=== PATIENT | female | born 1990 | race Caucasian/White ===

== ENCOUNTER 2017-12-11 06:14 | Emergency (ER) | payer OTHER, SELFPAY | END 2017-12-11 10:06 | disposition home or self-care (01) | PROVIDERS: Emergency Provider Emergency Medicine; Family Provider Registered Nurse Diabetes Educator; PCP Registered Nurse Diabetes Educator; Visit Provider Emergency Medicine | DX: R10.9 Unspecified abdominal pain (principal); N83.201 Unspecified ovarian cyst, right side | CPT/HCPCS: 74010; 74019; 76856; 76857; 80053; 83690; 84703; 85025; 85610; 85730; 96361; 96374; 96375; 96376; 99058; 99284; J0780; J1200; J1885; J2405 ==

== ENCOUNTER 2018-03-09 02:13 | Emergency (ER) | payer OTHER, SELFPAY ==
[2018-03-09 02:52] VITALS: BP 104/63; PULSE 70; RESP 20; TEMP 36.8; O2SAT 100; BMI 21.9
--- NOTE | 2018-03-09 04:03 | DI.US.S_ITS ---
PROCEDURE: US PELVIC COMPLETE INDICATIONS: Severe pelvic pain TECHNIQUE: Real-time scanning was performed of the pelvic organs, with image documentation. Additional endovaginal scanning was necessary due to incomplete visualization of the adnexal and endometrial structures by transabdominal scanning. COMPARISON: [facility], CT, ABDOMEN/PELVIS WITH CONTRAST, 05/07/2017, 16:52. [facility], US, PELVIC COMPLETE, 12/11/2017, 8:54. FINDINGS: Transabdominal scanning: Limited scanning through the kidneys shows no hydronephrosis. No pathologic free abdominal or pelvic fluid. There is diffuse hepatic fatty infiltration. Endovaginal scanning: Uterus: Uterus is normal in size at 7.6 x 3.5 x 4.7 cm. The endometrium measures 2.7 mm in combined thickness. Ovaries: Ovaries are normal in size and echotexture. Right ovary measures 2.9 x 1.8 x 2.5 cm. Left ovary measures 2.6 x 2.4 x 2.4 cm. Doppler ultrasound demonstrate normal vascularity tube both ovaries. IMPRESSION: 1. Normal uterus and ovaries. No ultrasound findings to explain severe pelvic pain. 2. Hepatic steatosis. No significant discrepancy with the assistant casino shift manager radiology preliminary report. Dictated by: John Carlson M.D. on 03/09/2018 at 9:25 Approved by: John Carlson M.D. on 03/09/2018 at 9:28
--- NOTE | 2018-03-09 04:03 | ED_ITS ---
HPI - General Chief complaint: Urogenital-Female Stated complaint: ABDOMINAL PAIN, VOMITING Time Seen by Provider: 03/09/18 04:02 Source: patient Mode of arrival: ambulatory Limitations: no limitations History of Present Illness HPI Narrative: The patient arrives with lower abdominal pain, and nausea and vomiting. She was well yesterday. She and her had intercourse just the morning. Yesterday about noon she developed lower abdominal cramping. The discomfort has increased with time. She now has severe, clutching lower abdominal pain with associated nausea and vomiting. She has no abnormal bowel movements. She has no fever or chills. She has had no vaginal bleeding. She denies dysuria. Her LMP ended 1 day ago. Related Data Home Medications Medication Instructions Recorded Confirmed trazodone 100 PO HS #1 03/27/17 Previous Rx's Medication Instructions Recorded ondansetron [Zofran ODT] 4 mg SUBLINGUAL Q6HP PRN #10 odt 05/07/17 ondansetron [Zofran ODT] 4 mg SUBLINGUAL Q6HP PRN #20 odt 06/09/17 promethazine [Phenergan] 25 mg R Q6HP PRN #20 06/09/17 ondansetron [Zofran ODT] 4 mg SUBLINGUAL Q6HP PRN #10 odt 07/18/17 ondansetron [Zofran ODT] 4 mg SUBLINGUAL Q4HP PRN #15 odt 12/02/17 prochlorperazine maleate 10 mg PO Q8HP PRN #10 tab 12/11/17 [Compazine] Allergies Allergy/AdvReac Type Severity Reaction Status Date / Time metoclopramide Allergy Mild RASH/HIVES Verified 03/09/18 04:23 [METOCLOPRAMIDE] hydrocodone [HYDROCODONE] AdvReac Unknown VOMITING Verified 03/09/18 04:23 Review of Systems Constitutional Denies chills, Denies fever(s), Denies lethargy and Denies weakness Cardiovascular Denies chest pain, Denies irregular heart rhythm, Denies lightheadedness, Denies palpitations, Denies dyspnea, Denies dyspnea on exertion and Denies orthopnea Respiratory Denies cough, Denies dyspnea, Denies dyspnea on exertion and Denies wheezing Gastrointestinal Gastrointestinal: Reports abdominal pain, Denies melena, Denies bloating and Reports vomiting Genitourinary Denies dysmenorrhea, Denies dysuria, Reports pelvic pain and Denies urinary urgency Musculoskeletal Denies back pain Neurologic Denies weakness Endocrine Denies palpitations Allergic/Immunologic Denies wheezing PMFSH - Past Medical History Medical history: Reports no medical history Surgical history: Reports no surgical history Psychiatric history: Reports no psych history Family history: Reports no significant family history Exam Initial Vital Signs Initial Vital Signs: Vital Signs Temperature 98.3 F 03/09/18 02:52 Pulse Rate 70 03/09/18 02:52 Respiratory Rate 20 03/09/18 02:52 Blood Pressure 104/63 03/09/18 02:52 Pulse Oximetry 100 03/09/18 02:52 Const General: cooperative, healthy appearing and well developed Nutritional Appearance: well nourished Orientation: alert, awake, oriented x3 and not confused Chest Chest: normal inspection of the chest Resp Effort & Inspection: normal respiratory effort, able to speak in complete sentences, no respiratory distress and no use of accessory muscles Auscultation: clear to auscultation bilaterally, no rales, no rhonchi and no wheezes Cardio Rate: regular rate Rhythm: regular rhythm Heart Sounds: no click, no gallops, no murmurs and no rubs Pulses: normal peripheral pulses GI Inspection: normal to inspection, no edema and non-distended Palpation: No hepatomegaly and tender (Tender in the suprapubic region with guarding, no rebound. No right lower quadrant tenderness.) Back/Spine/Pelvis Back: No CVA tenderness Skin General: no rashes or lesions noted Neuro General: alert, oriented x3, gait normal and no focal motor deficits Speech: speech normal Course Orders Ordered: ED Orders 03/09/18 04:03 pelvic complete Stat 03/09/18 04:45 Complete Blood Count AUTO DIFF Stat Comprehensive Metabolic Panel Stat Discontinued Medications Sodium Chloride (Normal Saline 0.9%) 1,000 mls @ 1,000 mls/hr IV BOLUS ONE Stop: 03/09/18 05:02 Last Infusion: 03/09/18 05:46 Dose: 0 mls/hr Admin: 03/09/18 04:39 Dose: 1,000 mls/hr Ketorolac Tromethamine (Toradol) 30 mg IV NOW ONE Stop: 03/09/18 04:04 Last Admin: 03/09/18 04:39 Dose: 30 mg Ondansetron HCl (Zofran) 4 mg IV NOW ONE Stop: 03/09/18 04:04 Last Admin: 03/09/18 04:39 Dose: 4 mg Vital Signs - 8 hr 03/09/18 02:52 03/09/18 04:20 Temperature 98.3 F Pulse Rate 70 81 Respiratory Rate 20 Blood Pressure 104/63 Blood Pressure [Left Arm] 106/50 L Pulse Oximetry 100 100 MDM - OB/Uterine Contractions Lab Data Result diagrams: 03/09/18 04:45 03/09/18 04:45 Lab Results 03/09/18 03/09/18 Range/Units 04:45 04:45 WBC 3.6 L (4.5-11.0) X10^3/uL RBC 4.38 (4.0-5.2) X10^6/uL Hgb 12.0 (12.0-16.0) g/dL Hct 36.0 (36-46) % MCV 82.3 (80-100) fL MCH 27.4 (26-34) PG MCHC 33.3 (30-36) % RDW 16.4 H (11.6-14.8) % Plt Count 216 (150-400) X10^3/uL Neut % (Auto) 68.6 (50-75) % Lymph % (Auto) 18.6 L (25-40) % [place] % (Auto) 10.7 (3-14) % Eos % (Auto) 0.9 L (2-4) % Baso % (Auto) 1.2 (0-2) % Neut # (Auto) 2500 L (2543-5377) /uL Sodium 139 (137-145) mmol/L Potassium 3.8 (3.4-5.1) mmol/L Chloride 98 (98-107) mmol/L Carbon Dioxide 30 (22-32) mmol/L BUN 9 (7-17) mg/dL Creatinine 0.80 (0.52-1.04) mg/dL Estimated GFR > 60.0 (>60) mL/min BUN/Creatinine Ratio 11.3 (6-22) Glucose 92 (70-100) mg/dL Calcium 9.6 (8.4-10.2) mg/dL Total Bilirubin 1.3 (0.2-1.3) mg/dL AST 123 H (14-36) IU/L ALT 52 (9-52) IU/L Alkaline Phosphatase 77 (38-126) U/L Total Protein 7.3 (6.3-8.2) g/dL Albumin 4.4 (3.5-5.0) g/dL Globulin 2.9 (1.7-4.1) g/dL Albumin/Globulin Ratio 1.5 (1.0-2.8) Imaging Data Pelvic US:: Radiologist's impression: Normal pelvic ultrasound. It is noted that the mold maintenance technician economic research assistant removing a unknown tampon from the vagina during the endovaginal exam. MDM Narrative Medical decision making narrative: The patient's discomfort has nearly resolved with the Toradol injection, and the removal of the forgotten tampon. Discharge Plan Departure Patient Disposition: Home, Self-Care Clinical Impression: Pelvic pain Instructions: DI for Pelvic Pain Activity Restrictions/Additional Instructions: Advil 3 tablets every 6 hr as needed for pain. Return here as needed. Prescriptions: No Action trazodone 50 MG tablet 100 PO HS Qty: 1 RF: 0 ondansetron [Zofran ODT] 4 MG tablet,disintegrating 4 mg Sublingual Q6HP PRNQty: 10 RF: 0 promethazine [Phenergan] 25 MG suppository 25 mg R Q6HP PRNQty: 20 RF: 0 ondansetron [Zofran ODT] 4 MG tablet,disintegrating 4 mg Sublingual Q6HP PRNQty: 20 RF: 0 ondansetron [Zofran ODT] 4 MG tablet,disintegrating 4 mg Sublingual Q6HP PRNQty: 10 RF: 0 ondansetron [Zofran ODT] 4 MG tablet,disintegrating 4 mg Sublingual Q4HP PRNQty: 15 RF: 0 prochlorperazine maleate [Compazine] 10 MG tablet 10 mg PO Q8HP PRNQty: 10 RF: 0
[2018-03-09 04:20] VITALS: BP 106/50; PULSE 81; O2SAT 100
[2018-03-09] MEDS: SODIUM CHLORIDE 0.9% 1,000 ML 1000 ML IV (04:39)
[2018-03-09] MEDS: ONDANSETRON 4 MG/2 ML INJ IV (04:39)
[2018-03-09] MEDS: KETOROLAC 60 MG/2 ML VIAL 30 MG IV (04:39)
[2018-03-09 04:53] LABS: Add Manual Diff / Slide Review NO; Basophils Percent Auto 1.2 % (0-2); Eosinophils Percent Auto 0.9 % (2-4); Lymphocytes Percent Auto 18.6 % (25-40); Mean Corpuscular HGB Conc 33.3 % (30-36); Mean Corpuscular Hemoglobin 27.4 PG (26-34); Mean Corpuscular Volume 82.3 fL (80-100); Monocytes Percent Auto 10.7 % (3-14); Neutrophils Absolute Auto 2500 /uL (3000-5900); Neutrophils Percent Auto 68.6 % (50-75); Platelet Count 216 X10^3/uL (150-400); Red Blood Cell Count 4.38 X10^6/uL (4.0-5.2); Red Cell Distribution Width 16.4 % (11.6-14.8); White Blood Cell Count 3.6 X10^3/uL (4.5-11.0)
[2018-03-09 05:02] LABS: Alanine Aminotransferase 52 IU/L (9-52); Albumin 4.4 g/dL (3.5-5.0); Albumin Globulin Ratio 1.5 (1.0-2.8); Alkaline Phosphatase 77 U/L (38-126); Aspartate Aminotransferase 123 IU/L (14-36); BUN Creatinine Ratio 11.3 (6-22); Bilirubin Total 1.3 mg/dL (0.2-1.3); Blood Urea Nitrogen 9 mg/dL (7-17); Calcium 9.6 mg/dL (8.4-10.2); Carbon Dioxide 30 mmol/L (22-32); Chloride 98 mmol/L (98-107); Estimated Glomerular Filt Rate > 60.0 mL/min (>60); Globulin 2.9 g/dL (1.7-4.1); Glucose 92 mg/dL (70-100); HEMOLYSIS 45 (0-50); Potassium 3.8 mmol/L (3.4-5.1); Sodium 139 mmol/L (137-145); Total Protein 7.3 g/dL (6.3-8.2)
[2018-03-09 05:58] VITALS: BP 109/69; PULSE 83; O2SAT 100
== END 2018-03-09 06:17 | disposition home or self-care (01) ==
PROVIDERS: Emergency Provider Emergency Medicine; Family Provider Registered Nurse Diabetes Educator; PCP Registered Nurse Diabetes Educator
DX: R10.2 Pelvic and perineal pain (principal)
CPT/HCPCS: 36591; 76830; 76856; 80053; 81003; 81025; 85025; 96361; 96374; 96375; 99283; 99284; J1885; J2405

== ENCOUNTER 2019-01-04 04:57 | Emergency (ER) | payer OTHER, SELFPAY ==
[2019-01-04 05:06] VITALS: BP 108/62; PULSE 75; RESP 18; TEMP 36.6; O2SAT 100; BMI 23.8
--- NOTE | 2019-01-04 05:32 | ED.ABDPAIN ---
HPI - Abdominal Pain <Robert Andino MD - Last Filed: 01/05/19 05:23> General Chief Complaint: Abdominal Pain Stated Complaint: ABDOMINAL PAIN Time Seen by Provider: 01/04/19 05:31 Source: patient Mode of arrival: ambulatory Limitations: no limitations History of Present Illness HPI narrative: The patient is 2 weeks following an uncomplicated full-term with an uncomplicated vaginal delivery. She developed suprapubic spasms/cramping. She says it feels like labor. With this pain she is having nausea, vomiting, diarrhea or constipation. She has no fever or chills. She denies dysuria. She has no significant lochia or vaginal discharge. The pain does not radiate. She does have increased discomfort when up and moving. She is on no chronic medications, she has no chronic medical problems. Related Data Home Medications Medication Instructions Recorded Confirmed trazodone 100 PO HS #1 03/27/17 Previous Rx's Medication Instructions Recorded ondansetron [Zofran ODT] 4 mg SUBLINGUAL Q6HP PRN #10 odt 05/07/17 ondansetron [Zofran ODT] 4 mg SUBLINGUAL Q6HP PRN #20 odt 06/09/17 promethazine [Phenergan] 25 mg R Q6HP PRN #20 06/09/17 ondansetron [Zofran ODT] 4 mg SUBLINGUAL Q6HP PRN #10 odt 07/18/17 ondansetron [Zofran ODT] 4 mg SUBLINGUAL Q4HP PRN #15 odt 12/02/17 prochlorperazine maleate 10 mg PO Q8HP PRN #10 tab 12/11/17 [Compazine] cephalexin [Keflex] 500 mg PO QID 7 Days #28 cap 01/04/19 ondansetron 4 mg PO TID-QID PRN #10 tab 01/04/19 Allergies Allergy/AdvReac Type Severity Reaction Status Date / Time metoclopramide Allergy Mild RASH/HIVES Verified 03/09/18 04:23 [METOCLOPRAMIDE] hydrocodone [HYDROCODONE] AdvReac Unknown VOMITING Verified 03/09/18 04:23 Review of Systems <Robert Andino MD - Last Filed: 01/05/19 05:23> Review of Systems ROS Unobtainable: All systems reviewed & are unremarkable except as noted in HPI and below Constitutional Denies chills, Denies fever(s), Denies lethargy and Denies weakness Cardiovascular Denies chest pain, Denies irregular heart rhythm, Denies lightheadedness, Denies palpitations, Denies dyspnea, Denies dyspnea on exertion and Denies orthopnea Respiratory Denies cough, Denies dyspnea, Denies dyspnea on exertion and Denies wheezing Gastrointestinal Gastrointestinal: Reports abdominal pain, Denies change in bowel habits, Denies diarrhea, Denies nausea and Denies vomiting Comments: Spasmodic suprapubic site pain as noted in HPI. Genitourinary Denies dysuria, Denies urinary urgency and Denies vaginal discharge Musculoskeletal Denies back pain, Denies muscle weakness, Denies numbness and Denies tingling Integumentary/Breasts Denies rash and Denies wounds Neurologic Denies numbness, Denies tingling and Denies weakness Endocrine Denies palpitations Hematologic/Lymphatic Denies easy bleeding Allergic/Immunologic Denies wheezing PFSH <Robert Andino MD - Last Filed: 01/05/19 05:23> Medical History (Updated 01/04/19 @ 08:09 by Robert Andino MD) No active medical problems (Acute) Surgical History (Updated 01/04/19 @ 07:22 by oRbert Andino MD) No pertinent past surgical history (Acute) Social History Smoking Status: Never smoker Social History Smoking Status: Never smoker Exam <Robert Andino MD - Last Filed: 01/05/19 05:23> Initial Vital Signs Initial Vital Signs: Vital Signs Temperature 97.9 F 01/04/19 05:06 Pulse Rate 75 01/04/19 05:06 Respiratory Rate 18 01/04/19 05:06 Blood Pressure 108/62 01/04/19 05:06 Pulse Oximetry 100 01/04/19 05:06 Const General: cooperative and well developed Nutritional Appearance: well nourished Orientation: alert, awake, oriented x3 and not confused Eyes Conjunctivae: conjunctivae normal Neck Neck: normal visual inspection Chest Chest: normal inspection of the chest Resp Effort & Inspection: normal respiratory effort and able to speak in complete sentences Auscultation: clear to auscultation bilaterally, no rales, no rhonchi and no wheezes Cardio Rate: regular rate Rhythm: regular rhythm Heart Sounds: no click, no gallops, no murmurs and no rubs Pulses: normal peripheral pulses GI Inspection: non-distended Palpation: soft and no hepatosplenomegaly Auscultation: normal bowel sounds Other: Suprapubic tenderness without guarding or rebound. No masses. Back/Spine/Pelvis Back: No CVA tenderness Skin General: no rashes or lesions noted Extrem General: full ROM, no pedal edema and no calf tenderness Psych Appearance: well kempt Mental Status: mental status grossly normal Attitude: cooperative Thought Content: normal and suicidality Judgment: judgment good <Roque García DO - Last Filed: 01/04/19 17:51> Initial Vital Signs Initial Vital Signs: Vital Signs Temperature 97.9 F 01/04/19 05:06 Pulse Rate 75 01/04/19 05:06 Respiratory Rate 18 01/04/19 05:06 Blood Pressure 108/62 01/04/19 05:06 Pulse Oximetry 100 01/04/19 05:06 Course <Robert Andino MD - Last Filed: 01/05/19 05:23> Course Narrative: The patient arrived with onset of suprapubic pain earlier today. She initially declined antiemetics, but developed significant nausea while here. Toradol alleviated her pain. On repeat exam she has continued suprapubic discomfort, without are LQ tenderness. It is also noted she is RUQ tenderness. She has no guarding or rebound. On evaluation she has a normal CBC, transaminases are elevated she has now been treated for UTI with evidence noted on the UA. She is receiving Rocephin. With right upper quadrant tenderness and elevated transaminases abdominal ultrasound has been ordered. The incoming doctor, Dr. García, has been briefed. He will follow up with the patient's clinical course, particularly monitoring the nausea. Abdominal ultrasound is pending. Orders Ordered: Discontinued Medications Ceftriaxone Sodium (Rocephin) 1,000 mg IM NOW ONE Stop: 01/04/19 06:35 Last Admin: 01/04/19 06:50 Dose: Not Given Sodium Chloride (Normal Saline 0.9%) 1,000 mls @ 250 mls/hr IV CONT DAVONTE Last Infusion: 01/04/19 10:24 Dose: 0 mls/hr Admin: 01/04/19 06:06 Dose: 250 mls/hr Ceftriaxone Sodium/Dextrose (Rocephin) 1 gm in 50 mls @ 100 mls/hr IV NOW ONE Stop: 01/04/19 07:18 Last Infusion: 01/04/19 07:33 Dose: 0 mls/hr Admin: 01/04/19 06:52 Dose: 100 mls/hr Ketorolac Tromethamine (Toradol) 30 mg IV NOW ONE Stop: 01/04/19 05:42 Last Admin: 01/04/19 06:04 Dose: 30 mg Lidocaine HCl (Xylocaine 1%) 4.2 ml INJ NOW ONE Stop: 01/04/19 06:35 Last Admin: 01/04/19 06:50 Dose: Not Given Metoclopramide HCl (Reglan) 10 mg IV NOW ONE Stop: 01/04/19 06:35 Last Admin: 01/04/19 07:14 Dose: Not Given Ondansetron HCl (Zofran) 4 mg IV NOW ONE Stop: 01/04/19 06:04 Last Admin: 01/04/19 06:04 Dose: 4 mg Ondansetron HCl (Zofran) 4 mg IV NOW ONE Stop: 01/04/19 07:14 Last Admin: 01/04/19 07:19 Dose: 4 mg Vital Signs - 8 hr 01/04/19 10:24 Pulse Rate 78 Respiratory Rate 16 Blood Pressure [Left Arm] 103/68 Pulse Oximetry 98 <Roque García DO - Last Filed: 01/04/19 17:51> Orders Ordered: Discontinued Medications Ceftriaxone Sodium (Rocephin) 1,000 mg IM NOW ONE Stop: 01/04/19 06:35 Last Admin: 01/04/19 06:50 Dose: Not Given Sodium Chloride (Normal Saline 0.9%) 1,000 mls @ 250 mls/hr IV CONT DAVONTE Last Infusion: 01/04/19 10:24 Dose: 0 mls/hr Admin: 01/04/19 06:06 Dose: 250 mls/hr Ceftriaxone Sodium/Dextrose (Rocephin) 1 gm in 50 mls @ 100 mls/hr IV NOW ONE Stop: 01/04/19 07:18 Last Infusion: 01/04/19 07:33 Dose: 0 mls/hr Admin: 01/04/19 06:52 Dose: 100 mls/hr Ketorolac Tromethamine (Toradol) 30 mg IV NOW ONE Stop: 01/04/19 05:42 Last Admin: 01/04/19 06:04 Dose: 30 mg Lidocaine HCl (Xylocaine 1%) 4.2 ml INJ NOW ONE Stop: 01/04/19 06:35 Last Admin: 01/04/19 06:50 Dose: Not Given Metoclopramide HCl (Reglan) 10 mg IV NOW ONE Stop: 01/04/19 06:35 Last Admin: 01/04/19 07:14 Dose: Not Given Ondansetron HCl (Zofran) 4 mg IV NOW ONE Stop: 01/04/19 06:04 Last Admin: 01/04/19 06:04 Dose: 4 mg Ondansetron HCl (Zofran) 4 mg IV NOW ONE Stop: 01/04/19 07:14 Last Admin: 01/04/19 07:19 Dose: 4 mg Vital Signs - 8 hr 01/04/19 10:24 Pulse Rate 78 Respiratory Rate 16 Blood Pressure [Left Arm] 103/68 Pulse Oximetry 98 MDM - Abdominal Pain <Robert Andino MD - Last Filed: 01/05/19 05:23> Lab Data Result diagrams: 01/04/19 05:58 01/04/19 06:20 Lab Results 01/04/19 01/04/19 01/04/19 Range/Units 05:04 05:58 06:20 WBC 8.4 (4.5-11.0) X10^3/uL RBC 4.22 (4.0-5.2) X10^6/uL Hgb 11.4 L (12.0-16.0) g/dL Hct 35.5 L (36-46) % MCV 84.1 (80-100) fL MCH 27.2 (26-34) PG MCHC 32.3 (30-36) % RDW 14.1 (11.6-14.8) % Plt Count 345 (150-400) X10^3/uL Neut % (Auto) 82.2 H (50-75) % Lymph % (Auto) 12.9 L (25-40) % [place] % (Auto) 4.2 (3-14) % Eos % (Auto) 0.2 L (2-4) % Baso % (Auto) 0.5 (0-2) % Neut # (Auto) 6900 (9087-2327) /uL Lymph # (Auto) 1100 (3656-1390) /uL [place] # (Auto) 400 (0-900) /uL Eos # (Auto) 0 (0-450) /uL Baso # (Auto) 0 (0-100) /uL Sodium 140 (137-145) mmol/L Potassium 3.2 L (3.4-5.1) mmol/L Chloride 104 (98-107) mmol/L Carbon Dioxide 24 (22-32) mmol/L BUN 5 L (7-17) mg/dL Creatinine 0.70 (0.52-1.04) mg/dL Estimated GFR > 60.0 (>60) mL/min BUN/Creatinine Ratio 7.1 (6-22) Glucose 100 (70-100) mg/dL Calcium 9.5 (8.4-10.2) mg/dL Total Bilirubin 0.7 (0.2-1.3) mg/dL AST 269 H (14-36) IU/L ALT 133 H (9-52) IU/L Alkaline Phosphatase 118 (38-126) U/L Total Protein 7.7 (6.3-8.2) g/dL Albumin 4.5 (3.5-5.0) g/dL Globulin 3.2 (1.7-4.1) g/dL Albumin/Globulin Ratio 1.4 (1.0-2.8) Lipase 185 (23-300) U/L Urine RBC 30-100/hpf H (0-5/HPF) Urine WBC 5-10/hpf H (0-5/HPF) Ur Squamous Epith Cells 1-5 /hpf (0-5/HPF) Urine Bacteria Few (2-10) H (None) Urine Mucus 2+ H (Negative) Ur Culture Indicated? Specimen cultured Point of care testing: Point of Care Testing Test Results Negative Urine Dip Bedside Urine Glucose Negative Bedside Urine Bilirubin - Negative Bedside Urine Ketone +/- 5 Urine Specific [place] 1.030 Bedside Urine Occult Blood +++ Bedside Urine pH 5.5 Bedside Urine Protein + 30 Bedside Urine Urobilinogen +/- 1mg Bedside Urine Nitrite - Negative Bedside Urine Leukocytes + 70 Esterase Imaging Data US - abdomen: Radiologist's impression: 5 Diagnostics DATE TYPE STATUS AUTHOR Hx 01/04/19 07:44 Lacie Gibbs 03/09/18 04:03 Gildardo Carlson Stephanie R 28, F0 1990 DEP ER, ED.LOC - Main ED 157.48cm 58.967kg BMI: 23.8kg/m? Abdominal Pain Search Chart RASH/HIVES VOMITING ONSET 01/04/19 10:24 Nighat Stearns R 28 F 1990 [place] [address] Ultrasound Report Signed Patient: Nighta Stearns RMR#: [id number] : 1990Acct:[id number] Age/Sex: 28 / FDate of Service: 01/04/19 Loc: ED Accession Number: [id number] Procedure: US abdomen limited Ordering Provider: Robert Andino MD PROCEDURE: US ABDOMEN LIMITED INDICATIONS: RIGHT UPPER QUADRANT PAIN; ELEVATED LFTS TECHNIQUE: Real-time focused scanning was performed of the abdomen, with image documentation. COMPARISON: None. FINDINGS: Liver is normal in size and echotexture. Gallbladder is sonographically normal. No gallstones. No gallbladder wall thickening. No pericholecystic fluid. No sonographic Gaston sign. Biliary tree is nondilated. Common bile duct measures 3.6 mm. The pancreas is sonographically normal. IMPRESSION: Normal examination without evidence of cholelithiasis, cholecystitis or biliary obstruction. Dictated by: Lacie Gibbs MD, PhD on 01/04/2019 at 8:50 Approved by: Lacie Gibbs MD, PhD on 01/04/2019 at 8:51 <Roque García DO - Last Filed: 01/04/19 17:51> Medical Records Attestation: I reviewed the patient's medical records. Lab Data Lab Results 01/04/19 01/04/19 01/04/19 Range/Units 05:04 05:58 06:20 WBC 8.4 (4.5-11.0) X10^3/uL RBC 4.22 (4.0-5.2) X10^6/uL Hgb 11.4 L (12.0-16.0) g/dL Hct 35.5 L (36-46) % MCV 84.1 (80-100) fL MCH 27.2 (26-34) PG MCHC 32.3 (30-36) % RDW 14.1 (11.6-14.8) % Plt Count 345 (150-400) X10^3/uL Neut % (Auto) 82.2 H (50-75) % Lymph % (Auto) 12.9 L (25-40) % [place] % (Auto) 4.2 (3-14) % Eos % (Auto) 0.2 L (2-4) % Baso % (Auto) 0.5 (0-2) % Neut # (Auto) 6900 (3991-5091) /uL Lymph # (Auto) 1100 (0025-6662) /uL [place] # (Auto) 400 (0-900) /uL Eos # (Auto) 0 (0-450) /uL Baso # (Auto) 0 (0-100) /uL Sodium 140 (137-145) mmol/L Potassium 3.2 L (3.4-5.1) mmol/L Chloride 104 (98-107) mmol/L Carbon Dioxide 24 (22-32) mmol/L BUN 5 L (7-17) mg/dL Creatinine 0.70 (0.52-1.04) mg/dL Estimated GFR > 60.0 (>60) mL/min BUN/Creatinine Ratio 7.1 (6-22) Glucose 100 (70-100) mg/dL Calcium 9.5 (8.4-10.2) mg/dL Total Bilirubin 0.7 (0.2-1.3) mg/dL AST 269 H (14-36) IU/L ALT 133 H (9-52) IU/L Alkaline Phosphatase 118 (38-126) U/L Total Protein 7.7 (6.3-8.2) g/dL Albumin 4.5 (3.5-5.0) g/dL Globulin 3.2 (1.7-4.1) g/dL Albumin/Globulin Ratio 1.4 (1.0-2.8) Lipase 185 (23-300) U/L Urine RBC 30-100/hpf H (0-5/HPF) Urine WBC 5-10/hpf H (0-5/HPF) Ur Squamous Epith Cells 1-5 /hpf (0-5/HPF) Urine Bacteria Few (2-10) H (None) Urine Mucus 2+ H (Negative) Ur Culture Indicated? Specimen cultured Point of care testing: Point of Care Testing Test Results Negative Urine Dip Bedside Urine Glucose Negative Bedside Urine Bilirubin - Negative Bedside Urine Ketone +/- 5 Urine Specific [place] 1.030 Bedside Urine Occult Blood +++ Bedside Urine pH 5.5 Bedside Urine Protein + 30 Bedside Urine Urobilinogen +/- 1mg Bedside Urine Nitrite - Negative Bedside Urine Leukocytes + 70 Esterase Imaging Data US - abdomen: Radiologist's impression: [address] [address] Ultrasound Report Signed Patient: Nighat Stearns RMR#: [id number] : 1990Acct:[id number] Age/Sex: 28 / FDate of Service: 01/04/19 Loc: ED Accession Number: [id number] Procedure: US abdomen limited Ordering Provider: Robert Andino MD PROCEDURE: US ABDOMEN LIMITED INDICATIONS: RIGHT UPPER QUADRANT PAIN; ELEVATED LFTS TECHNIQUE: Real-time focused scanning was performed of the abdomen, with image documentation. COMPARISON: None. FINDINGS: Liver is normal in size and echotexture. Gallbladder is sonographically normal. No gallstones. No gallbladder wall thickening. No pericholecystic fluid. No sonographic Gaston sign. Biliary tree is nondilated. Common bile duct measures 3.6 mm. The pancreas is sonographically normal. IMPRESSION: Normal examination without evidence of cholelithiasis, cholecystitis or biliary obstruction. Dictated by: Lacie Gibbs MD, PhD on 01/04/2019 at 8:50 Discharge Plan Departure Patient Disposition: Home Clinical Impression: Elevated LFTs Urinary tract infection Qualifiers: Urinary tract infection type: acute cystitis Hematuria presence: without hematuria Qualified Code(s): N30.00 - Acute cystitis without hematuria Discharge Date/Time: 01/04/19 10:54 Interventions: ED Discharge Assessment Last Done: 01/04/19 10:51 Instructions: DI for Urinary Tract Infection (UTI) Activity Restrictions/Additional Instructions: *You have been diagnosed with [acute urinary tract infection, elevated liver enzymes] *What to do: *Take medications as directed *Follow up with your primary care provider in 2-3 days, call for an appointment. Let them know you were seen in the Emergency Department and that we ask that you be seen in follow up *Return to ER if you should have any new, worsening or concerning symptoms *Limit alcohol consumption Prescriptions: New cephalexin [Keflex] 500 mg capsule 500 mg PO QID 7 Days Qty: 28 RF: 0 ondansetron 4 mg tablet,disintegrating 4 mg PO TID-QID PRN (Reason: nausea and vomiting) Qty: 10 RF: 0 No Action trazodone 50 MG tablet 100 PO HS Qty: 1 RF: 0 ondansetron [Zofran ODT] 4 MG tablet,disintegrating 4 mg Sublingual Q6HP PRNQty: 10 RF: 0 promethazine [Phenergan] 25 MG suppository 25 mg R Q6HP PRNQty: 20 RF: 0 ondansetron [Zofran ODT] 4 MG tablet,disintegrating 4 mg Sublingual Q6HP PRNQty: 20 RF: 0 ondansetron [Zofran ODT] 4 MG tablet,disintegrating 4 mg Sublingual Q6HP PRNQty: 10 RF: 0 ondansetron [Zofran ODT] 4 MG tablet,disintegrating 4 mg Sublingual Q4HP PRNQty: 15 RF: 0 prochlorperazine maleate [Compazine] 10 MG tablet 10 mg PO Q8HP PRNQty: 10 RF: 0 Referrals: Mumtaz Torres CNP [Primary Care Provider] -
--- NOTE | 2019-01-04 05:44 | ED_ITS ---
HPI - Abdominal Pain <Robert Andino MD - Last Filed: 01/05/19 05:23> General Chief Complaint: Abdominal Pain Stated Complaint: ABDOMINAL PAIN Time Seen by Provider: 01/04/19 05:31 Source: patient Mode of arrival: ambulatory Limitations: no limitations History of Present Illness HPI narrative: The patient is 2 weeks following an uncomplicated full-term with an uncomplicated vaginal delivery. She developed suprapubic spasms/cramping. She says it feels like labor. With this pain she is having nausea, vomiting, diarrhea or constipation. She has no fever or chil ls. She denies dysuria. She has no significant lochia or vaginal discharge. The pain does not radiate. She does have increased discomfort when up and moving. She is on no chronic medications, she has no chronic medical problems. Related Data Home Medications Medication Instructions Recorded Confirmed trazodone 100 PO HS #1 03/27/17 Previous Rx's Medication Instructions Recorded ondansetron [Zofran ODT] 4 mg SUBLINGUAL Q6HP PRN #10 odt 05/07/17 ondansetron [Zofran ODT] 4 mg SUBLINGUAL Q6HP PRN #20 odt 06/09/17 promethazine [Phenergan] 25 mg R Q6HP PRN #20 06/09/17 ondansetron [Zofran ODT] 4 mg SUBLINGUAL Q6HP PRN #10 odt 07/18/17 ondansetron [Zofran ODT] 4 mg SUBLINGUAL Q4HP PRN #15 odt 12/02/17 prochlorperazine maleate 10 mg PO Q8HP PRN #10 tab 12/11/17 [Compazine] cephalexin [Keflex] 500 mg PO QID 7 Days #28 cap 01/04/19 ondansetron 4 mg PO TID-QID PRN #10 tab 01/04/19 Allergies Allergy/AdvReac Type Severity Reaction Status Date / Time metoclopramide Allergy Mild RASH/HIVES Verified 03/09/18 04:23 [METOCLOPRAMIDE] hydrocodone [HYDROCODONE] AdvReac Unknown VOMITING Verified 03/09/18 04:23 Review of Systems <Robert Andino MD - Last Filed: 01/05/19 05:23> Review of Systems ROS Unobtainable: All systems reviewed & are unremarkable except as noted in HPI and below Constitutional Denies chills, Denies fever(s), Denies lethargy and Denies weakness Cardiovascular Denies chest pain, Denies irregular heart rhythm, Denies lightheadedness, Denies palpitations, Denies dyspnea, Denies dyspnea on exertion and Denies orthopnea Respiratory Denies cough, Denies dyspnea, Denies dyspnea on exertion and Denies wheezing Gastrointestinal Gastrointestinal: Reports abdominal pain, Denies change in bowel habits, Denies diarrhea, Denies nausea and Denies vomiting Comments: Spasmodic suprapubic site pain as noted in HPI. Genitourinary Denies dysuria, Denies urinary urgency and Denies vaginal discharge Musculoskeletal Denies back pain, Denies muscle weakness, Denies numbness and Denies tingling Integumentary/Breasts Denies rash and Denies wounds Neurologic Denies numbness, Denies tingling and Denies weakness Endocrine Denies palpitations Hematologic/Lymphatic Denies easy bleeding Allergic/Immunologic Denies wheezing PFSH <Robert Andino MD - Last Filed: 01/05/19 05:23> Medical History (Updated 01/04/19 @ 08:09 by Robert Andino MD) No active medical problems (Acute) Surgical History (Updated 01/04/19 @ 07:22 by Robert Andino MD) No pertinent past surgical history (Acute) Social History Smoking Status: Never smoker Social History Smoking Status: Never smoker Exam <Robert Andino MD - Last Filed: 01/05/19 05:23> Initial Vital Signs Initial Vital Signs: Vital Signs Temperature 97.9 F 01/04/19 05:06 Pulse Rate 75 01/04/19 05:06 Respiratory Rate 18 01/04/19 05:06 Blood Pressure 108/62 01/04/19 05:06 Pulse Oximetry 100 01/04/19 05:06 Const General: cooperative and well developed Nutritional Appearance: well nourished Orientation: alert, awake, oriented x3 and not confused Eyes Conjunctivae: conjunctivae normal Neck Neck: normal visual inspection Chest Chest: normal inspection of the chest Resp Effort & Inspection: normal respiratory effort and able to speak in complete sentences Auscultation: clear to auscultation bilaterally, no rales, no rhonchi and no wheezes Cardio Rate: regular rate Rhythm: regular rhythm Heart Sounds: no click, no gallops, no murmurs and no rubs Pulses: normal peripheral pulses GI Inspection: non-distended Palpation: soft and no hepatosplenomegaly Auscultation: normal bowel sounds Other: Suprapubic tenderness without guarding or rebound. No masses. Back/Spine/Pelvis Back: No CVA tenderness Skin General: no rashes or lesions noted Extrem General: full ROM, no pedal edema and no calf tenderness Psych Appearance: well kempt Mental Status: mental status grossly normal Attitude: cooperative Thought Content: normal and suicidality Judgment: judgment good <Roque García DO - Last Filed: 01/04/19 17:51> Initial Vital Signs Initial Vital Signs: Vital Signs Temperature 97.9 F 01/04/19 05:06 Pulse Rate 75 01/04/19 05:06 Respiratory Rate 18 01/04/19 05:06 Blood Pressure 108/62 01/04/19 05:06 Pulse Oximetry 100 01/04/19 05:06 Course <Robert Andino MD - Last Filed: 01/05/19 05:23> Course Narrative: The patient arrived with onset of suprapubic pain earlier today. She initially declined antiemetics, but developed significant nausea while here. Toradol alleviated her pain. On repeat exam she has continued suprapubic discomfort, without are LQ tenderness. It is also noted she is RUQ tenderness. She has no guarding or rebound. On evaluation she has a normal CBC, transaminases are elevated she has now been treated for UTI with evidence noted on the UA. She is receiving Rocephin. With right upper quadrant tenderness and elevated transaminases abdominal ultrasound has been ordered. The incoming doctor, Dr. García, has been briefed. He will follow up with the patient's clinical course, particularly monitoring the nausea. Abdominal ultrasound is pending. Orders Ordered: Discontinued Medications Ceftriaxone Sodium (Rocephin) 1,000 mg IM NOW ONE Stop: 01/04/19 06:35 Last Admin: 01/04/19 06:50 Dose: Not Given Sodium Chloride (Normal Saline 0.9%) 1,000 mls @ 250 mls/hr IV CONT DAVONTE Last Infusion: 01/04/19 10:24 Dose: 0 mls/hr Admin: 01/04/19 06:06 Dose: 250 mls/hr Ceftriaxone Sodium/Dextrose (Rocephin) 1 gm in 50 mls @ 100 mls/hr IV NOW ONE Stop: 01/04/19 07:18 Last Infusion: 01/04/19 07:33 Dose: 0 mls/hr Admin: 01/04/19 06:52 Dose: 100 mls/hr Ketorolac Tromethamine (Toradol) 30 mg IV NOW ONE Stop: 01/04/19 05:42 Last Admin: 01/04/19 06:04 Dose: 30 mg Lidocaine HCl (Xylocaine 1%) 4.2 ml INJ NOW ONE Stop: 01/04/19 06:35 Last Admin: 01/04/19 06:50 Dose: Not Given Metoclopramide HCl (Reglan) 10 mg IV NOW ONE Stop: 01/04/19 06:35 Last Admin: 01/04/19 07:14 Dose: Not Given Ondansetron HCl (Zofran) 4 mg IV NOW ONE Stop: 01/04/19 06:04 Last Admin: 01/04/19 06:04 Dose: 4 mg Ondansetron HCl (Zofran) 4 mg IV NOW ONE Stop: 01/04/19 07:14 Last Admin: 01/04/19 07:19 Dose: 4 mg Vital Signs - 8 hr 01/04/19 10:24 Pulse Rate 78 Respiratory Rate 16 Blood Pressure [Left Arm] 103/68 Pulse Oximetry 98 <Roque García DO - Last Filed: 01/04/19 17:51> Orders Ordered: Discontinued Medications Ceftriaxone Sodium (Rocephin) 1,000 mg IM NOW ONE Stop: 01/04/19 06:35 Last Admin: 01/04/19 06:50 Dose: Not Given Sodium Chloride (Normal Saline 0.9%) 1,000 mls @ 250 mls/hr IV CONT DAVONTE Last Infusion: 01/04/19 10:24 Dose: 0 mls/hr Admin: 01/04/19 06:06 Dose: 250 mls/hr Ceftriaxone Sodium/Dextrose (Rocephin) 1 gm in 50 mls @ 100 mls/hr IV NOW ONE Stop: 01/04/19 07:18 Last Infusion: 01/04/19 07:33 Dose: 0 mls/hr Admin: 01/04/19 06:52 Dose: 100 mls/hr Ketorolac Tromethamine (Toradol) 30 mg IV NOW ONE Stop: 01/04/19 05:42 Last Admin: 01/04/19 06:04 Dose: 30 mg Lidocaine HCl (Xylocaine 1%) 4.2 ml INJ NOW ONE Stop: 01/04/19 06:35 Last Admin: 01/04/19 06:50 Dose: Not Given Metoclopramide HCl (Reglan) 10 mg IV NOW ONE Stop: 01/04/19 06:35 Last Admin: 01/04/19 07:14 Dose: Not Given Ondansetron HCl (Zofran) 4 mg IV NOW ONE Stop: 01/04/19 06:04 Last Admin: 01/04/19 06:04 Dose: 4 mg Ondansetron HCl (Zofran) 4 mg IV NOW ONE Stop: 01/04/19 07:14 Last Admin: 01/04/19 07:19 Dose: 4 mg Vital Signs - 8 hr 01/04/19 10:24 Pulse Rate 78 Respiratory Rate 16 Blood Pressure [Left Arm] 103/68 Pulse Oximetry 98 MDM - Abdominal Pain <Robert Andino MD - Last Filed: 01/05/19 05:23> Lab Data Result diagrams: 01/04/19 05:58 01/04/19 06:20 Lab Results 01/04/19 01/04/19 01/04/19 Range/Units 05:04 05:58 06:20 WBC 8.4 (4.5-11.0) X10^3/uL RBC 4.22 (4.0-5.2) X10^6/uL Hgb 11.4 L (12.0-16.0) g/dL Hct 35.5 L (36-46) % MCV 84.1 (80-100) fL MCH 27.2 (26-34) PG MCHC 32.3 (30-36) % RDW 14.1 (11.6-14.8) % Plt Count 345 (150-400) X10^3/uL Neut % (Auto) 82.2 H (50-75) % Lymph % (Auto) 12.9 L (25-40) % Wilcox % (Auto) 4.2 (3-14) % Eos % (Auto) 0.2 L (2-4) % Baso % (Auto) 0.5 (0-2) % Neut # (Auto) 6900 (8039-8387) /uL Lymph # (Auto) 1100 (7653-7385) /uL Wilcox # (Auto) 400 (0-900) /uL Eos # (Auto) 0 (0-450) /uL Baso # (Auto) 0 (0-100) /uL Sodium 140 (137-145) mmol/L Potassium 3.2 L (3.4-5.1) mmol/L Chloride 104 (98-107) mmol/L Carbon Dioxide 24 (22-32) mmol/L BUN 5 L (7-17) mg/dL Creatinine 0.70 (0.52-1.04) mg/dL Estimated GFR > 60.0 (>60) mL/min BUN/Creatinine Ratio 7.1 (6-22) Glucose 100 (70-100) mg/dL Calcium 9.5 (8.4-10.2) mg/dL Total Bilirubin 0.7 (0.2-1.3) mg/dL AST 269 H (14-36) IU/L ALT 133 H (9-52) IU/L Alkaline Phosphatase 118 (38-126) U/L Total Protein 7.7 (6.3-8.2) g/dL Albumin 4.5 (3.5-5.0) g/dL Globulin 3.2 (1.7-4.1) g/dL Albumin/Globulin Ratio 1.4 (1.0-2.8) Lipase 185 (23-300) U/L Urine RBC 30-100/hpf H (0-5/HPF) Urine WBC 5-10/hpf H (0-5/HPF) Ur Squamous Epith Cells 1-5 /hpf (0-5/HPF) Urine Bacteria Few (2-10) H (None) Urine Mucus 2+ H (Negative) Ur Culture Indicated? Specimen cultured Point of care testing: Point of Care Testing Test Results Negative Urine Dip Bedside Urine Glucose Negative Bedside Urine Bilirubin - Negative Bedside Urine Ketone +/- 5 Urine Specific Battiest 1.030 Bedside Urine Occult Blood +++ Bedside Urine pH 5.5 Bedside Urine Protein + 30 Bedside Urine Urobilinogen +/- 1mg Bedside Urine Nitrite - Negative Bedside Urine Leukocytes + 70 Esterase Imaging Data US - abdomen: Radiologist's impression: 5 Diagnostics DATE TYPE STATUS AUTHOR Hx 01/04/19 07:44 Lacie Gibbs 03/09/18 04:03 Gildardo Carlson Stephanie R 28, F0 1990 DEP ER, ED.LOC - Main ED 157.48cm 58.967kg BMI: 23.8kg/m? Abdominal Pain Search Chart RASH/HIVES VOMITING ONSET 01/04/19 10:24 Nighat Stearns R 28 F 1990 [place] [address] Ultrasound Report Signed Patient: Nighat Stearns RMR#: [id number] : 1990Acct:[id number] Age/Sex: 28 / FDate of Service: 01/04/19 Loc: ED Accession Number: [id number] Procedure: US abdomen limited Ordering Provider: Robert Andino MD PROCEDURE: US ABDOMEN LIMITED INDICATIONS: RIGHT UPPER QUADRANT PAIN; ELEVATED LFTS TECHNIQUE: Real-time focused scanning was performed of the abdomen, with image documentation. COMPARISON: None. FINDINGS: Liver is normal in size and echotexture. Gallbladder is sonographically normal. No gallstones. No gallbladder wall thickening. No pericholecystic fluid. No sonographic Gaston sign. Biliary tree is nondilated. Common bile duct measures 3.6 mm. The pancreas is sonographically normal. IMPRESSION: Normal examination without evidence of cholelithiasis, cholecystitis or biliary obstruction. Dictated by: Lacie Gibbs MD, PhD on 01/04/2019 at 8:50 Approved by: Lacie Gibbs MD, PhD on 01/04/2019 at 8:51 <Roque García DO - Last Filed: 01/04/19 17:51> Medical Records Attestation: I reviewed the patient's medical records. Lab Data Lab Results 01/04/19 01/04/19 01/04/19 Range/Units 05:04 05:58 06:20 WBC 8.4 (4.5-11.0) X10^3/uL RBC 4.22 (4.0-5.2) X10^6/uL Hgb 11.4 L (12.0-16.0) g/dL Hct 35.5 L (36-46) % MCV 84.1 (80-100) fL MCH 27.2 (26-34) PG MCHC 32.3 (30-36) % RDW 14.1 (11.6-14.8) % Plt Count 345 (150-400) X10^3/uL Neut % (Auto) 82.2 H (50-75) % Lymph % (Auto) 12.9 L (25-40) % Wilcox % (Auto) 4.2 (3-14) % Eos % (Auto) 0.2 L (2-4) % Baso % (Auto) 0.5 (0-2) % Neut # (Auto) 6900 (0619-7430) /uL Lymph # (Auto) 1100 (4890-9953) /uL Wilcox # (Auto) 400 (0-900) /uL Eos # (Auto) 0 (0-450) /uL Baso # (Auto) 0 (0-100) /uL Sodium 140 (137-145) mmol/L Potassium 3.2 L (3.4-5.1) mmol/L Chloride 104 (98-107) mmol/L Carbon Dioxide 24 (22-32) mmol/L BUN 5 L (7-17) mg/dL Creatinine 0.70 (0.52-1.04) mg/dL Estimated GFR > 60.0 (>60) mL/min BUN/Creatinine Ratio 7.1 (6-22) Glucose 100 (70-100) mg/dL Calcium 9.5 (8.4-10.2) mg/dL Total Bilirubin 0.7 (0.2-1.3) mg/dL AST 269 H (14-36) IU/L ALT 133 H (9-52) IU/L Alkaline Phosphatase 118 (38-126) U/L Total Protein 7.7 (6.3-8.2) g/dL Albumin 4.5 (3.5-5.0) g/dL Globulin 3.2 (1.7-4.1) g/dL Albumin/Globulin Ratio 1.4 (1.0-2.8) Lipase 185 (23-300) U/L Urine RBC 30-100/hpf H (0-5/HPF) Urine WBC 5-10/hpf H (0-5/HPF) Ur Squamous Epith Cells 1-5 /hpf (0-5/HPF) Urine Bacteria Few (2-10) H (None) Urine Mucus 2+ H (Negative) Ur Culture Indicated? Specimen cultured Point of care testing: Point of Care Testing Test Results Negative Urine Dip Bedside Urine Glucose Negative Bedside Urine Bilirubin - Negative Bedside Urine Ketone +/- 5 Urine Specific Battiest 1.030 Bedside Urine Occult Blood +++ Bedside Urine pH 5.5 Bedside Urine Protein + 30 Bedside Urine Urobilinogen +/- 1mg Bedside Urine Nitrite - Negative Bedside Urine Leukocytes + 70 Esterase Imaging Data US - abdomen: Radiologist's impression: [address] [address] Ultrasound Report Signed Patient: Nighat Stearns RMR#: [id number] : 1990Acct:[id number] Age/Sex: 28 / FDate of Service: 01/04/19 Loc: ED Accession Number: [id number] Procedure: US abdomen limited Ordering Provider: Robert Andino MD PROCEDURE: US ABDOMEN LIMITED INDICATIONS: RIGHT UPPER QUADRANT PAIN; ELEVATED LFTS TECHNIQUE: Real-time focused scanning was performed of the abdomen, with image documentation. COMPARISON: None. FINDINGS: Liver is normal in size and echotexture. Gallbladder is sonographically normal. No gallstones. No gallbladder wall thickening. No pericholecystic fluid. No sonographic Gaston sign. Biliary tree is nondilated. Common bile duct measures 3.6 mm. The pancreas is sonographically normal. IMPRESSION: Normal examination without evidence of cholelithiasis, cholecystitis or biliary obstruction. Dictated by: Lacie Gibbs MD, PhD on 01/04/2019 at 8:50 Discharge Plan Departure Patient Disposition: Home Clinical Impression: Elevated LFTs Urinary tract infection Qualifiers: Urinary tract infection type: acute cystitis Hematuria presence: without hematuria Qualified Code(s): N30.00 - Acute cystitis without hematuria Discharge Date/Time: 01/04/19 10:54 Interventions: ED Discharge Assessment Last Done: 01/04/19 10:51 Instructions: DI for Urinary Tract Infection (UTI) Activity Restrictions/Additional Instructions: *You have been diagnosed with [acute urinary tract infection, elevated liver enzymes] *What to do: *Take medications as directed *Follow up with your primary care provider in 2-3 days, call for an appointment. Let them know you were seen in the Emergency Department and that we ask that you be seen in follow up *Return to ER if you should have any new, worsening or concerning symptoms *Limit alcohol consumption Prescriptions: New cephalexin [Keflex] 500 mg capsule 500 mg PO QID 7 Days Qty: 28 RF: 0 ondansetron 4 mg tablet,disintegrating 4 mg PO TID-QID PRN (Reason: nausea and vomiting) Qty: 10 RF: 0 No Action trazodone 50 MG tablet 100 PO HS Qty: 1 RF: 0 ondansetron [Zofran ODT] 4 MG tablet,disintegrating 4 mg Sublingual Q6HP PRNQty: 10 RF: 0 promethazine [Phenergan] 25 MG suppository 25 mg R Q6HP PRNQty: 20 RF: 0 ondansetron [Zofran ODT] 4 MG tablet,disintegrating 4 mg Sublingual Q6HP PRNQty: 20 RF: 0 ondansetron [Zofran ODT] 4 MG tablet,disintegrating 4 mg Sublingual Q6HP PRNQty: 10 RF: 0 ondansetron [Zofran ODT] 4 MG tablet,disintegrating 4 mg Sublingual Q4HP PRNQty: 15 RF: 0 prochlorperazine maleate [Compazine] 10 MG tablet 10 mg PO Q8HP PRNQty: 10 RF: 0 Referrals: Mumtaz Torres CNP [Primary Care Provider] -
[2019-01-04 05:56] LABS: Bacteria Urine Few (2-10); Culture Indicated Urine Specimen Cultured; Mucus Urine 2+ (Negative); RBC Urine 30-100/HPF (0-5/HPF); Squamous Epithelial Cell Urine 1-5 /HPF (0-5/HPF); WBC Urine 5-10/HPF (0-5/HPF)
[2019-01-04] MEDS: ONDANSETRON 4 MG/2 ML INJ IV ×2 (06:04→07:19)
[2019-01-04] MEDS: KETOROLAC 60 MG/2 ML VIAL 30 MG IV (06:04)
[2019-01-04] MEDS: SODIUM CHLORIDE 0.9% 1,000 ML 250 ML IV (06:06)
[2019-01-04 06:09] LABS: Add Manual Diff / Slide Review NO; Basophils Absolute Auto 0 /uL (0-100); Basophils Percent Auto 0.5 % (0-2); Eosinophils Absolute Auto 0 /uL (0-450); Eosinophils Percent Auto 0.2 % (2-4); Hematocrit 35.5 % (36-46); Hemoglobin 11.4 g/dL (12.0-16.0); Lymphocytes Absolute Auto 1100 /uL (1100-4500); Lymphocytes Percent Auto 12.9 % (25-40); Mean Corpuscular HGB Conc 32.3 % (30-36); Mean Corpuscular Hemoglobin 27.2 PG (26-34); Mean Corpuscular Volume 84.1 fL (80-100); Monocytes Absolute Auto 400 /uL (0-900); Monocytes Percent Auto 4.2 % (3-14); Neutrophils Absolute Auto 6900 /uL (1500-7000); Neutrophils Percent Auto 82.2 % (50-75); Platelet Count 345 X10^3/uL (150-400); Red Blood Cell Count 4.22 X10^6/uL (4.0-5.2); Red Cell Distribution Width 14.1 % (11.6-14.8); White Blood Cell Count 8.4 X10^3/uL (4.5-11.0)
[2019-01-04 06:37] LABS: Alanine Aminotransferase 133 IU/L (9-52); Albumin 4.5 g/dL (3.5-5.0); Albumin Globulin Ratio 1.4 (1.0-2.8); Alkaline Phosphatase 118 U/L (38-126); Aspartate Aminotransferase 269 IU/L (14-36); BUN Creatinine Ratio 7.1 (6-22); Bilirubin Total 0.7 mg/dL (0.2-1.3); Blood Urea Nitrogen 5 mg/dL (7-17); Calcium 9.5 mg/dL (8.4-10.2); Carbon Dioxide 24 mmol/L (22-32); Chloride 104 mmol/L (98-107); Estimated Glomerular Filt Rate > 60.0 mL/min (>60); Globulin 3.2 g/dL (1.7-4.1); Glucose 100 mg/dL (70-100); HEMOLYSIS < 15 (0-50); Lipase 185 U/L (23-300); Potassium 3.2 mmol/L (3.4-5.1); Sodium 140 mmol/L (137-145); Total Protein 7.7 g/dL (6.3-8.2)
[2019-01-04] MEDS: CEFTRIAXONE 1 GM/50 ML FROZ.PIGGY IV (06:52)
[2019-01-04 07:28] VITALS: BP 98/57; PULSE 82; RESP 16; O2SAT 100
--- NOTE | 2019-01-04 07:44 | DI.US.S_ITS ---
PROCEDURE: US ABDOMEN LIMITED INDICATIONS: RIGHT UPPER QUADRANT PAIN; ELEVATED LFTS TECHNIQUE: Real-time focused scanning was performed of the abdomen, with image documentation. COMPARISON: None. FINDINGS: Liver is normal in size and echotexture. Gallbladder is sonographically normal. No gallstones. No gallbladder wall thickening. No pericholecystic fluid. No sonographic Gaston sign. Biliary tree is nondilated. Common bile duct measures 3.6 mm. The pancreas is sonographically normal. IMPRESSION: Normal examination without evidence of cholelithiasis, cholecystitis or biliary obstruction. Dictated by: Lacie Gibbs MD, PhD on 01/04/2019 at 8:50 Approved by: Lacie Gibbs MD, PhD on 01/04/2019 at 8:51
[2019-01-04 09:01] VITALS: BP 92/40; PULSE 81; RESP 15; O2SAT 100
[2019-01-04 10:24] VITALS: BP 103/68; PULSE 78; RESP 16; O2SAT 98
== END 2019-01-04 10:54 | disposition home or self-care (01) ==
PROVIDERS: Emergency Medicine; Emergency Provider Emergency Medicine; Family Provider Registered Nurse Diabetes Educator; PCP Registered Nurse Diabetes Educator
DX: R94.5 Abnormal results of liver function studies (principal); N39.0 Urinary tract infection, site not specified; R11.0 Nausea
CPT/HCPCS: 36591; 76705; 80053; 81003; 81015; 81025; 83690; 85025; 87086; 96361; 96365; 96375; 96376; 99284; J1885; J2405

== ENCOUNTER 2019-03-04 19:00 | Emergency (ER) | payer OTHER, SELFPAY ==
[2019-03-04 19:04] VITALS: BP 117/70; PULSE 77; RESP 16; TEMP 36.2; O2SAT 100; BMI 23.6
[2019-03-04] MEDS: SODIUM CHLORIDE 0.9% 1,000 ML 1000 ML IV (19:36)
[2019-03-04] MEDS: ONDANSETRON 4 MG/2 ML INJ IV (19:36)
[2019-03-04] MEDS: PANTOPRAZOLE 40 MG VIAL IV (19:36)
[2019-03-04 19:37] LABS: Add Manual Diff / Slide Review NO; Basophils Absolute Auto 100 /uL (0-100); Basophils Percent Auto 1.4 % (0-2); Eosinophils Absolute Auto 100 /uL (0-450); Eosinophils Percent Auto 1.8 % (2-4); Hematocrit 37.9 % (36-46); Hemoglobin 12.5 g/dL (12.0-16.0); Lymphocytes Absolute Auto 1300 /uL (1100-4500); Lymphocytes Percent Auto 18.8 % (25-40); Mean Corpuscular Hemoglobin 27.9 PG (26-34); Mean Corpuscular Volume 84.7 fL (80-100); Monocytes Absolute Auto 500 /uL (0-900); Monocytes Percent Auto 7.4 % (3-14); Neutrophils Absolute Auto 4900 /uL (1500-7000); Neutrophils Percent Auto 70.6 % (50-75); Platelet Count 243 X10^3/uL (150-400); Red Blood Cell Count 4.47 X10^6/uL (4.0-5.2); Red Cell Distribution Width 17.8 % (11.6-14.8)
[2019-03-04 19:42] LABS: RBC Urine None Seen (0-5/HPF)
[2019-03-04 19:43] LABS: Appearance Urine UA CLEAR; Bilirubin Urine UA NEGATIVE (NEGATIVE); Color Urine UA YELLOW; Glucose Urine UA NEGATIVE (Negative); Ketones Urine UA NEGATIVE (NEGATIVE); Leukocyte Esterase Urine UA NEGATIVE (NEGATIVE); Nitrite Urine UA NEGATIVE (Negative); Occult Blood Urine UA NEGATIVE (Negative); Protein Urine UA NEGATIVE (Negative); Specific Gravity Urine UA 1.025 (1.000-1.035); Urobilinogen Urine UA 0.2 E.U./dL (0.2); pH Urine UA 7.5 (4.5-8.0)
[2019-03-04 19:48] LABS: BUN Creatinine Ratio 11.3 (6-22); Blood Urea Nitrogen 9 mg/dL (7-17); Calcium 10.1 mg/dL (8.4-10.2); Carbon Dioxide 22 mmol/L (22-32); Chloride 105 mmol/L (98-107); Estimated Glomerular Filt Rate > 60.0 mL/min (>60); Glucose 106 mg/dL (70-100); HEMOLYSIS < 15 (0-50); Potassium 3.9 mmol/L (3.4-5.1); Sodium 141 mmol/L (137-145)
[2019-03-04 19:50] LABS: Pregnancy Test Urine Negative (Negative)
--- NOTE | 2019-03-04 19:51 | ED.NAVMDI ---
HPI - Nausea/Vomiting/Diarrhea General Chief complaint: Nausea/Vomiting/Diarrhea Stated complaint: Nausea, Dizzy, vomitting Time Seen by Provider: 03/04/19 19:10 Source: patient and family Mode of arrival: ambulatory Limitations: no limitations History of Present Illness HPI Narrative: 29-year-old female nonsmoker with extensive alcohol history and depression presents with her in the chief complaint of dizziness, weakness, nausea and vomiting. She had just been discharged earlier today from [facility] for detox from alcohol. On discharge and soon after arriving home she began feeling anxious, nauseated and had a few episodes of vomiting. She felt quite weak and requested transport to the emergency department. She denies fever or chills. She last took all of her medications earlier this morning MD complaint: nausea, vomiting and diarrhea Onset (ago): hour(s) Description of Vomiting: food contents Description of Diarrhea: watery Associated Abdominal Pain: No Relieving factors: none Exacerbating factors: none Associated symptoms: loss of appetite, malaise, weakness and anxiety Related Data Home Medications Medication Instructions Recorded Confirmed trazodone 100 PO HS #1 03/27/17 Previous Rx's Medication Instructions Recorded ondansetron [Zofran ODT] 4 mg SUBLINGUAL Q6HP PRN #10 odt 05/07/17 ondansetron [Zofran ODT] 4 mg SUBLINGUAL Q6HP PRN #20 odt 06/09/17 promethazine [Phenergan] 25 mg R Q6HP PRN #20 06/09/17 ondansetron [Zofran ODT] 4 mg SUBLINGUAL Q6HP PRN #10 odt 07/18/17 ondansetron [Zofran ODT] 4 mg SUBLINGUAL Q4HP PRN #15 odt 12/02/17 prochlorperazine maleate 10 mg PO Q8HP PRN #10 tab 12/11/17 [Compazine] ondansetron 4 mg PO TID-QID PRN #10 tab 01/04/19 ondansetron 4 mg PO TID-QID PRN #10 tab 03/04/19 Allergies Allergy/AdvReac Type Severity Reaction Status Date / Time metoclopramide Allergy Mild RASH/HIVES Verified 03/09/18 04:23 [METOCLOPRAMIDE] hydrocodone [HYDROCODONE] AdvReac Unknown VOMITING Verified 03/09/18 04:23 Review of Systems Constitutional Denies chills, Reports fatigue, Denies fever(s), Denies lethargy, Reports poor appetite and Reports weakness Eyes Denies change in vision, Denies eye discharge, Denies irritation and Denies loss of vision ENT Ears, Nose, Mouth, and Throat: Denies change in voice, Denies neck pain and Denies sore throat Cardiovascular Denies chest pain, Denies irregular heart rhythm, Denies lightheadedness, Denies palpitations, Denies dyspnea, Denies dyspnea on exertion and Denies orthopnea Respiratory Denies cough, Denies dyspnea, Denies dyspnea on exertion and Denies wheezing Gastrointestinal Gastrointestinal: Denies abdominal pain, Denies change in bowel habits, Reports diarrhea, Reports nausea and Reports vomiting Genitourinary Denies hematuria, Denies flank pain, Denies urinary incontinence and Denies urinary urgency Musculoskeletal Denies neck pain Integumentary/Breasts Denies pruritus, Denies erythema, Denies rash and Denies wounds Neurologic Denies confusion, Denies loss of vision and Reports weakness Psychiatric Reports anxiety, Denies confusion, Reports depression, Denies homicidal ideation and Denies suicidal ideation Endocrine Reports fatigue and Denies palpitations Hematologic/Lymphatic Denies easy bruising Allergic/Immunologic Denies wheezing PFSH Medical History No active medical problems (Acute) Surgical History No pertinent past surgical history (Acute) Social History Smoking Status: Never smoker Social History Smoking Status: Never smoker Exam Narrative Exam Narrative: GENERAL: 29-year-old female, lying on her side tearful, anxious, poor eye contact HEAD: Atraumatic. Normocephalic. No temporal or scalp tenderness. EYES: Pupils equal round and reactive. Extraocular motions intact. No scleral icterus. No injection or drainage. ENT: Nose without bleeding, purulent drainage or septal hematoma. Throat without erythema, tonsillar hypertrophy or exudate. Uvula midline. Airway patent. NECK: Trachea midline. No JVD or lymphadenopathy. Supple, nontender, no meningeal signs. CARDIOVASCULAR: Regular rate and rhythm without murmurs, gallops, or rubs. RESPIRATORY: Clear to auscultation. Breath sounds equal bilaterally. No wheezes, rales, or rhonchi. GASTROINTESTINAL: Abdomen soft, non-tender, nondistended. No hepato-splenomegaly, or palpable masses. No guarding. EXTREMITIES: No clubbing, cyanosis, or edema. No joint tenderness, effusion, or edema noted. BACK: Nontender without deformity or crepitance. No flank tenderness. NEURO: AOx3. SKIN: No rash or erythema. Initial Vital Signs Initial Vital Signs: Vital Signs Temperature 97.1 F L 03/04/19 19:04 Pulse Rate 77 03/04/19 19:04 Respiratory Rate 16 03/04/19 19:04 Blood Pressure 117/70 03/04/19 19:04 Pulse Oximetry 100 03/04/19 19:04 Course Orders Ordered: ED Orders 03/04/19 19:30 Basic Metabolic Panel Stat Complete Blood Count AUTO DIFF Stat Test Urine Stat Urinalysis and Microscopic Stat Discontinued Medications Baclofen (Lioresal) 10 mg PO NOW ONE Stop: 03/04/19 23:57 Last Admin: 03/05/19 00:24 Dose: 10 mg Al Hydrox/Mg Hydrox/Simethicone 20 ml/ Lidocaine HCl 15 ml 0 ml PO NOW ONE Stop: 03/04/19 22:19 Last Admin: 03/04/19 22:47 Dose: 35 ml Sodium Chloride (Normal Saline 0.9%) 1,000 mls @ 1,000 mls/hr IV BOLUS ONE Stop: 03/04/19 20:09 Last Infusion: 03/04/19 20:45 Dose: 0 mls/hr Admin: 03/04/19 19:36 Dose: 1,000 mls/hr Ondansetron HCl (Zofran) 4 mg IV Q4HR PRN PRN Reason: Nausea And Vomiting Last Admin: 03/04/19 19:36 Dose: 4 mg Ondansetron HCl (Zofran Odt Prepack) 1 bottle MISC SEEINSTR ONE Stop: 03/04/19 23:58 Last Admin: 03/05/19 00:24 Dose: 1 bottle Pantoprazole Sodium (Protonix) 40 mg IV NOW ONE Stop: 03/04/19 19:11 Last Admin: 03/04/19 19:36 Dose: 40 mg Vital Signs - 8 hr 03/04/19 21:31 03/04/19 22:15 03/04/19 23:49 Pulse Rate 67 85 Pulse Rate [Orthostatic Lying] 65 Pulse Rate [Orthostatic Sitting] 84 Respiratory Rate 14 24 Blood Pressure [Orthostatic Lying] 131/88 Blood Pressure [Orthostatic Sitting] 109/74 Blood Pressure [Right Arm] 104/72 Pulse Oximetry 100 96 MDM - Nausea/Vomiting/Diarrhea Lab Data Result diagrams: 03/04/19 19:30 03/04/19 19:30 Lab Results 03/04/19 03/04/19 03/04/19 Range/Units 19:30 19:30 19:30 WBC 7.0 (4.5-11.0) X10^3/uL RBC 4.47 (4.0-5.2) X10^6/uL Hgb 12.5 (12.0-16.0) g/dL Hct 37.9 (36-46) % MCV 84.7 (80-100) fL MCH 27.9 (26-34) PG MCHC 33.0 (30-36) % RDW 17.8 H (11.6-14.8) % Plt Count 243 (150-400) X10^3/uL Neut % (Auto) 70.6 (50-75) % Lymph % (Auto) 18.8 L (25-40) % [place] % (Auto) 7.4 (3-14) % Eos % (Auto) 1.8 L (2-4) % Baso % (Auto) 1.4 (0-2) % Neut # (Auto) 4900 (6779-7110) /uL Lymph # (Auto) 1300 (3278-4151) /uL [place] # (Auto) 500 (0-900) /uL Eos # (Auto) 100 (0-450) /uL Baso # (Auto) 100 (0-100) /uL Sodium 141 (137-145) mmol/L Potassium 3.9 (3.4-5.1) mmol/L Chloride 105 (98-107) mmol/L Carbon Dioxide 22 (22-32) mmol/L BUN 9 (7-17) mg/dL Creatinine 0.80 (0.52-1.04) mg/dL Estimated GFR > 60.0 (>60) mL/min BUN/Creatinine Ratio 11.3 (6-22) Glucose 106 H (70-100) mg/dL Calcium 10.1 (8.4-10.2) mg/dL Urine Color Yellow Urine Appearance Clear Urine pH 7.5 (4.5-8.0) Ur Specific [place] 1.025 (1.000-1.035) Urine Protein Negative (Negative) Urine Glucose (UA) Negative (Negative) g/dL Urine Ketones Negative (NEGATIVE) Urine Occult Blood Negative (Negative) Urine Nitrate Negative (Negative) Urine Bilirubin Negative (NEGATIVE) Urine Urobilinogen 0.2 (0.2) E.U./dL Ur Leukocyte Esterase Negative (NEGATIVE) Urine RBC None seen (0-5/HPF) Urine WBC 0-1/hpf (0-5/HPF) Ur Squamous Epith Cells 0-1 /hpf (0-5/HPF) Urine Bacteria Occasional (0-1) (None) Urine Mucus 1+ H (Negative) Ur Culture Indicated? Cult not indicated Urine Test (Negative) 03/04/19 Range/Units 19:30 WBC (4.5-11.0) X10^3/uL RBC (4.0-5.2) X10^6/uL Hgb (12.0-16.0) g/dL Hct (36-46) % MCV (80-100) fL MCH (26-34) PG MCHC (30-36) % RDW (11.6-14.8) % Plt Count (150-400) X10^3/uL Neut % (Auto) (50-75) % Lymph % (Auto) (25-40) % [place] % (Auto) (3-14) % Eos % (Auto) (2-4) % Baso % (Auto) (0-2) % Neut # (Auto) (3113-5591) /uL Lymph # (Auto) (3361-2668) /uL [place] # (Auto) (0-900) /uL Eos # (Auto) (0-450) /uL Baso # (Auto) (0-100) /uL Sodium (137-145) mmol/L Potassium (3.4-5.1) mmol/L Chloride (98-107) mmol/L Carbon Dioxide (22-32) mmol/L BUN (7-17) mg/dL Creatinine (0.52-1.04) mg/dL Estimated GFR (>60) mL/min BUN/Creatinine Ratio (6-22) Glucose (70-100) mg/dL Calcium (8.4-10.2) mg/dL Urine Color Urine Appearance Urine pH (4.5-8.0) Ur Specific [place] (1.000-1.035) Urine Protein (Negative) Urine Glucose (UA) (Negative) g/dL Urine Ketones (NEGATIVE) Urine Occult Blood (Negative) Urine Nitrate (Negative) Urine Bilirubin (NEGATIVE) Urine Urobilinogen (0.2) E.U./dL Ur Leukocyte Esterase (NEGATIVE) Urine RBC (0-5/HPF) Urine WBC (0-5/HPF) Ur Squamous Epith Cells (0-5/HPF) Urine Bacteria (None) Urine Mucus (Negative) Ur Culture Indicated? Urine Test Negative (Negative) MDM Narrative Medical decision making narrative: Patient with multiple complaints as extensive lab evaluation without significant abnormalities. Vital signs remained stable for duration of visit and in fact improve with IV fluids. She has no difficulty with ambulation or orthostatics. She is tearful and not significantly motivated to go home. We had extensive discussion with the patient and her regarding the multifactorial considerations regarding nausea and the difference between nausea and vomiting. She did not vomit once during her visit but continued to complain of ongoing nausea. We had a lengthy discussion about implementing clear liquids to improve her nutrition status and hydration status as well as being sure to focus on being active. She was given extensive return precautions and had her questions answered to her apparent satisfaction. Discharge Plan Departure Patient Disposition: Home Clinical Impression: Nausea, Anxiety Depression Qualifiers: Depression Type: unspecified Qualified Code(s): F32.9 - Major depressive disorder, single episode, unspecified Discharge Date/Time: 03/05/19 00:29 Interventions: ED Discharge Assessment Last Done: 03/05/19 00:28 Instructions: DI for Anxiety -- Adult Activity Restrictions/Additional Instructions: 1. Drink plenty of fluids with frequent small sips. 2. For the next 24 hours a clear liquid diet is advised. After that please employ a brat diet which would include bananas, rice, apples, toast. 3. Please take medications as directed. 4. Please follow-up with your doctor in the next 1-2 days. Call the office for an appointment. 5. Please return to the emergency Department for any worsening or persistent symptoms, such as increasing pain or fever. Prescriptions: New ondansetron 4 mg tablet,disintegrating 4 mg PO TID-QID PRN (Reason: nausea and vomiting) Qty: 10 RF: 0 No Action trazodone 50 MG tablet 100 PO HS Qty: 1 RF: 0 ondansetron [Zofran ODT] 4 MG tablet,disintegrating 4 mg Sublingual Q6HP PRNQty: 10 RF: 0 promethazine [Phenergan] 25 MG suppository 25 mg R Q6HP PRNQty: 20 RF: 0 ondansetron [Zofran ODT] 4 MG tablet,disintegrating 4 mg Sublingual Q6HP PRNQty: 20 RF: 0 ondansetron [Zofran ODT] 4 MG tablet,disintegrating 4 mg Sublingual Q6HP PRNQty: 10 RF: 0 ondansetron [Zofran ODT] 4 MG tablet,disintegrating 4 mg Sublingual Q4HP PRNQty: 15 RF: 0 prochlorperazine maleate [Compazine] 10 MG tablet 10 mg PO Q8HP PRNQty: 10 RF: 0 ondansetron 4 mg tablet,disintegrating 4 mg PO TID-QID PRN (Reason: nausea and vomiting) Qty: 10 RF: 0 Referrals: Mumtaz Torres CNP [Primary Care Provider] -
[2019-03-04 19:55] LABS: Bacteria Urine Occasional (0-1); Culture Indicated Urine Cult Not Indicated; Mucus Urine 1+ (Negative); Squamous Epithelial Cell Urine 0-1 /HPF (0-5/HPF); WBC Urine 0-1/HPF (0-5/HPF)
--- NOTE | 2019-03-04 20:46 | PC.NURSE ---
PT reports zofran had improved nausea initially but reports nausea has come back
[2019-03-04 21:31] VITALS: BP 104/72; PULSE 67; RESP 14; O2SAT 100
[2019-03-04 22:15] VITALS: PULSE 85; RESP 24; O2SAT 96
[2019-03-04] MEDS: MAG HYDROX/ALUMINUM/SIMETH SUS 20 ML, LIDOCAINE VISCOUS 2% 15 ML PO (22:47)
[2019-03-04 23:49] VITALS: BP 109/74; BP 131/88; PULSE 65; PULSE 84
[2019-03-05] MEDS: ONDANSETRON 4 MG ODT PREPACK 1 BOTTLE MISC (00:24)
[2019-03-05] MEDS: BACLOFEN 10 MG TABLET PO (00:24)
== END 2019-03-05 00:29 | disposition home or self-care (01) ==
PROVIDERS: Emergency Provider Emergency Medicine; PCP Registered Nurse Diabetes Educator
DX: R11.0 Nausea (principal); F41.9 Anxiety disorder, unspecified; F32.9 Major depressive disorder, single episode, unspecified
CPT/HCPCS: 36591; 80048; 81001; 81025; 85025; 96361; 96374; 96375; 99283; 99284; C9113; J2405

== ENCOUNTER 2019-05-05 08:38 | Emergency (ER) | payer OTHER, SELFPAY ==
[2019-05-05 08:46] VITALS: BP 104/62; PULSE 85; RESP 18; TEMP 36.7; O2SAT 100; BMI 22.3
[2019-05-05 08:54] LABS: Appearance Urine UA CLOUDY; Bilirubin Urine UA NEGATIVE (NEGATIVE); Color Urine UA RED; Glucose Urine UA NEGATIVE (Negative); Ketones Urine UA TRACE (NEGATIVE); Leukocyte Esterase Urine UA 1+ (NEGATIVE); Nitrite Urine UA NEGATIVE (Negative); Occult Blood Urine UA 3+ (Negative); Protein Urine UA 2+ (Negative); Urobilinogen Urine UA 0.2 E.U./dL (0.2)
[2019-05-05 08:58] LABS: Pregnancy Test Urine Negative (Negative)
[2019-05-05 09:07] LABS: Bacteria Urine None Seen
[2019-05-05 09:10] LABS: Culture Indicated Urine Specimen Cultured; RBC Urine 10-30/HPF (0-5/HPF); WBC Urine 5-10/HPF (0-5/HPF)
--- NOTE | 2019-05-05 09:38 | PC.NURSE ---
called [facility]s for help obtaining iv access after 2 missed attempts.
[2019-05-05] MEDS: ONDANSETRON 4 MG/2 ML INJ IV ×2 (09:39→11:14)
[2019-05-05] MEDS: SODIUM CHLORIDE 0.9% 1,000 ML 1000 ML IV (09:39)
[2019-05-05] MEDS: KETOROLAC 60 MG/2 ML VIAL 30 MG IV (09:40)
--- NOTE | 2019-05-05 09:43 | ED.ABDPAIN ---
HPI - Abdominal Pain General Chief Complaint: Abdominal Pain Stated Complaint: Abdominal Pain, vomiting Time Seen by Provider: 05/05/19 09:02 Source: patient Mode of arrival: ambulatory Limitations: no limitations History of Present Illness HPI narrative: Patient comes emergency department complaining of severe low abdominal cramping after starting her period yesterday. Patient states she has also been nauseated and vomiting. Patient states that this is her 2nd. Since giving vaginally to her baby a couple of months ago. She states that the last time she had her period, she had the same problem with severe cramping. Patient also states that she has lost about 12 lb since giving to her daughter, because she has not been able to eat much. She has been nauseated and vomiting every day. She denies fevers or chills. No dysuria. No unusual vaginal discharge. She states that prior to her period starting the other day, she had been feeling normal other than the nausea. Patient is not known to be again. She states she has a history of ovarian cysts, and this did pose a problem with trying to get in the 1st place. Patient states she is otherwise healthy. She did not have any gestational diabetes, or any other health issues during . No other complaints at this time. Related Data Home Medications Medication Instructions Recorded Confirmed trazodone 100 mg PO BEDTIME #1 03/27/17 05/05/19 escitalopram oxalate 10 mg PO DAILY 05/05/19 05/05/19 naltrexone 50 mg PO DAILY 05/05/19 05/05/19 sertraline 100 mg PO DAILY 05/05/19 05/05/19 Previous Rx's Medication Instructions Recorded hydrocodone-acetaminophen 1 tab PO Q4-6H PRN #14 tab 05/05/19 ondansetron 4 mg PO Q6H PRN #20 tab 05/05/19 Allergies Allergy/AdvReac Type Severity Reaction Status Date / Time metoclopramide Allergy Mild RASH/HIVES Verified 05/05/19 08:46 [METOCLOPRAMIDE] hydrocodone [HYDROCODONE] AdvReac Unknown VOMITING Verified 05/05/19 08:46 Review of Systems Constitutional Constitutional: Denies chills, Denies fatigue, Denies fever(s), Denies frequent falls, Denies lethargy and Denies weakness Eyes Eyes: Denies change in vision, Denies eye discharge, Denies irritation and Denies loss of vision ENT Ears, Nose, Mouth, and Throat: Denies change in voice, Denies dizziness, Denies neck pain, Denies sore throat and Denies throat swelling Cardiovascular Cardiovascular: Denies chest pain, Denies irregular heart rhythm, Denies lightheadedness, Denies palpitations, Denies dyspnea, Denies dyspnea on exertion and Denies orthopnea Respiratory Respiratory: Denies cough, Denies dyspnea, Denies dyspnea on exertion and Denies wheezing Gastrointestinal Gastrointestinal: Reports abdominal pain (Cramping), Denies change in bowel habits, Denies diarrhea, Denies nausea and Denies vomiting Genitourinary Genitourinary: Denies hematuria, Denies flank pain, Denies urinary incontinence and Denies urinary urgency Musculoskeletal Musculoskeletal: Denies back pain, Denies muscle weakness, Denies neck pain, Denies numbness and Denies tingling Integumentary/Breasts Skin/Breast: Denies pruritus, Denies erythema, Denies rash and Denies wounds Neurologic Neurologic: Denies behavioral changes, Denies confusion, Denies dizziness, Denies frequent falls, Denies loss of vision, Denies numbness, Denies tingling and Denies weakness Psychiatric Psychiatric: Denies anxiety, Denies behavioral changes, Denies confusion, Denies depression, Denies homicidal ideation and Denies suicidal ideation Endocrine Endocrine: Denies fatigue, Denies flushing and Denies palpitations Hematologic/Lymphatic Hematologic/Lymphatic: Denies easy bruising Allergic/Immunologic Allergic/Immunologic: Denies urticaria, Denies throat swelling and Denies wheezing [facility] Medical History No active medical problems (Acute) Surgical History No pertinent past surgical history (Acute) Social History Smoking Status: Never smoker Social History Smoking Status: Never smoker Exam Initial Vital Signs Initial Vital Signs: Vital Signs Temperature 98.0 F 05/05/19 08:46 Pulse Rate 85 05/05/19 08:46 Respiratory Rate 18 05/05/19 08:46 Blood Pressure 104/62 05/05/19 08:46 Pulse Oximetry 100 05/05/19 08:46 Const General: cooperative and well developed Nutritional Appearance: well nourished Orientation: alert, awake, oriented x3 and not confused [facility] Head: normocephalic and atraumatic Ears: external ears normal and TM's normal bilaterally Nose: external nose normal and No nasal discharge Face and sinus: sinuses nontender, face symmetric, no sinus tenderness and No dry mucous membranes Mouth: oral mucosae normal and moist mucous membranes Teeth and gingiva: dentition normal Throat: tonsils normal and uvula midline Eyes General: appearance normal, both eyes and all related structures Eyelids: eyelids normal Conjunctivae: conjunctivae normal Sclera: sclerae normal Pupils: PERRL EOM: EOM intact bilaterally Neck Neck: normal visual inspection, trachea midline, No lymphadenopathy, No midline deformity and No JVD Lymphatic: No lymphedema Chest Chest: normal inspection of the chest Resp Effort & Inspection: normal respiratory effort, able to speak in complete sentences, no respiratory distress and no use of accessory muscles Auscultation: clear to auscultation bilaterally, no rales, no rhonchi and no wheezes Cardio Rate: regular rate Rhythm: regular rhythm Heart Sounds: no click, no gallops, no murmurs and no rubs Pulses: normal peripheral pulses GI Inspection: non-distended Palpation: soft, no hepatosplenomegaly, No guarding, No pulsatile mass and tender (Moderate, diffuse, but worse in suprapubic area.) Back/Spine/Pelvis Back: No CVA tenderness Cervical Spine: cervical ROM normal and No pain with cervical ROM Thoracic/Lumbar Spine: thoracic and lumbar spine normal to inspection Skin General: no rashes or lesions noted, No jaundice and No petechiae Neuro General: alert, oriented x3, gait normal and no focal motor deficits Speech: speech normal Extrem General: full ROM, no clubbing, cyanosis or edema, no pedal edema and no calf tenderness Psych Appearance: well kempt Mental Status: mental status grossly normal Attitude: cooperative Thought Content: normal and suicidality Judgment: judgment good Course Course Course Narrative: Patient was treated symptomatically with IV fluid, Toradol, Zofran, and Dilaudid. Her POC urine was negative. She was worked up with laboratory studies. Labs were unremarkable. Ultrasound of the pelvis was also done and this was unremarkable, as well. I have advised the patient that is very important that she follows up with her obstetrics/gynecology nurse to discuss why she is having such painful periods, and also, to discuss why she is vomiting every day since the baby's . Her is currently deployed, and it is possible that the symptoms are related to anxiety and depression. Patient is agreeable to the plan. We have discussed the usual indications for return, as well as home management of symptoms. Orders Ordered: Discontinued Medications Hydromorphone HCl (Dilaudid) 0.5 mg IV NOW ONE Stop: 05/05/19 09:43 Last Admin: 05/05/19 10:05 Dose: 0.5 mg Documented by: JENN Sodium Chloride (Normal Saline 0.9%) 1,000 mls @ 1,000 mls/hr IV BOLUS ONE Stop: 05/05/19 10:36 Last Infusion: 05/05/19 14:41 Dose: 0 mls/hr Documented by: Admin: 05/05/19 09:39 Dose: 1,000 mls/hr Documented by: MAGGIE Ketorolac Tromethamine (Toradol) 30 mg IV NOW ONE Stop: 05/05/19 09:38 Last Admin: 05/05/19 09:40 Dose: 30 mg Documented by: MAGGIE Ondansetron HCl (Zofran) 4 mg IV NOW ONE Stop: 05/05/19 09:04 Last Admin: 05/05/19 09:39 Dose: 4 mg Documented by: MAGGIE Ondansetron HCl (Zofran) 4 mg IV NOW ONE Stop: 05/05/19 11:10 Last Admin: 05/05/19 11:14 Dose: 4 mg Documented by: JENN Vital Signs Vital signs: Vital Signs - 8 hr 05/05/19 08:46 Temperature 98.0 F Pulse Rate 85 Respiratory Rate 18 Blood Pressure 104/62 Pulse Oximetry 100 MDM - Abdominal Pain Medical Records Attestation: I reviewed the patient's medical records. Lab Data Attestation: I reviewed the patient's lab results. Result diagrams: 05/05/19 09:40 05/05/19 09:40 Labs: Lab Results 05/05/19 05/05/19 05/05/19 Range/Units 08:45 08:45 09:40 WBC 4.2 L (4.5-11.0) X10^3/uL RBC 4.37 (4.0-5.2) X10^6/uL Hgb 12.3 (12.0-16.0) g/dL Hct 36.4 (36-46) % MCV 83.3 (80-100) fL MCH 28.3 (26-34) PG MCHC 33.9 (30-36) % RDW 15.8 H (11.6-14.8) % Plt Count 314 (150-400) X10^3/uL Neut % (Auto) 66.2 (50-75) % Lymph % (Auto) 25.4 (25-40) % [place] % (Auto) 5.6 (3-14) % Eos % (Auto) 0.2 L (2-4) % Baso % (Auto) 2.6 H (0-2) % Neut # (Auto) 2800 (4635-1711) /uL Lymph # (Auto) 1100 (5828-2566) /uL [place] # (Auto) 200 (0-900) /uL Eos # (Auto) 0 (0-450) /uL Baso # (Auto) 100 (0-100) /uL Sodium (137-145) mmol/L Potassium (3.4-5.1) mmol/L Chloride (98-107) mmol/L Carbon Dioxide (22-32) mmol/L BUN (7-17) mg/dL Creatinine (0.52-1.04) mg/dL Estimated GFR (>60) mL/min BUN/Creatinine Ratio (6-22) Glucose (70-100) mg/dL Calcium (8.4-10.2) mg/dL Total Bilirubin (0.2-1.3) mg/dL AST (14-36) IU/L ALT (9-52) IU/L Alkaline Phosphatase (38-126) U/L Total Protein (6.3-8.2) g/dL Albumin (3.5-5.0) g/dL Globulin (1.7-4.1) g/dL Albumin/Globulin Ratio (1.0-2.8) Urine Color Red Urine Appearance Cloudy Urine pH 5.0 (4.5-8.0) Ur Specific [place] 1.020 (1.000-1.035) Urine Protein 2+ H (Negative) Urine Glucose (UA) Negative (Negative) g/dL Urine Ketones Trace H (NEGATIVE) Urine Occult Blood 3+ H (Negative) Urine Nitrate Negative (Negative) Urine Bilirubin Negative (NEGATIVE) Urine Urobilinogen 0.2 (0.2) E.U./dL Ur Leukocyte Esterase 1+ H (NEGATIVE) Urine RBC 10-30/hpf H (0-5/HPF) Urine WBC 5-10/hpf H (0-5/HPF) Urine Bacteria None seen (None) Ur Culture Indicated? Specimen cultured Urine Test Negative (Negative) 05/05/19 Range/Units 09:40 WBC (4.5-11.0) X10^3/uL RBC (4.0-5.2) X10^6/uL Hgb (12.0-16.0) g/dL Hct (36-46) % MCV (80-100) fL MCH (26-34) PG MCHC (30-36) % RDW (11.6-14.8) % Plt Count (150-400) X10^3/uL Neut % (Auto) (50-75) % Lymph % (Auto) (25-40) % [place] % (Auto) (3-14) % Eos % (Auto) (2-4) % Baso % (Auto) (0-2) % Neut # (Auto) (6331-4156) /uL Lymph # (Auto) (2420-0111) /uL [place] # (Auto) (0-900) /uL Eos # (Auto) (0-450) /uL Baso # (Auto) (0-100) /uL Sodium 142 (137-145) mmol/L Potassium 3.3 L (3.4-5.1) mmol/L Chloride 104 (98-107) mmol/L Carbon Dioxide 21 L (22-32) mmol/L BUN 4 L (7-17) mg/dL Creatinine 0.70 (0.52-1.04) mg/dL Estimated GFR > 60.0 (>60) mL/min BUN/Creatinine Ratio 5.7 L (6-22) Glucose 92 (70-100) mg/dL Calcium 9.5 (8.4-10.2) mg/dL Total Bilirubin 0.6 (0.2-1.3) mg/dL AST 53 H (14-36) IU/L ALT 20 (9-52) IU/L Alkaline Phosphatase 73 (38-126) U/L Total Protein 7.3 (6.3-8.2) g/dL Albumin 4.5 (3.5-5.0) g/dL Globulin 2.8 (1.7-4.1) g/dL Albumin/Globulin Ratio 1.6 (1.0-2.8) Urine Color Urine Appearance Urine pH (4.5-8.0) Ur Specific [place] (1.000-1.035) Urine Protein (Negative) Urine Glucose (UA) (Negative) g/dL Urine Ketones (NEGATIVE) Urine Occult Blood (Negative) Urine Nitrate (Negative) Urine Bilirubin (NEGATIVE) Urine Urobilinogen (0.2) E.U./dL Ur Leukocyte Esterase (NEGATIVE) Urine RBC (0-5/HPF) Urine WBC (0-5/HPF) Urine Bacteria (None) Ur Culture Indicated? Urine Test (Negative) Imaging Data Ultrasound pelvis: Radiologist's impression: PROCEDURE: US PELVIC COMPLETE INDICATIONS: PAIN TECHNIQUE: Real-time scanning was performed of the pelvic organs, with image documentation. Additional endovaginal scanning was necessary due to incomplete visualization of the adnexal and endometrial structures by transabdominal scanning. COMPARISON: [facility], , US PELVIC COMPLETE, 03/09/2018, 4:50. FINDINGS: Transabdominal scanning: Limited scanning through the kidneys shows no hydronephrosis. No pathologic free abdominal or pelvic fluid. Endovaginal scanning: Uterus: Uterus is normal in size at some point #4.5 x 5.5 cm. The endometrium measures 8.6 mm in combined thickness. Ovaries: Right ovary measures 30 x 21 x 19 mm. There is a complex focus of heteroechogenicity measuring 14 x 12 x 13 mm within the right ovary. Left ovary measures 21 x 22 x 20 mm. IMPRESSION: 1. Heteroechoic focus within the right ovary possibly representing involuting hemorrhagic cyst. If clinical concern and/or pain persists, short interval imaging followup as well as beta-hCG levels are recommended to definitively exclude . Dictated by: Claudia Cordoba M.D. on 05/05/2019 at 12:28 Approved by: Claudia Cordoba M.D. on 05/05/2019 at 12:31 Discharge Plan Departure Patient Disposition: Home Clinical Impression: Dysmenorrhea Discharge Date/Time: 05/05/19 14:41 Instructions: DI for Dysmenorrhea Activity Restrictions/Additional Instructions: Your labs and urinalysis look great. Your ultrasound shows a small left ovarian cyst but is otherwise unremarkable. It is not clear why you having so much pain with your periods. Please take the medications for nausea and pain, as needed. It is very important that you follow up with your ob gyn physician assistant specialist to discuss why you are having so much pain with your periods since giving . Please call today to make an appointment for a soon as possible follow-up. Prescriptions: New ondansetron 4 mg tablet,disintegrating 4 mg PO Q6H PRN (Reason: nausea and vomiting) Qty: 20 RF: 0 hydrocodone-acetaminophen 5-325 mg tablet 1 tab PO Q4-6H PRN (Reason: pain) Qty: 14 RF: 0 No Action trazodone 50 MG tablet 100 mg PO BEDTIME Qty: 1 RF: 0 naltrexone 50 mg tablet 50 mg PO DAILY RF: 0 sertraline 100 mg tablet 100 mg PO DAILY RF: 0 escitalopram oxalate 10 mg tablet 10 mg PO DAILY RF: 0 Referrals: Mumtaz Torres, MARIZOL [Primary Care Provider] -
[2019-05-05 09:55] LABS: Add Manual Diff / Slide Review NO; Basophils Absolute Auto 100 /uL (0-100); Basophils Percent Auto 2.6 % (0-2); Eosinophils Absolute Auto 0 /uL (0-450); Eosinophils Percent Auto 0.2 % (2-4); Hematocrit 36.4 % (36-46); Hemoglobin 12.3 g/dL (12.0-16.0); Lymphocytes Absolute Auto 1100 /uL (1100-4500); Lymphocytes Percent Auto 25.4 % (25-40); Mean Corpuscular HGB Conc 33.9 % (30-36); Mean Corpuscular Hemoglobin 28.3 PG (26-34); Mean Corpuscular Volume 83.3 fL (80-100); Monocytes Absolute Auto 200 /uL (0-900); Monocytes Percent Auto 5.6 % (3-14); Neutrophils Absolute Auto 2800 /uL (1500-7000); Neutrophils Percent Auto 66.2 % (50-75); Platelet Count 314 X10^3/uL (150-400); Red Blood Cell Count 4.37 X10^6/uL (4.0-5.2); Red Cell Distribution Width 15.8 % (11.6-14.8); White Blood Cell Count 4.2 X10^3/uL (4.5-11.0)
[2019-05-05 10:00] VITALS: BP 90/51; PULSE 60; RESP 15; O2SAT 98
[2019-05-05] MEDS: HYDROMORPHONE 0.5 MG INJ IV (10:05)
[2019-05-05 10:06] LABS: Alanine Aminotransferase 20 IU/L (9-52); Albumin 4.5 g/dL (3.5-5.0); Albumin Globulin Ratio 1.6 (1.0-2.8); Alkaline Phosphatase 73 U/L (38-126); Aspartate Aminotransferase 53 IU/L (14-36); BUN Creatinine Ratio 5.7 (6-22); Bilirubin Total 0.6 mg/dL (0.2-1.3); Blood Urea Nitrogen 4 mg/dL (7-17); Calcium 9.5 mg/dL (8.4-10.2); Carbon Dioxide 21 mmol/L (22-32); Chloride 104 mmol/L (98-107); Estimated Glomerular Filt Rate > 60.0 mL/min (>60); Globulin 2.8 g/dL (1.7-4.1); Glucose 92 mg/dL (70-100); HEMOLYSIS < 15 (0-50); Potassium 3.3 mmol/L (3.4-5.1); Sodium 142 mmol/L (137-145); Total Protein 7.3 g/dL (6.3-8.2)
--- NOTE | 2019-05-05 10:46 | DI.US.S_ITS ---
PROCEDURE: US PELVIC COMPLETE INDICATIONS: PAIN TECHNIQUE: Real-time scanning was performed of the pelvic organs, with image documentation. Additional endovaginal scanning was necessary due to incomplete visualization of the adnexal and endometrial structures by transabdominal scanning. COMPARISON: [facility], US, US PELVIC COMPLETE, 03/09/2018, 4:50. FINDINGS: Transabdominal scanning: Limited scanning through the kidneys shows no hydronephrosis. No pathologic free abdominal or pelvic fluid. Endovaginal scanning: Uterus: Uterus is normal in size at some point #4.5 x 5.5 cm. The endometrium measures 8.6 mm in combined thickness. Ovaries: Right ovary measures 30 x 21 x 19 mm. There is a complex focus of heteroechogenicity measuring 14 x 12 x 13 mm within the right ovary. Left ovary measures 21 x 22 x 20 mm. IMPRESSION: 1. Heteroechoic focus within the right ovary possibly representing involuting hemorrhagic cyst. If clinical concern and/or pain persists, short interval imaging followup as well as beta-hCG levels are recommended to definitively exclude . Dictated by: Claudia Cordoba M.D. on 05/05/2019 at 12:28 Approved by: Claudia Cordoba M.D. on 05/05/2019 at 12:31
[2019-05-05 11:39] VITALS: BP 106/57; PULSE 74; RESP 16; O2SAT 98
[2019-05-05 12:00] VITALS: BP 103/62; PULSE 62; RESP 16; O2SAT 98
== END 2019-05-05 14:41 | disposition home or self-care (01) ==
PROVIDERS: Emergency Provider Emergency Medicine; PCP Registered Nurse Diabetes Educator
DX: N94.6 Dysmenorrhea, unspecified (principal)
CPT/HCPCS: 36591; 76830; 76856; 80053; 81003; 81015; 81025; 85025; 87086; 96361; 96374; 96375; 96376; 99283; 99284; J1170; J1885; J2405

== ENCOUNTER 2019-05-12 12:51 | Emergency (ER) | payer OTHER, SELFPAY ==
[2019-05-12 12:56] VITALS: BP 120/87; PULSE 74; RESP 14; TEMP 37.2; O2SAT 100; BMI 22.3
[2019-05-12] MEDS: ONDANSETRON 4 MG ODT SL (13:01)
[2019-05-12 13:20] LABS: Amorphous Sediment Urine 1+; Bacteria Urine Few (2-10); Culture Indicated Urine Specimen Cultured; Mucus Urine 2+ (Negative); RBC Urine 1-5/HPF (0-5/HPF); Squamous Epithelial Cell Urine 1-5 /HPF (0-5/HPF); WBC Urine 1-5/HPF (0-5/HPF)
[2019-05-12] MEDS: ONDANSETRON 4 MG/2 ML INJ IV (14:24)
[2019-05-12] MEDS: SODIUM CHLORIDE 0.9% 1,000 ML 1000 ML IV ×2 (14:25→15:46)
[2019-05-12 14:28] LABS: Add Manual Diff / Slide Review NO; Basophils Absolute Auto 0 /uL (0-100); Basophils Percent Auto 0.5 % (0-2); Eosinophils Absolute Auto 0 /uL (0-450); Hematocrit 36.2 % (36-46); Hemoglobin 12.3 g/dL (12.0-16.0); Lymphocytes Absolute Auto 600 /uL (1100-4500); Lymphocytes Percent Auto 13.7 % (25-40); Mean Corpuscular Hemoglobin 28.3 PG (26-34); Mean Corpuscular Volume 83.3 fL (80-100); Monocytes Absolute Auto 400 /uL (0-900); Monocytes Percent Auto 9.2 % (3-14); Neutrophils Absolute Auto 3500 /uL (1500-7000); Neutrophils Percent Auto 76.6 % (50-75); Platelet Count 160 X10^3/uL (150-400); Red Blood Cell Count 4.34 X10^6/uL (4.0-5.2); Red Cell Distribution Width 15.5 % (11.6-14.8); White Blood Cell Count 4.5 X10^3/uL (4.5-11.0)
[2019-05-12 14:40] LABS: Alanine Aminotransferase 36 IU/L (9-52); Albumin 4.3 g/dL (3.5-5.0); Albumin Globulin Ratio 1.5 (1.0-2.8); Alkaline Phosphatase 69 U/L (38-126); Amylase 138 U/L (30-110); Aspartate Aminotransferase 112 IU/L (14-36); BUN Creatinine Ratio 11.3 (6-22); Blood Urea Nitrogen 9 mg/dL (7-17); Calcium 9.6 mg/dL (8.4-10.2); Carbon Dioxide 31 mmol/L (22-32); Chloride 98 mmol/L (98-107); Estimated Glomerular Filt Rate > 60.0 mL/min (>60); Globulin 2.8 g/dL (1.7-4.1); Glucose 105 mg/dL (70-100); HEMOLYSIS < 15 (0-50); Lipase 305 U/L (23-300); Potassium 3.6 mmol/L (3.4-5.1); Sodium 138 mmol/L (137-145); Total Protein 7.1 g/dL (6.3-8.2)
--- NOTE | 2019-05-12 15:23 | DI.CT.S_ITS ---
PROCEDURE: CT ABDOMEN PELVIS W CON INDICATIONS: n/v elevated lipse, amylase. TECHNIQUE: After the administration of intravenous contrast, 5 mm thick sections acquired from the diaphragm to the symphysis. 5 mm coronal and sagittal reformats were acquired. For radiation dose reduction, the following was used: automated exposure control, adjustment of mA and/or kV according to patient size. COMPARISON: [facility], CT, ABDOMEN/PELVIS WITH CONTRAST, 05/07/2017, 16:52. FINDINGS: Image quality: Excellent. ABDOMEN: Lung bases: Lung bases are clear. Heart size is normal. Solid organs: Liver is normal in size and enhancement, but the liver is prominently fatty infiltrated diffusely. Gallbladder appears free of calculus, and demonstrates mucosal enhancement. Acute cholecystitis is not found.. Biliary system is non dilated. Pancreas enhances normally. Spleen is normal in size and enhancement. No adrenal nodules. Kidneys demonstrate normal size and enhancement, without hydronephrosis. Peritoneum and bowel: Bowel loops demonstrate normal wall thickness and caliber. No free fluid or air. Nodes and vessels: No retroperitoneal or mesenteric adenopathy by size criteria. Aorta and inferior vena cava are normal in size. Miscellaneous: No ventral hernias. PELVIS: Genitourinary: Bladder wall thickness is normal. The uterus is anteverted and deviated mildly to the right of midline in the lower pelvis. Miscellaneous: No inguinal hernias or adenopathy. Bones: No suspicious bony lesions. No vertebral body compression fractures. IMPRESSION: There is prominent fatty infiltration throughout the liver, consistent with moderately severe to severe hepatic steatosis. Please correlate clinically for etiology of this abnormality. No biliary distention is seen. No gallstones are found. Currently the pancreas appears free of pancreatic necrosis in the presumed setting of acute pancreatitis from the clinical history above. Dictated by: Cristian Limon M.D. on 05/12/2019 at 15:46 Approved by: Cristian Limon M.D. on 05/12/2019 at 15:48
[2019-05-12 15:46] VITALS: PULSE 64
[2019-05-12] MEDS: PROCHLORPERAZINE 10 MG/2 ML VIAL IV (15:46)
--- NOTE | 2019-05-12 15:51 | PC.NURSE ---
Pt arrived AAOx3 ambulatory c/o NVD and dysuria. urine obtained and sent. IV placed and meds given per EMR. CT C/A/P obtained. tolerated well. pt reports nausea despite zofran x 2. 2nd L NS infusing and compazine given. pt given kailyn tonia. tolerating well. NAD at this time.
[2019-05-12 16:49] VITALS: BP 138/96; PULSE 68; RESP 16; O2SAT 100
--- NOTE | 2019-05-12 17:00 | ED_ITS ---
HPI - Nausea/Vomiting/Diarrhea <KIANA Zazueta - Last Filed: 05/12/19 17:05> General Chief complaint: Nausea/Vomiting/Diarrhea Stated complaint: nausea,vomiting Time Seen by Provider: 05/12/19 13:49 Source: patient Mode of arrival: Ambulatory Limitations: no limitations History of Present Illness HPI Narrative: The patient is a 29-year-old female nonsmoker with history of depression and alcohol use who presents with a chief complaint of nausea vomiting and diarrhea for 3 days. She denies any chest pain, shortness of breath, fever but complains of shaking aches and chills. She complains of muscle aches. She denies any dysuria urgency or frequency. She denies any possibility of . She states that she has not taken anything for the nausea. Related Data Home Medications Medication Instructions Recorded Confirmed trazodone 100 mg PO BEDTIME #1 03/27/17 05/12/19 escitalopram oxalate 10 mg PO DAILY 05/05/19 05/05/19 naltrexone 50 mg PO DAILY 05/05/19 05/05/19 sertraline 100 mg PO DAILY 05/05/19 05/05/19 Previous Rx's Medication Instructions Recorded hydrocodone-acetaminophen 1 tab PO Q4-6H PRN #14 tab 05/05/19 ondansetron 4 mg PO Q6H PRN #20 tab 05/05/19 ondansetron 4 mg PO Q8H PRN #20 tab 05/12/19 sulfamethoxazole-trimethoprim 1 tab PO BID 5 Days #10 tab 05/12/19 [Bactrim DS] Allergies Allergy/AdvReac Type Severity Reaction Status Date / Time metoclopramide Allergy Mild RASH/HIVES Verified 05/12/19 12:56 [METOCLOPRAMIDE] hydrocodone [HYDROCODONE] AdvReac Unknown VOMITING Verified 05/12/19 12:56 Review of Systems <KIANA Zazueta - Last Filed: 05/12/19 17:05> Review of Systems Narrative: GENERAL: Denies chills, fatigue, malaise, fever, sweats. HEENT: Denies sinus pain, ear pain, sore throat, difficulty swallowing, dizziness. RESPIRATORY: Denies dyspnea, cough, wheezing, hemoptysis, sputum. CARDIOVASCULAR: Denies chest pain, palpitations, orthopnea, edema, GASTROINTESTINAL: See HPI : Denies dysuria, frequency, incontinence, hematuria, urinary retention. MUSCULOSKELETAL: denies weakness, joint pain, or bony pain SKIN: Denies rash, skin lesions, or other NEUROLOGIC: Denies weakness, headache, numbness, change in speech, confusion, seizures, incoordination. PSYCHIATRIC: No concerning psychosocial issues. 12 point review of systems is negative except for those stated above PFSH <KIANA Zazueta - Last Filed: 05/12/19 17:05> Medical History No active medical problems (Acute) Surgical History No pertinent past surgical history (Acute) Social History Smoking Status: Never smoker Social History Smoking Status: Never smoker Exam <KIANA Zazueta - Last Filed: 05/12/19 17:05> Narrative Exam Narrative: GENERAL: This is a well-nourished, well-developed patient, lying on stretcher HEAD: Atraumatic. Normocephalic. No temporal or scalp tenderness. EYES: Pupils equal round and reactive. Extraocular motions intact. No scleral icterus. No injection or drainage. ENT: Nose without bleeding, purulent drainage or septal hematoma. Throat without erythema, tonsillar hypertrophy or exudate. Uvula midline. Airway patent. NECK: Trachea midline. No JVD or lymphadenopathy. Supple, nontender, no meningeal signs. CARDIOVASCULAR: Regular rate and rhythm without murmurs, gallops, or rubs. RESPIRATORY: Clear to auscultation. Breath sounds equal bilaterally. No wheezes, rales, or rhonchi. No cough. No increased respiratory effort. No accessory muscle use. GASTROINTESTINAL: Abdomen soft, diffusely tender, nondistended. No hepato- splenomegaly, or palpable masses. No guarding. Active bowel sounds all 4 quadrants EXTREMITIES: No clubbing, cyanosis, or edema. No joint tenderness, effusion, or edema noted. BACK: Nontender without deformity or crepitance. No flank tenderness. NEURO: AOx3. SKIN: No rash or erythema. Initial Vital Signs Initial Vital Signs: Vital Signs Temperature 98.9 F 05/12/19 12:56 Pulse Rate 74 05/12/19 12:56 Respiratory Rate 14 05/12/19 12:56 Blood Pressure 120/87 05/12/19 12:56 Pulse Oximetry 100 05/12/19 12:56 <Patsy Cabrales MD - Last Filed: 05/12/19 19:44> Initial Vital Signs Initial Vital Signs: Vital Signs Temperature 98.9 F 05/12/19 12:56 Pulse Rate 74 05/12/19 12:56 Respiratory Rate 14 05/12/19 12:56 Blood Pressure 120/87 05/12/19 12:56 Pulse Oximetry 100 05/12/19 12:56 Course <ANIL Zazueta-LUIS - Last Filed: 05/12/19 17:05> Orders Ordered: ED Orders 05/12/19 13:00 Urine Culture Stat Urine Microscopic Stat 05/12/19 14:18 Amylase Stat Complete Blood Count AUTO DIFF Stat Comprehensive Metabolic Panel Stat Lipase Stat 05/12/19 15:23 CT abdomen pelvis w con Stat Discontinued Medications Sodium Chloride (Normal Saline 0.9%) 1,000 mls @ 1,000 mls/hr IV BOLUS ONE Stop: 05/12/19 15:09 Last Infusion: 05/12/19 15:10 Dose: 0 mls/hr Documented by: Admin: 05/12/19 14:25 Dose: 1,000 mls/hr Documented by: BREE Sodium Chloride (Normal Saline 0.9%) 1,000 mls @ 1,000 mls/hr IV BOLUS ONE Stop: 05/12/19 16:22 Last Infusion: 05/12/19 16:38 Dose: 0 mls/hr Documented by: Admin: 05/12/19 15:46 Dose: 1,000 mls/hr Documented by: FILIPPO Ondansetron HCl (Zofran Odt) 4 mg SL NOW ONE Stop: 05/12/19 13:00 Last Admin: 05/12/19 13:01 Dose: 4 mg Documented by: PATRICIA Ondansetron HCl (Zofran) 4 mg IV NOW ONE Stop: 05/12/19 14:11 Last Admin: 05/12/19 14:24 Dose: 4 mg Documented by: BREE Prochlorperazine (Compazine) 10 mg IV NOW ONE Stop: 05/12/19 15:24 Last Admin: 05/12/19 15:46 Dose: 10 mg Documented by: FILIPPO Vital Signs Vital signs: Vital Signs - 8 hr 05/12/19 12:56 05/12/19 15:46 05/12/19 16:49 Temperature 98.9 F Pulse Rate 74 64 68 Respiratory Rate 14 16 Blood Pressure 120/87 138/96 H Pulse Oximetry 100 100 <Patsy Cabrales MD - Last Filed: 05/12/19 19:44> Orders Ordered: ED Orders 05/12/19 13:00 Urine Culture Stat Urine Microscopic Stat 05/12/19 14:18 Amylase Stat Complete Blood Count AUTO DIFF Stat Comprehensive Metabolic Panel Stat Lipase Stat 05/12/19 15:23 CT abdomen pelvis w con Stat Discontinued Medications Sodium Chloride (Normal Saline 0.9%) 1,000 mls @ 1,000 mls/hr IV BOLUS ONE Stop: 05/12/19 15:09 Last Infusion: 05/12/19 15:10 Dose: 0 mls/hr Documented by: Admin: 05/12/19 14:25 Dose: 1,000 mls/hr Documented by: BREE Sodium Chloride (Normal Saline 0.9%) 1,000 mls @ 1,000 mls/hr IV BOLUS ONE Stop: 05/12/19 16:22 Last Infusion: 05/12/19 16:38 Dose: 0 mls/hr Documented by: Admin: 05/12/19 15:46 Dose: 1,000 mls/hr Documented by: FILIPPO Ondansetron HCl (Zofran Odt) 4 mg SL NOW ONE Stop: 05/12/19 13:00 Last Admin: 05/12/19 13:01 Dose: 4 mg Documented by: PATRICIA Ondansetron HCl (Zofran) 4 mg IV NOW ONE Stop: 05/12/19 14:11 Last Admin: 05/12/19 14:24 Dose: 4 mg Documented by: BREE Prochlorperazine (Compazine) 10 mg IV NOW ONE Stop: 05/12/19 15:24 Last Admin: 05/12/19 15:46 Dose: 10 mg Documented by: FILIPPO Vital Signs Vital signs: Vital Signs - 8 hr 05/12/19 12:56 05/12/19 15:46 05/12/19 16:49 Temperature 98.9 F Pulse Rate 74 64 68 Respiratory Rate 14 16 Blood Pressure 120/87 138/96 H Pulse Oximetry 100 100 MDM - Nausea/Vomiting/Diarrhea <ANIL Zazueta- - Last Filed: 05/12/19 17:05> Lab Data Result diagrams: 05/12/19 14:18 05/12/19 14:18 Labs: Lab Results 05/12/19 05/12/19 05/12/19 Range/Units 13:00 14:18 14:18 WBC 4.5 (4.5-11.0) X10^3/uL RBC 4.34 (4.0-5.2) X10^6/uL Hgb 12.3 (12.0-16.0) g/dL Hct 36.2 (36-46) % MCV 83.3 (80-100) fL MCH 28.3 (26-34) PG MCHC 34.0 (30-36) % RDW 15.5 H (11.6-14.8) % Plt Count 160 (150-400) X10^3/uL Neut % (Auto) 76.6 H (50-75) % Lymph % (Auto) 13.7 L (25-40) % Day % (Auto) 9.2 (3-14) % Eos % (Auto) 0.0 L (2-4) % Baso % (Auto) 0.5 (0-2) % Neut # (Auto) 3500 (8004-2375) /uL Lymph # (Auto) 600 L (9572-5064) /uL Day # (Auto) 400 (0-900) /uL Eos # (Auto) 0 (0-450) /uL Baso # (Auto) 0 (0-100) /uL Sodium 138 (137-145) mmol/L Potassium 3.6 (3.4-5.1) mmol/L Chloride 98 (98-107) mmol/L Carbon Dioxide 31 (22-32) mmol/L BUN 9 (7-17) mg/dL Creatinine 0.80 (0.52-1.04) mg/dL Estimated GFR > 60.0 (>60) mL/min BUN/Creatinine Ratio 11.3 (6-22) Glucose 105 H (70-100) mg/dL Calcium 9.6 (8.4-10.2) mg/dL Total Bilirubin 1.0 (0.2-1.3) mg/dL AST 112 H (14-36) IU/L ALT 36 (9-52) IU/L Alkaline Phosphatase 69 (38-126) U/L Total Protein 7.1 (6.3-8.2) g/dL Albumin 4.3 (3.5-5.0) g/dL Globulin 2.8 (1.7-4.1) g/dL Albumin/Globulin Ratio 1.5 (1.0-2.8) Amylase 138 H (30-110) U/L Lipase 305 H (23-300) U/L Urine RBC 1-5/hpf D (0-5/HPF) Urine WBC 1-5/hpf (0-5/HPF) Ur Squamous Epith Cells 1-5 /hpf (0-5/HPF) Amorphous Sediment 1+ Urine Bacteria Few (2-10) H (None) Urine Mucus 2+ H (Negative) Ur Culture Indicated? Specimen cultured Point of Care Testing Test Results Negative Urine Dip Bedside Urine Glucose Negative Bedside Urine Bilirubin ++ 2 Bedside Urine Ketone + 15 Urine Specific [place] 1.010 Bedside Urine Occult Blood +++ Bedside Urine pH 8.0 Bedside Urine Protein ++ 100 Bedside Urine Urobilinogen 1+ 2mg Bedside Urine Nitrite - Negative Bedside Urine Leukocytes + 70 Esterase MDM Narrative Medical decision making narrative: The patient is a 29-year-old female who presents with a chief complaint of nausea vomiting. She does have an elevated lipase and amylase and generalized abdominal tenderness to exam, so I obtained a CT of her abdomen. This illustrates fatty liver, which I discussed with her, but no other acute etiology. The patient has no leukocytosis. She was given 2 L of IV fluid as well as Zofran and Compazine. She was able to pass a p.o. trial and keep down kailyn tonia. The patient has blood bacteria and leukocyte esterase in her urine, so I will initiate treatment for a urinary tract infection with Bactrim. Of note the patient did not vomit throughout her stay in the emergency department. The patient states she feels much improved and requests to go home. I discussed at length the importance of following up with her PCP. Urine cultures pending at this time. Discussed coming back to the ER for any acute concerns such as inability keep down fluids, abdominal pain with fever etc. <Patsy Cabrales MD - Last Filed: 05/12/19 19:44> Lab Data Labs: Lab Results 05/12/19 05/12/19 05/12/19 Range/Units 13:00 14:18 14:18 WBC 4.5 (4.5-11.0) X10^3/uL RBC 4.34 (4.0-5.2) X10^6/uL Hgb 12.3 (12.0-16.0) g/dL Hct 36.2 (36-46) % MCV 83.3 (80-100) fL MCH 28.3 (26-34) PG MCHC 34.0 (30-36) % RDW 15.5 H (11.6-14.8) % Plt Count 160 (150-400) X10^3/uL Neut % (Auto) 76.6 H (50-75) % Lymph % (Auto) 13.7 L (25-40) % Day % (Auto) 9.2 (3-14) % Eos % (Auto) 0.0 L (2-4) % Baso % (Auto) 0.5 (0-2) % Neut # (Auto) 3500 (3150-6961) /uL Lymph # (Auto) 600 L (3614-4054) /uL Day # (Auto) 400 (0-900) /uL Eos # (Auto) 0 (0-450) /uL Baso # (Auto) 0 (0-100) /uL Sodium 138 (137-145) mmol/L Potassium 3.6 (3.4-5.1) mmol/L Chloride 98 (98-107) mmol/L Carbon Dioxide 31 (22-32) mmol/L BUN 9 (7-17) mg/dL Creatinine 0.80 (0.52-1.04) mg/dL Estimated GFR > 60.0 (>60) mL/min BUN/Creatinine Ratio 11.3 (6-22) Glucose 105 H (70-100) mg/dL Calcium 9.6 (8.4-10.2) mg/dL Total Bilirubin 1.0 (0.2-1.3) mg/dL AST 112 H (14-36) IU/L ALT 36 (9-52) IU/L Alkaline Phosphatase 69 (38-126) U/L Total Protein 7.1 (6.3-8.2) g/dL Albumin 4.3 (3.5-5.0) g/dL Globulin 2.8 (1.7-4.1) g/dL Albumin/Globulin Ratio 1.5 (1.0-2.8) Amylase 138 H (30-110) U/L Lipase 305 H (23-300) U/L Urine RBC 1-5/hpf D (0-5/HPF) Urine WBC 1-5/hpf (0-5/HPF) Ur Squamous Epith Cells 1-5 /hpf (0-5/HPF) Amorphous Sediment 1+ Urine Bacteria Few (2-10) H (None) Urine Mucus 2+ H (Negative) Ur Culture Indicated? Specimen cultured Point of Care Testing Test Results Negative Urine Dip Bedside Urine Glucose Negative Bedside Urine Bilirubin ++ 2 Bedside Urine Ketone + 15 Urine Specific [place] 1.010 Bedside Urine Occult Blood +++ Bedside Urine pH 8.0 Bedside Urine Protein ++ 100 Bedside Urine Urobilinogen 1+ 2mg Bedside Urine Nitrite - Negative Bedside Urine Leukocytes + 70 Esterase Discharge Plan Departure Patient Disposition: Home Clinical Impression: Nausea and vomiting Qualifiers: Vomiting type: unspecified Vomiting Intractability: non-intractable Qualified Code(s): R11.2 - Nausea with vomiting, unspecified UTI (urinary tract infection) Qualifiers: Urinary tract infection type: site unspecified Hematuria presence: with hematuria Qualified Code(s): N39.0 - Urinary tract infection, site not specified Discharge Date/Time: 05/12/19 16:50 Instructions: DI for Urinary Tract Infection (UTI), DI for Nausea -- Adult, DI for Vomiting -- Adult Activity Restrictions/Additional Instructions: Today we found a urinary tract infection. I have placed you on an antibiotic. Please monitor for flank pain, fevers etc as these are indications this infection could be going to your kidney. We have a urine culture pending at this point time, and will contact you if we have to change antibiotics I have also given you a prescription of a nausea medication. Please follow up with primary care provider in the next few days. Please come back to the emergency department for any acute concerns. Prescriptions: New sulfamethoxazole-trimethoprim [Bactrim DS] 800-160 mg tablet 1 tab PO BID 5 Days Qty: 10 RF: 0 ondansetron 4 mg tablet,disintegrating 4 mg PO Q8H PRN (Reason: nausea and vomiting) Qty: 20 RF: 0 No Action trazodone 50 MG tablet 100 mg PO BEDTIME Qty: 1 RF: 0 naltrexone 50 mg tablet 50 mg PO DAILY RF: 0 sertraline 100 mg tablet 100 mg PO DAILY RF: 0 escitalopram oxalate 10 mg tablet 10 mg PO DAILY RF: 0 ondansetron 4 mg tablet,disintegrating 4 mg PO Q6H PRN (Reason: nausea and vomiting) Qty: 20 RF: 0 hydrocodone-acetaminophen 5-325 mg tablet 1 tab PO Q4-6H PRN (Reason: pain) Qty: 14 RF: 0 Referrals: Mumtaz Torres CNP [Primary Care Provider] -
== END 2019-05-12 16:50 | disposition home or self-care (01) ==
PROVIDERS: Emergency Medicine; Emergency Provider Nurse Practitioner Family; PCP Registered Nurse Diabetes Educator
DX: R11.2 Nausea with vomiting, unspecified (principal); N39.0 Urinary tract infection, site not specified
CPT/HCPCS: 36591; 74177; 80053; 81003; 81015; 81025; 82150; 83690; 85025; 87086; 96361; 96374; 96375; 99283; 99285; J0780; J2405; Q9967

== ENCOUNTER 2019-05-13 09:24 | Emergency (ER) | payer OTHER, SELFPAY ==
--- NOTE | 2019-05-13 09:41 | ED_ITS ---
HPI - Nausea/Vomiting/Diarrhea General Chief complaint: Nausea/Vomiting/Diarrhea Stated complaint: Diarrhea and vomiting Time Seen by Provider: 05/13/19 09:33 Source: patient Mode of arrival: Ambulatory Limitations: no limitations History of Present Illness HPI Narrative: 29-year-old female nonsmoker with heavy alcohol history presents for the 2nd day in a row with chief complaint of nausea, vomiting and diarrhea over the past day or so. She was seen and evaluated yesterday and had a very thorough workup including labs, CT scan. She felt much better after some fluids and Zofran, was found have a urinary tract infection and was prescribed an antibiotic, which she has yet to fill. She states she continues to have difficulty keeping anything down and has had multiple episodes of vomiting and diarrhea since last night. She feels fatigued but is not actually dizzy or lightheaded. She denies fever or chills. She denies recent travel, exposure to bad food, use of antibiotics, or exposure to ill persons. She does state that up until about 1 week ago she had been drinking upwards of 1 L of vodka per day and decided to quit on her own, cold turkey. She denies the use of marijuana MD complaint: nausea, vomiting and diarrhea Onset (ago): day(s) Description of Vomiting: watery Description of Diarrhea: watery Associated Abdominal Pain: Yes Location of pain: diffuse Severity: mild Quality: cramping Pain Consistency: intermittent Relieving factors: none Exacerbating factors: none Associated symptoms: myalgias, loss of appetite, malaise and nausea/vomiting Related Data Home Medications Medication Instructions Recorded Confirmed trazodone 100 mg PO BEDTIME #1 03/27/17 05/13/19 Previous Rx's Medication Instructions Recorded ciprofloxacin HCl 500 mg PO BID #14 tab 05/13/19 Allergies Allergy/AdvReac Type Severity Reaction Status Date / Time metoclopramide Allergy Mild RASH/HIVES Verified 05/13/19 09:58 [METOCLOPRAMIDE] hydrocodone [HYDROCODONE] AdvReac Unknown VOMITING Verified 05/13/19 09:58 Review of Systems Constitutional Constitutional: Denies chills, Denies fatigue, Denies fever(s), Denies frequent falls, Denies lethargy and Denies weakness Eyes Eyes: Denies change in vision, Denies eye discharge, Denies irritation and Denies loss of vision ENT Ears, Nose, Mouth, and Throat: Denies change in voice, Denies dizziness, Denies neck pain, Denies sore throat and Denies throat swelling Cardiovascular Cardiovascular: Denies chest pain, Denies irregular heart rhythm, Denies lightheadedness, Denies palpitations, Denies dyspnea, Denies dyspnea on exertion and Denies orthopnea Respiratory Respiratory: Denies cough, Denies dyspnea, Denies dyspnea on exertion and Denies wheezing Gastrointestinal Gastrointestinal: Denies abdominal pain, Denies change in bowel habits, Reports diarrhea, Reports nausea and Reports vomiting Genitourinary Genitourinary: Denies hematuria, Denies flank pain, Denies urinary incontinence and Denies urinary urgency Musculoskeletal Musculoskeletal: Denies back pain, Denies muscle weakness, Denies neck pain, Denies numbness and Denies tingling Integumentary/Breasts Skin/Breast: Denies pruritus, Denies erythema, Denies rash and Denies wounds Neurologic Neurologic: Denies behavioral changes, Denies confusion, Denies dizziness, Denies frequent falls, Denies loss of vision, Denies numbness, Denies tingling and Denies weakness Psychiatric Psychiatric: Denies anxiety, Denies behavioral changes, Denies confusion, Denies depression, Denies homicidal ideation and Denies suicidal ideation Endocrine Endocrine: Denies fatigue, Denies flushing and Denies palpitations Hematologic/Lymphatic Hematologic/Lymphatic: Denies easy bruising Allergic/Immunologic Allergic/Immunologic: Denies urticaria, Denies throat swelling and Denies wheezing [facility] Medical History No active medical problems (Acute) Surgical History No pertinent past surgical history (Acute) Social History Smoking Status: Never smoker Social History Smoking Status: Never smoker Exam Narrative Exam Narrative: GENERAL: [29] year old patient appears stated age. Well- nourished, well-developed patient, in mild distress. HEAD: Atraumatic. Normocephalic. EYES: Pupils equal round and reactive. Extraocular motions intact. No scleral icterus. No injection or drainage. ENT: Nose without bleeding, purulent drainage. Throat without erythema, tonsil lar hypertrophy or exudate. Airway patent. NECK: Trachea midline. Non tender CARDIOVASCULAR: Regular rate and rhythm without murmurs, gallops, or rubs. RESPIRATORY: Clear to auscultation. Breath sounds equal bilaterally. No wheezes, rales, or rhonchi. GASTROINTESTINAL: Abdomen soft, non-tender, nondistended. EXTREMITIES: No edema or joint tenderness. BACK: Nontender without deformity or crepitance. No flank tenderness. NEURO: AOx3. SKIN: No rash or erythema of visible areas Initial Vital Signs Initial Vital Signs: Vital Signs Temperature 97.7 F 05/13/19 09:45 Pulse Rate 50 L 05/13/19 09:45 Respiratory Rate 16 05/13/19 09:45 Blood Pressure 127/85 05/13/19 09:45 Pulse Oximetry 100 05/13/19 09:45 Course Orders Ordered: ED Orders 05/13/19 10:53 Complete Blood Count AUTO DIFF Stat Comprehensive Metabolic Panel Stat Ethanol (ETOH) Stat Ketones (Beta-Hydroxybutyrate) Stat Discontinued Medications Sodium Chloride (Normal Saline 0.9%) 1,000 mls @ 1,000 mls/hr IV BOLUS ONE Stop: 05/13/19 10:47 Last Infusion: 05/13/19 12:35 Dose: 0 mls/hr Documented by: JOSE ANTONIO Admin: 05/13/19 11:11 Dose: 1,000 mls/hr Documented by: JOSE ANTONIO Sodium Chloride (Normal Saline 0.9%) 1,000 mls @ 1,000 mls/hr IV BOLUS ONE Stop: 05/13/19 10:47 Last Infusion: 05/13/19 12:36 Dose: 0 mls/hr Documented by: JOSE ANTONIO Admin: 05/13/19 11:11 Dose: 1,000 mls/hr Documented by: JOSE ANTONIO Ondansetron HCl (Zofran) 4 mg IV NOW ONE Stop: 05/13/19 09:49 Last Admin: 05/13/19 11:10 Dose: 4 mg Documented by: JOSE ANTONIO Potassium Chloride (Potassium Chloride) 40 meq PO NOW ONE Stop: 05/13/19 11:23 Last Admin: 05/13/19 11:37 Dose: 40 meq Documented by: JOSE ANTONIO Prochlorperazine (Compazine) 10 mg IV NOW ONE Stop: 05/13/19 09:49 Last Admin: 05/13/19 11:09 Dose: 10 mg Documented by: JOSE ANTONIO Vital Signs Vital signs: Vital Signs - 8 hr 05/13/19 11:37 05/13/19 12:53 05/13/19 13:22 Pulse Rate 60 53 L 50 L Respiratory Rate 18 15 18 Blood Pressure 142/84 H Blood Pressure [Left Arm] 124/68 133/92 H Pulse Oximetry 99 100 99 MDM - Nausea/Vomiting/Diarrhea Lab Data Result diagrams: 05/13/19 10:53 05/13/19 10:53 Labs: Lab Results 05/13/19 05/13/19 05/13/19 Range/Units 09:49 10:10 10:18 WBC (4.5-11.0) X10^3/uL RBC (4.0-5.2) X10^6/uL Hgb (12.0-16.0) g/dL Hct (36-46) % MCV (80-100) fL MCH (26-34) PG MCHC (30-36) % RDW (11.6-14.8) % Plt Count (150-400) X10^3/uL Neut % (Auto) (50-75) % Lymph % (Auto) (25-40) % Hopkins % (Auto) (3-14) % Eos % (Auto) (2-4) % Baso % (Auto) (0-2) % Neut # (Auto) (5066-4107) /uL Lymph # (Auto) (9268-8162) /uL Hopkins # (Auto) (0-900) /uL Eos # (Auto) (0-450) /uL Baso # (Auto) (0-100) /uL VBG pH 7.39 (7.33-7.43) VBG pCO2 40.9 L (45-50) mmHg VBG pO2 34 L (35-45) mmHg VBG HCO3 25 (23-28) mmol/L VBG Total CO2 26 (24-29) mmol/L VBG O2 Saturation 66 L (70-75) % VBG Base Excess 0.0 (0-4) mmol/L Sodium (137-145) mmol/L Potassium (3.4-5.1) mmol/L Chloride (98-107) mmol/L Carbon Dioxide (22-32) mmol/L BUN (7-17) mg/dL Creatinine (0.52-1.04) mg/dL Estimated GFR (>60) mL/min BUN/Creatinine Ratio (6-22) Glucose (70-100) mg/dL Calcium (8.4-10.2) mg/dL Total Bilirubin (0.2-1.3) mg/dL AST (14-36) IU/L ALT (9-52) IU/L Alkaline Phosphatase (38-126) U/L Total Protein (6.3-8.2) g/dL Albumin (3.5-5.0) g/dL Globulin (1.7-4.1) g/dL Albumin/Globulin Ratio (1.0-2.8) Stl C. cayetanensis PCR Not detected (Not Detect) Stool Rotavirus (PCR) Not detected (Not Detect) Stool Adenovirus (PCR) Not detected (Not Detect) Stool Astrovirus (PCR) Not detected (Not Detect) Stool Cryptosporidium PCR Not detected (Not Detect) Stl E.coli Shiga Tox PCR Not detected (Not Detect) St Sh/Enteroin Ecoli PCR Not detected (Not Detect) Stool E coli O157 PCR Not detected (Not Detect) Stl Enterotoxigenic E PCR Not detected (Not Detect) Stool EPEC (PCR) Detected H (Not Detect) Stl E. histolytica PCR Not detected (Not Detect) Stool Giardia Lamblia PCR Not detected (Not Detect) Stl P. shigelloides PCR Not detected (Not Detect) St Y.enterocolitica PCR Not detected (Not Detect) Stool Vibrio (PCR) Not detected (Not Detect) Stl Vibrio cholerae PCR Not detected (Not Detect) Stl Enteroaggr Ecoli PCR Not detected (Not Detect) Stl Norovirus GI/GII PCR Not detected (Not Detect) Urine Opiates Screen Negative (Negative) Ur Oxycodone Screen Negative (Negative) Urine Methadone Screen Negative (Negative) Ur Barbiturates Screen Negative (Negative) U Tricyclic Antidepress Negative (Negative) Ur Phencyclidine Scrn Negative (Negative) Ur Amphetamines Screen Negative (Negative) U Methamphetamines Scrn Negative (Negative) Ur MDMA Scrn (Ecstasy) Negative (Negative) U Benzodiazepines Scrn Negative (Negative) Urine Cocaine Screen Negative (Negative) U Marijuana (THC) Screen Negative (Negative) Ethyl Alcohol ( - 10) mg/dL Ketones (<0.27) mmol/L Campylobacter (PCR) Not detected (Not Detect) C. difficile Tox (PCR) Not detected (Not Detect) Salmonella (PCR) Not detected (Not Detect) 05/13/19 05/13/19 05/13/19 Range/Units 10:53 10:53 10:53 WBC 3.5 L (4.5-11.0) X10^3/uL RBC 4.11 (4.0-5.2) X10^6/uL Hgb 11.8 L (12.0-16.0) g/dL Hct 34.0 L (36-46) % MCV 82.9 (80-100) fL MCH 28.8 (26-34) PG MCHC 34.7 (30-36) % RDW 15.2 H (11.6-14.8) % Plt Count 134 L (150-400) X10^3/uL Neut % (Auto) 73.3 (50-75) % Lymph % (Auto) 17.8 L (25-40) % Hopkins % (Auto) 7.5 (3-14) % Eos % (Auto) 0.5 L (2-4) % Baso % (Auto) 0.9 (0-2) % Neut # (Auto) 2500 (6942-3514) /uL Lymph # (Auto) 600 L (8652-7833) /uL Hopkins # (Auto) 300 (0-900) /uL Eos # (Auto) 0 (0-450) /uL Baso # (Auto) 0 (0-100) /uL VBG pH (7.33-7.43) VBG pCO2 (45-50) mmHg VBG pO2 (35-45) mmHg VBG HCO3 (23-28) mmol/L VBG Total CO2 (24-29) mmol/L VBG O2 Saturation (70-75) % VBG Base Excess (0-4) mmol/L Sodium 138 (137-145) mmol/L Potassium 3.2 L (3.4-5.1) mmol/L Chloride 100 (98-107) mmol/L Carbon Dioxide 29 (22-32) mmol/L BUN 4 L (7-17) mg/dL Creatinine 0.70 (0.52-1.04) mg/dL Estimated GFR > 60.0 (>60) mL/min BUN/Creatinine Ratio 5.7 L (6-22) Glucose 89 (70-100) mg/dL Calcium 8.9 (8.4-10.2) mg/dL Total Bilirubin 0.9 (0.2-1.3) mg/dL AST 139 H (14-36) IU/L ALT 44 (9-52) IU/L Alkaline Phosphatase 58 (38-126) U/L Total Protein 6.4 (6.3-8.2) g/dL Albumin 3.8 (3.5-5.0) g/dL Globulin 2.6 (1.7-4.1) g/dL Albumin/Globulin Ratio 1.5 (1.0-2.8) Stl C. cayetanensis PCR (Not Detect) Stool Rotavirus (PCR) (Not Detect) Stool Adenovirus (PCR) (Not Detect) Stool Astrovirus (PCR) (Not Detect) Stool Cryptosporidium PCR (Not Detect) Stl E.coli Shiga Tox PCR (Not Detect) St Sh/Enteroin Ecoli PCR (Not Detect) Stool E coli O157 PCR (Not Detect) Stl Enterotoxigenic E PCR (Not Detect) Stool EPEC (PCR) (Not Detect) Stl E. histolytica PCR (Not Detect) Stool Giardia Lamblia PCR (Not Detect) Stl P. shigelloides PCR (Not Detect) St Y.enterocolitica PCR (Not Detect) Stool Vibrio (PCR) (Not Detect) Stl Vibrio cholerae PCR (Not Detect) Stl Enteroaggr Ecoli PCR (Not Detect) Stl Norovirus GI/GII PCR (Not Detect) Urine Opiates Screen (Negative) Ur Oxycodone Screen (Negative) Urine Methadone Screen (Negative) Ur Barbiturates Screen (Negative) U Tricyclic Antidepress (Negative) Ur Phencyclidine Scrn (Negative) Ur Amphetamines Screen (Negative) U Methamphetamines Scrn (Negative) Ur MDMA Scrn (Ecstasy) (Negative) U Benzodiazepines Scrn (Negative) Urine Cocaine Screen (Negative) U Marijuana (THC) Screen (Negative) Ethyl Alcohol < 10 ( - 10) mg/dL Ketones 1.23 H (<0.27) mmol/L Campylobacter (PCR) (Not Detect) C. difficile Tox (PCR) (Not Detect) Salmonella (PCR) (Not Detect) Point of Care Testing Glucose POC 104 Urine Dip Bedside Urine Glucose Negative Bedside Urine Bilirubin - Negative Bedside Urine Ketone - Negative Urine Specific [place] 1.010 Bedside Urine Occult Blood +/- Bedside Urine pH 7.5 Bedside Urine Protein - Negative Bedside Urine Urobilinogen - Negative Bedside Urine Nitrite - Negative Bedside Urine Leukocytes - Negative Esterase Discharge Plan Departure Patient Disposition: Home Clinical Impression: Diarrhea Qualifiers: Diarrhea type: infectious Qualified Code(s): A09 - Infectious gastroenteritis and colitis, unspecified Discharge Date/Time: 05/13/19 13:21 Instructions: DI for Dehydration -- Adult Activity Restrictions/Additional Instructions: 1. Drink plenty of fluids with frequent small sips. 2. For the next 24 hours a clear liquid diet is advised. After that please employ a brat diet which would include bananas, rice, apples, toast. 3. Please take medications as directed. 4. Please follow-up with your doctor in the next 1-2 days. Call the office for an appointment. 5. Please return to the emergency Department for any worsening or persistent symptoms, such as increasing pain or fever. Prescriptions: New ciprofloxacin HCl 500 mg tablet 500 mg PO BID Qty: 14 RF: 0 No Action trazodone 50 MG tablet 100 mg PO BEDTIME Qty: 1 RF: 0 Referrals: Mumtaz Torres CNP [Primary Care Provider] -
[2019-05-13 09:45] VITALS: BP 127/85; PULSE 50; RESP 16; TEMP 36.5; O2SAT 100; BMI 22.3
[2019-05-13 10:20] LABS: Urine Amphetamines Negative (Negative); Urine Barbiturates Negative (Negative); Urine Benzodiazepines Negative (Negative); Urine Cocaine Negative (Negative); Urine MDMA Negative (Negative); Urine Methadone Negative (Negative); Urine Methamphetamines Negative (Negative); Urine Morphine/Opi cutoff 2000 Negative (Negative); Urine Oxycodone Negative (Negative); Urine Phencyclidine Negative (Negative); Urine Tetrahydrocannabinol Negative (Negative); Urine Tricyclic Antidepressant Negative (Negative)
[2019-05-13 10:50] VITALS: BP 130/96; PULSE 47; RESP 10; O2SAT 100
[2019-05-13 10:59] LABS: HCO3 VBG 25 mmol/L (23-28); Oxygen Saturation VBG 66 % (70-75); PCO2 VBG 40.9 mmHg (45-50); PO2 VBG 34 mmHg (35-45); Total CO2 VBG 26 mmol/L (24-29); pH VBG 7.39 (7.33-7.43)
[2019-05-13 11:05] LABS: Add Manual Diff / Slide Review NO; Basophils Absolute Auto 0 /uL (0-100); Basophils Percent Auto 0.9 % (0-2); Eosinophils Absolute Auto 0 /uL (0-450); Eosinophils Percent Auto 0.5 % (2-4); Hemoglobin 11.8 g/dL (12.0-16.0); Lymphocytes Absolute Auto 600 /uL (1100-4500); Lymphocytes Percent Auto 17.8 % (25-40); Mean Corpuscular HGB Conc 34.7 % (30-36); Mean Corpuscular Hemoglobin 28.8 PG (26-34); Mean Corpuscular Volume 82.9 fL (80-100); Monocytes Absolute Auto 300 /uL (0-900); Monocytes Percent Auto 7.5 % (3-14); Neutrophils Absolute Auto 2500 /uL (1500-7000); Neutrophils Percent Auto 73.3 % (50-75); Platelet Count 134 X10^3/uL (150-400); Red Blood Cell Count 4.11 X10^6/uL (4.0-5.2); Red Cell Distribution Width 15.2 % (11.6-14.8); White Blood Cell Count 3.5 X10^3/uL (4.5-11.0)
[2019-05-13 11:09] VITALS: BP 124/89; PULSE 63
[2019-05-13] MEDS: PROCHLORPERAZINE 10 MG/2 ML VIAL IV (11:09)
[2019-05-13] MEDS: ONDANSETRON 4 MG/2 ML INJ IV (11:10)
[2019-05-13] MEDS: SODIUM CHLORIDE 0.9% 1,000 ML 1000 ML IV ×2 (11:11)
[2019-05-13 11:12] LABS: Ethanol (ETOH) < 10 mg/dL
[2019-05-13 11:13] LABS: Alanine Aminotransferase 44 IU/L (9-52); Albumin 3.8 g/dL (3.5-5.0); Albumin Globulin Ratio 1.5 (1.0-2.8); Alkaline Phosphatase 58 U/L (38-126); Aspartate Aminotransferase 139 IU/L (14-36); BUN Creatinine Ratio 5.7 (6-22); Bilirubin Total 0.9 mg/dL (0.2-1.3); Blood Urea Nitrogen 4 mg/dL (7-17); Calcium 8.9 mg/dL (8.4-10.2); Carbon Dioxide 29 mmol/L (22-32); Chloride 100 mmol/L (98-107); Estimated Glomerular Filt Rate > 60.0 mL/min (>60); Globulin 2.6 g/dL (1.7-4.1); Glucose 89 mg/dL (70-100); HEMOLYSIS 18 (0-50); Potassium 3.2 mmol/L (3.4-5.1); Sodium 138 mmol/L (137-145); Total Protein 6.4 g/dL (6.3-8.2)
[2019-05-13 11:21] LABS: Ketones (Beta-Hydroxybutyrate) 1.23 mmol/L (<0.27)
[2019-05-13 11:37] VITALS: BP 124/68; PULSE 60; RESP 18; O2SAT 99
[2019-05-13] MEDS: POTASSIUM CHLORIDE 20 MEQ/15 ML UDC 40 MEQ PO (11:37)
[2019-05-13 11:44] LABS: Campylobacter Not Detected (Not Detect); Clostridium difficile toxin AB Not Detected (Not Detect); Enteroaggregative E.coli Not Detected (Not Detect); Enteropathogenic E.coli Detected (Not Detect); Plesiomonsa shigelloides Not Detected (Not Detect); Salmonella Not Detected (Not Detect); Vibrio Not Detected (Not Detect); Vibrio cholerae Not Detected (Not Detect); Yersinia enterocolitica Not Detected (Not Detect)
[2019-05-13 11:45] LABS: Adenovirus F 40/41 Not Detected (Not Detect); Astrovirus Not Detected (Not Detect); Cryptosporidium Not Detected (Not Detect); Cyclospora cayetanensis Not Detected (Not Detect); Entamoeba histolytica Not Detected (Not Detect); Enterotoxigenic E.coli It/st Not Detected (Not Detect); Giardia lamblia Not Detected (Not Detect); Norovirus GI/GII Not Detected (Not Detect); Rotavirus A Not Detected (Not Detect); Shiga-like toxin-prod E.coli Not Detected (Not Detect); Shigella/Enteroinvasive E.coli Not Detected (Not Detect)
[2019-05-13 12:53] VITALS: BP 133/92; PULSE 53; RESP 15; O2SAT 100
[2019-05-13 13:22] VITALS: BP 142/84; PULSE 50; RESP 18; O2SAT 99
--- NOTE | 2019-05-13 13:24 | PC.NURSE ---
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 and help for her alcoholism. pt declined
== END 2019-05-13 13:21 | disposition home or self-care (01) ==
PROVIDERS: Emergency Provider Emergency Medicine; PCP Registered Nurse Diabetes Educator
DX: A09 Infectious gastroenteritis and colitis, unspecified (principal); E86.0 Dehydration
CPT/HCPCS: 36591; 80053; 80305; 80320; 81003; 82009; 82805; 82962; 85025; 87507; 96361; 96374; 96375; 99283; 99284; J0780; J2405

== ENCOUNTER 2019-05-18 16:53 | Emergency (ER) | payer OTHER, SELFPAY ==
[2019-05-18 17:01] VITALS: BP 130/96; PULSE 138; RESP 16; TEMP 36.6; O2SAT 98
[2019-05-18 17:33] LABS: Add Manual Diff / Slide Review NO; Basophils Absolute Auto 100 /uL (0-100); Basophils Percent Auto 1.5 % (0-2); Eosinophils Absolute Auto 0 /uL (0-450); Eosinophils Percent Auto 0.2 % (2-4); Hematocrit 40.2 % (36-46); Hemoglobin 13.6 g/dL (12.0-16.0); Lymphocytes Absolute Auto 1500 /uL (1100-4500); Lymphocytes Percent Auto 36.8 % (25-40); Mean Corpuscular HGB Conc 33.7 % (30-36); Mean Corpuscular Hemoglobin 28.4 PG (26-34); Mean Corpuscular Volume 84.1 fL (80-100); Monocytes Absolute Auto 300 /uL (0-900); Monocytes Percent Auto 6.8 % (3-14); Neutrophils Absolute Auto 2200 /uL (1500-7000); Neutrophils Percent Auto 54.7 % (50-75); Platelet Count 170 X10^3/uL (150-400); Red Blood Cell Count 4.78 X10^6/uL (4.0-5.2); Red Cell Distribution Width 15.7 % (11.6-14.8); White Blood Cell Count 4.1 X10^3/uL (4.5-11.0)
[2019-05-18 17:44] LABS: Alanine Aminotransferase 64 IU/L (9-52); Albumin 4.5 g/dL (3.5-5.0); Albumin Globulin Ratio 1.5 (1.0-2.8); Alkaline Phosphatase 77 U/L (38-126); Aspartate Aminotransferase 173 IU/L (14-36); BUN Creatinine Ratio 7.1 (6-22); Bilirubin Total 0.7 mg/dL (0.2-1.3); Bilirubin Unconjugated 0.5 mg/dL (0.0-1.1); Blood Urea Nitrogen 5 mg/dL (7-17); Calcium 8.6 mg/dL (8.4-10.2); Carbon Dioxide 25 mmol/L (22-32); Chloride 105 mmol/L (98-107); Estimated Glomerular Filt Rate > 60.0 mL/min (>60); Glucose 89 mg/dL (70-100); HEMOLYSIS 26 (0-50); Lipase 419 U/L (23-300); Potassium 3.7 mmol/L (3.4-5.1); Sodium 147 mmol/L (137-145); Total Protein 7.5 g/dL (6.3-8.2)
[2019-05-18 17:56] LABS: Ethanol (ETOH) 470 mg/dL
[2019-05-18] MEDS: ONDANSETRON 4 MG/2 ML INJ IV ×2 (17:56→19:26)
[2019-05-18] MEDS: SODIUM CHLORIDE 0.9% 1,000 ML 1000 ML IV ×2 (17:57→19:27)
[2019-05-18 18:29] LABS: Thyroid Stimulating Hormone 0.28 uIU/mL (0.47-4.68)
--- NOTE | 2019-05-18 18:43 | PC.NURSE ---
[employer]/CHELLE Note: Patient is yelling out for RN. Pt. has been okay for most part. Pt. is laying down
[2019-05-18 19:00] VITALS: BP 127/91; PULSE 97; RESP 16; O2SAT 97
--- NOTE | 2019-05-18 19:07 | ED_ITS ---
HPI - Alcohol <DANIKA Zazueta - Last Filed: 05/18/19 20:48> General Chief Complaint: Toxicology Problem Stated Complaint: INTOXICATION Time Seen by Provider: 05/18/19 16:55 Source: patient Mode of arrival: Wheelchair Limitations: no limitations History of Present Illness HPI narrative: The patient is a 29-year-old female nonsmoker with history of alcoholism pancreatitis who presents for a chief complaint of intoxication. She was brought in by her roommate, who states that she has been on a [place] for the past several days. Roommate states that she has been drinking grape vodka. Patient denies any thoughts of self-harm. She repeats that she has a bad mother as she is drunk. She denies any suicidal ideations. She states she has been drinking quite a bit as she has a bad mother. She perseverates on her child back home in [place]. She states that she has been to rehab 4 times for alcohol. She states that she has no desire to go to rehab at any point today. Her roommate states that she has never seen her this intoxicated. The patient denies any pain on exam. Related Data Home Medications Medication Instructions Recorded Confirmed trazodone 100 mg PO BEDTIME #1 03/27/17 05/18/19 Previous Rx's Medication Instructions Recorded ciprofloxacin HCl 500 mg PO BID #14 tab 05/13/19 Allergies Allergy/AdvReac Type Severity Reaction Status Date / Time metoclopramide Allergy Mild RASH/HIVES Verified 05/18/19 17:01 [METOCLOPRAMIDE] hydrocodone [HYDROCODONE] AdvReac Unknown VOMITING Verified 05/18/19 17:01 Review of Systems <KIANA Zazueta - Last Filed: 05/18/19 20:48> Review of Systems Narrative: GENERAL: Denies chills, fatigue, malaise, fever, sweats. HEENT: Denies sinus pain, ear pain, sore throat, difficulty swallowing, dizziness. RESPIRATORY: Denies dyspnea, cough, wheezing, hemoptysis, sputum. CARDIOVASCULAR: Denies chest pain, palpitations, orthopnea, edema, GASTROINTESTINAL: Denies nausea, vomiting, abdominal pain, diarrhea, constipation, melena. : Denies dysuria, frequency, incontinence, hematuria, urinary retention. MUSCULOSKELETAL: denies weakness, joint pain, or bony pain SKIN: Denies rash, skin lesions, or other NEUROLOGIC: Denies weakness, headache, numbness, change in speech, confusion, seizures, incoordination. PSYCHIATRIC: See HPI 12 point review of systems is negative except for those stated above PFSH <Christa BunchANIL-BC - Last Filed: 05/18/19 20:48> Social History Smoking Status: Never smoker Exam <Christa WhippleANIL martinez- - Last Filed: 05/18/19 20:48> Narrative Exam Narrative: GENERAL: Young female, appears intoxicated. Smells of alcohol. HEAD: Atraumatic. Normocephalic. No temporal or scalp tenderness. EYES: Pupils equal round and reactive. Extraocular motions intact. No scleral icterus. No injection or drainage. ENT: Nose without bleeding, purulent drainage or septal hematoma. Throat without erythema, tonsillar hypertrophy or exudate. Uvula midline. Airway patent. NECK: Trachea midline. No JVD or lymphadenopathy. Supple, nontender, no meningeal signs. CARDIOVASCULAR: Regular rate and rhythm without murmurs, gallops, or rubs. RESPIRATORY: Clear to auscultation. Breath sounds equal bilaterally. No wheezes, rales, or rhonchi. No cough. No increased respiratory effort. No accessory muscle use. GASTROINTESTINAL: Abdomen soft, non-tender, nondistended. No hepato- splenomegaly, or palpable masses. No guarding. Active bowel sounds all 4 quadrants. EXTREMITIES: No clubbing, cyanosis, or edema. No joint tenderness, effusion, or edema noted. BACK: Nontender without deformity or crepitance. No flank tenderness. NEURO: AOx3. Interactive. Slurred speech. SKIN: No rash or erythema. Initial Vital Signs Initial Vital Signs: Vital Signs Temperature 97.9 F 05/18/19 17:01 Pulse Rate 138 H 05/18/19 17:01 Respiratory Rate 16 05/18/19 17:01 Blood Pressure 130/96 H 05/18/19 17:01 Pulse Oximetry 98 05/18/19 17:01 <Robert Andino MD - Last Filed: 05/19/19 02:08> Initial Vital Signs Initial Vital Signs: Vital Signs Temperature 97.9 F 05/18/19 17:01 Pulse Rate 138 H 05/18/19 17:01 Respiratory Rate 16 05/18/19 17:01 Blood Pressure 130/96 H 05/18/19 17:01 Pulse Oximetry 98 05/18/19 17:01 Course <ANIL Zazueta-BC - Last Filed: 05/18/19 20:48> Orders Ordered: ED Orders 05/18/19 17:23 Complete Blood Count AUTO DIFF Stat Comprehensive Metabolic Panel Stat Ethanol (ETOH) Stat Hepatic (Liver) Panel Stat Lipase Stat Magnesium Stat Thyroid Stimulating Hormone Stat Discontinued Medications Sodium Chloride (Normal Saline 0.9%) 1,000 mls @ 1,000 mls/hr IV BOLUS ONE Stop: 05/18/19 18:07 Last Infusion: 05/18/19 18:57 Dose: 0 mls/hr Documented by: Admin: 05/18/19 17:57 Dose: 1,000 mls/hr Documented by: FILIPPO Sodium Chloride (Normal Saline 0.9%) 1,000 mls @ 1,000 mls/hr IV BOLUS ONE Stop: 05/18/19 18:09 Last Infusion: 05/18/19 20:42 Dose: 0 mls/hr Documented by: Admin: 05/18/19 19:27 Dose: 1,000 mls/hr Documented by: TIFFANY Ondansetron HCl (Zofran) 4 mg IV NOW ONE Stop: 05/18/19 17:09 Last Admin: 05/18/19 17:56 Dose: 4 mg Documented by: FILIPPO Ondansetron HCl (Zofran) 4 mg IV NOW ONE Stop: 05/18/19 19:23 Last Admin: 05/18/19 19:26 Dose: 4 mg Documented by: TIFFANY Vital Signs Vital signs: Vital Signs - 8 hr 05/18/19 19:00 Pulse Rate 97 H Respiratory Rate 16 Blood Pressure [Left Arm] 127/91 H Pulse Oximetry 97 <Robert Andino MD - Last Filed: 05/19/19 02:08> Orders Ordered: ED Orders 05/18/19 17:23 Complete Blood Count AUTO DIFF Stat Comprehensive Metabolic Panel Stat Ethanol (ETOH) Stat Hepatic (Liver) Panel Stat Lipase Stat Magnesium Stat Thyroid Stimulating Hormone Stat Discontinued Medications Sodium Chloride (Normal Saline 0.9%) 1,000 mls @ 1,000 mls/hr IV BOLUS ONE Stop: 05/18/19 18:07 Last Infusion: 05/18/19 18:57 Dose: 0 mls/hr Documented by: Admin: 05/18/19 17:57 Dose: 1,000 mls/hr Documented by: FILIPPO Sodium Chloride (Normal Saline 0.9%) 1,000 mls @ 1,000 mls/hr IV BOLUS ONE Stop: 05/18/19 18:09 Last Infusion: 05/18/19 20:42 Dose: 0 mls/hr Documented by: Admin: 05/18/19 19:27 Dose: 1,000 mls/hr Documented by: TIFFANY Ondansetron HCl (Zofran) 4 mg IV NOW ONE Stop: 05/18/19 17:09 Last Admin: 05/18/19 17:56 Dose: 4 mg Documented by: FILIPPO Ondansetron HCl (Zofran) 4 mg IV NOW ONE Stop: 05/18/19 19:23 Last Admin: 05/18/19 19:26 Dose: 4 mg Documented by: TIFFANY Vital Signs Vital signs: Vital Signs - 8 hr 05/18/19 19:00 Pulse Rate 97 H Respiratory Rate 16 Blood Pressure [Left Arm] 127/91 H Pulse Oximetry 97 MDM - Alcohol <KIANA Zazueta - Last Filed: 05/18/19 20:48> Lab Data Result diagrams: 05/18/19 17:23 05/18/19 17:23 Labs: Lab Results 05/18/19 05/18/19 05/18/19 Range/Units 17:23 17:23 17:23 WBC 4.1 L (4.5-11.0) X10^3/uL RBC 4.78 (4.0-5.2) X10^6/uL Hgb 13.6 (12.0-16.0) g/dL Hct 40.2 (36-46) % MCV 84.1 (80-100) fL MCH 28.4 (26-34) PG MCHC 33.7 (30-36) % RDW 15.7 H (11.6-14.8) % Plt Count 170 (150-400) X10^3/uL Neut % (Auto) 54.7 (50-75) % Lymph % (Auto) 36.8 (25-40) % [place] % (Auto) 6.8 (3-14) % Eos % (Auto) 0.2 L (2-4) % Baso % (Auto) 1.5 (0-2) % Neut # (Auto) 2200 (5254-4870) /uL Lymph # (Auto) 1500 (7303-6330) /uL [place] # (Auto) 300 (0-900) /uL Eos # (Auto) 0 (0-450) /uL Baso # (Auto) 100 (0-100) /uL Sodium 147 H (137-145) mmol/L Potassium 3.7 (3.4-5.1) mmol/L Chloride 105 (98-107) mmol/L Carbon Dioxide 25 (22-32) mmol/L BUN 5 L (7-17) mg/dL Creatinine 0.70 (0.52-1.04) mg/dL Estimated GFR > 60.0 (>60) mL/min BUN/Creatinine Ratio 7.1 (6-22) Glucose 89 (70-100) mg/dL Calcium 8.6 (8.4-10.2) mg/dL Magnesium 2.0 (1.6-2.3) mg/dL Total Bilirubin 0.7 (0.2-1.3) mg/dL Conjugated Bilirubin 0.0 (0.0-0.3) md/dL Unconjugated Bilirubin 0.5 (0.0-1.1) mg/dL AST 173 H (14-36) IU/L ALT 64 H (9-52) IU/L Alkaline Phosphatase 77 (38-126) U/L Total Protein 7.5 (6.3-8.2) g/dL Albumin 4.5 (3.5-5.0) g/dL Globulin 3.0 (1.7-4.1) g/dL Albumin/Globulin Ratio 1.5 (1.0-2.8) Lipase 419 H (23-300) U/L TSH (0.47-4.68) uIU/mL Urine Opiates Screen Cancelled POC Urine Buprenorphine Cancelled U Morph 300 ng/mL cutoff Cancelled Ur Oxycodone Screen Cancelled Urine Methadone Screen Cancelled Ur Barbiturates Screen Cancelled U Tricyclic Antidepress Cancelled Ur Phencyclidine Scrn Cancelled Ur Amphetamines Screen Cancelled U Methamphetamines Scrn Cancelled Ur MDMA Scrn (Ecstasy) Cancelled U Benzodiazepines Scrn Cancelled Urine Cocaine Screen Cancelled U Marijuana (THC) Screen Cancelled Ethyl Alcohol 470 H* ( - 10) mg/dL 05/18/19 Range/Units 17:23 WBC (4.5-11.0) X10^3/uL RBC (4.0-5.2) X10^6/uL Hgb (12.0-16.0) g/dL Hct (36-46) % MCV (80-100) fL MCH (26-34) PG MCHC (30-36) % RDW (11.6-14.8) % Plt Count (150-400) X10^3/uL Neut % (Auto) (50-75) % Lymph % (Auto) (25-40) % [place] % (Auto) (3-14) % Eos % (Auto) (2-4) % Baso % (Auto) (0-2) % Neut # (Auto) (4355-4944) /uL Lymph # (Auto) (4372-8160) /uL [place] # (Auto) (0-900) /uL Eos # (Auto) (0-450) /uL Baso # (Auto) (0-100) /uL Sodium (137-145) mmol/L Potassium (3.4-5.1) mmol/L Chloride (98-107) mmol/L Carbon Dioxide (22-32) mmol/L BUN (7-17) mg/dL Creatinine (0.52-1.04) mg/dL Estimated GFR (>60) mL/min BUN/Creatinine Ratio (6-22) Glucose (70-100) mg/dL Calcium (8.4-10.2) mg/dL Magnesium (1.6-2.3) mg/dL Total Bilirubin (0.2-1.3) mg/dL Conjugated Bilirubin (0.0-0.3) md/dL Unconjugated Bilirubin (0.0-1.1) mg/dL AST (14-36) IU/L ALT (9-52) IU/L Alkaline Phosphatase (38-126) U/L Total Protein (6.3-8.2) g/dL Albumin (3.5-5.0) g/dL Globulin (1.7-4.1) g/dL Albumin/Globulin Ratio (1.0-2.8) Lipase (23-300) U/L TSH 0.28 L (0.47-4.68) uIU/mL Urine Opiates Screen POC Urine Buprenorphine U Morph 300 ng/mL cutoff Ur Oxycodone Screen Urine Methadone Screen Ur Barbiturates Screen U Tricyclic Antidepress Ur Phencyclidine Scrn Ur Amphetamines Screen U Methamphetamines Scrn Ur MDMA Scrn (Ecstasy) U Benzodiazepines Scrn Urine Cocaine Screen U Marijuana (THC) Screen Ethyl Alcohol ( - 10) mg/dL MDM Narrative Medical decision making narrative: The patient is a 29-year-old female who was brought in by her roommate for concern of alcohol poisoning. The patient you mentioned of at this time, but stated that she did not want hurt herself or anybody else. Her alcohol is critically high at 0.470. She slept for several hours, received 2 L IV fluid woke up and felt much improved. She was alert and oriented re-evaluation, with a steady gait. She again declines any possibility of hurting herself or anybody else. I discussed at length coming back to the emergency department for any acute concerns. Encouraged patient to not drink as much alcohol. Recommended follow-up with her PCP. The patient again declined any need for rehab or detox. No questions or concerns upon discharge. <Robert Andino MD - Last Filed: 05/19/19 02:08> Lab Data Labs: Lab Results 05/18/19 05/18/19 05/18/19 Range/Units 17:23 17:23 17:23 WBC 4.1 L (4.5-11.0) X10^3/uL RBC 4.78 (4.0-5.2) X10^6/uL Hgb 13.6 (12.0-16.0) g/dL Hct 40.2 (36-46) % MCV 84.1 (80-100) fL MCH 28.4 (26-34) PG MCHC 33.7 (30-36) % RDW 15.7 H (11.6-14.8) % Plt Count 170 (150-400) X10^3/uL Neut % (Auto) 54.7 (50-75) % Lymph % (Auto) 36.8 (25-40) % [place] % (Auto) 6.8 (3-14) % Eos % (Auto) 0.2 L (2-4) % Baso % (Auto) 1.5 (0-2) % Neut # (Auto) 2200 (3712-9588) /uL Lymph # (Auto) 1500 (5607-2802) /uL [place] # (Auto) 300 (0-900) /uL Eos # (Auto) 0 (0-450) /uL Baso # (Auto) 100 (0-100) /uL Sodium 147 H (137-145) mmol/L Potassium 3.7 (3.4-5.1) mmol/L Chloride 105 (98-107) mmol/L Carbon Dioxide 25 (22-32) mmol/L BUN 5 L (7-17) mg/dL Creatinine 0.70 (0.52-1.04) mg/dL Estimated GFR > 60.0 (>60) mL/min BUN/Creatinine Ratio 7.1 (6-22) Glucose 89 (70-100) mg/dL Calcium 8.6 (8.4-10.2) mg/dL Magnesium 2.0 (1.6-2.3) mg/dL Total Bilirubin 0.7 (0.2-1.3) mg/dL Conjugated Bilirubin 0.0 (0.0-0.3) md/dL Unconjugated Bilirubin 0.5 (0.0-1.1) mg/dL AST 173 H (14-36) IU/L ALT 64 H (9-52) IU/L Alkaline Phosphatase 77 (38-126) U/L Total Protein 7.5 (6.3-8.2) g/dL Albumin 4.5 (3.5-5.0) g/dL Globulin 3.0 (1.7-4.1) g/dL Albumin/Globulin Ratio 1.5 (1.0-2.8) Lipase 419 H (23-300) U/L TSH (0.47-4.68) uIU/mL Urine Opiates Screen Cancelled POC Urine Buprenorphine Cancelled U Morph 300 ng/mL cutoff Cancelled Ur Oxycodone Screen Cancelled Urine Methadone Screen Cancelled Ur Barbiturates Screen Cancelled U Tricyclic Antidepress Cancelled Ur Phencyclidine Scrn Cancelled Ur Amphetamines Screen Cancelled U Methamphetamines Scrn Cancelled Ur MDMA Scrn (Ecstasy) Cancelled U Benzodiazepines Scrn Cancelled Urine Cocaine Screen Cancelled U Marijuana (THC) Screen Cancelled Ethyl Alcohol 470 H* ( - 10) mg/dL 05/18/19 Range/Units 17:23 WBC (4.5-11.0) X10^3/uL RBC (4.0-5.2) X10^6/uL Hgb (12.0-16.0) g/dL Hct (36-46) % MCV (80-100) fL MCH (26-34) PG MCHC (30-36) % RDW (11.6-14.8) % Plt Count (150-400) X10^3/uL Neut % (Auto) (50-75) % Lymph % (Auto) (25-40) % [place] % (Auto) (3-14) % Eos % (Auto) (2-4) % Baso % (Auto) (0-2) % Neut # (Auto) (9425-4818) /uL Lymph # (Auto) (0269-1602) /uL [place] # (Auto) (0-900) /uL Eos # (Auto) (0-450) /uL Baso # (Auto) (0-100) /uL Sodium (137-145) mmol/L Potassium (3.4-5.1) mmol/L Chloride (98-107) mmol/L Carbon Dioxide (22-32) mmol/L BUN (7-17) mg/dL Creatinine (0.52-1.04) mg/dL Estimated GFR (>60) mL/min BUN/Creatinine Ratio (6-22) Glucose (70-100) mg/dL Calcium (8.4-10.2) mg/dL Magnesium (1.6-2.3) mg/dL Total Bilirubin (0.2-1.3) mg/dL Conjugated Bilirubin (0.0-0.3) md/dL Unconjugated Bilirubin (0.0-1.1) mg/dL AST (14-36) IU/L ALT (9-52) IU/L Alkaline Phosphatase (38-126) U/L Total Protein (6.3-8.2) g/dL Albumin (3.5-5.0) g/dL Globulin (1.7-4.1) g/dL Albumin/Globulin Ratio (1.0-2.8) Lipase (23-300) U/L TSH 0.28 L (0.47-4.68) uIU/mL Urine Opiates Screen POC Urine Buprenorphine U Morph 300 ng/mL cutoff Ur Oxycodone Screen Urine Methadone Screen Ur Barbiturates Screen U Tricyclic Antidepress Ur Phencyclidine Scrn Ur Amphetamines Screen U Methamphetamines Scrn Ur MDMA Scrn (Ecstasy) U Benzodiazepines Scrn Urine Cocaine Screen U Marijuana (THC) Screen Ethyl Alcohol ( - 10) mg/dL Discharge Plan Departure Patient Disposition: Home Clinical Impression: Alcoholic intoxication Qualifiers: Complication of substance-induced condition: uncomplicated Qualified Code(s): F10.920 - Alcohol use, unspecified with intoxication, uncomplicated Discharge Date/Time: 05/18/19 21:20 Instructions: DI for Alcohol Abuse, DI for Alcohol Poisoning Activity Restrictions/Additional Instructions: Today you drink way too much. I suggest not drinking that much again. Please follow up with primary care provider. Please come back to emergency department for any acute concerns such as chest pain, shortness of breath Prescriptions: No Action trazodone 50 MG tablet 100 mg PO BEDTIME Qty: 1 RF: 0 ciprofloxacin HCl 500 mg tablet 500 mg PO BID Qty: 14 RF: 0 Referrals: Mumtaz Torres CNP [Primary Care Provider] -
--- NOTE | 2019-05-18 19:25 | PC.NURSE ---
1925 Pt requesting nausea medication, provider aware and ordered zofran.
--- NOTE | 2019-05-18 21:00 | PC.NURSE ---
PT alert, awake acting appropriate requesting to go home provider aware.
== END 2019-05-18 21:20 | disposition home or self-care (01) ==
PROVIDERS: Emergency Provider Nurse Practitioner Family; PCP Registered Nurse Diabetes Educator
DX: F10.920 Alcohol use, unspecified with intoxication, uncomplicated (principal)
CPT/HCPCS: 36415; 80053; 80076; 80320; 83690; 83735; 84443; 85025; 96361; 96374; 96376; 99283; 99284; J2405

== ENCOUNTER 2019-07-02 15:41 | Emergency (ER) | payer OTHER, SELFPAY ==
[2019-07-02 15:45] VITALS: BP 128/81; PULSE 150; RESP 24; TEMP 36.5; O2SAT 99
--- NOTE | 2019-07-02 16:04 | ED_ITS ---
HPI - Alcohol <DO Lucy Delgado Last Filed: 07/03/19 07:28> General Chief Complaint: Toxicology Problem Stated Complaint: ETOH, thinks has alcohol poisoning Time Seen by Provider: 07/02/19 15:55 Source: patient and other Mode of arrival: Ambulatory Limitations: other History of Present Illness HPI narrative: Patient is a 29-year-old female with chronic alcohol abuse presenting with alcohol intoxication. She is brought in by her roommate who states that she is too drunk to be at home. She does have an unsteady gait she is awake and alert but is clearly intoxicated. She states that she drink a L of vodka today and she drink a L of vodka yesterday. She was seen evaluated at [facility] on June 29/2019 for abdominal pain. She has had multiple abdominal pain workups including CTs and imaging she was previously told she has ovarian cysts. Today she actually has no complaints. MD complaint: alcohol intoxication Last drink: just prior to this admission Chronic alcohol use: Yes Previous visits for alcohol intoxication: Yes Recent trauma: No Related Data Home Medications Medication Instructions Recorded Confirmed trazodone 100 mg PO BEDTIME #1 03/27/17 07/02/19 Allergies Allergy/AdvReac Type Severity Reaction Status Date / Time metoclopramide Allergy Mild RASH/HIVES Verified 07/02/19 16:01 [METOCLOPRAMIDE] hydrocodone [HYDROCODONE] AdvReac Unknown VOMITING Verified 07/02/19 16:01 Review of Systems <DO Lucy Delgado Last Filed: 07/03/19 07:28> Review of Systems ROS Unobtainable: All systems reviewed & are unremarkable except as noted in HPI and below Constitutional Constitutional: Denies chills, Denies fever(s), Denies lethargy and Denies weakness Cardiovascular Cardiovascular: Denies dyspnea and Denies dyspnea on exertion Respiratory Respiratory: Denies cough, Denies dyspnea, Denies dyspnea on exertion and Denies wheezing Gastrointestinal Gastrointestinal: Denies abdominal pain, Denies change in bowel habits, Denies diarrhea, Denies nausea and Denies vomiting Integumentary/Breasts Skin/Breast: Denies pruritus, Denies erythema, Denies rash and Denies wounds Neurologic Neurologic: Denies weakness Psychiatric Psychiatric: Reports as per HPI Allergic/Immunologic Allergic/Immunologic: Denies wheezing Patient History <DO Lucy Delgado Filed: 07/03/19 07:28> Social History Smoking Status: Never smoker alcohol intake frequency: 3 or more drinks per day Substance Use Type: does not use Exam <Milady Dewitt DO - Last Filed: 07/03/19 07:28> Initial Vital Signs Initial Vital Signs: Vital Signs Temperature 97.7 F 07/02/19 15:45 Pulse Rate 150 H 07/02/19 15:45 Respiratory Rate 24 07/02/19 15:45 Blood Pressure 128/81 07/02/19 15:45 Pulse Oximetry 99 07/02/19 15:45 GENERAL: Well-appearing, well-nourished and in no acute distress. HEENT: Head atraumatic,EOMI, pupils reactive, face symmetric CARDIOVASCULAR: Regular rate and rhythm without murmurs, rubs or gallops. RESPIRATORY: Breath sounds equal bilaterally, no wheezes rales or rhonchi. ABDOMEN: Soft, nontender. Normoactive bowel sounds all 4 quadrants. No guarding or rebound. EXTREMITIES: Normal range of motion, no clubbing or edema. Neurovascularly intact NEUROLOGICAL: Alert and oriented. + slurring of speech, + unsteady gait SKIN: Warm, dry, no laceration, no petechiae, no rashes or lesions. <Roque García DO - Last Filed: 07/03/19 02:34> Initial Vital Signs Initial Vital Signs: Vital Signs Temperature 97.7 F 07/02/19 15:45 Pulse Rate 150 H 07/02/19 15:45 Respiratory Rate 24 07/02/19 15:45 Blood Pressure 128/81 07/02/19 15:45 Pulse Oximetry 99 07/02/19 15:45 Course <Milady Dewitt DO - Last Filed: 07/03/19 07:28> Orders Ordered: Discontinued Medications Magnesium Sulfate 2 gm/ Folic Acid 1 mg/ Thiamine HCl 100 mg / Multivitamins 10 ml/ Sodium Chloride 1,015.2 mls @ 125 mls/hr IV NOW ONE Stop: 07/03/19 00:16 Last Infusion: 07/02/19 20:52 Dose: 125 mls/hr Documented by: Admin: 07/02/19 16:53 Dose: 125 mls/hr Documented by: PERLA Sodium Chloride (Normal Saline 0.9%) 1,000 mls @ 1,000 mls/hr IV BOLUS ONE Stop: 07/02/19 17:08 Last Infusion: 07/02/19 17:06 Dose: 0 mls/hr Documented by: Admin: 07/02/19 16:10 Dose: 1,000 mls/hr Documented by: RAY Famotidine (Pepcid) 20 mg in 50 mls @ 200 mls/hr IV NOW ONE Stop: 07/02/19 21:10 Last Infusion: 07/02/19 21:20 Dose: 0 mls/hr Documented by: Admin: 07/02/19 21:04 Dose: 200 mls/hr Documented by: PERLA Lorazepam (Ativan) 2 mg IV NOW ONE Stop: 07/02/19 17:06 Last Admin: 07/02/19 17:40 Dose: 2 mg Documented by: PERLA Methylprednisolone (Solu-Medrol 125 Mg Vial) 125 mg IV NOW ONE Stop: 07/02/19 20:56 Last Admin: 07/02/19 21:04 Dose: 125 mg Documented by: PERLA Ondansetron HCl (Zofran) 4 mg IV NOW ONE Stop: 07/02/19 18:26 Last Admin: 07/02/19 18:32 Dose: 4 mg Documented by: PERLA Ondansetron HCl (Zofran) 4 mg IV NOW ONE Stop: 07/02/19 20:47 Last Admin: 07/02/19 21:04 Dose: 4 mg Documented by: PERLA Pantoprazole Sodium (Protonix) 40 mg IV NOW ONE Stop: 07/02/19 20:47 Last Admin: 07/02/19 21:50 Dose: Not Given Documented by: PERLA Phenobarbital (Phenobarbital) 130 mg IV NOW ONE Stop: 07/02/19 20:47 Last Admin: 07/02/19 21:04 Dose: 130 mg Documented by: PERLA Vital Signs Vital signs: Vital Signs - 8 hr 07/02/19 20:15 07/02/19 21:15 07/02/19 22:10 Pulse Rate 108 H 102 H 100 H Respiratory Rate 18 16 16 Blood Pressure [Left Arm] 104/72 Pulse Oximetry 98 98 99 <Roque García, DO - Last Filed: 07/03/19 02:34> Course Course Narrative: Patient received in sign-out from Dr. Dewitt. I have performed an independent history and physical exam and patient is starting to become a bit agitated. Repeat C while is 16. Additionally in the past few minutes, without any new medication she starts demonstrating an itchy maculopapular rash on arms and abdomen. It is unclear what the trigger is, she has had no new medications, foods, exposure to pets or other. She is having no trouble breathing or difficulty swallowing. Banana bag stopped, Solu-Medrol and Pepcid ordered. Phenobarb 130 ordered for ongoing withdrawal symptoms 2204 - patient doing quite well. CIWA down to 1. Speaking clearly, walking a straight line. Full capacity. Ride on the way Orders Ordered: Discontinued Medications Magnesium Sulfate 2 gm/ Folic Acid 1 mg/ Thiamine HCl 100 mg / Multivitamins 10 ml/ Sodium Chloride 1,015.2 mls @ 125 mls/hr IV NOW ONE Stop: 07/03/19 00:16 Last Infusion: 07/02/19 20:52 Dose: 125 mls/hr Documented by: Admin: 07/02/19 16:53 Dose: 125 mls/hr Documented by: PERLA Sodium Chloride (Normal Saline 0.9%) 1,000 mls @ 1,000 mls/hr IV BOLUS ONE Stop: 07/02/19 17:08 Last Infusion: 07/02/19 17:06 Dose: 0 mls/hr Documented by: Admin: 07/02/19 16:10 Dose: 1,000 mls/hr Documented by: RAY Famotidine (Pepcid) 20 mg in 50 mls @ 200 mls/hr IV NOW ONE Stop: 07/02/19 21:10 Last Infusion: 07/02/19 21:20 Dose: 0 mls/hr Documented by: Admin: 07/02/19 21:04 Dose: 200 mls/hr Documented by: PERLA Lorazepam (Ativan) 2 mg IV NOW ONE Stop: 07/02/19 17:06 Last Admin: 07/02/19 17:40 Dose: 2 mg Documented by: PERLA Methylprednisolone (Solu-Medrol 125 Mg Vial) 125 mg IV NOW ONE Stop: 07/02/19 20:56 Last Admin: 07/02/19 21:04 Dose: 125 mg Documented by: PERLA Ondansetron HCl (Zofran) 4 mg IV NOW ONE Stop: 07/02/19 18:26 Last Admin: 07/02/19 18:32 Dose: 4 mg Documented by: PERLA Ondansetron HCl (Zofran) 4 mg IV NOW ONE Stop: 07/02/19 20:47 Last Admin: 07/02/19 21:04 Dose: 4 mg Documented by: PERLA Pantoprazole Sodium (Protonix) 40 mg IV NOW ONE Stop: 07/02/19 20:47 Last Admin: 07/02/19 21:50 Dose: Not Given Documented by: PERLA Phenobarbital (Phenobarbital) 130 mg IV NOW ONE Stop: 07/02/19 20:47 Last Admin: 07/02/19 21:04 Dose: 130 mg Documented by: PERLA Vital Signs Vital signs: Vital Signs - 8 hr 07/02/19 20:15 07/02/19 21:15 07/02/19 22:10 Pulse Rate 108 H 102 H 100 H Respiratory Rate 18 16 16 Blood Pressure [Left Arm] 104/72 Pulse Oximetry 98 98 99 MDM - Alcohol <Milady Dewitt DO - Last Filed: 07/03/19 07:28> Lab Data Attestation: I reviewed the patient's lab results. Result diagrams: 07/02/19 15:55 07/02/19 15:55 Labs: Lab Results 07/02/19 07/02/19 07/02/19 Range/Units 15:55 15:55 15:55 WBC 6.6 (4.5-11.0) X10^3/uL RBC 4.15 (4.0-5.2) X10^6/uL Hgb 11.8 L (12.0-16.0) g/dL Hct 35.0 L (36-46) % MCV 84.1 (80-100) fL MCH 28.5 (26-34) PG MCHC 33.9 (30-36) % RDW 15.7 H (11.6-14.8) % Plt Count 152 (150-400) X10^3/uL Neut % (Auto) 78.6 H (50-75) % Lymph % (Auto) 17.2 L (25-40) % [place] % (Auto) 3.3 (3-14) % Eos % (Auto) 0.3 L (2-4) % Baso % (Auto) 0.6 (0-2) % Neut # (Auto) 5200 (3803-4775) /uL Lymph # (Auto) 1100 (3848-0328) /uL [place] # (Auto) 200 (0-900) /uL Eos # (Auto) 0 (0-450) /uL Baso # (Auto) 0 (0-100) /uL Sodium 143 (137-145) mmol/L Potassium 3.8 (3.4-5.1) mmol/L Chloride 100 (98-107) mmol/L Carbon Dioxide 26 (22-32) mmol/L BUN 7 (7-17) mg/dL Creatinine 0.70 (0.52-1.04) mg/dL Estimated GFR > 60.0 (>60) mL/min BUN/Creatinine Ratio 10.0 (6-22) Glucose 117 H (70-100) mg/dL Calcium 8.6 (8.4-10.2) mg/dL Magnesium 1.8 (1.6-2.3) mg/dL Total Bilirubin 0.8 (0.2-1.3) mg/dL AST 83 H (14-36) IU/L ALT 23 (<35) IU/L Alkaline Phosphatase 96 (38-126) U/L Total Protein 7.6 (6.3-8.2) g/dL Albumin 4.8 (3.5-5.0) g/dL Globulin 2.8 (1.7-4.1) g/dL Albumin/Globulin Ratio 1.7 (1.0-2.8) Lipase 374 H (23-300) U/L Urine RBC (0-5/HPF) Urine WBC (0-5/HPF) Urine Bacteria (None) Ur Culture Indicated? U Morph 300 ng/mL cutoff Negative (Negative) Ur Oxycodone Screen Negative (Negative) Urine Methadone Screen Negative (Negative) Ur Barbiturates Screen Negative (Negative) U Tricyclic Antidepress Negative (Negative) Ur Phencyclidine Scrn Negative (Negative) Ur Amphetamines Screen Negative (Negative) U Methamphetamines Scrn Negative (Negative) Ur MDMA Scrn (Ecstasy) Negative (Negative) U Benzodiazepines Scrn Negative (Negative) Urine Cocaine Screen Negative (Negative) U Marijuana (THC) Screen Negative (Negative) Ethyl Alcohol 455 H* ( - 10) mg/dL 07/02/19 Range/Units 15:55 WBC (4.5-11.0) X10^3/uL RBC (4.0-5.2) X10^6/uL Hgb (12.0-16.0) g/dL Hct (36-46) % MCV (80-100) fL MCH (26-34) PG MCHC (30-36) % RDW (11.6-14.8) % Plt Count (150-400) X10^3/uL Neut % (Auto) (50-75) % Lymph % (Auto) (25-40) % [place] % (Auto) (3-14) % Eos % (Auto) (2-4) % Baso % (Auto) (0-2) % Neut # (Auto) (8207-1956) /uL Lymph # (Auto) (7183-8583) /uL [place] # (Auto) (0-900) /uL Eos # (Auto) (0-450) /uL Baso # (Auto) (0-100) /uL Sodium (137-145) mmol/L Potassium (3.4-5.1) mmol/L Chloride (98-107) mmol/L Carbon Dioxide (22-32) mmol/L BUN (7-17) mg/dL Creatinine (0.52-1.04) mg/dL Estimated GFR (>60) mL/min BUN/Creatinine Ratio (6-22) Glucose (70-100) mg/dL Calcium (8.4-10.2) mg/dL Magnesium (1.6-2.3) mg/dL Total Bilirubin (0.2-1.3) mg/dL AST (14-36) IU/L ALT (<35) IU/L Alkaline Phosphatase (38-126) U/L Total Protein (6.3-8.2) g/dL Albumin (3.5-5.0) g/dL Globulin (1.7-4.1) g/dL Albumin/Globulin Ratio (1.0-2.8) Lipase (23-300) U/L Urine RBC 1-5/hpf (0-5/HPF) Urine WBC None seen (0-5/HPF) Urine Bacteria None seen (None) Ur Culture Indicated? Cult not indicated U Morph 300 ng/mL cutoff (Negative) Ur Oxycodone Screen (Negative) Urine Methadone Screen (Negative) Ur Barbiturates Screen (Negative) U Tricyclic Antidepress (Negative) Ur Phencyclidine Scrn (Negative) Ur Amphetamines Screen (Negative) U Methamphetamines Scrn (Negative) Ur MDMA Scrn (Ecstasy) (Negative) U Benzodiazepines Scrn (Negative) Urine Cocaine Screen (Negative) U Marijuana (THC) Screen (Negative) Ethyl Alcohol ( - 10) mg/dL Point of Care Testing Test Results Negative Urine Dip Bedside Urine Glucose Negative Bedside Urine Bilirubin - Negative Bedside Urine Ketone - Negative Urine Specific [place] 1.005 Bedside Urine Occult Blood + Bedside Urine pH 6.0 Bedside Urine Protein +/- 15 Bedside Urine Urobilinogen - Negative Bedside Urine Nitrite - Negative Bedside Urine Leukocytes - Negative Esterase MDM Narrative Medical decision making narrative: Patient is clearly intoxicated with alcohol but is speaking ambulatory ER. She is given 1 dose of Ativan as she seems slightly elevated now complaining of nausea he was given a dose of Zofran. Patient signed out to Dr. García. Anticipate discharge home when clinically sober and able. <Roque García, - Last Filed: 07/03/19 02:34> Lab Data Labs: Lab Results 07/02/19 07/02/19 07/02/19 Range/Units 15:55 15:55 15:55 WBC 6.6 (4.5-11.0) X10^3/uL RBC 4.15 (4.0-5.2) X10^6/uL Hgb 11.8 L (12.0-16.0) g/dL Hct 35.0 L (36-46) % MCV 84.1 (80-100) fL MCH 28.5 (26-34) PG MCHC 33.9 (30-36) % RDW 15.7 H (11.6-14.8) % Plt Count 152 (150-400) X10^3/uL Neut % (Auto) 78.6 H (50-75) % Lymph % (Auto) 17.2 L (25-40) % [place] % (Auto) 3.3 (3-14) % Eos % (Auto) 0.3 L (2-4) % Baso % (Auto) 0.6 (0-2) % Neut # (Auto) 5200 (9591-5747) /uL Lymph # (Auto) 1100 (4476-9278) /uL [place] # (Auto) 200 (0-900) /uL Eos # (Auto) 0 (0-450) /uL Baso # (Auto) 0 (0-100) /uL Sodium 143 (137-145) mmol/L Potassium 3.8 (3.4-5.1) mmol/L Chloride 100 (98-107) mmol/L Carbon Dioxide 26 (22-32) mmol/L BUN 7 (7-17) mg/dL Creatinine 0.70 (0.52-1.04) mg/dL Estimated GFR > 60.0 (>60) mL/min BUN/Creatinine Ratio 10.0 (6-22) Glucose 117 H (70-100) mg/dL Calcium 8.6 (8.4-10.2) mg/dL Magnesium 1.8 (1.6-2.3) mg/dL Total Bilirubin 0.8 (0.2-1.3) mg/dL AST 83 H (14-36) IU/L ALT 23 (<35) IU/L Alkaline Phosphatase 96 (38-126) U/L Total Protein 7.6 (6.3-8.2) g/dL Albumin 4.8 (3.5-5.0) g/dL Globulin 2.8 (1.7-4.1) g/dL Albumin/Globulin Ratio 1.7 (1.0-2.8) Lipase 374 H (23-300) U/L Urine RBC (0-5/HPF) Urine WBC (0-5/HPF) Urine Bacteria (None) Ur Culture Indicated? U Morph 300 ng/mL cutoff Negative (Negative) Ur Oxycodone Screen Negative (Negative) Urine Methadone Screen Negative (Negative) Ur Barbiturates Screen Negative (Negative) U Tricyclic Antidepress Negative (Negative) Ur Phencyclidine Scrn Negative (Negative) Ur Amphetamines Screen Negative (Negative) U Methamphetamines Scrn Negative (Negative) Ur MDMA Scrn (Ecstasy) Negative (Negative) U Benzodiazepines Scrn Negative (Negative) Urine Cocaine Screen Negative (Negative) U Marijuana (THC) Screen Negative (Negative) Ethyl Alcohol 455 H* ( - 10) mg/dL 07/02/19 Range/Units 15:55 WBC (4.5-11.0) X10^3/uL RBC (4.0-5.2) X10^6/uL Hgb (12.0-16.0) g/dL Hct (36-46) % MCV (80-100) fL MCH (26-34) PG MCHC (30-36) % RDW (11.6-14.8) % Plt Count (150-400) X10^3/uL Neut % (Auto) (50-75) % Lymph % (Auto) (25-40) % [place] % (Auto) (3-14) % Eos % (Auto) (2-4) % Baso % (Auto) (0-2) % Neut # (Auto) (8432-9811) /uL Lymph # (Auto) (4814-7796) /uL [place] # (Auto) (0-900) /uL Eos # (Auto) (0-450) /uL Baso # (Auto) (0-100) /uL Sodium (137-145) mmol/L Potassium (3.4-5.1) mmol/L Chloride (98-107) mmol/L Carbon Dioxide (22-32) mmol/L BUN (7-17) mg/dL Creatinine (0.52-1.04) mg/dL Estimated GFR (>60) mL/min BUN/Creatinine Ratio (6-22) Glucose (70-100) mg/dL Calcium (8.4-10.2) mg/dL Magnesium (1.6-2.3) mg/dL Total Bilirubin (0.2-1.3) mg/dL AST (14-36) IU/L ALT (<35) IU/L Alkaline Phosphatase (38-126) U/L Total Protein (6.3-8.2) g/dL Albumin (3.5-5.0) g/dL Globulin (1.7-4.1) g/dL Albumin/Globulin Ratio (1.0-2.8) Lipase (23-300) U/L Urine RBC 1-5/hpf (0-5/HPF) Urine WBC None seen (0-5/HPF) Urine Bacteria None seen (None) Ur Culture Indicated? Cult not indicated U Morph 300 ng/mL cutoff (Negative) Ur Oxycodone Screen (Negative) Urine Methadone Screen (Negative) Ur Barbiturates Screen (Negative) U Tricyclic Antidepress (Negative) Ur Phencyclidine Scrn (Negative) Ur Amphetamines Screen (Negative) U Methamphetamines Scrn (Negative) Ur MDMA Scrn (Ecstasy) (Negative) U Benzodiazepines Scrn (Negative) Urine Cocaine Screen (Negative) U Marijuana (THC) Screen (Negative) Ethyl Alcohol ( - 10) mg/dL Point of Care Testing Test Results Negative Urine Dip Bedside Urine Glucose Negative Bedside Urine Bilirubin - Negative Bedside Urine Ketone - Negative Urine Specific [place] 1.005 Bedside Urine Occult Blood + Bedside Urine pH 6.0 Bedside Urine Protein +/- 15 Bedside Urine Urobilinogen - Negative Bedside Urine Nitrite - Negative Bedside Urine Leukocytes - Negative Esterase Discharge Plan Departure Patient Disposition: Home Clinical Impression: Alcoholism Alcoholic intoxication Qualifiers: Complication of substance-induced condition: uncomplicated Qualified Code(s): F10.920 - Alcohol use, unspecified with intoxication, uncomplicated Discharge Date/Time: 07/02/19 23:45 Instructions: DI for Alcohol Abuse Activity Restrictions/Additional Instructions: *You have been diagnosed with alcohol abuse *What to do: Strongly recommended that he stop drinking alcohol under direct supervision please do not on your own-this can lead to *Continue to take medications as directed *Follow up with your primary care provider in 2-3 days *Return to ER if you should have any new, worsening or concerning symptoms Prescriptions: No Action trazodone 50 MG tablet 100 mg PO BEDTIME Qty: 1 RF: 0 Referrals: [facility] [Outside] [facility] [Outside] Mumtaz Torres CNP [Primary Care Provider] -
[2019-07-02] MEDS: SODIUM CHLORIDE 0.9% 1,000 ML 1000 ML IV (16:10)
[2019-07-02 16:20] LABS: Add Manual Diff / Slide Review NO; Basophils Absolute Auto 0 /uL (0-100); Basophils Percent Auto 0.6 % (0-2); Eosinophils Absolute Auto 0 /uL (0-450); Eosinophils Percent Auto 0.3 % (2-4); Hemoglobin 11.8 g/dL (12.0-16.0); Lymphocytes Absolute Auto 1100 /uL (1100-4500); Lymphocytes Percent Auto 17.2 % (25-40); Mean Corpuscular HGB Conc 33.9 % (30-36); Mean Corpuscular Hemoglobin 28.5 PG (26-34); Mean Corpuscular Volume 84.1 fL (80-100); Monocytes Absolute Auto 200 /uL (0-900); Monocytes Percent Auto 3.3 % (3-14); Neutrophils Absolute Auto 5200 /uL (1500-7000); Neutrophils Percent Auto 78.6 % (50-75); Platelet Count 152 X10^3/uL (150-400); Red Blood Cell Count 4.15 X10^6/uL (4.0-5.2); Red Cell Distribution Width 15.7 % (11.6-14.8); White Blood Cell Count 6.6 X10^3/uL (4.5-11.0)
[2019-07-02 16:26] LABS: Alanine Aminotransferase 23 IU/L (<35); Albumin 4.8 g/dL (3.5-5.0); Albumin Globulin Ratio 1.7 (1.0-2.8); Alkaline Phosphatase 96 U/L (38-126); Aspartate Aminotransferase 83 IU/L (14-36); Bilirubin Total 0.8 mg/dL (0.2-1.3); Blood Urea Nitrogen 7 mg/dL (7-17); Calcium 8.6 mg/dL (8.4-10.2); Carbon Dioxide 26 mmol/L (22-32); Chloride 100 mmol/L (98-107); Estimated Glomerular Filt Rate > 60.0 mL/min (>60); Globulin 2.8 g/dL (1.7-4.1); Glucose 117 mg/dL (70-100); HEMOLYSIS 19 (0-50); Lipase 374 U/L (23-300); Magnesium 1.8 mg/dL (1.6-2.3); Potassium 3.8 mmol/L (3.4-5.1); Sodium 143 mmol/L (137-145); Total Protein 7.6 g/dL (6.3-8.2)
[2019-07-02 16:29] LABS: UR Morphine/Opiate cutoff 300 Negative (Negative); Ur Creatinine Normal (Normal); Ur Specific Gravity Normal (Normal); Urine Amphetamines Negative (Negative); Urine Barbiturates Negative (Negative); Urine Benzodiazepines Negative (Negative); Urine Cocaine Negative (Negative); Urine MDMA Negative (Negative); Urine Methadone Negative (Negative); Urine Methamphetamines Negative (Negative); Urine Oxycodone Negative (Negative); Urine Phencyclidine Negative (Negative); Urine Tetrahydrocannabinol Negative (Negative); Urine Tricyclic Antidepressant Negative (Negative); Urine pH Normal (Normal)
[2019-07-02 16:30] LABS: Bacteria Urine None Seen; Culture Indicated Urine Cult Not Indicated; RBC Urine 1-5/HPF (0-5/HPF); WBC Urine None Seen (0-5/HPF)
[2019-07-02 16:37] LABS: Ethanol (ETOH) 455 mg/dL
[2019-07-02] MEDS: MAGNESIUM SULFATE 2 GM, FOLIC ACID 1 MG, THIAMINE 100 MG, MULTIVITAMIN 10 ML in SODIUM ... IV (16:53)
[2019-07-02 17:02] VITALS: BP 115/76; PULSE 124; RESP 18; O2SAT 100
[2019-07-02] MEDS: LORazepam 2 MG/ML INJ IV (17:40)
[2019-07-02 18:04] VITALS: BP 119/75; PULSE 115; RESP 20; O2SAT 98
[2019-07-02] MEDS: ONDANSETRON 4 MG/2 ML INJ IV ×2 (18:32→21:04)
[2019-07-02 20:15] VITALS: BP 104/72; PULSE 108; RESP 18; O2SAT 98
[2019-07-02] MEDS: PHENobarbital 65 MG/ML VIAL 130 MG IV (21:04)
[2019-07-02] MEDS: FAMOTIDINE 20 MG/50 ML PIGGYBACK 200 MG IV (21:04)
[2019-07-02] MEDS: methylPREDNISolone 125 MG/2 ML VIAL IV (21:04)
--- NOTE | 2019-07-02 21:10 | PC.NURSE ---
After returning from bathroom, pt turned the call light on to report itchy red rash to arms, legs, and torso. Denies lip/tongue swelling/difficulty breathing. Banana bag stopped. Dr García at bedside, med orders received.
[2019-07-02 21:15] VITALS: PULSE 102; RESP 16; O2SAT 98
[2019-07-02 22:10] VITALS: PULSE 100; RESP 16; O2SAT 99
== END 2019-07-02 23:45 | disposition home or self-care (01) ==
PROVIDERS: Emergency Medicine; Emergency Provider Emergency Medicine; PCP Registered Nurse Diabetes Educator
DX: F10.920 Alcohol use, unspecified with intoxication, uncomplicated (principal)
CPT/HCPCS: 36415; 80053; 80305; 80320; 81003; 81015; 81025; 83690; 83735; 85025; 96361; 96365; 96375; 96376; 99284; 99285; J2060; J2405; J2560; J2930; J3475

== ENCOUNTER 2019-07-03 07:17 | Emergency (ER) | payer OTHER, SELFPAY ==
[2019-07-03 07:33] VITALS: BP 132/69; PULSE 94; RESP 18; TEMP 36.7; O2SAT 100; BMI 22.3
--- NOTE | 2019-07-03 08:02 | ED.ABDPAIN ---
HPI - Abdominal Pain General Chief Complaint: Abdominal Pain Stated Complaint: Nausea/vomiting Time Seen by Provider: 07/03/19 07:50 Source: patient Mode of arrival: Ambulatory Limitations: no limitations History of Present Illness HPI narrative: The patient is a 29-year-old female who has a history of alcoholism she was seen and evaluated here yesterday by myself she received a dose of phenobarbital she was discharged home on returns today with nausea vomiting and shaking. She said that she tried Zofran at home and was unable to keep down. She has been dry heaving. Some mild abdominal discomfort but no localization or anything specific. Onset (ago): hour(s) Location: diffuse Quality: dull Related Data Home Medications Medication Instructions Recorded Confirmed trazodone 100 mg PO BEDTIME #1 03/27/17 07/02/19 Allergies Allergy/AdvReac Type Severity Reaction Status Date / Time metoclopramide Allergy Mild RASH/HIVES Verified 07/03/19 07:33 [METOCLOPRAMIDE] hydrocodone [HYDROCODONE] AdvReac Unknown VOMITING Verified 07/03/19 07:33 Review of Systems Review of Systems Narrative: GENERAL: Denies chills, fatigue, malaise, fever, sweats, travel HEENT: Denies sinus pain, ear pain, sore throat, difficulty swallowing, neck pain RESPIRATORY: Denies dyspnea, cough, wheezing, hemoptysis, sputum. CARDIOVASCULAR: Denies chest pain, palpitations, orthopnea, edema GASTROINTESTINAL: See HPI : Denies dysuria, frequency, incontinence, hematuria, urinary retention, flank pain. MUSCULOSKELETAL: Denies weakness, joint pain, or bony pain SKIN: No rash, no erythema, no pruritus NEUROLOGIC: Denies weakness, dizziness, headache, numbness, change in speech, confusion PSYCHIATRIC: No concerning psychosocial issues. 12 point review of systems is negative except for those stated above and HPI Patient History Medical History No active medical problems (Acute) Surgical History No pertinent past surgical history (Acute) Social History Smoking Status: Never smoker alcohol intake frequency: 3 or more drinks per day Substance Use Type: does not use Exam Initial Vital Signs Initial Vital Signs: Vital Signs Temperature 98.1 F 07/03/19 07:33 Pulse Rate 94 H 07/03/19 07:33 Respiratory Rate 18 07/03/19 07:33 Blood Pressure 132/69 07/03/19 07:33 Pulse Oximetry 100 07/03/19 07:33 GENERAL: Alert young female no active vomiting HEENT: Head atraumatic,EOMI, pupils reactive, face symmetric CARDIOVASCULAR: Regular rate and rhythm without murmurs, rubs or gallops. RESPIRATORY: Breath sounds equal bilaterally, no wheezes rales or rhonchi. ABDOMEN: Soft, minimal tenderness no distention no guarding no rebound no localization EXTREMITIES: Normal range of motion, no clubbing or edema. Neurovascularly intact NEUROLOGICAL: Alert and oriented x4.Normal gait and speech. A mild tremors in hands SKIN: Warm, dry, no laceration, no petechiae, no rashes or lesions. Course Orders Ordered: ED Orders 07/03/19 09:52 Complete Blood Count AUTO DIFF Stat Comprehensive Metabolic Panel Stat Lipase Stat Discontinued Medications Sodium Chloride (Normal Saline 0.9%) 1,000 mls @ 1,000 mls/hr IV CONT DAVONTE Last Infusion: 07/03/19 09:47 Dose: 0 mls/hr Documented by: JOSE ANTONIO Admin: 07/03/19 08:38 Dose: 1,000 mls/hr Documented by: AIDA Ondansetron HCl (Zofran) 4 mg IV NOW ONE Stop: 07/03/19 07:58 Last Admin: 07/03/19 08:38 Dose: 4 mg Documented by: AIDA Ondansetron HCl (Zofran) 4 mg IV NOW ONE Stop: 07/03/19 09:41 Last Admin: 07/03/19 10:23 Dose: 4 mg Documented by: FILIPPO Pantoprazole Sodium (Protonix) 40 mg IV NOW ONE Stop: 07/03/19 07:58 Last Admin: 07/03/19 08:38 Dose: 40 mg Documented by: AIDA Phenobarbital (Phenobarbital) 130 mg IV NOW ONE Stop: 07/03/19 07:58 Last Admin: 07/03/19 08:38 Dose: 65 mg Documented by: AIDA Phenobarbital (Phenobarbital) 65 mg IV NOW ONE Stop: 07/03/19 08:48 Last Admin: 07/03/19 08:49 Dose: 65 mg Documented by: SCANAPO Vital Signs Vital signs: Vital Signs - 8 hr 07/03/19 07:33 07/03/19 09:58 07/03/19 11:08 Temperature 98.1 F Pulse Rate 94 H 73 92 H Respiratory Rate 18 15 16 Blood Pressure 132/69 Blood Pressure [Left Arm] 122/80 120/75 Pulse Oximetry 100 100 100 MDM - Abdominal Pain Lab Data Result diagrams: 07/03/19 09:52 07/03/19 09:52 Labs: Lab Results 07/03/19 07/03/19 Range/Units 09:52 09:52 WBC 3.9 L (4.5-11.0) X10^3/uL RBC 3.53 L (4.0-5.2) X10^6/uL Hgb 10.1 L (12.0-16.0) g/dL Hct 29.8 L (36-46) % MCV 84.5 (80-100) fL MCH 28.7 (26-34) PG MCHC 34.0 (30-36) % RDW 15.1 H (11.6-14.8) % Plt Count 88 L (150-400) X10^3/uL Neut % (Auto) 96.0 H (50-75) % Lymph % (Auto) 2.8 L (25-40) % [place] % (Auto) 1.2 L (3-14) % Eos % (Auto) 0.0 L (2-4) % Baso % (Auto) 0.0 (0-2) % Neut # (Auto) 3700 (6751-6616) /uL Lymph # (Auto) 100 L (0398-2439) /uL [place] # (Auto) 0 (0-900) /uL Eos # (Auto) 0 (0-450) /uL Baso # (Auto) 0 (0-100) /uL Sodium 135 L (137-145) mmol/L Potassium 4.2 (3.4-5.1) mmol/L Chloride 99 (98-107) mmol/L Carbon Dioxide 26 (22-32) mmol/L BUN 8 (7-17) mg/dL Creatinine 0.60 (0.52-1.04) mg/dL Estimated GFR > 60.0 (>60) mL/min BUN/Creatinine Ratio 13.3 (6-22) Glucose 140 H (70-100) mg/dL Calcium 8.9 (8.4-10.2) mg/dL Total Bilirubin 1.5 H (0.2-1.3) mg/dL AST 57 H (14-36) IU/L ALT 20 (<35) IU/L Alkaline Phosphatase 73 (38-126) U/L Total Protein 6.4 (6.3-8.2) g/dL Albumin 4.1 (3.5-5.0) g/dL Globulin 2.3 (1.7-4.1) g/dL Albumin/Globulin Ratio 1.8 (1.0-2.8) Lipase 296 (23-300) U/L MDM Narrative Medical decision making narrative: The patient no longer nauseated or vomiting in the ED. She has multiple doses Zofran phenobarbital for alcohol withdrawal. This does last for 4 days. She overall is feeling much better. She requested detox there was a bed available at [facility] however she does not want to go there. [facility] will have discharge is tomorrow she will try again to get into [facility] tomorrow. She feels comfortable going home now. Steady gait. Discharge Plan Departure Patient Disposition: Home Clinical Impression: Nausea and vomiting Qualifiers: Vomiting type: unspecified Vomiting Intractability: non-intractable Qualified Code(s): R11.2 - Nausea with vomiting, unspecified Alcohol withdrawal Qualifiers: Complication of substance-induced condition: uncomplicated Qualified Code(s): F10.230 - Alcohol dependence with withdrawal, uncomplicated Discharge Date/Time: 07/03/19 11:20 Instructions: DI for Drug or Alcohol Withdrawal Activity Restrictions/Additional Instructions: *You have been diagnosed with nausea vomiting, alcohol withdrawal *What to do: You need to call [facility] tomorrow for detox placement *Continue to take medications as directed *Follow up with your primary care provider in 2-3 days *Return to ER if you should have or any new, worsening or concerning symptoms Prescriptions: No Action trazodone 50 MG tablet 100 mg PO BEDTIME Qty: 1 RF: 0 Referrals: Mumtaz Torres, MARIZOL [Primary Care Provider] -
[2019-07-03] MEDS: SODIUM CHLORIDE 0.9% 1,000 ML 1000 ML IV (08:38)
[2019-07-03] MEDS: PHENobarbital 65 MG/ML VIAL 130 MG IV (08:38)
[2019-07-03] MEDS: ONDANSETRON 4 MG/2 ML INJ IV ×2 (08:38→10:23)
[2019-07-03] MEDS: PANTOPRAZOLE 40 MG VIAL IV (08:38)
[2019-07-03] MEDS: PHENobarbital 65 MG/ML VIAL IV (08:49)
[2019-07-03 09:58] VITALS: BP 122/80; PULSE 73; RESP 15; O2SAT 100
[2019-07-03 10:00] LABS: Add Manual Diff / Slide Review NO; Basophils Absolute Auto 0 /uL (0-100); Eosinophils Absolute Auto 0 /uL (0-450); Hematocrit 29.8 % (36-46); Hemoglobin 10.1 g/dL (12.0-16.0); Lymphocytes Absolute Auto 100 /uL (1100-4500); Lymphocytes Percent Auto 2.8 % (25-40); Mean Corpuscular Hemoglobin 28.7 PG (26-34); Mean Corpuscular Volume 84.5 fL (80-100); Monocytes Absolute Auto 0 /uL (0-900); Monocytes Percent Auto 1.2 % (3-14); Neutrophils Absolute Auto 3700 /uL (1500-7000); Platelet Count 88 X10^3/uL (150-400); Red Blood Cell Count 3.53 X10^6/uL (4.0-5.2); Red Cell Distribution Width 15.1 % (11.6-14.8); White Blood Cell Count 3.9 X10^3/uL (4.5-11.0)
[2019-07-03 10:09] LABS: Alanine Aminotransferase 20 IU/L (<35); Albumin 4.1 g/dL (3.5-5.0); Albumin Globulin Ratio 1.8 (1.0-2.8); Alkaline Phosphatase 73 U/L (38-126); Aspartate Aminotransferase 57 IU/L (14-36); BUN Creatinine Ratio 13.3 (6-22); Bilirubin Total 1.5 mg/dL (0.2-1.3); Blood Urea Nitrogen 8 mg/dL (7-17); Calcium 8.9 mg/dL (8.4-10.2); Carbon Dioxide 26 mmol/L (22-32); Chloride 99 mmol/L (98-107); Estimated Glomerular Filt Rate > 60.0 mL/min (>60); Globulin 2.3 g/dL (1.7-4.1); Glucose 140 mg/dL (70-100); HEMOLYSIS < 15 (0-50); Lipase 296 U/L (23-300); Potassium 4.2 mmol/L (3.4-5.1); Sodium 135 mmol/L (137-145); Total Protein 6.4 g/dL (6.3-8.2)
[2019-07-03 11:08] VITALS: BP 120/75; PULSE 92; RESP 16; O2SAT 100
== END 2019-07-03 11:20 | disposition home or self-care (01) ==
PROVIDERS: Emergency Provider Emergency Medicine; PCP Registered Nurse Diabetes Educator
DX: F10.230 Alcohol dependence with withdrawal, uncomplicated (principal); R11.2 Nausea with vomiting, unspecified
CPT/HCPCS: 36415; 80053; 83690; 85025; 96361; 96374; 96375; 96376; 99283; 99284; C9113; J2405; J2560

== ENCOUNTER 2020-01-06 22:38 | Emergency (ER) | payer OTHER, SELFPAY ==
[2020-01-06 22:45] VITALS: BP 129/60; PULSE 76; RESP 16; TEMP 35.9; O2SAT 100; BMI 21.7
--- NOTE | 2020-01-06 22:55 | ED_ITS ---
HPI - Abdominal Pain General Chief Complaint: Abdominal Pain Stated Complaint: nausea and abdominal pain Time Seen by Provider: 01/06/20 22:55 Source: patient Mode of arrival: Ambulatory History of Present Illness HPI narrative: 29-year-old woman with history of alcohol use disorder who has had no alcohol for the last 3-1/2 months presents with pelvic cramping concurrent with onset of heavy menses today. She is not currently on any control and has not been sexually active so does not concerned about pregnancies. She states in the past she has had heavy bleeding and pain severe enough that it causes her to vomit but that is also been associated with drinking. She has never experienced the level of pain she is currently having that currently is causing her to vomit when she has been sober. She noticed some low back cramping yesterday began heavy bleeding this morning took some Excedrin this morning and found that it was minimally helpful in controlling cramping. Cramps continued over the course of the day along with nausea. She vomited all of her dinner and has continued to have dry heaves. She states she has not discussed menometrorrhagia with her primary care doctor previously. Related Data Home Medications Medication Instructions Recorded Confirmed trazodone 100 mg PO BEDTIME #1 03/27/17 07/02/19 Previous Rx's Medication Instructions Recorded naproxen 500 mg PO BID PRN #60 tab 01/07/20 Allergies Allergy/AdvReac Type Severity Reaction Status Date / Time metoclopramide Allergy Mild RASH/HIVES Verified 07/03/19 07:33 [METOCLOPRAMIDE] hydrocodone [HYDROCODONE] AdvReac Unknown VOMITING Verified 07/03/19 07:33 Review of Systems Review of Systems Narrative: Pertinent positive and negative findings as per HPI Remainder of review of systems is otherwise unremarkable for Constitutional: Fevers, chills, weakness ENT: No sore throat, neck pain, ear pain CV: Chest pain, palpitations, dyspnea on exertion Respiratory: Cough, wheeze, dyspnea : Dysuria, hematuria, flank pain MS: Muscle weakness, numbness, joint swelling or warmth Skin: Rashes, nonhealing lesions Neuro: Syncope, tingling Psych: Depression, anxiety, suicidal ideation Endocrine: Fatigue, heat or cold intolerance, very dry skin Patient History Medical History (Updated 01/07/20 @ 00:39 by Carmela Marrero MD) Menometrorrhagia (Acute) Surgical History No pertinent past surgical history (Acute) Social History Smoking Status: Never smoker Smoking Status: Never smoker alcohol intake frequency: 3 or more drinks per day Substance Use Type: does not use Exam Narrative Exam Narrative: General: Healthy appearing, in no acute distress. Able to give a complete and coherent history. Well-nourished well-developed HEENT: Moist mucous membranes, normal sclera with reactive pupils, Neck: No JVD, supple Respiratory: Lungs are clear to auscultation, no wheezing no rales no rhonchi. Full and symmetrical air movement Cardiac: Regular rate and rhythm no murmurs no bruits Abdomen: Soft tender in lower abdomen pelvis without rebound or guarding. good bowel tones, no flank pain Skin: Warm and dry, no rashes Neurologic: Grossly neurologically intact with no obvious asymmetries or abnormalities Extremities: No trauma, well perfused Psych: Cooperative, appropriate insight and affect Initial Vital Signs Initial Vital Signs: Vital Signs Temperature 96.7 F L 01/06/20 22:45 Pulse Rate 76 01/06/20 22:45 Respiratory Rate 16 01/06/20 22:45 Blood Pressure 129/60 01/06/20 22:45 Pulse Oximetry 100 01/06/20 22:45 Course Orders Ordered: ED Orders 01/06/20 23:21 Complete Blood Count AUTO DIFF Stat Comprehensive Metabolic Panel Stat HCG Quantitative /Beta subunit Stat Discontinued Medications Sodium Chloride (Normal Saline 0.9%) 1,000 mls @ 1,000 mls/hr IV BOLUS ONE Stop: 01/07/20 00:04 Last Infusion: 01/07/20 00:17 Dose: 0 mls/hr Documented by: Admin: 01/06/20 23:23 Dose: 1,000 mls/hr Documented by: HUNTER Ketorolac Tromethamine (Toradol) 15 mg IV NOW ONE Stop: 01/06/20 23:06 Last Admin: 01/06/20 23:23 Dose: 15 mg Documented by: HUNTER Metoclopramide HCl (Reglan) 10 mg IV NOW ONE Stop: 01/07/20 00:06 Last Admin: 01/07/20 00:09 Dose: 10 mg Documented by: PATTIE Ondansetron HCl (Zofran) 4 mg IV NOW ONE Stop: 01/06/20 23:06 Last Admin: 01/06/20 23:23 Dose: 4 mg Documented by: HUNTER Vital Signs Vital signs: Vital Signs - 8 hr 01/06/20 22:45 01/07/20 00:43 Temperature 96.7 F L Pulse Rate 76 83 Respiratory Rate 16 14 Blood Pressure 129/60 122/88 Pulse Oximetry 100 99 MDM - Abdominal Pain Lab Data Attestation: I reviewed the patient's lab results. Lab results narrative: No evidence of Result diagrams: 01/06/20 23:21 01/06/20 23:21 Labs: Lab Results 01/06/20 01/06/20 Range/Units 23:21 23:21 WBC 6.4 (4.5-11.0) X10^3/uL RBC 4.14 (4.0-5.2) X10^6/uL Hgb 10.5 L (12.0-16.0) g/dL Hct 32.1 L (36-46) % MCV 77.6 L (80-100) fL MCH 25.5 L (26-34) PG MCHC 32.8 (30-36) % RDW 18.2 H (11.6-14.8) % Plt Count 261 (150-400) X10^3/uL Neut % (Auto) 65.0 (50-75) % Lymph % (Auto) 24.6 L (25-40) % [place] % (Auto) 7.0 (3-14) % Eos % (Auto) 2.1 (2-4) % Baso % (Auto) 1.3 (0-2) % Neut # (Auto) 4100 (3719-8728) /uL Lymph # (Auto) 1600 (8500-8193) /uL [place] # (Auto) 400 (0-900) /uL Eos # (Auto) 100 (0-450) /uL Baso # (Auto) 100 (0-100) /uL Sodium 137 (137-145) mmol/L Potassium 3.3 L (3.4-5.1) mmol/L Chloride 103 (98-107) mmol/L Carbon Dioxide 25 (22-32) mmol/L BUN 9 (7-17) mg/dL Creatinine 0.80 (0.52-1.04) mg/dL Estimated GFR > 60.0 (>60) mL/min BUN/Creatinine Ratio 11.3 (6-22) Glucose 115 H (70-100) mg/dL Calcium 9.7 (8.4-10.2) mg/dL Total Bilirubin 0.5 (0.2-1.3) mg/dL AST 29 (14-36) IU/L ALT 7 (<35) IU/L Alkaline Phosphatase 52 (38-126) U/L Total Protein 7.7 (6.3-8.2) g/dL Albumin 4.7 (3.5-5.0) g/dL Globulin 3.0 (1.7-4.1) g/dL Albumin/Globulin Ratio 1.6 (1.0-2.8) HCG, Quant < 2.4 mIU/mL MDM Narrative Medical decision making narrative: Patient is feeling significantly better after Toradol Zofran and Reglan along with a L of fluid. Labs reveal mild anemia and mild hypokalemia. Will suggest Naprosyn b.i.d. starting the 1st day of her period or as soon as she begins to have any type of cramping in continuing through her menstrual cycle. Recommended that she follow-up with her primary care physician to talk about options for treating menometrorrhagia particularly in light of the mild anemia she is experiencing. She is safe for home discharge Discharge Plan Departure Patient Disposition: Home Clinical Impression: Menometrorrhagia Discharge Date/Time: 01/07/20 00:46 Instructions: DI for Vaginal Bleeding Activity Restrictions/Additional Instructions: Thank you for coming in today I am sorry to hear having so much pain nausea and discomfort with your menstrual cycle. You received a L of fluids, IV Toradol, IV Zofran and IV Reglan to help with the nausea in the emergency department. Your labs do show that you have mild anemia and your potassium level is slightly low(likely due to the vomiting tonight). The heavy periods that you are having is a likely explanation for the mild anemia. There are lots of options for treating this. I would encourage you to follow-up with your primary care physician. In the meantime, I am going to suggest that you use Naprosyn 500 mg a.m. and p.m. starting the day of your menses and continuing through the entire cycle. If you can tell that your going to start your. Starting even a day prior to your menstrual cycle is even more helpful improve venting such horrible 1st day of your cycle. I hope you feel better Prescriptions: New naproxen 500 mg tablet 500 mg PO BID PRN (Reason: pain) Qty: 60 RF: 0 No Action trazodone 50 MG tablet 100 mg PO BEDTIME Qty: 1 RF: 0 Referrals: Mumtaz Torres ARNP [Primary Care Provider] -
[2020-01-06] MEDS: KETOROLAC 60 MG/2 ML VIAL 15 MG IV (23:23)
[2020-01-06] MEDS: SODIUM CHLORIDE 0.9% 1,000 ML 1000 ML IV (23:23)
[2020-01-06] MEDS: ONDANSETRON 4 MG/2 ML INJ IV (23:23)
[2020-01-06 23:29] LABS: Add Manual Diff / Slide Review NO; Basophils Absolute Auto 100 /uL (0-100); Basophils Percent Auto 1.3 % (0-2); Eosinophils Absolute Auto 100 /uL (0-450); Eosinophils Percent Auto 2.1 % (2-4); Hematocrit 32.1 % (36-46); Hemoglobin 10.5 g/dL (12.0-16.0); Lymphocytes Absolute Auto 1600 /uL (1100-4500); Lymphocytes Percent Auto 24.6 % (25-40); Mean Corpuscular HGB Conc 32.8 % (30-36); Mean Corpuscular Hemoglobin 25.5 PG (26-34); Mean Corpuscular Volume 77.6 fL (80-100); Monocytes Absolute Auto 400 /uL (0-900); Neutrophils Absolute Auto 4100 /uL (1500-7000); Platelet Count 261 X10^3/uL (150-400); Red Blood Cell Count 4.14 X10^6/uL (4.0-5.2); Red Cell Distribution Width 18.2 % (11.6-14.8); White Blood Cell Count 6.4 X10^3/uL (4.5-11.0)
[2020-01-06 23:39] LABS: Alanine Aminotransferase 7 IU/L (<35); Albumin 4.7 g/dL (3.5-5.0); Albumin Globulin Ratio 1.6 (1.0-2.8); Alkaline Phosphatase 52 U/L (38-126); Aspartate Aminotransferase 29 IU/L (14-36); BUN Creatinine Ratio 11.3 (6-22); Bilirubin Total 0.5 mg/dL (0.2-1.3); Blood Urea Nitrogen 9 mg/dL (7-17); Calcium 9.7 mg/dL (8.4-10.2); Carbon Dioxide 25 mmol/L (22-32); Chloride 103 mmol/L (98-107); Estimated Glomerular Filt Rate > 60.0 mL/min (>60); Glucose 115 mg/dL (70-100); HEMOLYSIS < 15 (0-50); Potassium 3.3 mmol/L (3.4-5.1); Sodium 137 mmol/L (137-145); Total Protein 7.7 g/dL (6.3-8.2)
[2020-01-06 23:56] LABS: HCG Quantitative /Beta subunit < 2.4 mIU/mL
[2020-01-07] MEDS: METOCLOPRAMIDE 10 MG/2 ML INJ IV (00:09)
[2020-01-07 00:43] VITALS: BP 122/88; PULSE 83; RESP 14; O2SAT 99
== END 2020-01-07 00:46 | disposition home or self-care (01) ==
PROVIDERS: Emergency Provider Emergency Medicine; PCP Registered Nurse Diabetes Educator
DX: N92.1 Excessive and frequent menstruation with irregular cycle (principal); R10.2 Pelvic and perineal pain; R11.0 Nausea
CPT/HCPCS: 36415; 80053; 84702; 85025; 96361; 96374; 96375; 99284; J1885; J2405; J2765

== ENCOUNTER 2020-02-21 22:06 | Emergency (ER) | payer OTHER, SELFPAY ==
[2020-02-21 22:15] VITALS: BP 120/73; PULSE 89; RESP 16; TEMP 36.9; O2SAT 100; BMI 23.0
--- NOTE | 2020-02-21 23:14 | ED_ITS ---
HPI - Nausea/Vomiting/Diarrhea General Chief complaint: Nausea/Vomiting/Diarrhea Stated complaint: THROWING UP HEADACHE DIARRHEA Time Seen by Provider: 02/21/20 22:36 Source: patient and family Mode of arrival: Ambulatory Limitations: no limitations History of Present Illness HPI Narrative: Patient here with . Patient is . Last period January 05, 2020. Patient is A2, her OBGYN is with the [facility] locally. Patient tried Unisom without relief. Started vomiting yesterday morning. Has been intermittent but cannot tolerate anything by mouth including water, she throws it up. She states that she has been urinating without any changes. History UTI. 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 Otherwise no recent illness fever chills cough cold or congestion. Related Data Home Medications Medication Instructions Recorded Confirmed trazodone 100 mg PO BEDTIME #1 03/27/17 07/02/19 Previous Rx's Medication Instructions Recorded naproxen 500 mg PO BID PRN #60 tab 01/07/20 cephalexin [Keflex] 500 mg PO BID #6 cap 02/22/20 Allergies Allergy/AdvReac Type Severity Reaction Status Date / Time metoclopramide Allergy Mild RASH/HIVES Verified 02/21/20 23:07 [METOCLOPRAMIDE] hydrocodone [HYDROCODONE] AdvReac Unknown VOMITING Verified 02/21/20 23:07 Review of Systems Review of Systems Narrative: GENERAL: Denies chills, fatigue, malaise, fever, sweats. HEENT: Denies sinus pain, ear pain, sore throat, difficulty swallowing, dizzi ness. RESPIRATORY: Denies dyspnea, cough, wheezing, hemoptysis, sputum. CARDIOVASCULAR: Denies chest pain, palpitations, orthopnea, edema, GASTROINTESTINAL: Denies any abdominal pain pelvic pain diarrhea. Complains of nausea and vomiting : Denies dysuria, frequency, incontinence, hematuria, urinary retention. Denies any vaginal bleeding or pelvic pain or vaginal discharge MUSCULOSKELETAL: denies weakness, joint pain, or bony pain SKIN: Denies rash, skin lesions, or other NEUROLOGIC: Denies weakness, headache, numbness, change in speech, confusion, seizures, incoordination. PSYCHIATRIC: No concerning psychosocial issues. ROS Unobtainable: All systems reviewed & are unremarkable except as noted in HPI and below Patient History Medical History Menometrorrhagia (Acute) Surgical History No pertinent past surgical history (Acute) Social History Smoking Status: Never smoker Smoking Status: Never smoker alcohol intake frequency: 3 or more drinks per day Substance Use Type: does not use Exam Narrative Exam Narrative: GENERAL: patient appears stated age. Well-nourished, well- developed patient, in no distress, not toxic, not dyspnea HEAD: Atraumatic. Normocephalic. EYES: Pupils equal round and reactive. Extraocular motions intact. No scleral icterus. No injection or drainage. ENT: Nose without bleeding, purulent drainage. Throat without erythema, tonsi llar hypertrophy or exudate. Airway patent. CARDIOVASCULAR: Regular rate and rhythm without murmurs, gallops, or rubs. RESPIRATORY: Clear to auscultation. Breath sounds equal bilaterally. No wheezes, rales, or rhonchi. GASTROINTESTINAL: Abdomen soft, non-tender, nondistended. EXTREMITIES: No edema or joint tenderness. BACK: Nontender without deformity or crepitance. No flank tenderness. NEURO: AOx3. SKIN: No rash or erythema of visible areas Initial Vital Signs Initial Vital Signs: Vital Signs Temperature 98.4 F 02/21/20 22:15 Pulse Rate 89 02/21/20 22:15 Respiratory Rate 16 02/21/20 22:15 Blood Pressure 120/73 02/21/20 22:15 Pulse Oximetry 100 02/21/20 22:15 Course Orders Ordered: ED Orders 02/21/20 22:30 Urine Microscopic Stat 02/21/20 22:45 Complete Blood Count AUTO DIFF Stat Comprehensive Metabolic Panel Stat HCG Quantitative /Beta subunit Stat Discontinued Medications Cephalexin HCl (Keflex) 500 mg PO NOW ONE Stop: 02/22/20 01:23 Last Admin: 02/22/20 01:36 Dose: 500 mg Documented by: JAMI Sodium Chloride (Normal Saline 0.9%) 1,000 mls @ 1,000 mls/hr IV BOLUS ONE Stop: 02/22/20 00:07 Last Infusion: 02/22/20 00:21 Dose: 0 mls/hr Documented by: Admin: 02/21/20 23:19 Dose: 1,000 mls/hr Documented by: KRISTINA Sodium Chloride (Normal Saline 0.9%) 1,000 mls @ 1,000 mls/hr IV BOLUS ONE Stop: 02/22/20 00:12 Last Infusion: 02/22/20 01:36 Dose: 0 mls/hr Documented by: Admin: 02/22/20 00:22 Dose: 1,000 mls/hr Documented by: KRISTINA Ondansetron HCl (Zofran) 4 mg IV NOW ONE Stop: 02/21/20 23:13 Last Admin: 02/21/20 23:19 Dose: 4 mg Documented by: KRISTINA Reevaluation(s) Reevaluation #1: Patient resting comfortably. No vomiting. Second Liter of normal saline started Time: 00:38 Reevaluation #2: Patient tolerate Keflex by mouth with drinking water blood pressure 91/60, however given patient's weight in size and also patient has been resting/sleeping, not toxic. No fever. Normal white cell count, not sepsis, not tachycardic has been at bedside. They agree and desire discharge her home Time: 01:44 Consultations Additional Consultation(s): Unable to contact OBGYN on [facility], patient has not had 1st visit yet. Vital Signs Vital signs: Vital Signs - 8 hr 02/22/20 01:47 Pulse Rate 73 Respiratory Rate 16 Blood Pressure 91/60 Pulse Oximetry 99 MDM - Nausea/Vomiting/Diarrhea Differential Diagnosis Differential diagnosis: Likely dehydration and other (Hyperemesis , UTI) Lab Data Result diagrams: 02/21/20 22:45 02/21/20 22:45 Labs: Lab Results 02/21/20 02/21/20 02/21/20 Range/Units 22:30 22:45 22:45 WBC 5.0 (4.5-11.0) X10^3/uL RBC 4.17 (4.0-5.2) X10^6/uL Hgb 11.0 L (12.0-16.0) g/dL Hct 32.3 L (36-46) % MCV 77.5 L (80-100) fL MCH 26.3 (26-34) PG MCHC 33.9 (30-36) % RDW 14.9 H (11.6-14.8) % Plt Count 226 (150-400) X10^3/uL Neut % (Auto) 59.5 (50-75) % Lymph % (Auto) 28.2 (25-40) % [place] % (Auto) 9.3 (3-14) % Eos % (Auto) 2.3 (2-4) % Baso % (Auto) 0.7 (0-2) % Neut # (Auto) 3000 (2559-3313) /uL Lymph # (Auto) 1400 (4179-7936) /uL [place] # (Auto) 500 (0-900) /uL Eos # (Auto) 100 (0-450) /uL Baso # (Auto) 0 (0-100) /uL Sodium 136 L (137-145) mmol/L Potassium 4.7 (3.4-5.1) mmol/L Chloride 105 (98-107) mmol/L Carbon Dioxide 20 L (22-32) mmol/L BUN 8 (7-17) mg/dL Creatinine 0.56 (0.52-1.04) mg/dL Estimated GFR > 60.0 (>60) mL/min BUN/Creatinine Ratio 14.3 (6-22) Glucose 84 (70-100) mg/dL Calcium 9.8 (8.4-10.2) mg/dL Total Bilirubin 0.4 (0.2-1.3) mg/dL AST 34 (14-36) IU/L ALT 8 (<35) IU/L Alkaline Phosphatase 49 (38-126) U/L Total Protein 7.2 (6.3-8.2) g/dL Albumin 4.6 (3.5-5.0) g/dL Globulin 2.6 (1.7-4.1) g/dL Albumin/Globulin Ratio 1.8 (1.0-2.8) HCG, Quant mIU/mL Urine RBC None seen (0-5/HPF) Urine WBC 5-10/hpf H (0-5/HPF) Ur Squamous Epith Cells 10-30 /hpf H D (0-5/HPF) Urine Bacteria Moderate (10-30) H (None) Urine Mucus 1+ H (Negative) Ur Culture Indicated? Cult not indicated 02/21/20 Range/Units 22:45 WBC (4.5-11.0) X10^3/uL RBC (4.0-5.2) X10^6/uL Hgb (12.0-16.0) g/dL Hct (36-46) % MCV (80-100) fL MCH (26-34) PG MCHC (30-36) % RDW (11.6-14.8) % Plt Count (150-400) X10^3/uL Neut % (Auto) (50-75) % Lymph % (Auto) (25-40) % [place] % (Auto) (3-14) % Eos % (Auto) (2-4) % Baso % (Auto) (0-2) % Neut # (Auto) (9219-4840) /uL Lymph # (Auto) (2371-2758) /uL [place] # (Auto) (0-900) /uL Eos # (Auto) (0-450) /uL Baso # (Auto) (0-100) /uL Sodium (137-145) mmol/L Potassium (3.4-5.1) mmol/L Chloride (98-107) mmol/L Carbon Dioxide (22-32) mmol/L BUN (7-17) mg/dL Creatinine (0.52-1.04) mg/dL Estimated GFR (>60) mL/min BUN/Creatinine Ratio (6-22) Glucose (70-100) mg/dL Calcium (8.4-10.2) mg/dL Total Bilirubin (0.2-1.3) mg/dL AST (14-36) IU/L ALT (<35) IU/L Alkaline Phosphatase (38-126) U/L Total Protein (6.3-8.2) g/dL Albumin (3.5-5.0) g/dL Globulin (1.7-4.1) g/dL Albumin/Globulin Ratio (1.0-2.8) HCG, Quant 90517 mIU/mL Urine RBC (0-5/HPF) Urine WBC (0-5/HPF) Ur Squamous Epith Cells (0-5/HPF) Urine Bacteria (None) Urine Mucus (Negative) Ur Culture Indicated? Point of Care Testing Test Results Positive Urine Dip Bedside Urine Glucose Negative Bedside Urine Bilirubin - Negative Bedside Urine Ketone + 15 Urine Specific [place] 1.015 Bedside Urine Occult Blood - Negative Bedside Urine pH 7.5 Bedside Urine Protein +/- 15 Bedside Urine Urobilinogen +/- 1mg Bedside Urine Nitrite - Negative Bedside Urine Leukocytes ++ 125 Esterase MDM Narrative Medical decision making narrative: No pelvic examination at this time. No visual complaints or pelvic pain no ultrasound indicated this time. Patient very early in . Clinically not ectopic. Urinalysis reviewed. Could be early UTI, patient has had UTIs in the past. Patient states her last pregn ellen had nearly ?clock work? nausea and vomiting however this episode/ has had persistent vomiting. This could be due to early UTI, will treat with Keflex patient has been trying vitamin B with Unisom from previous , at this time appropriate for referral back to her OBGYN if to continue the same regimen Discharge Plan Departure Patient Disposition: Home Clinical Impression: Nausea and vomiting during UTI (urinary tract infection) Qualifiers: Urinary tract infection type: site unspecified Hematuria presence: without hematuria Qualified Code(s): N39.0 - Urinary tract infection, site not specified Discharge Date/Time: 02/22/20 01:54 Instructions: Exams, Tests, and Procedures, Screenings, DI for Urinary Tract Infection (UTI), DI for Nausea -- Adult Activity Restrictions/Additional Instructions: Call your OBGYN provider office for office recheck within a week and for any medications for vomiting. Return if worse. Keep well hydrated. Prescriptions: New cephalexin [Keflex] 500 mg capsule 500 mg PO BID Qty: 6 RF: 0 No Action trazodone 50 MG tablet 100 mg PO BEDTIME Qty: 1 RF: 0 naproxen 500 mg tablet 500 mg PO BID PRN (Reason: pain) Qty: 60 RF: 0 Referrals: Mumtaz Torres ARNP [Primary Care Provider] - Stand Alone Forms: Work Release Note
[2020-02-21] MEDS: SODIUM CHLORIDE 0.9% 1,000 ML 1000 ML IV (23:19)
[2020-02-21] MEDS: ONDANSETRON 4 MG/2 ML INJ IV (23:19)
[2020-02-21 23:23] LABS: Add Manual Diff / Slide Review NO; Basophils Absolute Auto 0 /uL (0-100); Basophils Percent Auto 0.7 % (0-2); Eosinophils Absolute Auto 100 /uL (0-450); Eosinophils Percent Auto 2.3 % (2-4); Hematocrit 32.3 % (36-46); Lymphocytes Absolute Auto 1400 /uL (1100-4500); Lymphocytes Percent Auto 28.2 % (25-40); Mean Corpuscular HGB Conc 33.9 % (30-36); Mean Corpuscular Hemoglobin 26.3 PG (26-34); Mean Corpuscular Volume 77.5 fL (80-100); Monocytes Absolute Auto 500 /uL (0-900); Monocytes Percent Auto 9.3 % (3-14); Neutrophils Absolute Auto 3000 /uL (1500-7000); Neutrophils Percent Auto 59.5 % (50-75); Platelet Count 226 X10^3/uL (150-400); Red Blood Cell Count 4.17 X10^6/uL (4.0-5.2); Red Cell Distribution Width 14.9 % (11.6-14.8)
[2020-02-21 23:28] LABS: Alanine Aminotransferase 8 IU/L (<35); Albumin 4.6 g/dL (3.5-5.0); Albumin Globulin Ratio 1.8 (1.0-2.8); Alkaline Phosphatase 49 U/L (38-126); Aspartate Aminotransferase 34 IU/L (14-36); BUN Creatinine Ratio 14.3 (6-22); Bilirubin Total 0.4 mg/dL (0.2-1.3); Blood Urea Nitrogen 8 mg/dL (7-17); Calcium 9.8 mg/dL (8.4-10.2); Carbon Dioxide 20 mmol/L (22-32); Chloride 105 mmol/L (98-107); Estimated Glomerular Filt Rate > 60.0 mL/min (>60); Globulin 2.6 g/dL (1.7-4.1); Glucose 84 mg/dL (70-100); HEMOLYSIS 62 (0-50); Sodium 136 mmol/L (137-145); Total Protein 7.2 g/dL (6.3-8.2)
[2020-02-21 23:29] LABS: Potassium 4.7 mmol/L (3.4-5.1)
[2020-02-21 23:44] LABS: RBC Urine None Seen (0-5/HPF)
[2020-02-21 23:55] LABS: Bacteria Urine Moderate (10-30); Squamous Epithelial Cell Urine 10-30 /HPF (0-5/HPF); WBC Urine 5-10/HPF (0-5/HPF)
[2020-02-21 23:56] LABS: Culture Indicated Urine Cult Not Indicated; Mucus Urine 1+ (Negative)
[2020-02-22 00:10] LABS: HCG Quantitative /Beta subunit 78584 mIU/mL
[2020-02-22] MEDS: SODIUM CHLORIDE 0.9% 1,000 ML 1000 ML IV (00:22)
[2020-02-22] MEDS: cephALEXin 250 MG CAPSULE 500 MG PO (01:36)
[2020-02-22 01:47] VITALS: BP 91/60; PULSE 73; RESP 16; O2SAT 99
== END 2020-02-22 01:54 | disposition home or self-care (01) ==
PROVIDERS: Emergency Provider Emergency Medicine; PCP Registered Nurse Diabetes Educator
DX: O21.9 Vomiting of pregnancy, unspecified (principal); N39.0 Urinary tract infection, site not specified
CPT/HCPCS: 36415; 80053; 81003; 81015; 81025; 84702; 85025; 96361; 96374; 99284; J2405

== ENCOUNTER → 2020-03-20 10:46 | Outpatient (ROUT) | payer SELFPAY ==
[2020-03-20 10:50] LABS: Urine Drug Scr, Empl Non-NIDA See Separate Report
== END ==
PROVIDERS: PCP Registered Nurse Diabetes Educator
DX: Z02.1 Encounter for pre-employment examination (principal)
CPT/HCPCS: 81099

== ENCOUNTER → 2020-04-06 10:09 | Outpatient (CLI) | payer OTHER, SELFPAY | PROVIDERS: PCP Registered Nurse Diabetes Educator; Referring Provider Obstetrics & Gynecology; Visit Provider Obstetrics & Gynecology | DX: Z01.84 Encounter for antibody response examination (principal); Z34.90 Encounter for supervision of normal pregnancy, unspecified, unspecified trimester | CPT/HCPCS: 36415; 80055; 81003; 86787; 86803; 86850; 86900; 86901; 87077; 87086; 87389 ==

== ENCOUNTER → 2020-07-26 12:42 | Outpatient (CLI) | payer OTHER, SELFPAY ==
[2020-07-26 14:14] LABS: Hematocrit 28.9 % (36-46); Hemoglobin 9.8 g/dL (12.0-16.0)
[2020-07-26 14:33] LABS: GTT (PREG) 1 Hour PP 50gm Dose 154 mg/dL (76-139)
== END ==
PROVIDERS: Referring Provider Obstetrics & Gynecology; Visit Provider Obstetrics & Gynecology
DX: Z34.82 Encounter for supervision of other normal pregnancy, second trimester (principal)
CPT/HCPCS: 36415; 82950; 85014; 85018

== ENCOUNTER → 2020-08-02 06:54 | Outpatient (CLI) | payer OTHER, SELFPAY ==
[2020-08-02 08:46] LABS: Glucose Fasting Gestational 120 mg/dL (76-95)
[2020-08-02 08:54] LABS: Glucose 1 Hour Gest 156 mg/dL (76-180)
[2020-08-02 09:00] LABS: HEMOLYSIS < 15 (0-50); Iron 32 ug/dL (37-170)
[2020-08-02 09:11] LABS: Percent Iron Saturation 6 % (15-50); Total Iron Binding Capacity 517 ug/dL (265-497); Transferrin 403 mg/dL (206-381)
[2020-08-02 09:36] LABS: Ferritin 8 ng/mL (6-137)
[2020-08-02 10:06] LABS: Folate > 20.0 ng/mL (2.76-20.0); Vitamin B12 306 pg/mL (239-931)
[2020-08-02 10:23] LABS: Glucose Tol Interp,Gestational INTERPRETATION
[2020-08-02 10:41] LABS: Glucose 2 Hour Gest 126 mg/dL (76-155)
[2020-08-02 11:25] LABS: Glucose 3 Hour Gest 90 mg/dL (76-140)
== END ==
PROVIDERS: Referring Provider Obstetrics & Gynecology; Visit Provider Obstetrics & Gynecology
DX: O99.810 Abnormal glucose complicating pregnancy (principal); O99.019 Anemia complicating pregnancy, unspecified trimester
CPT/HCPCS: 36415; 82607; 82728; 82746; 82951; 82952; 83021; 83540; 83550

== ENCOUNTER → 2020-09-17 16:12 | Outpatient (CLI) | payer OTHER, SELFPAY ==
[2020-09-18 12:38] LABS: Strep Grp B PCR NEG for Grp B Strep
== END ==
PROVIDERS: Visit Provider Obstetrics & Gynecology
DX: Z34.83 Encounter for supervision of other normal pregnancy, third trimester (principal); Z3A.35 35 weeks gestation of pregnancy
CPT/HCPCS: 87653

== ENCOUNTER → 2020-10-01 16:08 | Outpatient (CLI) | payer OTHER, SELFPAY ==
[2020-10-01 21:02] LABS: Ur Creatinine Normal (Normal); Ur Specific Gravity Normal (Normal); Urine pH Normal (Normal)
[2020-10-01 21:03] LABS: UR Morphine/Opiate cutoff 300 Negative (Negative); Urine Amphetamines Negative (Negative); Urine Barbiturates Negative (Negative); Urine Benzodiazepines Negative (Negative); Urine Cocaine Negative (Negative); Urine MDMA Negative (Negative); Urine Methadone Negative (Negative); Urine Methamphetamines Negative (Negative); Urine Oxycodone Negative (Negative); Urine Phencyclidine Negative (Negative); Urine Tetrahydrocannabinol Negative (Negative); Urine Tricyclic Antidepressant Negative (Negative)
== END ==
PROVIDERS: Visit Provider Obstetrics & Gynecology
DX: Z34.83 Encounter for supervision of other normal pregnancy, third trimester (principal)
CPT/HCPCS: 80305

== ENCOUNTER → 2020-10-08 14:41 | Outpatient (CLI) | payer OTHER, SELFPAY | PROVIDERS: Visit Provider Obstetrics & Gynecology | DX: Z34.83 Encounter for supervision of other normal pregnancy, third trimester (principal); Z3A.36 36 weeks gestation of pregnancy ==

== ENCOUNTER 2020-10-08 22:01 | Observation (INO) | payer OTHER, SELFPAY ==
[2020-10-08] MEDS: ONDANSETRON 4 MG ODT SL (23:54)
[2020-10-08] MEDS: MORPHINE 10 MG/ML INJ IM (23:55)
--- NOTE | 2020-10-09 10:05 | PM.OBTRLD ---
Visit Information Visit Information Date of evaluation: 10/08/20 Primary OB Provider: Bethany Gentile Reason for Evaluation: Yes rule out labor Comments/Additional reasons for admission: 30yo P1 @39+0 presents for eval for labor shortly after starting to contract q1-2. No LOF, +FM, no VB, no other complaints. Observed on L&D w/o cervical change, 0.5cm change from office exam earlier that day. Ctx spaced and became irregular, patient offered home +/- morphine for rest vs. continued observation. Vital Signs Vital Signs: Vital signs stable [facility] Medical History Anemia (~2017) Insomnia Menometrorrhagia (spontaneous vaginal delivery) (~12/17/18) Surgical History H/O dilation and curettage (~03/27/17) H/O wisdom tooth extraction (~2013) S/P myringotomy with insertion of tube Family History Mother Diabetes mellitus Overweight Father Alcoholism Grandfather Unknown whether patient has any health problems Grandmother Diabetes mellitus Smoker Family/Other Diabetes mellitus Obesity Family/Other Alcoholism Grandfather Smoker Alcoholism Grandmother Hypoglycemia Social History marital status: number of children: 1 household members: spouse and children education level: college occupational status: employed current occupational exposures/hazards: Yes (obvious risk with Pandemic ) nidhi/roman catholic: Congregational special nidhi needs: No Smoking Status: Never smoker second hand exposure: No (growing up as a child - not currently) alcohol intake: former substance use type: does not use Evaluation Evaluation Baseline heart rate: 125 Variability: Average (6-10) monitor accelerations: Present monitor decelerations: Early Uterine Contraction Intensity: Moderate Category of Tracing: Reactive Status: Category l Cervical dilation (cm): 2 Cervical effacement (%): 80 station: -2 Diagnosis, Plan/Disposition Plan/Disposition Plan: Home with labor precautions. OB Disposition: home
== END 2020-10-09 00:04 | disposition home or self-care (01) ==
PROVIDERS: Admitting Provider Obstetrics & Gynecology; Referring Provider Obstetrics & Gynecology; Visit Provider Obstetrics & Gynecology
DX: O47.1 False labor at or after 37 completed weeks of gestation (principal); Z3A.39 39 weeks gestation of pregnancy
CPT/HCPCS: 59025; 59050; 80320; 96372; G0378; G0379; J2270

== ENCOUNTER 2020-10-11 03:52 | Outpatient (CLI) | payer OTHER, SELFPAY ==
[2020-10-11 04:20] LABS: UR Morphine/Opiate cutoff 300 Positive (Negative); Ur Creatinine 20 (Normal); Ur Specific Gravity 1.025 (Normal); Urine Amphetamines Negative (Negative); Urine Barbiturates Negative (Negative); Urine Benzodiazepines Negative (Negative); Urine Cocaine Negative (Negative); Urine MDMA Negative (Negative); Urine Methadone Negative (Negative); Urine Methamphetamines Negative (Negative); Urine Phencyclidine Negative (Negative); Urine Tetrahydrocannabinol Negative (Negative); Urine pH 5 (Normal)
[2020-10-11 04:21] LABS: Urine Oxycodone Negative (Negative); Urine Tricyclic Antidepressant Positive (Negative)
--- NOTE | 2020-10-11 07:44 | PM.OBTRLD ---
Visit Information Visit Information Date of evaluation: 10/11/20 Primary OB Provider: Bethany Gentile On-call OB Provider: Julita Montiel Reason for Evaluation: Yes rule out labor Vital Signs Vital Signs: BP101/68, P86, T96.8 [facility] Medical History Anemia (~2017) Insomnia Menometrorrhagia (spontaneous vaginal delivery) (~12/17/18) Surgical History H/O dilation and curettage (~03/27/17) H/O wisdom tooth extraction (~2013) S/P myringotomy with insertion of tube Family History Mother Diabetes mellitus Overweight Father Alcoholism Grandfather Unknown whether patient has any health problems Grandmother Diabetes mellitus Smoker Family/Other Diabetes mellitus Obesity Family/Other Alcoholism Grandfather Smoker Alcoholism Grandmother Hypoglycemia Social History marital status: number of children: 1 household members: spouse and children education level: college occupational status: employed current occupational exposures/hazards: Yes (obvious risk with Pandemic ) nidhi/adventist: Adventist special nidhi needs: No Smoking Status: Never smoker second hand exposure: No (growing up as a child - not currently) alcohol intake: former substance use type: does not use Objective Labs Labs: Laboratory Results - last 24 hr 10/11/20 04:00 U Opiates 300ng/mL cut Positive H Ur Oxycodone Screen Negative Urine Methadone Screen Negative Ur Barbiturates Screen Negative U Tricyclic Antidepress Positive H Ur Phencyclidine Scrn Negative Ur Amphetamines Screen Negative U Methamphetamines Scrn Negative Ur MDMA Scrn (Ecstasy) Negative U Benzodiazepines Scrn Negative Urine Cocaine Screen Negative U Marijuana (THC) Screen Negative Evaluation Evaluation Baseline heart rate: 125 Variability: Moderate (11-25) monitor accelerations: Present monitor decelerations: Absent Contraction Frequency (minutes): 4 Uterine Contraction Intensity: Mild Category of Tracing: Reactive Cervical dilation (cm): 1 Cervical effacement (%): 60 station: -3 Laboratory results: Laboratory Tests 10/11/20 04:00 U Opiates 300ng/mL cut Positive H Ur Oxycodone Screen Negative Urine Methadone Screen Negative Ur Barbiturates Screen Negative U Tricyclic Antidepress Positive H Ur Phencyclidine Scrn Negative Ur Amphetamines Screen Negative U Methamphetamines Scrn Negative Ur MDMA Scrn (Ecstasy) Negative U Benzodiazepines Scrn Negative Urine Cocaine Screen Negative U Marijuana (THC) Screen Negative Diagnosis, Plan/Disposition Final Diagnosis (1) False labor: Status: Acute Plan/Disposition Plan: Pt. recieved morphine and zofran.Home to follow up with Dr. Gentile OB Disposition: home
== END 2020-10-11 05:00 | disposition home or self-care (01) ==
LOC: LABOR 04:09 → OB 13:14
PROVIDERS: Referring Provider Specialist; Visit Provider Specialist
DX: O99.013 Anemia complicating pregnancy, third trimester (principal); F10.21 Alcohol dependence, in remission; Z3A.39 39 weeks gestation of pregnancy
CPT/HCPCS: 59025; 80305; G0378; G0379

== ENCOUNTER 2020-10-14 11:15 | Inpatient (IN) | payer OTHER, SELFPAY ==
--- NOTE | 2020-10-14 11:32 | PM.OBHP.1 ---
OB HPI Date/Time Date of admission: 10/14/20 Date Patient Seen: 10/14/20 Time Patient Seen: 11:32 History of Present Condition Chief complaint: CHECKING INPATIENT : 4 Para: 1 Estimated Date of Delivery: 10/16/20 Estimated Gestational Age (weeks): 39 Narrative: Nighat Stearns is a 30 year old female admitted in active labor Indications Other reason(s) for admission: 39 weeks in active labor History of Present care: good care, initiated at week # (9), number of visits (11) and pounds weight gain (25) Dating criteria: based on 1st trimester US only Ultrasounds: normal mid trimester US Obstetrical complications: none Medical complications: other (Admitted for detox for alcohol abuse in mid trimester) Preadmission Labs Blood type: A (-) negative -: Antibody screen: negative, GBS status: negative, HBsAG: negative, HIV: negative and RPR/VDLR: negative -: Chlamydia screen: not detected and Gonorrhea screen: not detected -: Rubella: immune and Varicella: immune HCAB: negative 1 hr GTT: 154 3 hr GTT: 1 hr (156), 2 hr (126) and 3 hr (90) Fasting blood glucose: 120 Prior (ies) History: 12/17/2018 40 week gestation female weighing 6 lb 14 oz Evaluation Evaluation Baseline heart rate: 130 Variability: Average (6-10) monitor accelerations: Present monitor decelerations: Absent Contraction Frequency (minutes): 4 Uterine Contraction Intensity: Strong/Firm Category of Tracing: Reactive Status: Category l Cervical dilation (cm): 4 Cervical effacement (%): 80 station: -1 [facility] Medical History Anemia (~2017) Insomnia Menometrorrhagia (spontaneous vaginal delivery) (~12/17/18) Surgical History H/O dilation and curettage (~03/27/17) H/O wisdom tooth extraction (~2013) S/P myringotomy with insertion of tube Family History Mother Diabetes mellitus Overweight Father Alcoholism Grandfather Unknown whether patient has any health problems Grandmother Diabetes mellitus Smoker Family/Other Diabetes mellitus Obesity Family/Other Alcoholism Grandfather Smoker Alcoholism Grandmother Hypoglycemia Social History marital status: number of children: 1 household members: spouse and children education level: college occupational status: employed current occupational exposures/hazards: Yes (obvious risk with Pandemic ) nidhi/church: Alevism special nidhi needs: No Smoking Status: Never smoker second hand exposure: No (growing up as a child - not currently) alcohol intake: former substance use type: does not use Meds Home Medications and Allergies Home Medications Medication Instructions Recorded Confirmed Type prenat.vits,jason,[id number] 1 tab PO DAILY 04/11/20 10/01/20 History ondansetron 4 mg disintegrating 4 mg PO Q8H PRN #30 tab 04/13/20 10/01/20 Rx tablet acetaminophen 325 mg tablet 325 mg PO Q6H PRN #20 tab 05/18/20 10/01/20 Rx diphenhydramine HCl 25 mg capsule 25 mg PO BEDTIME PRN #20 cap 05/18/20 10/01/20 Rx docusate sodium 100 mg capsule 100 mg PO BID #30 cap 05/18/20 10/01/20 Rx ondansetron 4 mg disintegrating 4 mg PO Q8H PRN #20 tab 05/18/20 10/01/20 Rx tablet Allergies Allergy/AdvReac Type Severity Reaction Status Date / Time metoclopramide Allergy Mild RASH/HIVES Verified 06/21/20 08:13 [METOCLOPRAMIDE] hydrocodone [HYDROCODONE] AdvReac Unknown VOMITING Verified 06/21/20 08:13 Review of Systems Review of Systems Narrative: Patient denies headaches, scotomata, epigastric pain. Patient denies leaking fluid. Good movement. Exam Vital Signs (past 8 hours): Blood pressure 112/70, pulse of 84, temperature 36.5? Narrative Exam Narrative: HEENT exam within normal limits. Lungs are clear to auscultation percussion. Heart is regular rate and rhythm no S3-S4 or murmurs. Abdomen is gravid. Fetus is vertex. Extremities without edema and nontender. Objective Labs Result Diagrams: 10/14/20 11:15 Assessment and Plan Assessment and Plan Assessment and Plan narrative: 30-year-old 4 para 1 at 39 week gestation in active labor. Patient requesting epidural. Anticipate vaginal delivery.
[2020-10-14 11:55] LABS: Add Manual Diff / Slide Review NO; Basophils Absolute Auto 100 /uL (0-100); Basophils Percent Auto 0.7 % (0-2); Eosinophils Absolute Auto 100 /uL (0-450); Eosinophils Percent Auto 1.4 % (2-4); Hematocrit 32.6 % (36-46); Hemoglobin 11.5 g/dL (12.0-16.0); Lymphocytes Absolute Auto 1500 /uL (1100-4500); Lymphocytes Percent Auto 15.9 % (25-40); Mean Corpuscular HGB Conc 35.1 % (30-36); Mean Corpuscular Hemoglobin 32.2 PG (26-34); Mean Corpuscular Volume 91.6 fL (80-100); Monocytes Absolute Auto 500 /uL (0-900); Monocytes Percent Auto 5.3 % (3-14); Neutrophils Absolute Auto 7400 /uL (1500-7000); Neutrophils Percent Auto 76.7 % (50-75); Platelet Count 202 X10^3/uL (150-400); Red Blood Cell Count 3.56 X10^6/uL (4.0-5.2); Red Cell Distribution Width 14.1 % (11.6-14.8); White Blood Cell Count 9.7 X10^3/uL (4.5-11.0)
[2020-10-14 12:07] LABS: COVID19 -Nasal RAPID Negative (Negative)
[2020-10-14] MEDS: ONDANSETRON 4 MG/2 ML INJ IV (12:56)
[2020-10-14] MEDS: LACTATED RINGERS 1,000 ML 100 ML IV ×2 (12:57)
[2020-10-14] MEDS: OXYTOCIN PREMIX 30 UNIT/500 ML PLAST..BAG IV (14:25)
[2020-10-14 15:08] LABS: UR Morphine/Opiate cutoff 300 Negative (Negative); Ur Creatinine Normal (Normal); Ur Specific Gravity Normal (Normal); Urine Amphetamines Negative (Negative); Urine Barbiturates Negative (Negative); Urine Benzodiazepines Negative (Negative); Urine Cocaine Negative (Negative); Urine MDMA Negative (Negative); Urine Methadone Negative (Negative); Urine Methamphetamines Negative (Negative); Urine Oxycodone Negative (Negative); Urine Phencyclidine Negative (Negative); Urine Tetrahydrocannabinol Negative (Negative); Urine Tricyclic Antidepressant Positive (Negative); Urine pH Normal (Normal)
--- NOTE | 2020-10-14 16:02 | P.PCNOB_ITS ---
Events: Labor Augmentation (Pitocin) Labor & Delivery Delivery date: 10/14/20 Induction method: none Delivery augmentation: pitocin Delivery monitor: external FHT and external uterine Route of delivery: L&D Laceration Description: Perineal - 1st Degree Delivery repair: chromic (3 0) Estimated blood loss (mL): 100 Anesthesia Type: Epidural Narrative: Patient arrived on Labor and delivery in active labor. She received an epidural catheter for pain control. Patient's contractions decreased so Pitocin was begun. She was completely dilated. heart tones category care 1 to category 2. She had a spontaneous delivery over an intact perineum after releasing a nuchal cord. The viable male infant was placed on maternal abdomen. The placenta delivered spontaneously, intact, with 3 vessels. There were no cervical, vaginal tears. A first-degree perineal tear was repaired with 3 0 chromic suture in the usual 2 layer fashion. Estimated blood loss 100 cc. Apgars 8 and 9. Both infant mother doing well. Marceline Baby 1: gender: Male Presentation: vertex Position: Right Occiput Anterior Placenta delivery description: Spontaneous Cord Vessel Description: 3 Vessels and Nuchal Cord score (1 min): 8 score (5 min): 9 Plan for aftercare: Routine care
[2020-10-14 18:33] VITALS: BP 115/81
[2020-10-14] MEDS: IBUPROFEN 600 MG TABLET PO (23:36)
[2020-10-14] MEDS: ACETAMINOPHEN 325 MG TABLET 650 MG PO (23:37)
--- NOTE | 2020-10-15 00:36 | PC.NURSE ---
Pt didn't want to take the seroquel the first night with baby.
[2020-10-15] MEDS: IBUPROFEN 600 MG TABLET PO ×2 (05:46→11:22)
[2020-10-15] MEDS: ACETAMINOPHEN 325 MG TABLET 650 MG PO ×2 (05:46→11:22)
[2020-10-15 06:09] LABS: Add Manual Diff / Slide Review NO; Basophils Absolute Auto 100 /uL (0-100); Basophils Percent Auto 0.7 % (0-2); Eosinophils Absolute Auto 200 /uL (0-450); Hematocrit 30.4 % (36-46); Hemoglobin 10.6 g/dL (12.0-16.0); Lymphocytes Absolute Auto 1900 /uL (1100-4500); Lymphocytes Percent Auto 16.4 % (25-40); Mean Corpuscular HGB Conc 34.8 % (30-36); Mean Corpuscular Hemoglobin 31.6 PG (26-34); Mean Corpuscular Volume 90.7 fL (80-100); Monocytes Absolute Auto 700 /uL (0-900); Monocytes Percent Auto 5.8 % (3-14); Neutrophils Absolute Auto 8600 /uL (1500-7000); Neutrophils Percent Auto 75.1 % (50-75); Platelet Count 198 X10^3/uL (150-400); Red Blood Cell Count 3.35 X10^6/uL (4.0-5.2); Red Cell Distribution Width 13.6 % (11.6-14.8); White Blood Cell Count 11.5 X10^3/uL (4.5-11.0)
[2020-10-15] MEDS: PRENATAL VIT,CALC/IRON/FOLIC 1 TABLET 1 TAB PO (09:23)
--- NOTE | 2020-10-15 14:23 | PM.OBDS.1 ---
Discharge Providers Provider Date of admission: 10/14/20 11:15 Discharge Date: 10/15/20 Primary care physician: Julita Montiel MD Consults: 10/14/20 11:53 Consult to Anesthesiology Urgent Comment: Consulting Provider: Anesthesiologist Reason for consultation: Epidural Has provider been notified: Yes 10/15/20 16:00 Consult to Visual Associate Routine Comment: Discharge provider: Julita Montiel MD Summary Hospital Course Date Patient Seen: 10/15/20 Time Patient Seen: 14:24 Diagnoses: Vaginal delivery Hospital Course: Patient arrived on Labor and delivery in active labor. She received an epidural catheter for pain control. Her contractions slowed so she was started on a small amount of Pitocin. She had a spontaneous vaginal delivery with a repair of a first-degree perineal tear. the patient did well. She is urinating and ambulating well. Pain is under control with Motrin and Tylenol. Her bleeding is mild. She is breast-feeding without difficulty. Peripartum Data Delivery Method: Natural Vaginal Laceration Description: Perineal - 1st Degree Procedures: Epidural catheter, spontaneous vaginal delivery, repair of first-degree perineal tear complications: none [place] 1: Gender: Male Disposition of : home Discharge Diagnosis (1) Vaginal delivery: Status: Acute Status at Discharge Cognitive/behavioral status at discharge: oriented Functional status at discharge: independent ambulation Overall status at discharge: patient is progressing back to baseline Time Spent with Patient Time attestation: Total time spent providing and/or coordinating discharge services: Time spent: Less than 30 minutes Objective Labs Result Diagrams: 10/15/20 05:52 Labs: Laboratory Results - last 24 hr 10/14/20 10/15/20 10/15/20 11:50 05:52 05:52 WBC 11.5 H RBC 3.35 L Hgb 10.6 L Hct 30.4 L MCV 90.7 MCH 31.6 MCHC 34.8 RDW 13.6 Plt Count 198 Neut % (Auto) 75.1 H Lymph % (Auto) 16.4 L [place] % (Auto) 5.8 Eos % (Auto) 2.0 Baso % (Auto) 0.7 Neut # (Auto) 8600 H Lymph # (Auto) 1900 [place] # (Auto) 700 Eos # (Auto) 200 Baso # (Auto) 100 U Opiates 300ng/mL cut Negative Ur Oxycodone Screen Negative Urine Methadone Screen Negative Ur Barbiturates Screen Negative U Tricyclic Antidepress Positive H Ur Phencyclidine Scrn Negative Ur Amphetamines Screen Negative U Methamphetamines Scrn Negative Ur MDMA Scrn (Ecstasy) Negative U Benzodiazepines Scrn Negative Urine Cocaine Screen Negative U Marijuana (THC) Screen Negative Maternal Bleed Negative Exam Vital Signs (past 8 hours): Blood pressure 118/63, pulse 69, temperature 98.8? Narrative Exam Narrative: Patient's abdomen is soft, nontender. Uterus is firm, at U, nontender. Repair is intact. Mild lochia. Extremities without edema and nontender. Patient is Rh negative and baby is Rh positive so she will receive RhoGAM prior to discharge, she is rubella immune and received Tdap in the 3rd trimester. Discharge Plan Discharge Plan Patient Disposition: Home Discharge orders & Medications Prescriptions: New ibuprofen 600 mg Tablet 600 mg PO Q6HR PRN (Reason: Pain, Mild (1-3)) Qty: 30 RF: 0 Continued prenat.vits,jason,[id number] Tablet 1 tab PO DAILY RF: 0 ondansetron 4 mg tablet,disintegrating 4 mg PO Q8H PRN (Reason: nausea and vomiting) Qty: 20 RF: 0 acetaminophen [Tylenol] 325 mg tablet 325 mg PO Q6H PRN (Reason: pain) Qty: 20 RF: 0 docusate sodium [Colace] 100 mg capsule 100 mg PO BID Qty: 30 RF: 0 diphenhydramine HCl [Benadryl] 25 mg capsule 25 mg PO BEDTIME PRN (Reason: insomnia) Qty: 20 RF: 0 ondansetron 4 mg tablet,disintegrating 4 mg PO Q8H PRN (Reason: nausea and vomiting) Qty: 30 RF: 0 Follow up/Referrals: Bethany Gentile MD [Physician] - 6 Weeks ([address] Gentile on ThursdayNovember 26 at 1000am. If you have any questions/concerns or need to reschedule please call . ) Julita Montiel MD [Primary Care Provider] - Diet/Activity/Treatments Diet: Regular Activity: Nothing in vagina for 6 weeks Skin/Wound/Dressing Care Report to your healthcare provider any signs of infection, such as:: chills, fever and night sweats Visit Report/Discharge Packet Stand Alone Forms: Discharge: Care Discharge Data Primary Care Provider: Julita Montiel
[2020-10-15 15:19] VITALS: BP 118/63; PULSE 69; RESP 18; TEMP 37.1
[2020-10-15] MEDS: RHO(D) IMMUNE GLOBULIN 1,500 UNIT SYRINGE 1500 UNIT IM (15:48)
== END 2020-10-15 16:00 | disposition home or self-care (01) | DRG 807 ==
PROVIDERS: Admitting Provider Specialist; PCP Specialist; Referring Provider Specialist; Visit Provider Specialist
DX: O70.0 First degree perineal laceration during delivery (principal); Z37.0 Single live birth; Z3A.39 39 weeks gestation of pregnancy; O69.81X0 Labor and delivery complicated by cord around neck, without compression, not applicable or unspecified; Z20.822 Contact with and (suspected) exposure to COVID-19
CPT/HCPCS: 01967; 36415; 59050; 59400; 59409; 80305; 85025; 85461; 86850; 86900; 86901; 87635; C9803; G0379; J2405; J2590; J2790

== ENCOUNTER 2021-10-15 01:14 | Emergency (ER) | payer OTHER, SELFPAY ==
[2021-10-15 01:20] VITALS: BP 98/59; PULSE 108; RESP 22; TEMP 36.6; O2SAT 97; BMI 26.9
--- NOTE | 2021-10-15 01:28 | ED.NAVMDI ---
HPI - Nausea/Vomiting/Diarrhea General Chief complaint: Nausea/Vomiting/Diarrhea Stated complaint: LOWER BACK PAIN, WEAKNESS, VOMITING , NAUSEA Time Seen by Provider: 10/15/21 01:16 Source: patient Mode of arrival: Ambulatory History of Present Illness HPI Narrative: 31-year-old female former smoker and former drinker presents with her 2 small children in the chief complaint of significant nausea and vomiting since late this afternoon. She states she has had multiple episodes and now has generalized abdominal cramping but denies much in the way of significant pain. She denies any ongoing alcohol abuse and has never had any issues with her gallbladder or pancreas. She denies any new medications or change in diet. She is dizzy, weak and lightheaded. She denies any fever or chills. Related Data Home Medications Medication Instructions Recorded Confirmed prenat.vits,jason,[id number] 1 tab PO DAILY 04/11/20 10/14/20 Previous Rx's Medication Instructions Recorded ondansetron 4 mg disintegrating 4 mg PO Q8H PRN #30 tab 04/13/20 tablet acetaminophen 325 mg tablet 325 mg PO Q6H PRN #20 tab 05/18/20 (Tylenol) diphenhydramine HCl 25 mg capsule 25 mg PO BEDTIME PRN #20 cap 05/18/20 (Benadryl) docusate sodium 100 mg capsule 100 mg PO BID #30 cap 05/18/20 (Colace) ondansetron 4 mg disintegrating 4 mg PO Q8H PRN #20 tab 05/18/20 tablet ibuprofen 600 mg tablet 600 mg PO Q6HR PRN #30 tab 10/15/20 Allergies Allergy/AdvReac Type Severity Reaction Status Date / Time metoclopramide Allergy Mild RASH/HIVES Verified 06/21/20 08:13 [METOCLOPRAMIDE] hydrocodone [HYDROCODONE] AdvReac Unknown VOMITING Verified 06/21/20 08:13 Review of Systems Review of Systems Narrative: GENERAL: See HPI HEENT: Denies sinus pain, ear pain, sore throat, difficulty swallowing, dizziness. RESPIRATORY: Denies dyspnea, cough, wheezing, hemoptysis, sputum. CARDIOVASCULAR: Denies chest pain, palpitations, orthopnea, edema, GASTROINTESTINAL: See HPI : Denies dysuria, frequency, incontinence, hematuria, urinary retention. MUSCULOSKELETAL: denies weakness, joint pain, or bony pain SKIN: Denies rash, skin lesions, or other NEUROLOGIC: Denies weakness, headache, numbness, change in speech, confusion, seizures, incoordination. PSYCHIATRIC: No concerning psychosocial issues. 12 point review of systems is negative except for those stated above Patient History Medical History Anemia (~2017) Insomnia Menometrorrhagia (spontaneous vaginal delivery) (~12/17/18) Surgical History H/O dilation and curettage (~03/27/17) H/O wisdom tooth extraction (~2013) S/P myringotomy with insertion of tube Family History Mother Diabetes mellitus Overweight Father Alcoholism Grandfather Unknown whether patient has any health problems Grandmother Diabetes mellitus Smoker Family/Other Diabetes mellitus Obesity Family/Other Alcoholism Grandfather Smoker Alcoholism Grandmother Hypoglycemia Social History marital status: number of children: 1 household members: spouse and children education level: college occupational status: employed current occupational exposures/hazards: Yes (obvious risk with Pandemic ) nidhi/restorationism: Yazdanism special nidhi needs: No Smoking Status: Former smoker second hand exposure: No (growing up as a child - not currently) alcohol intake: former substance use type: does not use Smoking Status: Former smoker alcohol intake frequency: 3 or more drinks per day Substance Use Type: does not use Exam Narrative Exam Narrative: GENERAL: [31] year old patient appears stated age. Well-developed patient, in mild distress. Obviously uncomfortable, holding an emesis bag HEAD: Atraumatic. Normocephalic. EYES: Pupils equal round and reactive. Extraocular motions intact. No scleral icterus. No injection or drainage. ENT: Nose without bleeding, purulent drainage. Throat without erythema, tonsillar hypertrophy or exudate. Airway patent. NECK: Trachea midline. Non tender CARDIOVASCULAR: Regular rate and rhythm without murmurs, gallops, or rubs. RESPIRATORY: Clear to auscultation. Breath sounds equal bilaterally. No wheezes, rales, or rhonchi. GASTROINTESTINAL: Abdomen soft, tender in the epigastrium, nondistended. EXTREMITIES: No edema or joint tenderness. BACK: Nontender without deformity or crepitance. No flank tenderness. NEURO: AOx3. SKIN: No rash or erythema of visible areas Initial Vital Signs Initial Vital Signs: Vital Signs Temperature 97.8 F 10/15/21 01:20 Pulse Rate 108 H 10/15/21 01:20 Respiratory Rate 22 10/15/21 01:20 Blood Pressure 98/59 L 10/15/21 01:20 Pulse Oximetry 97 10/15/21 01:20 Course Orders Ordered: ED Orders 10/15/21 01:27 Complete Blood Count AUTO DIFF Stat Comprehensive Metabolic Panel Stat 10/15/21 03:25 Urinalysis and Microscopic Stat Ondansetron HCl (Ondansetron 4 Mg Odt Prepack) 1 bottle MISC SEEINSTR ONE Stop: 10/15/21 05:06 Discontinued Medications Sodium Chloride (Normal Saline 0.9%) 1,000 mls @ 1,000 mls/hr IV BOLUS ONE Stop: 10/15/21 02:26 Last Infusion: 10/15/21 04:09 Dose: 0 mls/hr Documented by: Admin: 10/15/21 01:49 Dose: 1,000 mls/hr Documented by: SUSAN Sodium Chloride (Normal Saline 0.9%) 1,000 mls @ 1,000 mls/hr IV BOLUS ONE Stop: 10/15/21 04:13 Last Admin: 10/15/21 04:10 Dose: 1,000 mls/hr Documented by: SUSAN Ondansetron HCl (Ondansetron 4 Mg/2 Ml Inj) 4 mg IV NOW ONE Stop: 10/15/21 01:28 Last Admin: 10/15/21 02:09 Dose: 4 mg Documented by: SUSAN Pantoprazole Sodium (Pantoprazole 40 Mg Vial) 40 mg IV NOW ONE Stop: 10/15/21 01:28 Last Admin: 10/15/21 01:49 Dose: 40 mg Documented by: SUSAN Vital Signs Vital signs: Vital Signs - 8 hr 10/15/21 01:20 10/15/21 04:42 Temperature 97.8 F Pulse Rate 108 H 108 H Respiratory Rate 22 14 Blood Pressure 98/59 L 93/53 L Pulse Oximetry 97 99 MDM - Nausea/Vomiting/Diarrhea Lab Data Labs: Lab Results 10/15/21 Range/Units 03:25 Urine Color Dark yellow Urine Appearance Clear Urine pH 5.0 (4.5-8.0) Ur Specific [place] >=1.030 H (1.000-1.035) Urine Protein 1+ H (Negative) Urine Glucose (UA) Negative (Negative) g/dL Urine Ketones 3+ H (NEGATIVE) Urine Occult Blood Negative (Negative) Urine Nitrate Negative (Negative) Urine Bilirubin Negative (NEGATIVE) Urine Urobilinogen 0.2 (0.2) E.U./dL Ur Leukocyte Esterase Negative (NEGATIVE) Urine RBC None seen (0-5/HPF) Urine WBC None seen (0-5/HPF) Ur Squamous Epith Cells 1-5 /hpf D (0-5/HPF) Urine Bacteria Few (2-10) H (None) Ur Culture Indicated? Cult not indicated Point of Care Testing Glucose POC 76 MDM Narrative Medical decision making narrative: Patient with reassuring history and physical exam. She has excellent improvement in symptoms with above-stated therapies and improvement in vital signs. She is tolerating orals, ambulating in the department and requesting discharge. She has been given extensive return precautions and questions answered to her apparent satisfaction Discharge Plan Departure Patient Disposition: Home Clinical Impression: Nausea and vomiting, Acute dehydration Instructions: DI for Dehydration -- Adult, Nausea and Vomiting-Adult Activity Restrictions/Additional Instructions: *You have been diagnosed with [nausea, vomiting and dehydration *What to do: *Please continue to take your regular medications as directed. [ ] New medication prescriptions sent to your pharmacy: [ ] [ ] New medication written as a paper prescription [x ] No new medications given *Please follow up with your primary care provider in 2-3 days, call for an appointment. Let them know you were seen in the Emergency Department and that we ask that you be seen in follow up. We will electronically transmit a record of today's note if your PCP is in our system *If you do not have a primary care provider please contact the [facility] Resource line at [phone]. They will ask some questions about your medical history and help get you set up with a doctor in the community. *Please consider clear liquids for the next 24-48 hours and then slowly advance as tolerated *Return to Emergency Department if you should have any new, worsening or concerning symptoms, such as [fever greater than 101 F, shaking chills, worsening pain, persistent vomiting or other bothersome symptoms] Prescriptions: No Action prenat.vits,jason,[id number] Tablet 1 tab PO DAILY 0RF ondansetron 4 mg tablet,disintegrating 4 mg PO Q8H PRN (Reason: nausea and vomiting) Qty: 20 0RF acetaminophen [Tylenol] 325 mg tablet 325 mg PO Q6H PRN (Reason: pain) Qty: 20 0RF docusate sodium [Colace] 100 mg capsule 100 mg PO BID Qty: 30 0RF diphenhydramine HCl [Benadryl] 25 mg capsule 25 mg PO BEDTIME PRN (Reason: insomnia) Qty: 20 0RF ondansetron 4 mg tablet,disintegrating 4 mg PO Q8H PRN (Reason: nausea and vomiting) Qty: 30 0RF ibuprofen 600 mg Tablet 600 mg PO Q6HR PRN (Reason: Pain, Mild (1-3)) Qty: 30 0RF Referrals: Julita Montiel MD [Primary Care Provider] -
[2021-10-15] MEDS: SODIUM CHLORIDE 0.9% 1,000 ML 1000 ML IV ×2 (01:49→04:10)
[2021-10-15] MEDS: PANTOPRAZOLE 40 MG VIAL IV (01:49)
[2021-10-15] MEDS: ONDANSETRON 4 MG/2 ML INJ IV (02:09)
--- NOTE | 2021-10-15 02:25 | PC.NURSE ---
attempted blood draw x 4, x2 with lab and x2 by RN. unable to obtain blood. aware
[2021-10-15 03:37] LABS: Appearance Urine UA CLEAR; Glucose Urine UA NEGATIVE (Negative); Ketones Urine UA 3+ (NEGATIVE); Leukocyte Esterase Urine UA NEGATIVE (NEGATIVE); Nitrite Urine UA NEGATIVE (Negative); Occult Blood Urine UA NEGATIVE (Negative); Protein Urine UA 1+ (Negative); Specific Gravity Urine UA >=1.030 (1.000-1.035); Urobilinogen Urine UA 0.2 E.U./dL (0.2)
[2021-10-15 03:40] LABS: Bilirubin Urine UA Negative (NEGATIVE); Color Urine UA Dark Yellow; RBC Urine None Seen (0-5/HPF); WBC Urine None Seen (0-5/HPF)
[2021-10-15 03:41] LABS: Squamous Epithelial Cell Urine 1-5 /HPF (0-5/HPF)
[2021-10-15 03:43] LABS: Bacteria Urine Few (2-10); Culture Indicated Urine Cult Not Indicated
[2021-10-15 04:42] VITALS: BP 93/53; PULSE 108; RESP 14; O2SAT 99
[2021-10-15] MEDS: ONDANSETRON 4 MG ODT PREPACK 1 BOTTLE MISC (05:10)
[2021-10-15 05:22] VITALS: BP 96/58; PULSE 105; RESP 16
== END 2021-10-15 05:24 | disposition home or self-care (01) ==
PROVIDERS: Emergency Provider Emergency Medicine; PCP Specialist
DX: R11.2 Nausea with vomiting, unspecified (principal); E86.0 Dehydration; R10.84 Generalized abdominal pain
CPT/HCPCS: 81001; 82962; 96361; 96374; 96375; 99283; 99284; C9113; J2405

== ENCOUNTER 2022-09-23 05:42 | Emergency (ER) | payer OTHER, SELFPAY ==
[2022-09-23] VITALS (10 sets, daily range): BP systolic 88–101; BP diastolic 52–59; PULSE 96–105; RESP 22; TEMP 36.5; O2SAT 99–100; BMI 22.8
--- NOTE | 2022-09-23 05:43 | ED.ABDPAIN ---
HPI - Abdominal Pain <Roque García DO - Last Filed: 09/24/22 01:34> General Chief Complaint: Nausea/Vomiting/Diarrhea Stated Complaint: abd pain, n/v Time Seen by Provider: 09/23/22 05:42 History of Present Illness HPI narrative: 32-year-old female former smoker with history of abdominal pain, nausea and vomiting, ovarian cysts, alcohol abuse presents with 2 days of severe lower abdominal and pelvic pain along with persistent nausea and vomiting. She states that she is had no change in diet or medications and denies exposure to other ill persons. She is currently having her menstrual period. She denies any dysuria, frequency or urgency. She denies any vaginal discharge. She states that she is become dizzy, weak and lightheaded. She states that this is somewhat reminiscent of when she had morning sickness with a . She states her pain is rather persistent and seems to be worse with motion and improves with rest. She denies any radiation of her pain. Related Data Home Medications Medication Instructions Recorded Confirmed prenat.vits,jason,[id number] 1 tab PO DAILY 04/11/20 10/14/20 Previous Rx's Medication Instructions Recorded ondansetron 4 mg disintegrating 4 mg PO Q8H PRN nausea and 04/13/20 tablet vomiting #30 tabs acetaminophen 325 mg tablet 325 mg PO Q6H PRN pain #20 tabs 05/18/20 (Tylenol) diphenhydramine HCl 25 mg capsule 25 mg PO BEDTIME PRN insomnia #20 05/18/20 (Benadryl) caps docusate sodium 100 mg capsule 100 mg PO BID #30 caps 05/18/20 (Colace) ondansetron 4 mg disintegrating 4 mg PO Q8H PRN nausea and 05/18/20 tablet vomiting #20 tabs ibuprofen 600 mg tablet 600 mg PO Q6HR PRN Pain, Mild 10/15/20 (1-3) #30 tabs ondansetron 4 mg disintegrating 4 mg PO Q6H PRN nausea and 09/23/22 tablet vomiting #14 tabs tramadol 50 mg tablet 50 mg PO Q6H PRN pain #10 tabs 09/23/22 Allergies Allergy/AdvReac Type Severity Reaction Status Date / Time metoclopramide Allergy Mild RASH/HIVES Verified 06/21/20 08:13 [METOCLOPRAMIDE] hydrocodone [HYDROCODONE] AdvReac Unknown VOMITING Verified 06/21/20 08:13 Review of Systems <Roque García DO - Last Filed: 09/24/22 01:34> Review of Systems Narrative: GENERAL: See HPI HEENT: Denies sinus pain, ear pain, sore throat, difficulty swallowing, dizziness. RESPIRATORY: Denies dyspnea, cough, wheezing, hemoptysis, sputum. CARDIOVASCULAR: Denies chest pain, palpitations, orthopnea, edema, GASTROINTESTINAL: See HPI : Denies dysuria, frequency, incontinence, hematuria, urinary retention. MUSCULOSKELETAL: denies weakness, joint pain, or bony pain SKIN: Denies rash, skin lesions, or other NEUROLOGIC: Denies weakness, headache, numbness, change in speech, confusion, seizures, incoordination. PSYCHIATRIC: No concerning psychosocial issues. 12 point review of systems is negative except for those stated above Patient History <Roque García DO - Last Filed: 09/24/22 01:34> Medical History Anemia (~2017) Insomnia Menometrorrhagia (spontaneous vaginal delivery) (~12/17/18) Surgical History H/O dilation and curettage (~03/27/17) H/O wisdom tooth extraction (~2013) S/P myringotomy with insertion of tube Family History Mother Diabetes mellitus Overweight Father Alcoholism Grandfather Unknown whether patient has any health problems Grandmother Diabetes mellitus Smoker Family/Other Diabetes mellitus Obesity Family/Other Alcoholism Grandfather Smoker Alcoholism Grandmother Hypoglycemia Social History marital status: number of children: 1 household members: spouse and children education level: college occupational status: employed current occupational exposures/hazards: Yes (obvious risk with Pandemic ) nidhi/jainism: Orthodoxy special nidhi needs: No Smoking Status: Former smoker second hand exposure: No (growing up as a child - not currently) alcohol intake: former substance use type: does not use Smoking Status: Former smoker alcohol intake frequency: 3 or more drinks per day Substance Use Type: does not use Exam <DO Lucy Stevenson Last Filed: 09/24/22 01:34> Narrative Exam Narrative: GENERAL: [32] year old patient appears stated age. Well-developed patient, in obvious distress. HEAD: Atraumatic. Normocephalic. EYES: Pupils equal round and reactive. Extraocular motions intact. No scleral icterus. No injection or drainage. ENT: Nose without bleeding, purulent drainage. Throat without erythema, tonsillar hypertrophy or exudate. Airway patent. NECK: Trachea midline. Non tender CARDIOVASCULAR: Regular rate and rhythm without murmurs, gallops, or rubs. RESPIRATORY: Clear to auscultation. Breath sounds equal bilaterally. No wheezes, rales, or rhonchi. GASTROINTESTINAL: Abdomen soft, tender in lower abdomen present, nondistended. EXTREMITIES: No edema or joint tenderness. BACK: Nontender without deformity or crepitance. No flank tenderness. NEURO: AOx3. SKIN: No rash or erythema of visible areas Initial Vital Signs Initial Vital Signs: Vital Signs Temperature 97.7 F 09/23/22 05:42 Pulse Rate 103 H 09/23/22 05:42 Respiratory Rate 22 09/23/22 05:42 Blood Pressure 101/59 L 09/23/22 05:42 Pulse Oximetry 100 09/23/22 05:42 Oxygen Delivery Method 09/23/22 05:42 <Ruben Cannon DO - Last Filed: 09/23/22 08:53> Initial Vital Signs Initial Vital Signs: Vital Signs Temperature 97.7 F 09/23/22 05:42 Pulse Rate 103 H 09/23/22 05:42 Respiratory Rate 22 09/23/22 05:42 Blood Pressure 101/59 L 09/23/22 05:42 Pulse Oximetry 100 09/23/22 05:42 Oxygen Delivery Method 09/23/22 05:42 Course <DO Lucy Stevenson Last Filed: 09/24/22 01:34> Orders Ordered: Discontinued Medications Hydromorphone HCl (Hydromorphone 0.5 Mg Inj) 0.5 mg IV NOW ONE Stop: 09/23/22 06:06 Last Admin: 09/23/22 09:43 Dose: Not Given Documented By: [facility] Hydromorphone HCl (Hydromorphone 1 Mg Inj) 1 mg IM NOW ONE Stop: 09/23/22 06:48 Last Admin: 09/23/22 06:54 Dose: 1 mg Documented By: LENO Ondansetron HCl (Ondansetron 4 Mg/2 Ml Inj) 4 mg IV NOW PRN PRN Reason: Nausea And Vomiting Ondansetron HCl (Ondansetron 4 Mg Odt) 4 mg SL NOW PRN PRN Reason: Nausea And Vomiting Last Admin: 09/23/22 06:52 Dose: 4 mg Documented By: LENO Ondansetron HCl (Ondansetron 4 Mg/2 Ml Inj) 4 mg IV NOW ONE Stop: 09/23/22 06:06 Last Admin: 09/23/22 08:23 Dose: 4 mg Documented By: HECTOR Pantoprazole Sodium (Pantoprazole 40 Mg Vial) 40 mg IV NOW ONE Stop: 09/23/22 06:06 Last Admin: 09/23/22 08:23 Dose: 40 mg Documented By: HECTOR Vital Signs Vital signs: Vital Signs - 8 hr 09/23/22 05:42 Temperature 97.7 F Pulse Rate 103 H Respiratory Rate 22 Blood Pressure 101/59 L Pulse Oximetry 100 Oxygen Delivery Method Room Air <Ruben Cannon DO - Last Filed: 09/23/22 08:53> Orders Ordered: Discontinued Medications Hydromorphone HCl (Hydromorphone 0.5 Mg Inj) 0.5 mg IV NOW ONE Stop: 09/23/22 06:06 Last Admin: 09/23/22 09:43 Dose: Not Given Documented By: HECTOR Hydromorphone HCl (Hydromorphone 1 Mg Inj) 1 mg IM NOW ONE Stop: 09/23/22 06:48 Last Admin: 09/23/22 06:54 Dose: 1 mg Documented By: LENO Ondansetron HCl (Ondansetron 4 Mg/2 Ml Inj) 4 mg IV NOW PRN PRN Reason: Nausea And Vomiting Ondansetron HCl (Ondansetron 4 Mg Odt) 4 mg SL NOW PRN PRN Reason: Nausea And Vomiting Last Admin: 09/23/22 06:52 Dose: 4 mg Documented By: LENO Ondansetron HCl (Ondansetron 4 Mg/2 Ml Inj) 4 mg IV NOW ONE Stop: 09/23/22 06:06 Last Admin: 09/23/22 08:23 Dose: 4 mg Documented By: HECTOR Pantoprazole Sodium (Pantoprazole 40 Mg Vial) 40 mg IV NOW ONE Stop: 09/23/22 06:06 Last Admin: 09/23/22 08:23 Dose: 40 mg Documented By: HECTOR Vital Signs Vital signs: Vital Signs - 8 hr 09/23/22 05:42 Temperature 97.7 F Pulse Rate 103 H Respiratory Rate 22 Blood Pressure 101/59 L Pulse Oximetry 100 Oxygen Delivery Method Room Air MDM - Abdominal Pain <Roque García DO - Last Filed: 09/24/22 01:34> Lab Data 09/23/22 06:47 09/23/22 06:47 Labs: Lab Results 09/23/22 09/23/22 09/23/22 Range/Units 06:47 06:47 06:47 WBC 4.0 L (4.5-11.0) X10^3/uL RBC 4.11 (4.0-5.2) X10^6/uL Hgb 10.6 L (12.0-16.0) g/dL Hct 32.2 L (36-46) % MCV 78.4 L (80-100) fL MCH 25.9 L (26-34) PG MCHC 33.0 (30-36) % RDW 16.1 H (11.6-14.8) % Plt Count 63 L (150-400) X10^3/uL Neut % (Auto) 68.7 (50-75) % Lymph % (Auto) 25.3 (25-40) % [place] % (Auto) 4.8 (3-14) % Eos % (Auto) 0.2 L (2-4) % Baso % (Auto) 1.0 (0-2) % Neut # (Auto) 2800 (8181-1977) /uL Lymph # (Auto) 1000 L (4073-5110) /uL [place] # (Auto) 200 (0-900) /uL Eos # (Auto) 0 (0-450) /uL Baso # (Auto) 0 (0-100) /uL Sodium 137 (137-145) mmol/L Potassium 3.7 (3.4-5.1) mmol/L Chloride 99 (98-107) mmol/L Carbon Dioxide 23 (22-32) mmol/L BUN 11 (7-17) mg/dL Creatinine 0.62 (0.52-1.04) mg/dL Estimated GFR > 60 (>60) mL/min BUN/Creatinine Ratio 17.7 (6-22) Glucose 122 H (70-100) mg/dL Lactate 2.7 H (0.7-2.1) mmol/L Calcium 8.2 L (8.4-10.2) mg/dL Total Bilirubin 0.6 (0.2-1.3) mg/dL AST 45 H (14-36) IU/L ALT 15 (<35) IU/L Alkaline Phosphatase 74 (38-126) U/L Total Protein 7.0 (6.3-8.2) g/dL Albumin 4.3 (3.5-5.0) g/dL Globulin 2.7 (1.7-4.1) g/dL Albumin/Globulin Ratio 1.6 (1.0-2.8) Lipase 134 (23-300) U/L Serum , Qual (Negative) SARS-CoV-2 (PCR) (Negative) Influenza A (RT-PCR) (NEGATIVE) Influenza B (RT-PCR) (NEGATIVE) RSV (PCR) (Negative) 09/23/22 09/23/22 Range/Units 08:00 08:19 WBC (4.5-11.0) X10^3/uL RBC (4.0-5.2) X10^6/uL Hgb (12.0-16.0) g/dL Hct (36-46) % MCV (80-100) fL MCH (26-34) PG MCHC (30-36) % RDW (11.6-14.8) % Plt Count (150-400) X10^3/uL Neut % (Auto) (50-75) % Lymph % (Auto) (25-40) % [place] % (Auto) (3-14) % Eos % (Auto) (2-4) % Baso % (Auto) (0-2) % Neut # (Auto) (7238-4495) /uL Lymph # (Auto) (4576-8675) /uL [place] # (Auto) (0-900) /uL Eos # (Auto) (0-450) /uL Baso # (Auto) (0-100) /uL Sodium (137-145) mmol/L Potassium (3.4-5.1) mmol/L Chloride (98-107) mmol/L Carbon Dioxide (22-32) mmol/L BUN (7-17) mg/dL Creatinine (0.52-1.04) mg/dL Estimated GFR (>60) mL/min BUN/Creatinine Ratio (6-22) Glucose (70-100) mg/dL Lactate (0.7-2.1) mmol/L Calcium (8.4-10.2) mg/dL Total Bilirubin (0.2-1.3) mg/dL AST (14-36) IU/L ALT (<35) IU/L Alkaline Phosphatase (38-126) U/L Total Protein (6.3-8.2) g/dL Albumin (3.5-5.0) g/dL Globulin (1.7-4.1) g/dL Albumin/Globulin Ratio (1.0-2.8) Lipase (23-300) U/L Serum , Qual Negative (Negative) SARS-CoV-2 (PCR) Negative (Negative) Influenza A (RT-PCR) Flu a negative (NEGATIVE) Influenza B (RT-PCR) Flu b negative (NEGATIVE) RSV (PCR) Negative (Negative) <Ruben Cannon, DO - Last Filed: 09/23/22 08:53> Lab Data Labs: Lab Results 09/23/22 09/23/22 09/23/22 Range/Units 06:47 06:47 06:47 WBC 4.0 L (4.5-11.0) X10^3/uL RBC 4.11 (4.0-5.2) X10^6/uL Hgb 10.6 L (12.0-16.0) g/dL Hct 32.2 L (36-46) % MCV 78.4 L (80-100) fL MCH 25.9 L (26-34) PG MCHC 33.0 (30-36) % RDW 16.1 H (11.6-14.8) % Plt Count 63 L (150-400) X10^3/uL Neut % (Auto) 68.7 (50-75) % Lymph % (Auto) 25.3 (25-40) % [place] % (Auto) 4.8 (3-14) % Eos % (Auto) 0.2 L (2-4) % Baso % (Auto) 1.0 (0-2) % Neut # (Auto) 2800 (7810-4872) /uL Lymph # (Auto) 1000 L (2641-5635) /uL [place] # (Auto) 200 (0-900) /uL Eos # (Auto) 0 (0-450) /uL Baso # (Auto) 0 (0-100) /uL Sodium 137 (137-145) mmol/L Potassium 3.7 (3.4-5.1) mmol/L Chloride 99 (98-107) mmol/L Carbon Dioxide 23 (22-32) mmol/L BUN 11 (7-17) mg/dL Creatinine 0.62 (0.52-1.04) mg/dL Estimated GFR > 60 (>60) mL/min BUN/Creatinine Ratio 17.7 (6-22) Glucose 122 H (70-100) mg/dL Lactate 2.7 H (0.7-2.1) mmol/L Calcium 8.2 L (8.4-10.2) mg/dL Total Bilirubin 0.6 (0.2-1.3) mg/dL AST 45 H (14-36) IU/L ALT 15 (<35) IU/L Alkaline Phosphatase 74 (38-126) U/L Total Protein 7.0 (6.3-8.2) g/dL Albumin 4.3 (3.5-5.0) g/dL Globulin 2.7 (1.7-4.1) g/dL Albumin/Globulin Ratio 1.6 (1.0-2.8) Lipase 134 (23-300) U/L Serum , Qual (Negative) SARS-CoV-2 (PCR) (Negative) Influenza A (RT-PCR) (NEGATIVE) Influenza B (RT-PCR) (NEGATIVE) RSV (PCR) (Negative) 09/23/22 09/23/22 Range/Units 08:00 08:19 WBC (4.5-11.0) X10^3/uL RBC (4.0-5.2) X10^6/uL Hgb (12.0-16.0) g/dL Hct (36-46) % MCV (80-100) fL MCH (26-34) PG MCHC (30-36) % RDW (11.6-14.8) % Plt Count (150-400) X10^3/uL Neut % (Auto) (50-75) % Lymph % (Auto) (25-40) % [place] % (Auto) (3-14) % Eos % (Auto) (2-4) % Baso % (Auto) (0-2) % Neut # (Auto) (1064-2660) /uL Lymph # (Auto) (0321-6978) /uL [place] # (Auto) (0-900) /uL Eos # (Auto) (0-450) /uL Baso # (Auto) (0-100) /uL Sodium (137-145) mmol/L Potassium (3.4-5.1) mmol/L Chloride (98-107) mmol/L Carbon Dioxide (22-32) mmol/L BUN (7-17) mg/dL Creatinine (0.52-1.04) mg/dL Estimated GFR (>60) mL/min BUN/Creatinine Ratio (6-22) Glucose (70-100) mg/dL Lactate (0.7-2.1) mmol/L Calcium (8.4-10.2) mg/dL Total Bilirubin (0.2-1.3) mg/dL AST (14-36) IU/L ALT (<35) IU/L Alkaline Phosphatase (38-126) U/L Total Protein (6.3-8.2) g/dL Albumin (3.5-5.0) g/dL Globulin (1.7-4.1) g/dL Albumin/Globulin Ratio (1.0-2.8) Lipase (23-300) U/L Serum , Qual Negative (Negative) SARS-CoV-2 (PCR) Negative (Negative) Influenza A (RT-PCR) Flu a negative (NEGATIVE) Influenza B (RT-PCR) Flu b negative (NEGATIVE) RSV (PCR) Negative (Negative) MDM Narrative Medical decision making narrative: Dr cannon: Received turned over. Reviewed patient's history and physical exam. Performed my own independent evaluation. Patient states she does feel somewhat better now than what she did when she came in. Her labs are relatively unremarkable. test was negative. I did discuss this with her. She does have a history of endometriosis and also ovarian cysts. We discussed options to include further workup to include CT scan/ultrasound or discharging home with symptom control and returning if her symptoms worsen. We discussed the risks and benefits of this. After this discussion the patient opted to hold on any further workup for now. Medications will be sent to the pharmacy of her choice. She was given strict return precautions. She is no urinary symptoms. No indication for antibiotics. She expressed understanding and agreement. Discharge Plan Departure Patient Disposition: Home Clinical Impression: Abdominal pain, Nausea and vomiting Instructions: DI for Abdominal Pain-Adult Activity Restrictions/Additional Instructions: I recommend that you continue to take all of your medications as directed. Medications to try to help your symptoms today were sent to the pharmacy of your choice. Please take them as directed and as needed. Sure to increase your fluid intake. Contact your primary provider for follow-up. Return to the emergency department for any new or worsening symptoms. Prescriptions: New ondansetron 4 mg tablet,disintegrating 4 mg PO Q6H PRN (Reason: nausea and vomiting) Qty: 14 0RF tramadol 50 mg tablet 50 mg PO Q6H PRN (Reason: pain) Qty: 10 0RF No Action prenat.vits,jason,[id number] Tablet 1 tab PO DAILY ondansetron 4 mg tablet,disintegrating 4 mg PO Q8H PRN (Reason: nausea and vomiting) Qty: 20 0RF acetaminophen [Tylenol] 325 mg tablet 325 mg PO Q6H PRN (Reason: pain) Qty: 20 0RF docusate sodium [Colace] 100 mg capsule 100 mg PO BID Qty: 30 0RF diphenhydramine HCl [Benadryl] 25 mg capsule 25 mg PO BEDTIME PRN (Reason: insomnia) Qty: 20 0RF ondansetron 4 mg tablet,disintegrating 4 mg PO Q8H PRN (Reason: nausea and vomiting) Qty: 30 0RF ibuprofen 600 mg Tablet 600 mg PO Q6HR PRN (Reason: Pain, Mild (1-3)) Qty: 30 0RF Referrals: Julita Montiel MD [Primary Care Provider] - Stand Alone Forms: Patient Portal/API
[2022-09-23] MEDS: ONDANSETRON 4 MG ODT SL (06:52)
[2022-09-23] MEDS: HYDROMORPHONE 1 MG INJ IM (06:54)
[2022-09-23 07:13] LABS: Add Manual Diff / Slide Review NO; Basophils Absolute Auto 0 /uL (0-100); Eosinophils Absolute Auto 0 /uL (0-450); Eosinophils Percent Auto 0.2 % (2-4); Hematocrit 32.2 % (36-46); Hemoglobin 10.6 g/dL (12.0-16.0); Lymphocytes Absolute Auto 1000 /uL (1100-4500); Lymphocytes Percent Auto 25.3 % (25-40); Mean Corpuscular Hemoglobin 25.9 PG (26-34); Mean Corpuscular Volume 78.4 fL (80-100); Monocytes Absolute Auto 200 /uL (0-900); Monocytes Percent Auto 4.8 % (3-14); Neutrophils Absolute Auto 2800 /uL (1500-7000); Neutrophils Percent Auto 68.7 % (50-75); Platelet Count 63 X10^3/uL (150-400); Red Blood Cell Count 4.11 X10^6/uL (4.0-5.2); Red Cell Distribution Width 16.1 % (11.6-14.8)
[2022-09-23 07:14] LABS: Alanine Aminotransferase 15 IU/L (<35); Albumin 4.3 g/dL (3.5-5.0); Albumin Globulin Ratio 1.6 (1.0-2.8); Alkaline Phosphatase 74 U/L (38-126); Aspartate Aminotransferase 45 IU/L (14-36); BUN Creatinine Ratio 17.7 (6-22); Bilirubin Total 0.6 mg/dL (0.2-1.3); Blood Urea Nitrogen 11 mg/dL (7-17); Calcium 8.2 mg/dL (8.4-10.2); Carbon Dioxide 23 mmol/L (22-32); Chloride 99 mmol/L (98-107); Estimated Glomerular Filt Rate > 60 mL/min (>60); Globulin 2.7 g/dL (1.7-4.1); Glucose 122 mg/dL (70-100); HEMOLYSIS 32 (0-50); Lactate (Lactic Acid) 2.7 mmol/L (0.7-2.1); Lipase 134 U/L (23-300); Potassium 3.7 mmol/L (3.4-5.1); Sodium 137 mmol/L (137-145)
[2022-09-23] MEDS: PANTOPRAZOLE 40 MG VIAL IV (08:23)
[2022-09-23] MEDS: ONDANSETRON 4 MG/2 ML INJ IV (08:23)
[2022-09-23 08:38] LABS: Pregnancy Test Serum,Qual Negative (Negative)
[2022-09-23 08:51] LABS: Reflexed Lactate in 2 Hours Y
[2022-09-23 09:09] LABS: COVID-19 CEPHEID 4-PLEX PCR Negative (Negative); Influenza A - CEPHEID Flu A NEGATIVE (NEGATIVE); Influenza B - CEPHEID Flu B NEGATIVE (NEGATIVE); Respiratory Syncytial Virus Negative (Negative)
--- NOTE | 2022-09-29 19:57 | PC.NURSE ---
Faxed to [facility] for continuity of care.
== END 2022-09-23 09:42 | disposition home or self-care (01) ==
PROVIDERS: Emergency Medicine; Emergency Provider Emergency Medicine; PCP Specialist
DX: R10.2 Pelvic and perineal pain (principal); R11.2 Nausea with vomiting, unspecified; Z20.822 Contact with and (suspected) exposure to COVID-19
CPT/HCPCS: 0241U; 36415; 80053; 83605; 83690; 84703; 85025; 96372; 96374; 96375; 99284; C9113; J1170; J2405

== ENCOUNTER 2022-10-23 16:10 | Inpatient (IN) | payer OTHER, SELFPAY ==
[2022-10-23 16:10] VITALS: BP 112/62; PULSE 82; RESP 14; TEMP 36.2; O2SAT 99; BMI 20.1
[2022-10-23 16:53] LABS: UR Morphine/Opiate cutoff 300 Negative (Negative); Ur Creatinine Normal (Normal); Ur Specific Gravity Normal (Normal); Urine Amphetamines Negative (Negative); Urine Barbiturates Negative (Negative); Urine Benzodiazepines Negative (Negative); Urine Cocaine Negative (Negative); Urine MDMA Negative (Negative); Urine Methadone Negative (Negative); Urine Methamphetamines Negative (Negative); Urine Oxycodone Negative (Negative); Urine Phencyclidine Negative (Negative); Urine Tetrahydrocannabinol Negative (Negative); Urine Tricyclic Antidepressant Negative (Negative); Urine pH Normal (Normal)
[2022-10-23 17:01] LABS: COVID19 -Nasal RAPID Negative (Negative)
--- NOTE | 2022-10-23 17:47 | ED_ITS ---
HPI - Alcohol <Julia Longoria [facility] - Last Filed: 10/29/22 18:46> General Chief Complaint: Toxicology Problem Stated Complaint: Stress/Depression Time Seen by Provider: 10/23/22 17:05 Source: patient Mode of arrival: Ambulatory History of Present Illness HPI narrative: This is a 32-year-old female with history of alcohol abuse and appears to have limited history currently due to intoxication. She states that she is recently relapsed due to a divorce with her . She used to be a frequent visitor for alcohol related complaints through 2019, and she presented to the [facility] emergency department on 09/29/2022 and a few days prior to that with a blood alcohol in 300s, she was last here in the emergency department in August of 2022 with similar symptoms. She comes in complaining of needing help, states that she drinks vodka and admits to drinking heavily today, states that she took the bottle upside down and started checking from it. She states that she drank 750 mL of time. She just she has nothing to do but relapsed. This 3 weeks ago and she drinking daily since this happened. She wants rehab. She has been [facility] in the past. She has been sober for a total of 18 m onths. She denies any recent injuries, denies chance of , denies any other ingestions, is pleasant, seeking help with her intoxication and wishes to go to detox. She is currently intoxicated endorses symptoms of alcohol withdrawal. Patient states that she takes Seroquel 300 mg at night as well as Librium but she does not have this medicine with her, she only has the Seroquel. Patient has allergy to Reglan and hydrocodone. She denies urinary frequency, urgency or flank pain, endorses nausea without vomiting. Patient has been to detox 11 times, states that it has taking Antabuse, Librium, Ativan, she denies knowing if she is had phenobarbital in the past. Related Data Home Medications Medication Instructions Recorded Confirmed fluoxetine 10 mg capsule 10 mg PO DAILY 10/24/22 10/24/22 hydroxyzine HCl 50 mg tablet 50 mg PO DAILY 10/24/22 10/24/22 quetiapine 300 mg tablet 300 mg PO DAILY 10/24/22 10/24/22 Previous Rx's Medication Instructions Recorded multivitamin with folic acid 400 1 tab PO DAILY #30 tabs 10/25/22 mcg tablet (Tab-A-Princess) pantoprazole 40 mg tablet,delayed 40 mg PO 0700 #30 tabs 10/25/22 release thiamine mononitrate (vit B1) 100 100 mg PO DAILY #30 tabs 10/25/22 mg tablet Allergies Allergy/AdvReac Type Severity Reaction Status Date / Time metoclopramide Allergy Mild RASH/HIVES Verified 10/23/22 16:18 [METOCLOPRAMIDE] hydrocodone [HYDROCODONE] AdvReac Unknown VOMITING Verified 10/23/22 16:18 Review of Systems <SULY Dailey - Last Filed: 10/29/22 18:46> Review of Systems ROS Unobtainable: All systems reviewed & are unremarkable except as noted in HPI and below Patient History <SULY Dailey - Last Filed: 10/29/22 18:46> Medical History (Updated 10/29/22 @ 18:46 by SULY Dailey) Alcohol withdrawal delirium, acute, hyperactive Anemia (~2017) Insomnia Menometrorrhagia (spontaneous vaginal delivery) (~12/17/18) Surgical History H/O dilation and curettage (~03/27/17) H/O wisdom tooth extraction (~2013) S/P myringotomy with insertion of tube Family History Mother Diabetes mellitus Overweight Father Alcoholism Grandfather Unknown whether patient has any health problems Grandmother Diabetes mellitus Smoker Family/Other Diabetes mellitus Obesity Family/Other Alcoholism Grandfather Smoker Alcoholism Grandmother Hypoglycemia Social History marital status: number of children: 1 household members: children education level: college occupational status: employed current occupational exposures/hazards: Yes (obvious risk with Pandemic ) 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 General: cooperative, comfortable, in no acute distress, well groomed, appears intoxicated, pleasant, interactive and comfortable although active, anxious and fidgeting HEENT: symmetrical facial expressions, dry mucous membranes Cardiovascular: Tachycardic rate and rhythm, no peripheral edema, warm extremities Respiratory: normal effort, able to speak in complete sentences, without wheezing, stridor, or abnormal breath sounds. No retractions or tachypnea. GI: abdomen soft, nontender to palpation, nondistended, without masses, rebound tenderness or exquisite tenderness with exam. MSK: moves all extremities, neurovascularly intact, no weakness, normal tone no significant tremor or tongue fasciculation, she has a mild tremor with her arms at extension and states that she feels symptoms of alcohol withdrawal. Denies nausea vomiting or abdominal pain at this time. Denies any vomiting home or diarrhea or current stool changes. Skin: brisk capillary refill, without pallor or erythema Neuro: normal speech and cognition, A&O x3, ambulatory, clear speech Psych: mental status is intact, patient has a normal affect although she is anxious, intoxicated and now withdrawing. pleasant and cooperative Initial Vital Signs Initial Vital Signs: Vital Signs Temperature 97.2 F L 10/23/22 16:10 Pulse Rate 82 10/23/22 16:10 Respiratory Rate 14 10/23/22 16:10 Blood Pressure 112/62 10/23/22 16:10 Pulse Oximetry 99 10/23/22 16:10 Oxygen Delivery Method Room Air 10/23/22 16:10 <Roque García DO - Last Filed: 10/24/22 06:31> Initial Vital Signs Initial Vital Signs: Vital Signs Temperature 97.2 F L 10/23/22 16:10 Pulse Rate 82 10/23/22 16:10 Respiratory Rate 14 10/23/22 16:10 Blood Pressure 112/62 10/23/22 16:10 Pulse Oximetry 99 10/23/22 16:10 Oxygen Delivery Method Room Air 10/23/22 16:10 Course <SULY Dailey - Last Filed: 10/29/22 18:46> Orders Ordered: Discontinued Medications Cephalexin HCl (Cephalexin 250 Mg Capsule) 500 mg PO Q6H [facility] Last Admin: 10/24/22 02:11 Dose: 500 mg Documented By: Admin: 10/23/22 19:47 Dose: 500 mg Documented By: LIMA Chlordiazepoxide HCl (Chlordiazepoxide 25 Mg Capsule) 50 mg PO Q6H [facility] Last Admin: 10/24/22 20:22 Dose: 50 mg Documented By: Admin: 10/24/22 15:23 Dose: 50 mg Documented By: Admin: 10/24/22 09:45 Dose: 50 mg Documented By: COSMO Chlordiazepoxide HCl (Chlordiazepoxide 25 Mg Capsule) 50 mg PO Q6H [facility] Last Admin: 10/25/22 11:47 Dose: 50 mg Documented By: Admin: 10/25/22 06:04 Dose: 50 mg Documented By: JAMIA Enoxaparin Sodium (Enoxaparin 40 Mg/0.4 Ml Syringe) 40 mg SUBCUT DAILY [facility] Last Admin: 10/25/22 09:04 Dose: 40 mg Documented By: Admin: 10/24/22 09:28 Dose: 40 mg Documented By: COSMO Folic Acid (Folic Acid 1 Mg Tablet) 1 mg PO DAILY [facility] Last Admin: 10/25/22 09:04 Dose: 1 mg Documented By: Admin: 10/24/22 09:27 Dose: 1 mg Documented By: COSMO Sodium Chloride (Normal Saline 0.9%) 1,000 mls @ 1,000 mls/hr IV BOLUS ONE Stop: 10/23/22 18:31 Last Admin: 10/23/22 18:56 Dose: Not Given Documented By: LIMA Thiamine HCl 200 mg/ Sodium (Chloride) 102 mls @ 408 mls/hr IV NOW ONE Stop: 10/23/22 17:45 Last Admin: 10/23/22 18:56 Dose: Not Given Documented By: LIMA Sodium Chloride (Normal Saline 0.9%) 1,000 mls @ 1,000 mls/hr IV BOLUS ONE Stop: 10/24/22 07:17 Last Infusion: 10/24/22 07:08 Dose: 0 mls/hr Documented By: Admin: 10/24/22 06:22 Dose: 1,000 mls/hr Documented By: VIKRAM Sodium Chloride (Normal Saline 0.9%) 1,000 mls @ 100 mls/hr IV CONT [facility] Last Infusion: 10/24/22 10:47 Dose: 0 mls/hr Documented By: Infusion: 10/24/22 10:46 Dose: 100 mls/hr Documented By: Admin: 10/24/22 07:45 Dose: 100 mls/hr Documented By: CTS Ciprofloxacin (Cipro) 400 mg in 200 mls @ 200 mls/hr IV Q12H [facility] Last Admin: 10/24/22 08:22 Dose: Not Given Documented By: CTS Ciprofloxacin (Cipro) 400 mg in 200 mls @ 200 mls/hr IV Q12H [facility] Stop: 10/26/22 20:59 Last Infusion: 10/25/22 10:05 Dose: 0 mls/hr Documented By: Admin: 10/25/22 08:04 Dose: 200 mls/hr Documented By: Infusion: 10/24/22 21:32 Dose: 0 mls/hr Documented By: Admin: 10/24/22 20:21 Dose: 200 mls/hr Documented By: Infusion: 10/24/22 09:21 Dose: 0 mls/hr Documented By: Admin: 10/24/22 08:08 Dose: 200 mls/hr Documented By: CTS dexmedeTOMIDine in 0.9 % NaCL (Precedex) 400 mcg in 100 mls @ 2.495 mls/hr IV TITRATE [facility]; Protocol Last Titration: 10/25/22 11:00 Dose: 0 mcg/kg/hr, 0 mls/hr Documented By: Titration: 10/25/22 10:05 Dose: 0.4 mcg/kg/hr, 4.99 mls/hr Documented By: Admin: 10/25/22 09:10 Dose: 0.6 mcg/kg/hr, 7.484 mls/hr Documented By: Titration: 10/25/22 09:10 Dose: 0.6 mcg/kg/hr, 7.484 mls/hr Documented By: Admin: 10/24/22 23:09 Dose: 0.6 mcg/kg/hr, 7.484 mls/hr Documented By: Titration: 10/24/22 23:09 Dose: 0.6 mcg/kg/hr, 7.484 mls/hr Documented By: Titration: 10/24/22 15:30 Dose: 0.6 mcg/kg/hr, 7.484 mls/hr Documented By: Titration: 10/24/22 13:36 Dose: 1 mcg/kg/hr, 12.474 mls/hr Documented By: Titration: 10/24/22 12:58 Dose: 0 mcg/kg/hr, 0 mls/hr Documented By: Titration: 10/24/22 11:50 Dose: 1 mcg/kg/hr, 12.474 mls/hr Documented By: Admin: 10/24/22 11:13 Dose: 0.2 mcg/kg/hr, 2.495 mls/hr Documented By: MS Magnesium Sulfate (Magnesium Sulfate) 2 gm in 50 mls @ 25 mls/hr IV NOW ONE Stop: 10/24/22 13:29 Last Admin: 10/24/22 12:24 Dose: Not Given Documented By: Magnesium Sulfate (Magnesium Sulfate) 2 gm in 50 mls @ 25 mls/hr IV NOW ONE Stop: 10/24/22 15:59 Last Admin: 10/24/22 13:43 Dose: 25 mls/hr Documented By: Co-signed By: CALEB Lorazepam (Lorazepam 2 Mg/Ml Inj) 2 mg IV NOW ONE Stop: 10/23/22 17:33 Last Admin: 10/23/22 18:56 Dose: Not Given Documented By: LIMA Lorazepam (Lorazepam 0.5 Mg Tablet) 1 mg PO NOW ONE Stop: 10/23/22 18:28 Last Admin: 10/23/22 18:40 Dose: 1 mg Documented By: C[place] Lorazepam (Lorazepam 0.5 Mg Tablet) 2 mg PO NOW ONE Stop: 10/23/22 19:25 Last Admin: 10/23/22 19:48 Dose: 2 mg Documented By: LIMA Lorazepam (Lorazepam 0.5 Mg Tablet) 2 mg PO NOW ONE Stop: 10/23/22 20:17 Last Admin: 10/24/22 03:36 Dose: 2 mg Documented By: VIKRAM Lorazepam (Lorazepam 2 Mg/Ml Inj) 2 mg IV NOW ONE Stop: 10/24/22 06:03 Last Admin: 10/24/22 06:11 Dose: 2 mg Documented By: THAD Lorazepam (Lorazepam 2 Mg/Ml Inj) 0 mg IV CIWAPRN PRN; Protocol PRN Reason: Alcohol Withdrawal Last Admin: 10/24/22 10:15 Dose: 2 mg Documented By: Admin: 10/24/22 08:54 Dose: 2 mg Documented By: Admin: 10/24/22 07:45 Dose: 2 mg Documented By: CTS Multivitamins (Multivitamin 1 Tablet) 1 tab PO DAILY [facility] Last Admin: 10/25/22 09:04 Dose: 1 tab Documented By: Admin: 10/24/22 09:27 Dose: 1 tab Documented By: CTS Naloxone HCl (Naloxone 0.4 Mg/Ml Vial) 0.2 mg IV Q2MIN PRN PRN Reason: Opiate Reversal Nicotine (Nicotine 14 Patch) 14 mg TOP DAILY [facility] Last Admin: 10/25/22 09:05 Dose: 14 mg Documented By: Admin: 10/24/22 09:28 Dose: 14 mg Documented By: COSMO Home Medication (Storage) 0 each PO PRN PRN PRN Reason: HOME MEDICATION STORAGE Ondansetron HCl (Ondansetron 4 Mg/2 Ml Inj) 4 mg IV Q6HR PRN PRN Reason: Nausea And Vomiting Ondansetron HCl (Ondansetron 4 Mg Odt) 4 mg SL NOW ONE Stop: 10/23/22 18:28 Last Admin: 10/23/22 18:39 Dose: 4 mg Documented By: C[place] Ondansetron HCl (Ondansetron 4 Mg Odt) 4 mg SL NOW ONE Stop: 10/23/22 20:03 Last Admin: 10/24/22 06:01 Dose: Not Given Documented By: AP Ondansetron HCl (Ondansetron 4 Mg/2 Ml Inj) 4 mg IV Q6HR PRN PRN Reason: Nausea And Vomiting Pantoprazole Sodium (Pantoprazole 40 Mg Vial) 40 mg IV DAILY [facility] Last Admin: 10/25/22 09:05 Dose: 40 mg Documented By: Admin: 10/24/22 09:27 Dose: 40 mg Documented By: COSMO Pantoprazole Sodium (Pantoprazole Dr 40 Mg Tablet) 40 mg PO 0700 [facility] Phenobarbital (Phenobarbital 65 Mg/Ml Vial) 130 mg IV NOW ONE Stop: 10/24/22 07:05 Last Admin: 10/24/22 07:45 Dose: 130 mg Documented By: COSMO Thiamine HCl (Thiamine 100 Mg Tablet) 100 mg PO NOW ONE Stop: 10/23/22 18:28 Last Admin: 10/23/22 19:49 Dose: 100 mg Documented By: LIMA Thiamine HCl (Thiamine 100 Mg Tablet) 100 mg PO DAILY [facility] Stop: 10/27/22 09:01 Last Admin: 10/25/22 09:04 Dose: 100 mg Documented By: Admin: 10/24/22 09:27 Dose: 100 mg Documented By: COSMO Vital Signs Vital signs: Vital Signs - 8 hr 10/23/22 23:30 10/24/22 01:28 10/24/22 01:50 Pulse Rate 94 H 92 H 88 Respiratory Rate 16 18 Blood Pressure 99/58 L Blood Pressure [Left Arm] 95/53 L Pulse Oximetry 98 97 96 Oxygen Delivery Method Room Air Room Air 10/24/22 02:00 10/24/22 02:14 10/24/22 02:14 Pulse Rate 97 H 87 Respiratory Rate Blood Pressure 102/59 L Blood Pressure [Left Arm] Pulse Oximetry 97 100 Oxygen Delivery Method 10/24/22 02:30 10/24/22 03:00 10/24/22 03:30 Pulse Rate 90 99 H 109 H Respiratory Rate Blood Pressure Blood Pressure [Left Arm] Pulse Oximetry 99 97 97 Oxygen Delivery Method 10/24/22 04:00 10/24/22 04:30 10/24/22 05:00 Pulse Rate 98 H 101 H 109 H Respiratory Rate Blood Pressure Blood Pressure [Left Arm] Pulse Oximetry 97 98 98 Oxygen Delivery Method 10/24/22 05:30 10/24/22 05:54 10/24/22 05:54 Pulse Rate 120 H 122 H Respiratory Rate Blood Pressure 99/52 L Blood Pressure [Left Arm] Pulse Oximetry 98 98 Oxygen Delivery Method 10/24/22 06:00 10/24/22 06:00 Pulse Rate 119 H Respiratory Rate Blood Pressure 93/54 L Blood Pressure [Left Arm] Pulse Oximetry 97 Oxygen Delivery Method <Roque García DO - Last Filed: 10/24/22 06:31> Orders Ordered: Discontinued Medications Cephalexin HCl (Cephalexin 250 Mg Capsule) 500 mg PO Q6H [facility] Last Admin: 10/24/22 02:11 Dose: 500 mg Documented By: Admin: 10/23/22 19:47 Dose: 500 mg Documented By: LIMA Chlordiazepoxide HCl (Chlordiazepoxide 25 Mg Capsule) 50 mg PO Q6H [facility] Last Admin: 10/24/22 20:22 Dose: 50 mg Documented By: Admin: 10/24/22 15:23 Dose: 50 mg Documented By: Admin: 10/24/22 09:45 Dose: 50 mg Documented By: COSMO Chlordiazepoxide HCl (Chlordiazepoxide 25 Mg Capsule) 50 mg PO Q6H [facility] Last Admin: 10/25/22 11:47 Dose: 50 mg Documented By: Admin: 10/25/22 06:04 Dose: 50 mg Documented By: JAMIA Enoxaparin Sodium (Enoxaparin 40 Mg/0.4 Ml Syringe) 40 mg SUBCUT DAILY [facility] Last Admin: 10/25/22 09:04 Dose: 40 mg Documented By: Admin: 10/24/22 09:28 Dose: 40 mg Documented By: COSMO Folic Acid (Folic Acid 1 Mg Tablet) 1 mg PO DAILY [facility] Last Admin: 10/25/22 09:04 Dose: 1 mg Documented By: Admin: 10/24/22 09:27 Dose: 1 mg Documented By: COSMO Sodium Chloride (Normal Saline 0.9%) 1,000 mls @ 1,000 mls/hr IV BOLUS ONE Stop: 10/23/22 18:31 Last Admin: 10/23/22 18:56 Dose: Not Given Documented By: LIMA Thiamine HCl 200 mg/ Sodium (Chloride) 102 mls @ 408 mls/hr IV NOW ONE Stop: 10/23/22 17:45 Last Admin: 10/23/22 18:56 Dose: Not Given Documented By: LIMA Sodium Chloride (Normal Saline 0.9%) 1,000 mls @ 1,000 mls/hr IV BOLUS ONE Stop: 10/24/22 07:17 Last Infusion: 10/24/22 07:08 Dose: 0 mls/hr Documented By: Admin: 10/24/22 06:22 Dose: 1,000 mls/hr Documented By: VIKRAM Sodium Chloride (Normal Saline 0.9%) 1,000 mls @ 100 mls/hr IV CONT [facility] Last Infusion: 10/24/22 10:47 Dose: 0 mls/hr Documented By: Infusion: 10/24/22 10:46 Dose: 100 mls/hr Documented By: Admin: 10/24/22 07:45 Dose: 100 mls/hr Documented By: CTS Ciprofloxacin (Cipro) 400 mg in 200 mls @ 200 mls/hr IV Q12H [facility] Last Admin: 10/24/22 08:22 Dose: Not Given Documented By: CTS Ciprofloxacin (Cipro) 400 mg in 200 mls @ 200 mls/hr IV Q12H [facility] Stop: 10/26/22 20:59 Last Infusion: 10/25/22 10:05 Dose: 0 mls/hr Documented By: Admin: 10/25/22 08:04 Dose: 200 mls/hr Documented By: Infusion: 10/24/22 21:32 Dose: 0 mls/hr Documented By: Admin: 10/24/22 20:21 Dose: 200 mls/hr Documented By: Infusion: 10/24/22 09:21 Dose: 0 mls/hr Documented By: Admin: 10/24/22 08:08 Dose: 200 mls/hr Documented By: CTS dexmedeTOMIDine in 0.9 % NaCL (Precedex) 400 mcg in 100 mls @ 2.495 mls/hr IV TITRATE [facility]ON[facility]; Protocol Last Titration: 10/25/22 11:00 Dose: 0 mcg/kg/hr, 0 mls/hr Documented By: Titration: 10/25/22 10:05 Dose: 0.4 mcg/kg/hr, 4.99 mls/hr Documented By: Admin: 10/25/22 09:10 Dose: 0.6 mcg/kg/hr, 7.484 mls/hr Documented By: Titration: 10/25/22 09:10 Dose: 0.6 mcg/kg/hr, 7.484 mls/hr Documented By: Admin: 10/24/22 23:09 Dose: 0.6 mcg/kg/hr, 7.484 mls/hr Documented By: Titration: 10/24/22 23:09 Dose: 0.6 mcg/kg/hr, 7.484 mls/hr Documented By: Titration: 10/24/22 15:30 Dose: 0.6 mcg/kg/hr, 7.484 mls/hr Documented By: Titration: 10/24/22 13:36 Dose: 1 mcg/kg/hr, 12.474 mls/hr Documented By: Titration: 10/24/22 12:58 Dose: 0 mcg/kg/hr, 0 mls/hr Documented By: Titration: 10/24/22 11:50 Dose: 1 mcg/kg/hr, 12.474 mls/hr Documented By: Admin: 10/24/22 11:13 Dose: 0.2 mcg/kg/hr, 2.495 mls/hr Documented By: Magnesium Sulfate (Magnesium Sulfate) 2 gm in 50 mls @ 25 mls/hr IV NOW ONE Stop: 10/24/22 13:29 Last Admin: 10/24/22 12:24 Dose: Not Given Documented By: Magnesium Sulfate (Magnesium Sulfate) 2 gm in 50 mls @ 25 mls/hr IV NOW ONE Stop: 10/24/22 15:59 Last Admin: 10/24/22 13:43 Dose: 25 mls/hr Documented By: Co-signed By: CALEB Lorazepam (Lorazepam 2 Mg/Ml Inj) 2 mg IV NOW ONE Stop: 10/23/22 17:33 Last Admin: 10/23/22 18:56 Dose: Not Given Documented By: LIMA Lorazepam (Lorazepam 0.5 Mg Tablet) 1 mg PO NOW ONE Stop: 10/23/22 18:28 Last Admin: 10/23/22 18:40 Dose: 1 mg Documented By: C[place] Lorazepam (Lorazepam 0.5 Mg Tablet) 2 mg PO NOW ONE Stop: 10/23/22 19:25 Last Admin: 10/23/22 19:48 Dose: 2 mg Documented By: LIMA Lorazepam (Lorazepam 0.5 Mg Tablet) 2 mg PO NOW ONE Stop: 10/23/22 20:17 Last Admin: 10/24/22 03:36 Dose: 2 mg Documented By: VIKRAM Lorazepam (Lorazepam 2 Mg/Ml Inj) 2 mg IV NOW ONE Stop: 10/24/22 06:03 Last Admin: 10/24/22 06:11 Dose: 2 mg Documented By: THAD Lorazepam (Lorazepam 2 Mg/Ml Inj) 0 mg IV CIWAPRN PRN; Protocol PRN Reason: Alcohol Withdrawal Last Admin: 10/24/22 10:15 Dose: 2 mg Documented By: Admin: 10/24/22 08:54 Dose: 2 mg Documented By: Admin: 10/24/22 07:45 Dose: 2 mg Documented By: COSMO Multivitamins (Multivitamin 1 Tablet) 1 tab PO DAILY [facility] Last Admin: 10/25/22 09:04 Dose: 1 tab Documented By: Admin: 10/24/22 09:27 Dose: 1 tab Documented By: CTS Naloxone HCl (Naloxone 0.4 Mg/Ml Vial) 0.2 mg IV Q2MIN PRN PRN Reason: Opiate Reversal Nicotine (Nicotine 14 Patch) 14 mg TOP DAILY [facility] Last Admin: 10/25/22 09:05 Dose: 14 mg Documented By: Admin: 10/24/22 09:28 Dose: 14 mg Documented By: COSMO Home Medication (Storage) 0 each PO PRN PRN PRN Reason: HOME MEDICATION STORAGE Ondansetron HCl (Ondansetron 4 Mg/2 Ml Inj) 4 mg IV Q6HR PRN PRN Reason: Nausea And Vomiting Ondansetron HCl (Ondansetron 4 Mg Odt) 4 mg SL NOW ONE Stop: 10/23/22 18:28 Last Admin: 10/23/22 18:39 Dose: 4 mg Documented By: [place] Ondansetron HCl (Ondansetron 4 Mg Odt) 4 mg SL NOW ONE Stop: 10/23/22 20:03 Last Admin: 10/24/22 06:01 Dose: Not Given Documented By: AP Ondansetron HCl (Ondansetron 4 Mg/2 Ml Inj) 4 mg IV Q6HR PRN PRN Reason: Nausea And Vomiting Pantoprazole Sodium (Pantoprazole 40 Mg Vial) 40 mg IV DAILY [facility] Last Admin: 10/25/22 09:05 Dose: 40 mg Documented By: Admin: 10/24/22 09:27 Dose: 40 mg Documented By: COSMO Pantoprazole Sodium (Pantoprazole Dr 40 Mg Tablet) 40 mg PO 0700 [facility] Phenobarbital (Phenobarbital 65 Mg/Ml Vial) 130 mg IV NOW ONE Stop: 10/24/22 07:05 Last Admin: 10/24/22 07:45 Dose: 130 mg Documented By: COSMO Thiamine HCl (Thiamine 100 Mg Tablet) 100 mg PO NOW ONE Stop: 10/23/22 18:28 Last Admin: 10/23/22 19:49 Dose: 100 mg Documented By: LIMA Thiamine HCl (Thiamine 100 Mg Tablet) 100 mg PO DAILY [facility] Stop: 10/27/22 09:01 Last Admin: 10/25/22 09:04 Dose: 100 mg Documented By: Admin: 10/24/22 09:27 Dose: 100 mg Documented By: CTS Vital Signs Vital signs: Vital Signs - 8 hr 10/23/22 23:30 10/24/22 01:28 10/24/22 01:50 Pulse Rate 94 H 92 H 88 Respiratory Rate 16 18 Blood Pressure 99/58 L Blood Pressure [Left Arm] 95/53 L Pulse Oximetry 98 97 96 Oxygen Delivery Method Room Air Room Air 10/24/22 02:00 10/24/22 02:14 10/24/22 02:14 Pulse Rate 97 H 87 Respiratory Rate Blood Pressure 102/59 L Blood Pressure [Left Arm] Pulse Oximetry 97 100 Oxygen Delivery Method 10/24/22 02:30 10/24/22 03:00 10/24/22 03:30 Pulse Rate 90 99 H 109 H Respiratory Rate Blood Pressure Blood Pressure [Left Arm] Pulse Oximetry 99 97 97 Oxygen Delivery Method 10/24/22 04:00 10/24/22 04:30 10/24/22 05:00 Pulse Rate 98 H 101 H 109 H Respiratory Rate Blood Pressure Blood Pressure [Left Arm] Pulse Oximetry 97 98 98 Oxygen Delivery Method 10/24/22 05:30 10/24/22 05:54 10/24/22 05:54 Pulse Rate 120 H 122 H Respiratory Rate Blood Pressure 99/52 L Blood Pressure [Left Arm] Pulse Oximetry 98 98 Oxygen Delivery Method 10/24/22 06:00 10/24/22 06:00 Pulse Rate 119 H Respiratory Rate Blood Pressure 93/54 L Blood Pressure [Left Arm] Pulse Oximetry 97 Oxygen Delivery Method MDM - Alcohol <SULY Dailey - Last Filed: 10/29/22 18:46> Lab Data 10/25/22 08:20 10/25/22 08:20 Labs: Lab Results 10/23/22 10/23/22 10/23/22 Range/Units 16:32 16:32 16:32 WBC (4.5-11.0) X10^3/uL RBC (4.0-5.2) X10^6/uL Hgb (12.0-16.0) g/dL Hct (36-46) % MCV (80-100) fL MCH (26-34) PG MCHC (30-36) % RDW (11.6-14.8) % Plt Count (150-400) X10^3/uL Neut % (Auto) (50-75) % Lymph % (Auto) (25-40) % [place] % (Auto) (3-14) % Eos % (Auto) (2-4) % Baso % (Auto) (0-2) % Neut # (Auto) (9609-9559) /uL Lymph # (Auto) (9155-5229) /uL [place] # (Auto) (0-900) /uL Eos # (Auto) (0-450) /uL Baso # (Auto) (0-100) /uL Sodium (137-145) mmol/L Potassium (3.4-5.1) mmol/L Chloride (98-107) mmol/L Carbon Dioxide (22-32) mmol/L BUN (7-17) mg/dL Creatinine (0.52-1.04) mg/dL Estimated GFR (>60) mL/min BUN/Creatinine Ratio (6-22) Glucose (70-100) mg/dL Calcium (8.4-10.2) mg/dL Total Bilirubin (0.2-1.3) mg/dL AST (14-36) IU/L ALT (<35) IU/L Alkaline Phosphatase (38-126) U/L Total Protein (6.3-8.2) g/dL Albumin (3.5-5.0) g/dL Globulin (1.7-4.1) g/dL Albumin/Globulin Ratio (1.0-2.8) TSH (0.47-4.68) uIU/mL Free T4 (0.78-2.19) ng/dL Urine RBC 1-5/hpf (0-5/HPF) Urine WBC 1-5/hpf (0-5/HPF) Ur Squamous Epith Cells 1-5 /hpf (0-5/HPF) Urine Bacteria Many (>30) H (None) Ur Culture Indicated? Specimen cultured Salicylates (<20) mg/dL U Opiates 300ng/mL cut Negative (Negative) Ur Oxycodone Screen Negative (Negative) Urine Methadone Screen Negative (Negative) Acetaminophen (10-30) ug/mL Ur Barbiturates Screen Negative (Negative) U Tricyclic Antidepress Negative (Negative) Ur Phencyclidine Scrn Negative (Negative) Ur Amphetamines Screen Negative (Negative) U Methamphetamines Scrn Negative (Negative) Ur MDMA Scrn (Ecstasy) Negative (Negative) U Benzodiazepines Scrn Negative (Negative) Urine Cocaine Screen Negative (Negative) U Marijuana (THC) Screen Negative (Negative) Ethyl Alcohol ( - 10) mg/dL SARS-CoV-2 (PCR) Negative (Negative) 10/23/22 10/23/22 10/23/22 Range/Units 19:15 19:15 19:15 WBC 3.3 L (4.5-11.0) X10^3/uL RBC 4.44 (4.0-5.2) X10^6/uL Hgb 11.5 L (12.0-16.0) g/dL Hct 35.3 L (36-46) % MCV 79.5 L (80-100) fL MCH 26.0 (26-34) PG MCHC 32.7 (30-36) % RDW 17.3 H (11.6-14.8) % Plt Count 226 (150-400) X10^3/uL Neut % (Auto) 45.5 L (50-75) % Lymph % (Auto) 50.6 H (25-40) % [place] % (Auto) 2.7 L (3-14) % Eos % (Auto) 0.3 L (2-4) % Baso % (Auto) 0.9 (0-2) % Neut # (Auto) 1500 (5759-9487) /uL Lymph # (Auto) 1700 (0288-0650) /uL [place] # (Auto) 100 (0-900) /uL Eos # (Auto) 0 (0-450) /uL Baso # (Auto) 0 (0-100) /uL Sodium 140 (137-145) mmol/L Potassium 3.9 (3.4-5.1) mmol/L Chloride 104 (98-107) mmol/L Carbon Dioxide 23 (22-32) mmol/L BUN 9 (7-17) mg/dL Creatinine 0.82 (0.52-1.04) mg/dL Estimated GFR > 60 (>60) mL/min BUN/Creatinine Ratio 11.0 (6-22) Glucose 111 H (70-100) mg/dL Calcium 8.0 L (8.4-10.2) mg/dL Total Bilirubin 0.4 (0.2-1.3) mg/dL AST 67 H (14-36) IU/L ALT 21 (<35) IU/L Alkaline Phosphatase 98 (38-126) U/L Total Protein 7.3 (6.3-8.2) g/dL Albumin 4.3 (3.5-5.0) g/dL Globulin 3.0 (1.7-4.1) g/dL Albumin/Globulin Ratio 1.4 (1.0-2.8) TSH 1.24 (0.47-4.68) uIU/mL Free T4 0.93 (0.78-2.19) ng/dL Urine RBC (0-5/HPF) Urine WBC (0-5/HPF) Ur Squamous Epith Cells (0-5/HPF) Urine Bacteria (None) Ur Culture Indicated? Salicylates < 1.0 (<20) mg/dL U Opiates 300ng/mL cut (Negative) Ur Oxycodone Screen (Negative) Urine Methadone Screen (Negative) Acetaminophen < 10 (10-30) ug/mL Ur Barbiturates Screen (Negative) U Tricyclic Antidepress (Negative) Ur Phencyclidine Scrn (Negative) Ur Amphetamines Screen (Negative) U Methamphetamines Scrn (Negative) Ur MDMA Scrn (Ecstasy) (Negative) U Benzodiazepines Scrn (Negative) Urine Cocaine Screen (Negative) U Marijuana (THC) Screen (Negative) Ethyl Alcohol 338 H ( - 10) mg/dL SARS-CoV-2 (PCR) (Negative) Point of Care Testing Test Results Negative Urine Dip Bedside Urine Glucose Negative Bedside Urine Bilirubin - Negative Bedside Urine Ketone - Negative Urine Specific [place] 1.015 Bedside Urine Occult Blood - Negative Bedside Urine pH 6.0 Bedside Urine Protein - Negative Bedside Urine Urobilinogen - Negative Bedside Urine Nitrite + Positive Bedside Urine Leukocytes - Negative Esterase ECG Data Interpretation: EKG independently reviewed by myself at 1830 reveals normal sinus rhythm at 72 bpm with rightward axis and normal intervals. No STEMI, ST segment changes, arrhythmia, or acute ischemic changes. MDM Narrative Medical decision making narrative: Chief Complaint: Alcohol intoxication, seeking detox Independent historian: Patient Differential diagnoses include but are not limited to: Alcohol withdrawal, substance abuse, alcohol intoxication, psychosis, mood disorder, depression I have independently reviewed the patient's vital signs and nursing notes as well as prior records if available. Pertinent lab findings reviewed: CBC is pertinent for mild leukopenia of 3.3, mild anemia but improved from her prior with H&H of 11.5 and 35.3, no evidence of bleeding anywhere, CMP Urine microscopy with many bacteria, pending for culture, will treat for acute cystitis Clinical decision rules or scores evaluated: CIWA of 9 at 1753 [facility] for Alcohol Withdrawal from [facility] on 10/23/2022 RESULT SUMMARY: 9 points Patients with scores >= may require medication for withdrawal. INPUTS: Nausea/vomiting ?> 0 = No nausea and no vomiting Tremor ?> 1 = Not visible, but can be felt fingertip to fingertip Paroxysmal sweats ?> 0 = No sweat visible Anxiety ?> 2 = (More severe symptoms) Agitation ?> 2 = (More severe symptoms) Tactile disturbances ?> 1 = Very mild itching, pin and needles, burning, or numbness Auditory disturbances ?> 1 = Very mild harshness or ability to frighten Visual disturbances ?> 1 = Very mild sensitivity Headache/fullness in head ?> 1 = Very mild Orientation/clouding of sensorium ?> 0 = Oriented, can do serial additions Course of care: Patient is a difficult IV stick, ordered IV with lab work, fluid, EtOH, and CIWA, ordered 2 mg of IV lorazepam for patient's symptoms, social work and orders are pending 1835 patient still does not have an IV, has not received any IV fluid her CIWA is now worse and she has tremors, anxiety is worsening and agitation, ordered p.o. Ativan for her symptoms and ask our into call lab to come up and draw her labs She was given a couple water, a diet order was ordered however they may not deliver since it is after 17:00 and the diet order was ordered at 17:30. Joceline from social work is aware and pending her lab work to arrange for inpatient detox as well. 1899 still no IV, patient is p.o. challenging, she received her p.o. lorazepam, her urine microscopy came back positive for many bacteria, will treat for acute cystitis, she is p.o. tolerant, still pending lab work 1929, patient now feels depressed, she is lying in bed, feeling bad, has tremors, no tachycardia, her CIWA is currently 10, ordered another p.o. dose of lorazepam at 2 mg for this. 1999 patient is feeling better now, her lab work is starting to return and ETOH is 338, COVID PCR was negative, drug screen is negative for all tested agents, thyroid studies are still pending. No significant findings to her CMP. No electrolyte abnormalities. 2002 patient requests to take her home dosing of Seroquel 300 mg, this is acceptable. She is nauseated, without vomiting, received Zofran previously and is allergic to Reglan, will dose with another 5 mg of Zofran, no QT prolongation on her EKG, patient is alert and oriented x3, complaining of feeling poorly and being depressed at this time, CIWA is an 8. Patient's CIWA at 2019 is 12, I ordered for her 2 more mg of lorazepam p.o., patient's is at the bedside offering support, she raises nausea, another 4 Zofran was ordered. So has not been given, patient is signed out to Dr. García, I gave her grilled cheese, soup, some juice and encouraged her to stay hydrated. Social considerations that may affect disposition: none Questions are addressed and there is agreement with the plan and for follow-up. MIPS: This encounter doesn't have any diagnosis' associated with MIPS criteria. <Roque García, - Last Filed: 10/24/22 06:31> Lab Data Labs: Lab Results 10/23/22 10/23/22 10/23/22 Range/Units 16:32 16:32 16:32 WBC (4.5-11.0) X10^3/uL RBC (4.0-5.2) X10^6/uL Hgb (12.0-16.0) g/dL Hct (36-46) % MCV (80-100) fL MCH (26-34) PG MCHC (30-36) % RDW (11.6-14.8) % Plt Count (150-400) X10^3/uL Neut % (Auto) (50-75) % Lymph % (Auto) (25-40) % [place] % (Auto) (3-14) % Eos % (Auto) (2-4) % Baso % (Auto) (0-2) % Neut # (Auto) (3103-1496) /uL Lymph # (Auto) (8098-5846) /uL [place] # (Auto) (0-900) /uL Eos # (Auto) (0-450) /uL Baso # (Auto) (0-100) /uL Sodium (137-145) mmol/L Potassium (3.4-5.1) mmol/L Chloride (98-107) mmol/L Carbon Dioxide (22-32) mmol/L BUN (7-17) mg/dL Creatinine (0.52-1.04) mg/dL Estimated GFR (>60) mL/min BUN/Creatinine Ratio (6-22) Glucose (70-100) mg/dL Calcium (8.4-10.2) mg/dL Total Bilirubin (0.2-1.3) mg/dL AST (14-36) IU/L ALT (<35) IU/L Alkaline Phosphatase (38-126) U/L Total Protein (6.3-8.2) g/dL Albumin (3.5-5.0) g/dL Globulin (1.7-4.1) g/dL Albumin/Globulin Ratio (1.0-2.8) TSH (0.47-4.68) uIU/mL Free T4 (0.78-2.19) ng/dL Urine RBC 1-5/hpf (0-5/HPF) Urine WBC 1-5/hpf (0-5/HPF) Ur Squamous Epith Cells 1-5 /hpf (0-5/HPF) Urine Bacteria Many (>30) H (None) Ur Culture Indicated? Specimen cultured Salicylates (<20) mg/dL U Opiates 300ng/mL cut Negative (Negative) Ur Oxycodone Screen Negative (Negative) Urine Methadone Screen Negative (Negative) Acetaminophen (10-30) ug/mL Ur Barbiturates Screen Negative (Negative) U Tricyclic Antidepress Negative (Negative) Ur Phencyclidine Scrn Negative (Negative) Ur Amphetamines Screen Negative (Negative) U Methamphetamines Scrn Negative (Negative) Ur MDMA Scrn (Ecstasy) Negative (Negative) U Benzodiazepines Scrn Negative (Negative) Urine Cocaine Screen Negative (Negative) U Marijuana (THC) Screen Negative (Negative) Ethyl Alcohol ( - 10) mg/dL SARS-CoV-2 (PCR) Negative (Negative) 10/23/22 10/23/22 10/23/22 Range/Units 19:15 19:15 19:15 WBC 3.3 L (4.5-11.0) X10^3/uL RBC 4.44 (4.0-5.2) X10^6/uL Hgb 11.5 L (12.0-16.0) g/dL Hct 35.3 L (36-46) % MCV 79.5 L (80-100) fL MCH 26.0 (26-34) PG MCHC 32.7 (30-36) % RDW 17.3 H (11.6-14.8) % Plt Count 226 (150-400) X10^3/uL Neut % (Auto) 45.5 L (50-75) % Lymph % (Auto) 50.6 H (25-40) % [place] % (Auto) 2.7 L (3-14) % Eos % (Auto) 0.3 L (2-4) % Baso % (Auto) 0.9 (0-2) % Neut # (Auto) 1500 (8555-8463) /uL Lymph # (Auto) 1700 (2849-6518) /uL [place] # (Auto) 100 (0-900) /uL Eos # (Auto) 0 (0-450) /uL Baso # (Auto) 0 (0-100) /uL Sodium 140 (137-145) mmol/L Potassium 3.9 (3.4-5.1) mmol/L Chloride 104 (98-107) mmol/L Carbon Dioxide 23 (22-32) mmol/L BUN 9 (7-17) mg/dL Creatinine 0.82 (0.52-1.04) mg/dL Estimated GFR > 60 (>60) mL/min BUN/Creatinine Ratio 11.0 (6-22) Glucose 111 H (70-100) mg/dL Calcium 8.0 L (8.4-10.2) mg/dL Total Bilirubin 0.4 (0.2-1.3) mg/dL AST 67 H (14-36) IU/L ALT 21 (<35) IU/L Alkaline Phosphatase 98 (38-126) U/L Total Protein 7.3 (6.3-8.2) g/dL Albumin 4.3 (3.5-5.0) g/dL Globulin 3.0 (1.7-4.1) g/dL Albumin/Globulin Ratio 1.4 (1.0-2.8) TSH 1.24 (0.47-4.68) uIU/mL Free T4 0.93 (0.78-2.19) ng/dL Urine RBC (0-5/HPF) Urine WBC (0-5/HPF) Ur Squamous Epith Cells (0-5/HPF) Urine Bacteria (None) Ur Culture Indicated? Salicylates < 1.0 (<20) mg/dL U Opiates 300ng/mL cut (Negative) Ur Oxycodone Screen (Negative) Urine Methadone Screen (Negative) Acetaminophen < 10 (10-30) ug/mL Ur Barbiturates Screen (Negative) U Tricyclic Antidepress (Negative) Ur Phencyclidine Scrn (Negative) Ur Amphetamines Screen (Negative) U Methamphetamines Scrn (Negative) Ur MDMA Scrn (Ecstasy) (Negative) U Benzodiazepines Scrn (Negative) Urine Cocaine Screen (Negative) U Marijuana (THC) Screen (Negative) Ethyl Alcohol 338 H ( - 10) mg/dL SARS-CoV-2 (PCR) (Negative) Point of Care Testing Test Results Negative Urine Dip Bedside Urine Glucose Negative Bedside Urine Bilirubin - Negative Bedside Urine Ketone - Negative Urine Specific [place] 1.015 Bedside Urine Occult Blood - Negative Bedside Urine pH 6.0 Bedside Urine Protein - Negative Bedside Urine Urobilinogen - Negative Bedside Urine Nitrite + Positive Bedside Urine Leukocytes - Negative Esterase MDM Narrative Medical decision making narrative: Chief Complaint: Alcohol intoxication, seeking detox Independent historian: Patient Differential diagnoses include but are not limited to: Alcohol withdrawal, substance abuse, alcohol intoxication, psychosis, mood disorder, depression I have independently reviewed the patient's vital signs and nursing notes as well as prior records if available. Pertinent lab findings reviewed: CBC is pertinent for mild leukopenia of 3.3, mild anemia but improved from her prior with H&H of 11.5 and 35.3, no evidence of bleeding anywhere, CMP Urine microscopy with many bacteria, pending for culture, will treat for acute cystitis Clinical decision rules or scores evaluated: CIWA of 9 at 1753 [facility] for Alcohol Withdrawal from [facility] on 10/23/2022 RESULT SUMMARY: 9 points Patients with scores >= may require medication for withdrawal. INPUTS: Nausea/vomiting ?> 0 = No nausea and no vomiting Tremor ?> 1 = Not visible, but can be felt fingertip to fingertip Paroxysmal sweats ?> 0 = No sweat visible Anxiety ?> 2 = (More severe symptoms) Agitation ?> 2 = (More severe symptoms) Tactile disturbances ?> 1 = Very mild itching, pin and needles, burning, or numbness Auditory disturbances ?> 1 = Very mild harshness or ability to frighten Visual disturbances ?> 1 = Very mild sensitivity Headache/fullness in head ?> 1 = Very mild Orientation/clouding of sensorium ?> 0 = Oriented, can do serial additions Course of care: Patient is a difficult IV stick, ordered IV with lab work, fluid, EtOH, and CIWA, ordered 2 mg of IV lorazepam for patient's symptoms, social work and orders are pending 1835 patient still does not have an IV, has not received any IV fluid her CIWA is now worse and she has tremors, anxiety is worsening and agitation, ordered p.o. Ativan for her symptoms and ask our into call lab to come up and draw her labs She was given a couple water, a diet order was ordered however they may not deliver since it is after 17:00 and the diet order was ordered at 17:30. Joceline from social work is aware and pending her lab work to arrange for inpatient detox as well. 1899 still no IV, patient is p.o. challenging, she received her p.o. lorazepam, her urine microscopy came back positive for many bacteria, will treat for acute cystitis, she is p.o. tolerant, still pending lab work 1929, patient now feels depressed, she is lying in bed, feeling bad, has tremors, no tachycardia, her CIWA is currently 10, ordered another p.o. dose of lorazepam at 2 mg for this. 1999 patient is feeling better now, her lab work is starting to return and ETOH is 338, COVID PCR was negative, drug screen is negative for all tested agents, thyroid studies are still pending. No significant findings to her CMP. No electrolyte abnormalities. 2002 patient requests to take her home dosing of Seroquel 300 mg, this is acceptable. She is nauseated, without vomiting, received Zofran previously and is allergic to Reglan, will dose with another 5 mg of Zofran, no QT prolongation on her EKG, patient is alert and oriented x3, complaining of feeling poorly and being depressed at this time, CIWA is an 8. Patient's CIWA at 2019 is 12, I ordered for her 2 more mg of lorazepam p.o., patient's is at the bedside offering support, she raises nausea, another 4 Zofran was ordered. So has not been given, patient is signed out to Dr. García, I gave her grilled cheese, soup, some juice and encouraged her to stay hydrated. Social considerations that may affect disposition: none Questions are addressed and there is agreement with the plan and for follow-up. MIPS: This encounter doesn't have any diagnosis' associated with MIPS criteria. [1900] (Ricky) Patient received in sign out SENIOR QA AUTOMATION ENGINEER Crew. I have reviewed the clinical course and performed an independent history and physical exam. Patient resting comfortably, currently pursuing placement at [facility] called back and states that patient must have free CIWA scores of 10 or less by 4 hours a piece and must also have blood alcohol level below 0.08 to be considered for placement there. Over the course of the night we have called various other facilities and they are currently no available beds. Patient resting comfortably 0530 -patient beginning to feel a bit agitated and restless, she is tachycardic. 0545 -IV placed, IV Ativan ordered. Patient with increasing signs of alcohol withdrawal and a newly calculated CIWA approaching 20. Patient is no longer an appropriate candidate for outpatient treatment and will require hospitalization for aggressive treatment stabilization of her potentially life-threatening condition Discharge Plan Departure Patient Disposition: Admitted As Inpatient Clinical Impression: Alcohol withdrawal, Acute cystitis Admit Date/Time: 10/24/22 06:12 Admit Provider: Leigha Melvin
[2022-10-23] MEDS: ONDANSETRON 4 MG ODT SL (18:39)
[2022-10-23] MEDS: LORazepam 0.5 MG TABLET 1 MG PO (18:40)
[2022-10-23 18:49] LABS: Bacteria Urine Many (>30); RBC Urine 1-5/HPF (0-5/HPF); Squamous Epithelial Cell Urine 1-5 /HPF (0-5/HPF); WBC Urine 1-5/HPF (0-5/HPF)
[2022-10-23 18:50] LABS: Culture Indicated Urine Specimen Cultured
[2022-10-23 18:53] VITALS: BP 100/59; PULSE 86; RESP 22; O2SAT 99
--- NOTE | 2022-10-23 18:55 | PC.NURSE ---
1814: Lab called to obtain labs. They have been notified that the staff counselor has been unsuccessful.
[2022-10-23 19:22] LABS: Add Manual Diff / Slide Review NO; Basophils Absolute Auto 0 /uL (0-100); Basophils Percent Auto 0.9 % (0-2); Eosinophils Absolute Auto 0 /uL (0-450); Eosinophils Percent Auto 0.3 % (2-4); Hematocrit 35.3 % (36-46); Hemoglobin 11.5 g/dL (12.0-16.0); Lymphocytes Absolute Auto 1700 /uL (1100-4500); Lymphocytes Percent Auto 50.6 % (25-40); Mean Corpuscular HGB Conc 32.7 % (30-36); Mean Corpuscular Volume 79.5 fL (80-100); Monocytes Absolute Auto 100 /uL (0-900); Monocytes Percent Auto 2.7 % (3-14); Neutrophils Absolute Auto 1500 /uL (1500-7000); Neutrophils Percent Auto 45.5 % (50-75); Platelet Count 226 X10^3/uL (150-400); Red Blood Cell Count 4.44 X10^6/uL (4.0-5.2); Red Cell Distribution Width 17.3 % (11.6-14.8); White Blood Cell Count 3.3 X10^3/uL (4.5-11.0)
--- NOTE | 2022-10-23 19:22 | CM.SWNOTE ---
SENIOR DATA MINING ANALYST Assessment SENIOR DATA MINING ANALYST - Remote Sensing Program Manager Assessment SENIOR DATA MINING ANALYST/Remote Sensing Program Manager Assessment Time Spent with Patient Start date 10/23/22 Visit Start Time 18:45 End date 10/23/22 Visit End Time 19:00 Total time Care Management spent on 15 minutes patient visit-in minutes Substance Abuse Screening Include Onset, Duration, Intensity Presenting Problem Patient presents to ED via EMS due to concern for ETOH use & withdrawals. Patient is seeking detox and inpatient rehab. Patient endorses at 8 am this morning she drank 750 ml of vodka all at once. Precipitating Event(s) Patient endorses she just ended a 10 year marriage, sold her house and her kids are in [place]. Patient endorses she relapsed 3 weeks ago and has been drinking daily. Patient Strengths Patient is seeking help, wants to get sober and is seeking detox and rehab. Current Behavioral Health Provider(s) No current providers Include Facility, Provider, Ph. # Family Hx of Behavioral Abuse None reported Rehab Facilities? ((Date(s), Location(s) Patient endorses hx of rehab/ ) detox 11 times at [facility] and [facility] in [place] in 2017. Most recently patient was at [facility] 3 weeks ago. History of Withdrawal? Seizures? Tremors in arms, anxiety. patient denies seizures Longest Period of Sobriety 18 months - over 3 weeks ago Psychosocial information & Support Patient is 32 y/o female who Systems has been residing in [place] with spouse but patient recently sold house and is in the middle of divorce with spouse. Patient denies current supports. School/Work Patient works in at [employer]. Legal Concerns Legal Matters - Outstanding Issues None reported Mental Status Orientation (Person/Place/Time) A/Ox4 Stated Mood I want to clear my head and get back to reality Affect (Congruent with Mood?) euthymic, full range, congruent with mood Thought Content - Specify/Describe None reported Obsessions, Delusions, Hallucinations Thought Processes (Rmlaghk-Jphwovad-Lzqs coherent Bgvcmfek-Cazidqut-Skoulldhba- Bikvgoogpfslfd-Gmfxutu-Qmgvvbbccrsc- Thought Blocking) Speech (Cvzdqh-Gedu-Flklxay-Rapid-Soft- normal/rapid Loud-Pressured) Motor (Ilskeg-Fvsfgckmy-Aodl-Other) normal/fairly excessive with tremors Insight (Oscl-Zbnz-Vxmb/Limited) fair Judgement (Wgit-Mmqy-Gqhu/Limited) fair Impulse Control (Adequate-Impaired) adequate Memory (Dubiqpdbd-Pqkxzo-Sojwbq, intact, not formally assessed Impaired-Intact) Concentration (Intact-Impaired) intact Attention (Intact-Impaired) intact Behavior (Appropriate-Inappropriate) appropriate Additional Comment Patient presents as calm, communicative and cooperative. Risk Assessment Suicidal Ideation (Plan) No Homicidal Ideation (Plan) No Comment Patient endorses hx of SI but denies current SI. Intervention Intervention SENIOR DATA MINING ANALYST enters room to meet with patient. Patient endorses her daily vodka use in the juancarlos 3 weeks. Patient endorses she has been drinking 750ml of vodka a day , patient endorses her last drink was at 0800am this morning. Patient endorses she is seeking detox and rehab and is worried that her insurance does not cover rehab after detox. Patient endorses her desire to get sober and seek treatment. It is the opinion of this SENIOR DATA MINING ANALYST that patient is appropriate for and will benefit from voluntary detox and ANÍBAL rehab upon medical clearance for medication management and crisis stabilization. Plan RA Plan SENIOR DATA MINING ANALYST to seek detox bed for patient upon medical clearance . Joceline Blas, SUPERVISOR SAMPLE
[2022-10-23 19:42] LABS: Acetaminophen < 10 ug/mL (10-30); Alanine Aminotransferase 21 IU/L (<35); Albumin 4.3 g/dL (3.5-5.0); Albumin Globulin Ratio 1.4 (1.0-2.8); Alkaline Phosphatase 98 U/L (38-126); Aspartate Aminotransferase 67 IU/L (14-36); Bilirubin Total 0.4 mg/dL (0.2-1.3); Blood Urea Nitrogen 9 mg/dL (7-17); Carbon Dioxide 23 mmol/L (22-32); Chloride 104 mmol/L (98-107); Estimated Glomerular Filt Rate > 60 mL/min (>60); Glucose 111 mg/dL (70-100); HEMOLYSIS < 15 (0-50); Potassium 3.9 mmol/L (3.4-5.1); Salicylate < 1.0 mg/dL (<20); Sodium 140 mmol/L (137-145); Total Protein 7.3 g/dL (6.3-8.2)
[2022-10-23] MEDS: cephALEXin 250 MG CAPSULE 500 MG PO (19:47)
[2022-10-23 19:48] LABS: Ethanol (ETOH) 338 mg/dL
[2022-10-23] MEDS: LORazepam 0.5 MG TABLET 2 MG PO (19:48)
[2022-10-23] MEDS: THIAMINE 100 MG TABLET PO (19:49)
--- NOTE | 2022-10-23 19:57 | CM.SWNOTE ---
METAL MOLD DRESSER Note METAL MOLD DRESSER calls [facility] intake, it is reported that they have detox beds, METAL MOLD DRESSER faxes clinicals upon medical clearance. Plan: ED team to f/u with [facility] and continue to seek detox bed for patient. Joceline Blas, ELECTION CLERK
[2022-10-23 20:02] LABS: Free T4, Direct Thyroxine 0.93 ng/dL (0.78-2.19)
--- NOTE | 2022-10-23 20:12 | PC.NURSE ---
Provider is aware and permits pt to take 300mg PO Seroquel from her own home medication supply.
[2022-10-23 20:17] LABS: Thyroid Stimulating Hormone 1.24 uIU/mL (0.47-4.68)
[2022-10-23 21:00] VITALS: BP 98/56; PULSE 96; RESP 20; O2SAT 99
--- NOTE | 2022-10-23 23:23 | PC.NURSE ---
Addendum entered by Kriss Bunch CNA 10/24/22 02:38: BETTING CLERKS update: Spoke to [facility] about possible placement. They currently have no beds, but have a discharge sometime today, we don't know when and and then somebody could go AMA, but as of right now no beds. And that we could call back in the morning. Addendum entered by Kriss Bunch CNA 10/24/22 01:42: BETTING CLERKS update: Attempting to find patient a place to detox at. Called the [facility] number, spoke to Nicholas, who gave me another number to call for what we need. The line rang and rang, and then hung up. Began making other calls. Used the phone list at the [facility] station. [facility] line: spoke to someone, they sent me to the emergency room who says they don't do inpatient detox and usually send to [facility]. [facility]: left a message. [facility]: Call in am (0800). First come first serve basis. [facility]: call in AM. They have 6 admissions, for four beds, but often times patients don't come, so call in AM. Called [facility] and [facility] for possible placement and the numbers were having issues (they weren't working). Let the RN and doc know where I was in my progress. Original Note: BETTING CLERKS note: Spoke to Chavez at [facility]. Won't take patient unless their blood alcohol level level is below the legal limit. Began making phone calls to other facilities. Spoke to Callie at [facility]. Gave me the perimeters for their admissions, that they have plenty of beds. One thing Callie said is the patient can't have a history of seizures, and to ask patient specifically about that. Spoke to patient, has a history of seizures when detoxing. Called Callie, she suggested [facility]. Spoke to someone (she didn't give her name) at [facility]. She told me that patient needs to do a phone screening, fax over imaging- lab work- doc note. She was going to check the bed availability. Faxed over requested paperwork, will wait for phone call regarding bed availability.
[2022-10-23 23:30] VITALS: BP 95/53; PULSE 94; RESP 16; O2SAT 98
[2022-10-24] VITALS (46 sets, daily range): BP systolic 93–167; BP diastolic 52–82; PULSE 62–125; RESP 18–22; TEMP 37.1; O2SAT 94–100; BMI 21.9
[2022-10-24] MEDS: cephALEXin 250 MG CAPSULE 500 MG PO (02:11)
--- NOTE | 2022-10-24 02:22 | PC.NURSE ---
She was given juice and a sandwich which she asked for and ate.
[2022-10-24] MEDS: LORazepam 0.5 MG TABLET 2 MG PO (03:36)
--- NOTE | 2022-10-24 03:39 | PC.NURSE ---
She stated when she drinks she gets sob.appears restless.marvin offerd and accepted.
[2022-10-24] MEDS: LORazepam 2 MG/ML INJ IV ×4 (06:11→10:15)
[2022-10-24] MEDS: SODIUM CHLORIDE 0.9% 1,000 ML 1000 ML IV (06:22)
--- NOTE | 2022-10-24 06:26 | PC.NURSE ---
at 0530 she became restless with increased heart rate,DR García in.iv access obtained and meds given.
--- NOTE | 2022-10-24 06:48 | P.HP_ITS ---
History of Present Illness History of Present Illness Date Patient Seen: 10/24/22 Time Patient Seen: 06:48 Chief complaint: Acute alcohol withdrawal Narrative: Patient is heavily sedated, falling asleep during my visit and unable to provide a history, except for I went on a boss for 12 days. Per the ED notes, Nighat is a 32-year-old female with history of alcohol abuse and appears to have limited history currently due to intoxication.? She states that she is recently relapsed due to a divorce with her .? She used to be a frequent visitor for alcohol related complaints through 2019, and she presented to the [facility] emergency department on 09/29/2022 and a few days prior to that with a blood alcohol in 300s, she was last here in the emergency department in August of 2022 with similar symptoms.? She comes in complaining of needing help, states that she drinks vodka and admits to drinking heavily today, states that she took the bottle upside down and started chucking from it.? She states that she drank 750 mL of time.? She just she has nothing to do but relapsed.? This 3 weeks ago and she drinking daily since this happened.? She wants rehab.? She has been [facility] and [facility] in the past.? She has been sober for a total of 18 months. She remained in the ED awaiting a bed and was receiving oral Ativan, but developed increasing agitation and now DTs. Her CIWA score went from 12 to over 20 and she was deemed to medically unstable for transfer to rehab, ED is requesting an ICU bed currently. She was also found to have a urinary tract infection and had been given one dose of oral cephalexin for this. She is afebrile, blood pressure 93/54 heart rate 119 respiratory rate 18 oxygen saturation of 97% on room air she weighs 49.8 kg with a BMI of 20.1. WBC is 3.3 hemoglobin and hematocrit are 11.5 and 35.3 respectively glucose is 111 calcium 8.0 AST 67 urinalysis indicated many bacteria alcohol level was 338 and COVID-19 PCR done on October 23 was negative. Patient History Medical History Anemia (~2017) Insomnia Menometrorrhagia (spontaneous vaginal delivery) (~12/17/18) Surgical History H/O dilation and curettage (~03/27/17) H/O wisdom tooth extraction (~2013) S/P myringotomy with insertion of tube Family & Social History Family History Mother Diabetes mellitus Overweight Father Alcoholism Grandfather Unknown whether patient has any health problems Grandmother Diabetes mellitus Smoker Family/Other Diabetes mellitus Obesity Family/Other Alcoholism Grandfather Smoker Alcoholism Grandmother Hypoglycemia Social History: household members spouse,children Safety & Behavioral: Feels Safe in Current Yes Environment Been Physically Hurt or No Threatened By a Person Suicidal Ideation Description None Tobacco & Substance use: Tobacco type cigarettes Smoking Status Former smoker alcohol intake former alcohol intake frequency 3 or more drinks per day Substance Use Type does not use Meds Home Medications and Allergies Home Medications Medication Instructions Recorded Confirmed Type prenat.vits,jason,niv-hzpp-bctpt 1 tab PO DAILY 04/11/20 10/14/20 History ondansetron 4 mg disintegrating 4 mg PO Q8H PRN nausea and 04/13/20 10/14/20 Rx tablet vomiting #30 tabs acetaminophen 325 mg tablet 325 mg PO Q6H PRN pain #20 tabs 05/18/20 10/14/20 Rx (Tylenol) diphenhydramine HCl 25 mg capsule 25 mg PO BEDTIME PRN insomnia #20 05/18/20 10/14/20 Rx (Benadryl) caps docusate sodium 100 mg capsule 100 mg PO BID #30 caps 05/18/20 10/14/20 Rx (Colace) ondansetron 4 mg disintegrating 4 mg PO Q8H PRN nausea and 05/18/20 10/14/20 Rx tablet vomiting #20 tabs ibuprofen 600 mg tablet 600 mg PO Q6HR PRN Pain, Mild 10/15/20 Rx (1-3) #30 tabs ondansetron 4 mg disintegrating 4 mg PO Q6H PRN nausea and 09/23/22 Rx tablet vomiting #14 tabs tramadol 50 mg tablet 50 mg PO Q6H PRN pain #10 tabs 09/23/22 Rx Allergies Allergy/AdvReac Type Severity Reaction Status Date / Time metoclopramide Allergy Mild RASH/HIVES Verified 10/23/22 16:18 [METOCLOPRAMIDE] hydrocodone [HYDROCODONE] AdvReac Unknown VOMITING Verified 10/23/22 16:18 Review of Systems Review of Systems ROS: Yes unobtainable due to mental status Exam Vital Signs (past 8 hours): - 10/23/22 23:30 10/24/22 01:28 10/24/22 01:50 Pulse Rate 94 H 92 H 88 Respiratory Rate 16 18 Blood Pressure 99/58 L Blood Pressure [Left Arm] 95/53 L Pulse Oximetry 98 97 96 Oxygen Delivery Method Room Air Room Air 10/24/22 02:00 10/24/22 02:14 10/24/22 02:14 Pulse Rate 97 H 87 Respiratory Rate Blood Pressure 102/59 L Blood Pressure [Left Arm] Pulse Oximetry 97 100 Oxygen Delivery Method 10/24/22 02:30 10/24/22 03:00 10/24/22 03:30 Pulse Rate 90 99 H 109 H Respiratory Rate Blood Pressure Blood Pressure [Left Arm] Pulse Oximetry 99 97 97 Oxygen Delivery Method 10/24/22 04:00 10/24/22 04:30 10/24/22 05:00 Pulse Rate 98 H 101 H 109 H Respiratory Rate Blood Pressure Blood Pressure [Left Arm] Pulse Oximetry 97 98 98 Oxygen Delivery Method 10/24/22 05:30 10/24/22 05:54 10/24/22 05:54 Pulse Rate 120 H 122 H Respiratory Rate Blood Pressure 99/52 L Blood Pressure [Left Arm] Pulse Oximetry 98 98 Oxygen Delivery Method 10/24/22 06:00 10/24/22 06:00 Pulse Rate 119 H Respiratory Rate Blood Pressure 93/54 L Blood Pressure [Left Arm] Pulse Oximetry 97 Oxygen Delivery Method Oxygen Delivery Method Room Air Narrative Exam Narrative: Gen: Alert, oriented, well-developed 32 y.o. female, NAD HEENT: normocephalic, atraumatic, conjunctiva clear, pinpoint pupils, sclera non-icteric, oral mucosa pink and moist Neck: supple, full ROM, no JVD, trachea is midline Resp: Lungs CTA, non-labored breathing CV: tachycardic, no murmur or rubs Abd: soft, non-tender, normoactive BTs Skin: no lesions or rashes, dry and intact Neuro: very lethargic and unable to hold a meaningful conversation, speech is slurred Extremities: moves all 4 extremities, is ambulatory, negative Isaias?s sign Psyche: appears to be hallucinating Objective Labs 10/23/22 19:15 10/23/22 19:15 Labs: Laboratory Results - last 24 hr 10/23/22 10/23/22 10/23/22 16:32 16:32 16:32 WBC RBC Hgb Hct MCV MCH MCHC RDW Plt Count Neut % (Auto) Lymph % (Auto) [place] % (Auto) Eos % (Auto) Baso % (Auto) Neut # (Auto) Lymph # (Auto) [place] # (Auto) Eos # (Auto) Baso # (Auto) Sodium Potassium Chloride Carbon Dioxide BUN Creatinine Estimated GFR BUN/Creatinine Ratio Glucose Calcium Total Bilirubin AST ALT Alkaline Phosphatase Total Protein Albumin Globulin Albumin/Globulin Ratio TSH Free T4 Urine RBC 1-5/hpf Urine WBC 1-5/hpf Ur Squamous Epith Cells 1-5 /hpf Urine Bacteria Many (>30) H Ur Culture Indicated? Specimen cultured Salicylates U Opiates 300ng/mL cut Negative Ur Oxycodone Screen Negative Urine Methadone Screen Negative Acetaminophen Ur Barbiturates Screen Negative U Tricyclic Antidepress Negative Ur Phencyclidine Scrn Negative Ur Amphetamines Screen Negative U Methamphetamines Scrn Negative Ur MDMA Scrn (Ecstasy) Negative U Benzodiazepines Scrn Negative Urine Cocaine Screen Negative U Marijuana (THC) Screen Negative Ethyl Alcohol SARS-CoV-2 (PCR) Negative 10/23/22 10/23/22 10/23/22 19:15 19:15 19:15 WBC 3.3 L RBC 4.44 Hgb 11.5 L Hct 35.3 L MCV 79.5 L MCH 26.0 MCHC 32.7 RDW 17.3 H Plt Count 226 Neut % (Auto) 45.5 L Lymph % (Auto) 50.6 H [place] % (Auto) 2.7 L Eos % (Auto) 0.3 L Baso % (Auto) 0.9 Neut # (Auto) 1500 Lymph # (Auto) 1700 [place] # (Auto) 100 Eos # (Auto) 0 Baso # (Auto) 0 Sodium 140 Potassium 3.9 Chloride 104 Carbon Dioxide 23 BUN 9 Creatinine 0.82 Estimated GFR > 60 BUN/Creatinine Ratio 11.0 Glucose 111 H Calcium 8.0 L Total Bilirubin 0.4 AST 67 H ALT 21 Alkaline Phosphatase 98 Total Protein 7.3 Albumin 4.3 Globulin 3.0 Albumin/Globulin Ratio 1.4 TSH 1.24 Free T4 0.93 Urine RBC Urine WBC Ur Squamous Epith Cells Urine Bacteria Ur Culture Indicated? Salicylates < 1.0 U Opiates 300ng/mL cut Ur Oxycodone Screen Urine Methadone Screen Acetaminophen < 10 Ur Barbiturates Screen U Tricyclic Antidepress Ur Phencyclidine Scrn Ur Amphetamines Screen U Methamphetamines Scrn Ur MDMA Scrn (Ecstasy) U Benzodiazepines Scrn Urine Cocaine Screen U Marijuana (THC) Screen Ethyl Alcohol 338 H SARS-CoV-2 (PCR) Assessment & Plan Assessment & Plan narrative: Nighat Stearns is admitted to the inpatient ICU for further management of alcohol withdrawal. Acute alcohol intoxication and withdrawal, present on admission - She received multiple doses of oral ativan, IV was placed in the ED. - She is ordered for a one time dose of IV phenobarbitol 130 mg X 1 - She will be ordered for a librium tapor - CIWA protocol and seizure precautions - She has a prescribed bottle of seroquel, which ED stated she was encouraged to take, unknown if she took. Dose is 300 mg to be taken at bedtime. UTI, acute but asymptomatic - She was administered a 1 time dose of cephalexin po in the ED - She will be started on IV ceftriaxone 1 gram daily Other independent historians: none Discussion of results, plan of care with independent HCP/other: ED provider Reviewed outside records: prior ED records VTE Prophylaxis: Wells risk score X Enoxaparin 40 mg subQ once daily Bilateral SCDs Patient is admitted to the inpatient ICU service due to the severity of disease, risks of further disease progression and this stay is expected to exceed 2 midnights. FEN: IV fluids: NS at 100 ml/hour, diet: general, labs: CBC, C/BMP, liver enzymes, Mag, PT/INR Consultants None Social determinants of health: history of alcohol abuse, has pre-school children at home. Dispo: home vs rehab Code status: patient unable to state, presumed to be full code. [X] I have utilized all available immediate resources to obtain, update, or review of the patient's current medications VTE Deep Vein Thrombosis/Pulmonary Embolism Present on Admission: No MIPS - Admit I confirm the patient?s Advance Care Plan is present, Code status is documented, Surrogate decision maker is in patient?s record: No, patient unable to articulate preference. MIPS - DC The patient has current or prior documentation of left ventricular ejection fraction (LVEF) less than 40%, or moderate or severely depressed left ventricular systolic function.: No COVID-19 COVID-19 status: Negative Result date/Date tested (Pos, Neg/Pending): 10/23/22 Time Spent With Patient Critical Care time: I spent a total of 65 minutes of critical care time on this patient's care today; this time is exclusive of procedural time.
[2022-10-24] MEDS: SODIUM CHLORIDE 0.9% 1,000 ML 100 ML IV (07:45)
[2022-10-24] MEDS: PHENobarbital 65 MG/ML VIAL 130 MG IV (07:45)
[2022-10-24] MEDS: CIPROFLOXACIN 400 MG/200 ML PIGGYBACK 200 MG IV ×2 (08:08→20:21)
--- NOTE | 2022-10-24 08:45 | PC.NURSE ---
CIWA 12-14 within the last hour, Pt climbing out of bed. confused. rambling nontangential speech, appears to be having auditory, visual, and tactile hallucinations. HR 84. refusing to keep cardiac leads, SPO2, and BP cuff in place. Self removed IV x 1. 18 US guided IV placed in LEILA and wrapped with coban which pt removed. Sitter needed for safety however unable to obtain due to staffing.
[2022-10-24 09:04] LABS: Add Manual Diff / Slide Review NO; Basophils Absolute Auto 0 /uL (0-100); Basophils Percent Auto 0.7 % (0-2); Eosinophils Absolute Auto 0 /uL (0-450); Eosinophils Percent Auto 0.3 % (2-4); Hematocrit 26.8 % (36-46); Hemoglobin 9.1 g/dL (12.0-16.0); Lymphocytes Absolute Auto 1200 /uL (1100-4500); Lymphocytes Percent Auto 36.8 % (25-40); Mean Corpuscular Hemoglobin 26.3 PG (26-34); Mean Corpuscular Volume 77.5 fL (80-100); Monocytes Absolute Auto 200 /uL (0-900); Monocytes Percent Auto 6.4 % (3-14); Neutrophils Absolute Auto 1800 /uL (1500-7000); Neutrophils Percent Auto 55.8 % (50-75); Platelet Count 129 X10^3/uL (150-400); Red Blood Cell Count 3.45 X10^6/uL (4.0-5.2); Red Cell Distribution Width 17.3 % (11.6-14.8); White Blood Cell Count 3.3 X10^3/uL (4.5-11.0)
[2022-10-24 09:16] LABS: Alanine Aminotransferase 19 IU/L (<35); Albumin 3.5 g/dL (3.5-5.0); Albumin Globulin Ratio 1.3 (1.0-2.8); Alkaline Phosphatase 75 U/L (38-126); Aspartate Aminotransferase 52 IU/L (14-36); BUN Creatinine Ratio 16.4 (6-22); Bilirubin Total 0.8 mg/dL (0.2-1.3); Blood Urea Nitrogen 11 mg/dL (7-17); Calcium 8.1 mg/dL (8.4-10.2); Carbon Dioxide 28 mmol/L (22-32); Chloride 100 mmol/L (98-107); Estimated Glomerular Filt Rate > 60 mL/min (>60); Globulin 2.7 g/dL (1.7-4.1); Glucose 138 mg/dL (70-100); HEMOLYSIS < 15 (0-50); Magnesium 1.4 mg/dL (1.6-2.3); Potassium 3.7 mmol/L (3.4-5.1); Sodium 135 mmol/L (137-145); Total Protein 6.2 g/dL (6.3-8.2)
[2022-10-24] MEDS: MULTIVITAMIN 1 TABLET 1 TAB PO (09:27)
[2022-10-24] MEDS: FOLIC ACID 1 MG TABLET PO (09:27)
[2022-10-24] MEDS: PANTOPRAZOLE 40 MG VIAL IV (09:27)
[2022-10-24] MEDS: THIAMINE 100 MG TABLET PO (09:27)
[2022-10-24] MEDS: NICOTINE 14 PATCH 14 MG TOP (09:28)
[2022-10-24] MEDS: ENOXAPARIN 40 MG/0.4 ML SYRINGE SUBCUT (09:28)
--- NOTE | 2022-10-24 09:34 | PC.NURSE ---
Pt continues to climb out of bed. Having auditory and visual hallucinations. appears to have some tactile disturbance and is increasingly more agitated despite ativan multiple times per protocol and phenobarbital. Continues to pull at lines and monitoring devices. Attempting to obtain law office receptionist.
[2022-10-24] MEDS: chlordiazePOXIDE 25 MG CAPSULE 50 MG PO ×3 (09:45→20:22)
--- NOTE | 2022-10-24 10:42 | PC.NURSE ---
Passing Rm5 and observed pt OOB across the room urinating in garbage can and attempting to remove IV line. Pt urinated on floor and in her pants. Pants changed to paper scrubs. Pt assisted back to bed. Report given to [facility]. Pt transported upstairs by SEAMUS Marie.
[2022-10-24] MEDS: dexmedeTOMIDine in 0.9 % NaCL 400 MCG/100 ML PLAST..BAG IV (11:13)
--- NOTE | 2022-10-24 11:42 | PM.CN.EICU ---
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 Patient stated that she used to be sober for about 18 months in the past but had relapsed due to a divorce with her . She states that she drinks as much as 750 cc of vodka every day. She has had several visits to ER department in August 2022 for similar symptoms including most recent visit with blood alcohol level in 300s. Today, she was noted to be severely agitated and restless, presented to ER asking for help with rehab but she was deemed to be medically unstable for transfer to rehab. Her CIWA score in the ED was as high as 20. She was also found to have UTI and was given a dose of oral cephalexin. Her initial work-up was notable for blood alcohol level of 338. She is afebrile, blood pressure 93/54, heart rate 119, respiratory rate 18, oxygen saturation of 97% on room air. She weighs 49.8 kg with a BMI of 20.1. WBC is 3.3, hemoglobin and hematocrit are 11.5 and 35.3 respectively, glucose is 111, calcium 8.0, AST 67, urinalysis indicated many bacteria. As per the bedside nurse, patient received phenobarbital 130 mg IV x1, Librium 50 mg p.o. x1, and Ativan 6 mg IV x1 in the ED. She is now admitted to ICU on Precedex drip. [facility] Medical History (Updated 10/24/22 @ 11:47 by Kentrell Edmond MD) Alcohol withdrawal delirium, acute, hyperactive Anemia (~2017) Insomnia Menometrorrhagia (spontaneous vaginal delivery) (~12/17/18) Surgical History H/O dilation and curettage (~03/27/17) H/O wisdom tooth extraction (~2013) S/P myringotomy with insertion of tube Family History Mother Diabetes mellitus Overweight Father Alcoholism Grandfather Unknown whether patient has any health problems Grandmother Diabetes mellitus Smoker Family/Other Diabetes mellitus Obesity Family/Other Alcoholism Grandfather Smoker Alcoholism Grandmother Hypoglycemia Social History marital status: number of children: 1 household members: children education level: college occupational status: employed current occupational exposures/hazards: Yes (obvious risk with Pandemic ) nidhi/pentecostalism: Roman Catholic special nidhi needs: No Smoking Status: Former smoker second hand exposure: No (growing up as a child - not currently) alcohol intake: former substance use type: does not use Current Medications Current Medications Medications: Home Medications prenat.vits,jason,onq-npap-urvnt 1 tab PO DAILY 04/11/20 [History Confirmed 10/14/20] ondansetron 4 mg disintegrating tablet 4 mg PO Q8H PRN nausea and vomiting #30 tabs 04/13/20 [Rx Confirmed 10/14/20] acetaminophen 325 mg tablet (Tylenol) 325 mg PO Q6H PRN pain #20 tabs 05/18/20 [Rx Confirmed 10/14/20] diphenhydramine HCl 25 mg capsule (Benadryl) 25 mg PO BEDTIME PRN insomnia #20 caps 05/18/20 [Rx Confirmed 10/14/20] docusate sodium 100 mg capsule (Colace) 100 mg PO BID #30 caps 05/18/20 [Rx Confirmed 10/14/20] ondansetron 4 mg disintegrating tablet 4 mg PO Q8H PRN nausea and vomiting #20 tabs 05/18/20 [Rx Confirmed 10/14/20] ibuprofen 600 mg tablet 600 mg PO Q6HR PRN Pain, Mild (1-3) #30 tabs 10/15/20 [Rx] ondansetron 4 mg disintegrating tablet 4 mg PO Q6H PRN nausea and vomiting #14 tabs 09/23/22 [Rx] tramadol 50 mg tablet 50 mg PO Q6H PRN pain #10 tabs 09/23/22 [Rx] Visit Medications (administered) Generic Name Dose Route Start Last Admin Trade Name Freq PRN Reason Stop Dose Admin Chlordiazepoxide HCl 50 mg 10/24/22 09:10 10/24/22 09:45 Chlordiazepoxide 25 Mg Capsule PO 50 mg Q6H DAVONTE Administration Enoxaparin Sodium 40 mg 10/24/22 09:00 10/24/22 09:28 Enoxaparin 40 Mg/0.4 Ml Syringe SUBCUT 40 mg DAILY DAVONTE Administration Folic Acid 1 mg 10/24/22 09:00 10/24/22 09:27 Folic Acid 1 Mg Tablet PO 1 mg DAILY DAVONTE Administration Sodium Chloride 1,000 mls @ 100 mls/hr 10/24/22 06:45 10/24/22 10:47 Normal Saline 0.9% IV 0 mls/hr CONT DAVONTE Infusion Ciprofloxacin 400 mg in 200 mls @ 200 mls/hr 10/24/22 08:00 10/24/22 09:21 Cipro IV Infused Q12H DAVONTE Infusion dexmedeTOMIDine in 0.9 % NaCL 400 mcg in 100 mls @ 2.495 mls/hr 10/24/22 11:15 10/24/22 11:13 Precedex IV 0.2 mcg/kg/hr TITRATE DAVONTE 2.495 mls/hr Administration Protocol 0.2 MCG/KG/HR Lorazepam 0 mg 10/24/22 06:40 10/24/22 10:15 Lorazepam 2 Mg/Ml Inj IV 2 mg CIWAPRN PRN Administration Alcohol Withdrawal Protocol Multivitamins 1 tab 10/24/22 09:00 10/24/22 09:27 Multivitamin 1 Tablet PO 1 tab DAILY DAVONTE Administration Nicotine 14 mg 10/24/22 09:00 10/24/22 09:28 Nicotine 14 Patch TOP 14 mg DAILY DAVONTE Administration Pantoprazole Sodium 40 mg 10/24/22 09:00 10/24/22 09:27 Pantoprazole 40 Mg Vial IV 40 mg DAILY DAVONTE Administration Thiamine HCl 100 mg 10/24/22 09:00 10/24/22 09:27 Thiamine 100 Mg Tablet PO 10/27/22 09:01 100 mg DAILY DAVONTE Administration Exam Vital Signs (past 8 hours): - 10/24/22 04:00 10/24/22 04:30 10/24/22 05:00 Pulse Rate 98 H 101 H 109 H Respiratory Rate Blood Pressure Pulse Oximetry 97 98 98 10/24/22 05:30 10/24/22 05:54 10/24/22 05:54 Pulse Rate 120 H 122 H Respiratory Rate Blood Pressure 99/52 L Pulse Oximetry 98 98 10/24/22 06:00 10/24/22 06:00 10/24/22 06:39 Pulse Rate 119 H 111 H Respiratory Rate Blood Pressure 93/54 L Pulse Oximetry 97 99 10/24/22 06:55 10/24/22 06:55 10/24/22 07:04 Pulse Rate 112 H Respiratory Rate Blood Pressure 104/59 L 123/58 L Pulse Oximetry 100 10/24/22 07:04 10/24/22 07:33 10/24/22 07:34 Pulse Rate 122 H 113 H Respiratory Rate 22 Blood Pressure 111/59 L Pulse Oximetry 97 100 10/24/22 07:34 10/24/22 08:00 10/24/22 08:33 Pulse Rate 112 H 125 H 75 Respiratory Rate Blood Pressure Pulse Oximetry 100 100 100 10/24/22 09:00 10/24/22 09:47 10/24/22 09:46 Pulse Rate 77 98 H Respiratory Rate 20 Blood Pressure 116/75 116/65 Pulse Oximetry 100 98 10/24/22 09:46 Pulse Rate 97 H Respiratory Rate Blood Pressure Pulse Oximetry 99 Oxygen Delivery Method Room Air Const Other: Awake, oriented x 3, severely confused, intermittently agitated/restless but following commands Chest Other: Not using accessory muscle use Cardio Other: In Sinus Tachycardia Neuro Other: Moving all 4 extremities spontaneously Objective Labs 10/24/22 08:50 10/24/22 08:50 Labs: Laboratory Results - last 24 hr 10/23/22 10/23/22 10/23/22 16:32 16:32 16:32 WBC RBC Hgb Hct MCV MCH MCHC RDW Plt Count Neut % (Auto) Lymph % (Auto) [place] % (Auto) Eos % (Auto) Baso % (Auto) Neut # (Auto) Lymph # (Auto) [place] # (Auto) Eos # (Auto) Baso # (Auto) Sodium Potassium Chloride Carbon Dioxide BUN Creatinine Estimated GFR BUN/Creatinine Ratio Glucose Calcium Magnesium Total Bilirubin AST ALT Alkaline Phosphatase Total Protein Albumin Globulin Albumin/Globulin Ratio TSH Free T4 Urine RBC 1-5/hpf Urine WBC 1-5/hpf Ur Squamous Epith Cells 1-5 /hpf Urine Bacteria Many (>30) H Ur Culture Indicated? Specimen cultured Salicylates U Opiates 300ng/mL cut Negative Ur Oxycodone Screen Negative Urine Methadone Screen Negative Acetaminophen Ur Barbiturates Screen Negative U Tricyclic Antidepress Negative Ur Phencyclidine Scrn Negative Ur Amphetamines Screen Negative U Methamphetamines Scrn Negative Ur MDMA Scrn (Ecstasy) Negative U Benzodiazepines Scrn Negative Urine Cocaine Screen Negative U Marijuana (THC) Screen Negative Ethyl Alcohol SARS-CoV-2 (PCR) Negative 10/23/22 10/23/22 10/23/22 19:15 19:15 19:15 WBC 3.3 L RBC 4.44 Hgb 11.5 L Hct 35.3 L MCV 79.5 L MCH 26.0 MCHC 32.7 RDW 17.3 H Plt Count 226 Neut % (Auto) 45.5 L Lymph % (Auto) 50.6 H [place] % (Auto) 2.7 L Eos % (Auto) 0.3 L Baso % (Auto) 0.9 Neut # (Auto) 1500 Lymph # (Auto) 1700 [place] # (Auto) 100 Eos # (Auto) 0 Baso # (Auto) 0 Sodium 140 Potassium 3.9 Chloride 104 Carbon Dioxide 23 BUN 9 Creatinine 0.82 Estimated GFR > 60 BUN/Creatinine Ratio 11.0 Glucose 111 H Calcium 8.0 L Magnesium Total Bilirubin 0.4 AST 67 H ALT 21 Alkaline Phosphatase 98 Total Protein 7.3 Albumin 4.3 Globulin 3.0 Albumin/Globulin Ratio 1.4 TSH 1.24 Free T4 0.93 Urine RBC Urine WBC Ur Squamous Epith Cells Urine Bacteria Ur Culture Indicated? Salicylates < 1.0 U Opiates 300ng/mL cut Ur Oxycodone Screen Urine Methadone Screen Acetaminophen < 10 Ur Barbiturates Screen U Tricyclic Antidepress Ur Phencyclidine Scrn Ur Amphetamines Screen U Methamphetamines Scrn Ur MDMA Scrn (Ecstasy) U Benzodiazepines Scrn Urine Cocaine Screen U Marijuana (THC) Screen Ethyl Alcohol 338 H SARS-CoV-2 (PCR) 10/24/22 10/24/22 08:50 08:50 WBC 3.3 L RBC 3.45 L Hgb 9.1 L Hct 26.8 L MCV 77.5 L MCH 26.3 MCHC 34.0 RDW 17.3 H Plt Count 129 L Neut % (Auto) 55.8 Lymph % (Auto) 36.8 [place] % (Auto) 6.4 Eos % (Auto) 0.3 L Baso % (Auto) 0.7 Neut # (Auto) 1800 Lymph # (Auto) 1200 [place] # (Auto) 200 Eos # (Auto) 0 Baso # (Auto) 0 Sodium 135 L Potassium 3.7 Chloride 100 Carbon Dioxide 28 BUN 11 Creatinine 0.67 Estimated GFR > 60 BUN/Creatinine Ratio 16.4 Glucose 138 H Calcium 8.1 L Magnesium 1.4 L Total Bilirubin 0.8 AST 52 H ALT 19 Alkaline Phosphatase 75 Total Protein 6.2 L Albumin 3.5 Globulin 2.7 Albumin/Globulin Ratio 1.3 TSH Free T4 Urine RBC Urine WBC Ur Squamous Epith Cells Urine Bacteria Ur Culture Indicated? Salicylates U Opiates 300ng/mL cut Ur Oxycodone Screen Urine Methadone Screen Acetaminophen Ur Barbiturates Screen U Tricyclic Antidepress Ur Phencyclidine Scrn Ur Amphetamines Screen U Methamphetamines Scrn Ur MDMA Scrn (Ecstasy) U Benzodiazepines Scrn Urine Cocaine Screen U Marijuana (THC) Screen Ethyl Alcohol SARS-CoV-2 (PCR) Assessment & Plan Assessment and plan (1) Alcohol withdrawal delirium, acute, hyperactive: Status: Acute Plan: - Received thiamine 100 mg IV, total 6 mg of Ativan IV, Librium 50 mg PO, and phenobarbital 130 mg IV so far with elevated CIWA score still between 12-20 per bedside RN. - Still has room to administer more BZPs and phenobarbital. Order Phenobarbital 60 mg IV BID scheduled. - Start Librium 50 mg PO QID if and when able to tolerate PO meds. - If unable to keep CIWA less than 12, may use phenobarbital 130 mg IV/IM as needed (no more than 4 doses in 24 hours). - She is able to protect his airway, does not need endotracheal intubation at this time and remains hemodynamically stable. - Continue alcohol withdrawal protocol including monitoring by CIWA score. C/w MVI + Folate + Thiamine + pyridoxine. - Continue IV Ativan 4-10 mg every 15 min PRN with goal to keep CIWA <8 per symptom triggered protocol. - Use Precedex gtt only for refractory DTs despite on aggressive treatment with BZPs + phenobarb. Would discourage the use of Precedex solely for the treatment of alcohol withdrawal. - C/w aspiration and seizure precautions, Currently NPO due to severe nausea/vomiting - Consult social work assistant to arrange for appropriate referral for detox program. - Agree with rest of the management per primary team. D/w Primary hospitalist. (2) Alcohol use disorder: Problem details: In remission since September 2019 Status: Acute Plan: - Has relapsed and falied rehab. Consult social work assistant to arrange for appropriate referral for detox program. - Order US of abdomen to evaluate for liver cirrhosis. (3) Acute cystitis: Qualifiers: Hematuria presence: without hematuria Qualified Code(s): N30.00 - Acute cystitis without hematuria Status: Acute Plan: - Continue IV antibiotics x 3 days. Follow up and adjust antibiotics according to urine cultures. # FEN: Regular diet. C/w IVF (D5 1/2 NS@100cc/hr). Aggressively replace Mg, K and Phos. # Glucose: Fairly controlled. BG goal 120-180 # Prophylaxis: Lovenox 40 mg subcu for DVT prophylaxis, Pepcid for stress ulcer prophylaxis # Lines/tubes: PIV # CODE STATUS: Full code # Disposition: Admit to ICU. May downgrade to [facility] telemetry floor if CIWA score remains less than 12 for at least 12 hours. Discussed the plan of care with bedside RN, ICU charge nurse and hospitalist team The patient has high probability of sudden, clinically significant deterioration, which requires urgent interventions. I managed life supporting interventions that required frequent physician assessment. I spent 35 critical care minutes of my full attention on this patient's management and direct patient care. Time I spent with family or surrogate(s) is included if the patient was incapable of providing information or participating in medical decision making. Time devoted to procedures I billed separately and is not included. Time Spent With Patient Critical Care time: I spent a total of [30] minutes of critical care time on this patient's care today; this time is exclusive of procedural time.
--- NOTE | 2022-10-24 12:53 | PC.NURSE ---
Addendum entered by Mahogany Faulkner R.N. 10/24/22 18:12: Pt seraquil sent to pharmacy, DI nurse placed LUIS mid-line Original Note: admit note 1055 Pt arrived via gurney, transferred to bed via slide board, oriented to room and call light system although pt needs frequent reorientation. After admission it was noted that pt LEILA PIV was no longer working, orders received for Midline, waiting for DI nurse to be available, provider notified that there is no IV access at this time. At this time pt is requiring 1:1 care with this nurse sitting at bedside. Bed low and locked, alarm activated for safety, will continue to monitor.
[2022-10-24] MEDS: MAGNESIUM SULFATE 2 GM/50 ML PIGGYBACK IV (13:43)
--- NOTE | 2022-10-24 14:52 | DIET.CONS ---
Addendum entered by Charmaine Villeda 10/24/22 17:33: RD approves internal control manager note below. Original Note: Dietary Consultation Note Admission Date: 10/24/2022 06:12 Assessment: 32 y/o F admitted for management of alcohol withdrawal. RD consulted for ETOH. Pt was asleep when came in for consult. [employer] suggested returning later for assessment. Per notes, pt recently relapsed after 18 months sobriety d/t divorce. Pt reports drinking as much as 750 cc of vodka/day and came into ED with blood alcohol level of 338. Ht: 157.48 cm Wt: 54.5 kg BMI: 21.9 Last BM: () MNA: Jose Score: 21 Diet: 10/23/22 Dinner General (Regular) Diet Diet Modifications: Labs: RBC 3.45 X10^6/uL (4.0-5.2) L 10/24/22 08:50 Hgb 9.1 g/dL (12.0-16.0) L 10/24/22 08:50 Hct 26.8 % (36-46) L 10/24/22 08:50 Creatinine 0.67 mg/dL (0.52-1.04) 10/24/22 08:50 Monitoring/Evaluations: RD will try again this afternoon. Electronically Signed by: Ashley Greene 10/24/22 14:52 Clinical Dietitian Reading Tutor [address] [id number]
--- NOTE | 2022-10-24 16:20 | DIET.CONS ---
Dietary Consultation Note Admission Date: 10/24/2022 06:12 Assessment: 32 y/o F admitted for management of alcohol withdrawal. RD consulted for ETOH. Pt still asleep and unable to meaningfully participate in assessment. RN states she is able to swallow liquids. Safe to send ONS. Per notes, pt recently relapsed after 18 months sobriety d/t divorce. Pt reports drinking as much as 750 cc of vodka/day and came into ED with blood alcohol level of 338. EMR wt hx indicates 20% loss over one year (moderate). 4% loss over one month (not significant). ETOH withdrawal meets criteria for severe PCM. May be at risk for severe PCM. Given her inability to participate in assessment will have to use wt hx to determine level of PCM (moderate). Ht: 157.48 cm Wt: 54.5 kg BMI: 21.9 UBW: 66-68kg (since 2020) Last BM: () MNA: Jose Score: 21 Diet: 10/23/22 Dinner General (Regular) Diet Diet Modifications: Labs: RBC 3.45 X10^6/uL (4.0-5.2) L 10/24/22 08:50 Hgb 9.1 g/dL (12.0-16.0) L 10/24/22 08:50 Hct 26.8 % (36-46) L 10/24/22 08:50 Creatinine 0.67 mg/dL (0.52-1.04) 10/24/22 08:50 Nutrition Diagnosis: Moderate acute protein calorie malnutrition r/t excessive ETOH intake aeb elevated ETOH of 338, 20% weight loss in one year, and ETOH withdrawal. -The patient is at much higher risk for medical and surgical complications because of his malnutrition.? This increases the difficulty and complexity of medical and surgical interventions and increases the chances of poor outcomes such as morbidity and mortality. Interventions: ONS BID to support kcal and protein needs EER: 1400-1600kcals (25-30kcal/kg per BMI) 80-100g PRO (1.5-1.8g/kg per PCM) Monitoring/Evaluations: RD follow-up 3 days. Monitoring PO, ONS tolerance, and will reevaluate severity of PCM status prn. Electronically Signed by: Charmaine Villeda 10/24/22 16:20 Clinical Dietitian [address] [id number]
[2022-10-24 16:57] LABS: MRSA (Nasal) PCR Not Detected (Not Detect)
--- NOTE | 2022-10-24 20:57 | PM.ICURNDS ---
- :: This patient was seen via real time interactive two-way audiovisual telecommunication. Pt ciwa imrpoved on precedex drip. she was awake and conversive, but her RASS did drop to -2 at times. Currently on 0.6mcg/kg/min. On lab review her hgb did drop though I do think this is likely hemodilution after fluid resusctiation. No obvious bleeding diathesis. will f/u repeat cbc. with goal being a hgb > 7.
[2022-10-24] MEDS: dexmedeTOMIDine in 0.9 % NaCL 400 MCG/100 ML PLAST..BAG 7.484 MCG IV (23:09)
[2022-10-25] VITALS (17 sets, daily range): BP systolic 105–114; BP diastolic 63–81; PULSE 61–69; O2SAT 97–98
--- NOTE | 2022-10-25 05:25 | PC.NURSE ---
shift engineer: Patient on dexmedetomidine gtt. Patient's initial CIWA 4. Patient did not require additional PRN medication for withdrawal symptoms.
[2022-10-25] MEDS: chlordiazePOXIDE 25 MG CAPSULE 50 MG PO ×2 (06:04→11:47)
[2022-10-25] MEDS: CIPROFLOXACIN 400 MG/200 ML PIGGYBACK 200 MG IV (08:04)
[2022-10-25 08:38] LABS: Add Manual Diff / Slide Review NO; Basophils Absolute Auto 0 /uL (0-100); Basophils Percent Auto 0.8 % (0-2); Eosinophils Absolute Auto 100 /uL (0-450); Eosinophils Percent Auto 2.4 % (2-4); Hemoglobin 10.2 g/dL (12.0-16.0); Lymphocytes Absolute Auto 1100 /uL (1100-4500); Lymphocytes Percent Auto 30.8 % (25-40); Mean Corpuscular HGB Conc 34.1 % (30-36); Mean Corpuscular Hemoglobin 26.5 PG (26-34); Mean Corpuscular Volume 77.8 fL (80-100); Monocytes Absolute Auto 200 /uL (0-900); Monocytes Percent Auto 5.3 % (3-14); Neutrophils Absolute Auto 2100 /uL (1500-7000); Neutrophils Percent Auto 60.7 % (50-75); Platelet Count 116 X10^3/uL (150-400); Red Blood Cell Count 3.85 X10^6/uL (4.0-5.2); Red Cell Distribution Width 17.5 % (11.6-14.8); White Blood Cell Count 3.5 X10^3/uL (4.5-11.0)
[2022-10-25 08:49] LABS: Alanine Aminotransferase 17 IU/L (<35); Albumin 3.5 g/dL (3.5-5.0); Albumin Globulin Ratio 1.3 (1.0-2.8); Alkaline Phosphatase 68 U/L (38-126); Aspartate Aminotransferase 45 IU/L (14-36); BUN Creatinine Ratio 7.9 (6-22); Bilirubin Total 0.7 mg/dL (0.2-1.3); Blood Urea Nitrogen 5 mg/dL (7-17); Calcium 8.5 mg/dL (8.4-10.2); Carbon Dioxide 27 mmol/L (22-32); Chloride 101 mmol/L (98-107); Estimated Glomerular Filt Rate > 60 mL/min (>60); Globulin 2.7 g/dL (1.7-4.1); Glucose 95 mg/dL (70-100); HEMOLYSIS < 15 (0-50); Magnesium 1.9 mg/dL (1.6-2.3); Potassium 4.2 mmol/L (3.4-5.1); Sodium 132 mmol/L (137-145); Total Protein 6.2 g/dL (6.3-8.2)
[2022-10-25] MEDS: FOLIC ACID 1 MG TABLET PO (09:04)
[2022-10-25] MEDS: THIAMINE 100 MG TABLET PO (09:04)
[2022-10-25] MEDS: MULTIVITAMIN 1 TABLET 1 TAB PO (09:04)
[2022-10-25] MEDS: ENOXAPARIN 40 MG/0.4 ML SYRINGE SUBCUT (09:04)
[2022-10-25] MEDS: PANTOPRAZOLE 40 MG VIAL IV (09:05)
[2022-10-25] MEDS: NICOTINE 14 PATCH 14 MG TOP (09:05)
[2022-10-25] MEDS: dexmedeTOMIDine in 0.9 % NaCL 400 MCG/100 ML PLAST..BAG 7.484 MCG IV (09:10)
--- NOTE | 2022-10-25 09:16 | P.PN_ITS ---
Subjective Subjective Interval history: This is a 32 years old female with history of alcohol use disorder who presented to ED with acute alcohol intoxication with symptoms of alcohol withdrawal.? Patient stated that she used to be sober for about 18 months in the past but had relapsed due to a divorce with her per previous notes.? She states that she drinks as much as 750 cc of vodka every day as documented.? She has had several visits to ER department in August 2022 for similar symptoms including most recent visit with blood alcohol level in 300s.? Yesterday, she was noted to be severely agitated and restless, presented to ER asking for help with rehab but she was deemed to be medically unstable for transfer to rehab.? Her CIWA score in the ED was as high as 20.? She was also found to have UTI and was given a dose of oral cephalexin and now is on cipro IV BID.? Her initial work-up was notable for blood alcohol level of 338. ? She is admitted to ICU on Precedex drip due to need for continued sedation. Arousable but not given any valuable answers. Exam Vital Signs (past 8 hours): - 10/25/22 02:00 10/25/22 02:00 10/25/22 02:08 Pulse Rate 66 67 Blood Pressure 114/78 Pulse Oximetry 97 98 10/25/22 03:00 10/25/22 03:00 10/25/22 04:00 Pulse Rate 68 Blood Pressure 109/74 110/75 Pulse Oximetry 97 10/25/22 04:00 10/25/22 05:00 10/25/22 05:00 Pulse Rate 69 66 Blood Pressure 105/75 Pulse Oximetry 97 98 10/25/22 06:00 10/25/22 06:00 10/25/22 06:28 Pulse Rate 67 62 Blood Pressure 107/75 Pulse Oximetry 98 97 10/25/22 07:01 10/25/22 07:01 10/25/22 07:52 Pulse Rate 63 61 Blood Pressure 113/81 Pulse Oximetry 98 98 10/25/22 08:00 10/25/22 08:00 10/25/22 09:00 Pulse Rate 63 Blood Pressure 110/79 112/63 Pulse Oximetry 97 10/25/22 09:00 10/25/22 09:12 Pulse Rate 62 63 Blood Pressure Pulse Oximetry 98 97 Oxygen Delivery Method Room Air Narrative Exam Narrative: Gen: Arousable, female, NAD HEENT: normocephalic, atraumatic, conjunctiva clear, pinpoint pupils, sclera non-icteric, oral mucosa pink and moist Neck: supple, full ROM, no JVD, trachea is midline Resp: Lungs CTA, non-labored breathing CV: heart sounds normal, no murmur or rubs Abd: soft, non-tender, normoactive BTs Skin: no lesions or rashes, dry and intact Neuro: very lethargic and unable to hold a meaningful conversation, not responding to questions due to falling back to sleep Extremities: moves all 4 extremities Psyche: appears calm, unable to assess fully Objective Labs 10/25/22 08:20 10/25/22 08:20 Labs: Laboratory Results - last 24 hr 10/24/22 10/24/22 10/25/22 08:50 15:28 08:20 WBC 3.5 L RBC 3.85 L Hgb 10.2 L Hct 30.0 L MCV 77.8 L MCH 26.5 MCHC 34.1 RDW 17.5 H Plt Count 116 L Neut % (Auto) 60.7 Lymph % (Auto) 30.8 [place] % (Auto) 5.3 Eos % (Auto) 2.4 Baso % (Auto) 0.8 Neut # (Auto) 2100 Lymph # (Auto) 1100 [place] # (Auto) 200 Eos # (Auto) 100 Baso # (Auto) 0 Sodium 135 L Potassium 3.7 Chloride 100 Carbon Dioxide 28 BUN 11 Creatinine 0.67 Estimated GFR > 60 BUN/Creatinine Ratio 16.4 Glucose 138 H Calcium 8.1 L Magnesium 1.4 L Total Bilirubin 0.8 AST 52 H ALT 19 Alkaline Phosphatase 75 Total Protein 6.2 L Albumin 3.5 Globulin 2.7 Albumin/Globulin Ratio 1.3 Nasal Screen MRSA (PCR) Not detected 10/25/22 08:20 WBC RBC Hgb Hct MCV MCH MCHC RDW Plt Count Neut % (Auto) Lymph % (Auto) [place] % (Auto) Eos % (Auto) Baso % (Auto) Neut # (Auto) Lymph # (Auto) [place] # (Auto) Eos # (Auto) Baso # (Auto) Sodium 132 L Potassium 4.2 Chloride 101 Carbon Dioxide 27 BUN 5 L Creatinine 0.63 Estimated GFR > 60 BUN/Creatinine Ratio 7.9 Glucose 95 Calcium 8.5 Magnesium 1.9 Total Bilirubin 0.7 AST 45 H ALT 17 Alkaline Phosphatase 68 Total Protein 6.2 L Albumin 3.5 Globulin 2.7 Albumin/Globulin Ratio 1.3 Nasal Screen MRSA (PCR) [facility] Medical History (Updated 10/24/22 @ 11:47 by Kentrell Edmond MD) Alcohol withdrawal delirium, acute, hyperactive Anemia (~2017) Insomnia Menometrorrhagia (spontaneous vaginal delivery) (~12/17/18) Surgical History H/O dilation and curettage (~03/27/17) H/O wisdom tooth extraction (~2013) S/P myringotomy with insertion of tube Family History Mother Diabetes mellitus Overweight Father Alcoholism Grandfather Unknown whether patient has any health problems Grandmother Diabetes mellitus Smoker Family/Other Diabetes mellitus Obesity Family/Other Alcoholism Grandfather Smoker Alcoholism Grandmother Hypoglycemia Social History marital status: number of children: 1 household members: children education level: college occupational status: employed current occupational exposures/hazards: Yes (obvious risk with Pandemic ) nidhi/confucianism: [employer] special nidhi needs: No Smoking Status: Former smoker second hand exposure: No (growing up as a child - not currently) alcohol intake: former substance use type: does not use Assessment & Plan Assessment & Plan narrative: Acute alcohol intoxication and withdrawal, present on admission - She received multiple doses of oral ativan, IV was placed in the ED.? - She was ordered for a one time dose of IV phenobarbitol 130 mg X 1 - She is ordered for a librium tapor - CIWA protocol and seizure precautions - She has a prescribed bottle of seroquel, which ED stated she was encouraged to take, unknown if she took. Dose is 300 mg to be taken at bedtime. - currently in ICU on precedex infusion UTI, acute but asymptomatic - She was administered a 1 time dose of cephalexin po in the ED - She is now on Cipro 400 mg IV every 12 hours Follow labs and clinically. VTE Prophylaxis: Wells risk score? X Enoxaparin 40 mg subQ once daily? Bilateral SCDs Dispo: home vs rehab Code status: patient unable to state, presumed to be full code. Code status is documented, Surrogate decision maker is in patient?s record: No, patient unable to articulate preference. Time Spent With Patient Critical Care time: I spent a total of [] minutes of critical care time on this patient's care today; this time is exclusive of procedural time.
--- NOTE | 2022-10-25 09:53 | PM.PN.EICU ---
Subjective Subjective IF CAMERA ACTIVATED, patient seen via real-time interactive audiovisual communication: Camera activated Consent obtained for tele-mail service coordinator care: Yes Patient Location: ICU Provider location (State): [place] Other participants/roles: RN Interval history: Briefly, this is a 32 years old female with history of alcohol use disorder who presented to ED with acute alcohol intoxication with symptoms of alcohol withdrawal.? Patient stated that she used to be sober for about 18 months in the past but had relapsed due to a divorce with her .? She states that she drinks as much as 750 cc of vodka every day.? She has had several visits to ER department in August 2022 for similar symptoms including most recent visit with blood alcohol level in 300s.? Today, she was noted to be severely agitated and restless, presented to ER asking for help with rehab but she was deemed to be medically unstable for transfer to rehab.? Her CIWA score in the ED was as high as 20.? She was also found to have UTI and was given a dose of oral cephalexin.? Her initial work-up was notable for blood alcohol level of 338. She is afebrile, blood pressure 93/54, heart rate 119, respiratory rate 18, oxygen saturation of 97% on room air. She weighs 49.8 kg with a BMI of 20.1.? WBC is 3.3, hemoglobin and hematocrit are 11.5 and 35.3 respectively, glucose is 111, calcium 8.0, AST 67, urinalysis indicated many bacteria.? As per the bedside nurse, patient received phenobarbital 130 mg IV x1, Librium 50 mg p.o. x1, and Ativan 6 mg IV x1 in the ED.? She is now admitted to ICU on Precedex drip. In the past 24 hours, she has been in ICU since requiring Precedex gtt. Currently, on Precedex at 0.6 mg/kg/hr. Per bedside RN, still confused and intermittently agitated, CIWA score <8 most of the time. On Librium 50 mg [id number] but hasn't required Ativan or Phenobarbital overnight. Denies any fever, chills, chest pain, SOB. No other acute issues reported. Current Medications Current Medications Medications: Home Medications fluoxetine 10 mg capsule 10 mg PO DAILY 10/24/22 [History Confirmed 10/24/22] hydroxyzine HCl 50 mg tablet 50 mg PO DAILY 10/24/22 [History Confirmed 10/24/22] quetiapine 300 mg tablet 300 mg PO DAILY 10/24/22 [History Confirmed 10/24/22] Visit Medications (administered) Generic Name Dose Route Start Last Admin Trade Name Joan PRN Reason Stop Dose Admin Chlordiazepoxide HCl 50 mg 10/25/22 06:00 10/25/22 06:04 Chlordiazepoxide 25 Mg Capsule PO 50 mg Q6H DAVONTE Administration Enoxaparin Sodium 40 mg 10/24/22 09:00 10/25/22 09:04 Enoxaparin 40 Mg/0.4 Ml Syringe SUBCUT 40 mg DAILY DAVONTE Administration Folic Acid 1 mg 10/24/22 09:00 10/25/22 09:04 Folic Acid 1 Mg Tablet PO 1 mg DAILY DAVONTE Administration Ciprofloxacin 400 mg in 200 mls @ 200 mls/hr 10/24/22 08:00 10/25/22 08:04 Cipro IV 200 mls/hr Q12H DAVONTE Administration dexmedeTOMIDine in 0.9 % NaCL 400 mcg in 100 mls @ 2.495 mls/hr 10/24/22 11:15 10/25/22 09:10 Precedex IV 0.6 mcg/kg/hr TITRATE DAVONTE 7.484 mls/hr Administration Protocol 0.2 MCG/KG/HR Lorazepam 0 mg 10/24/22 06:40 10/24/22 10:15 Lorazepam 2 Mg/Ml Inj IV 2 mg CIWAPRN PRN Administration Alcohol Withdrawal Protocol Multivitamins 1 tab 10/24/22 09:00 10/25/22 09:04 Multivitamin 1 Tablet PO 1 tab DAILY DAVONTE Administration Nicotine 14 mg 10/24/22 09:00 10/25/22 09:05 Nicotine 14 Patch TOP 14 mg DAILY DAVONTE Administration Pantoprazole Sodium 40 mg 10/24/22 09:00 10/25/22 09:05 Pantoprazole 40 Mg Vial IV 40 mg DAILY DAVONTE Administration Thiamine HCl 100 mg 10/24/22 09:00 10/25/22 09:04 Thiamine 100 Mg Tablet PO 10/27/22 09:01 100 mg DAILY DAVONTE Administration Objective Labs 10/25/22 08:20 10/25/22 08:20 Labs: Laboratory Results - last 24 hr 10/24/22 10/25/22 10/25/22 15:28 08:20 08:20 WBC 3.5 L RBC 3.85 L Hgb 10.2 L Hct 30.0 L MCV 77.8 L MCH 26.5 MCHC 34.1 RDW 17.5 H Plt Count 116 L Neut % (Auto) 60.7 Lymph % (Auto) 30.8 Boyd % (Auto) 5.3 Eos % (Auto) 2.4 Baso % (Auto) 0.8 Neut # (Auto) 2100 Lymph # (Auto) 1100 Boyd # (Auto) 200 Eos # (Auto) 100 Baso # (Auto) 0 Sodium 132 L Potassium 4.2 Chloride 101 Carbon Dioxide 27 BUN 5 L Creatinine 0.63 Estimated GFR > 60 BUN/Creatinine Ratio 7.9 Glucose 95 Calcium 8.5 Magnesium 1.9 Total Bilirubin 0.7 AST 45 H ALT 17 Alkaline Phosphatase 68 Total Protein 6.2 L Albumin 3.5 Globulin 2.7 Albumin/Globulin Ratio 1.3 Nasal Screen MRSA (PCR) Not detected Exam Vital Signs (past 8 hours): - 10/25/22 02:00 10/25/22 02:00 10/25/22 02:08 Pulse Rate 66 67 Blood Pressure 114/78 Pulse Oximetry 97 98 10/25/22 03:00 10/25/22 03:00 10/25/22 04:00 Pulse Rate 68 Blood Pressure 109/74 110/75 Pulse Oximetry 97 10/25/22 04:00 10/25/22 05:00 10/25/22 05:00 Pulse Rate 69 66 Blood Pressure 105/75 Pulse Oximetry 97 98 10/25/22 06:00 10/25/22 06:00 10/25/22 06:28 Pulse Rate 67 62 Blood Pressure 107/75 Pulse Oximetry 98 97 10/25/22 07:01 10/25/22 07:01 10/25/22 07:52 Pulse Rate 63 61 Blood Pressure 113/81 Pulse Oximetry 98 98 10/25/22 08:00 10/25/22 08:00 10/25/22 09:00 Pulse Rate 63 Blood Pressure 110/79 112/63 Pulse Oximetry 97 10/25/22 09:00 10/25/22 09:12 Pulse Rate 62 63 Blood Pressure Pulse Oximetry 98 97 Oxygen Delivery Method Room Air Const Other: Awake, oriented x 3, severely confused, intermittently agitated/restless but following commands Chest Other: Not using accessory muscle use Cardio Other: In Sinus Tachycardia Neuro Other: Moving all 4 extremities spontaneously Quality TeleICU VTE Deep Vein Thrombosis/Pulmonary Embolism Present on Admission: Yes Stress Ulcer Stress ulcer prophylaxis: yes Assessment & Plan Assessment and plan (1) Alcohol withdrawal delirium, acute, hyperactive: Status: Acute Plan: - Received thiamine 100 mg IV, total 6 mg of Ativan IV, Librium 50 mg PO, and phenobarbital 130 mg IV so far with elevated CIWA score still between 12-20 per bedside RN. - Still has room to administer more BZPs and phenobarbital. Order Phenobarbital 60 mg IV BID scheduled. - Continue Librium 50 mg PO QID if able to tolerate PO meds. - If unable to keep CIWA less than 12, may use phenobarbital 130 mg IV/IM as needed (no more than 4 doses in 24 hours). - She is able to protect his airway, does not need endotracheal intubation at this time and remains hemodynamically stable. - Continue alcohol withdrawal protocol including monitoring by CIWA score. C/w MVI + Folate + Thiamine + pyridoxine. - Continue IV Ativan 4-10 mg every 15 min PRN with goal to keep CIWA <8 per symptom triggered protocol. - Use Precedex gtt only for refractory DTs despite on aggressive treatment with BZPs + phenobarb. Would discourage the use of Precedex solely for the treatment of alcohol withdrawal. - C/w aspiration and seizure precautions, Currently NPO due to severe nausea/vomiting - Consult social media marketing specialist to arrange for appropriate referral for detox program. - Agree with rest of the management per primary team. D/w Primary hospitalist. (2) Alcohol use disorder: Problem details: In remission since September 2019 Status: Acute Plan: - Has relapsed and falied rehab. Consult social media marketing specialist to arrange for appropriate referral for detox program. - Order US of abdomen to evaluate for liver cirrhosis. (3) Acute cystitis: Qualifiers: Hematuria presence: without hematuria Qualified Code(s): N30.00 - Acute cystitis without hematuria Status: Acute Plan: - Continue IV antibiotics x 3 days. Follow up and adjust antibiotics according to urine cultures. # FEN: Regular diet. C/w IVF (D5 1/2 NS@100cc/hr). Aggressively replace Mg, K and Phos. # Glucose: Fairly controlled. BG goal 120-180 # Prophylaxis: Lovenox 40 mg subcu for DVT prophylaxis, Pepcid for stress ulcer prophylaxis # Lines/tubes: PIV # CODE STATUS: Full code # Disposition: Admit to ICU. May downgrade to [facility] telemetry floor if CIWA score remains less than 12 for at least 12 hours. Discussed the plan of care with bedside RN, ICU charge nurse and hospitalist team The patient has high probability of sudden, clinically significant deterioration, which requires urgent interventions. I managed life supporting interventions that required frequent physician assessment. I spent 35 critical care minutes of my full attention on this patient's management and direct patient care. Time I spent with family or surrogate(s) is included if the patient was incapable of providing information or participating in medical decision making. Time devoted to procedures I billed separately and is not included. Time Spent With Patient Critical Care time: I spent a total of [30] minutes of critical care time on this patient's care today; this time is exclusive of procedural time.
--- NOTE | 2022-10-25 11:31 | CM.DANOTE ---
Discharge Planning/Care Management CM Discharge Assessment Start: 10/25/22 11:29 Freq: Status: Active Protocol: Document 10/25/22 11:29 SJ (Rec: 10/25/22 11:31 SJ [id number]) Discharge Planning Assessment Assigned Chief Reservoir Engineering Amanda Fish RN/DCP Advance Directives? No History Provided By Patient Prior Living Arrangements House Comment Boyfriend Type of transporation used prior to Drives own vehicle admit Independent with ADL's Yes Is patient alert and oriented? Yes Caregiver for Another No Barriers to Discharge No Discharge Plan Home Referrals Initiated None needed Additional Comment Patient has self referred to [facility], intensive outpatient recovery program online and has had two sessions already this week and she will continue. It is 3 x a week for several hours through [facility]. Review Status In Process Next Review Type Continued Stay Review HEALTH CARE MARKETING SPECIALIST - Scrummaster Assessment Start: 10/23/22 16:31 Freq: Status: Discharge Protocol: Document 10/23/22 19:01 LN (Rec: 10/23/22 19:22 LN [id number]) HEALTH CARE MARKETING SPECIALIST/Scrummaster Assessment Start date 10/23/22 Visit Start Time 18:45 End date 10/23/22 Visit End Time 19:00 Total time Care Management spent on 15 minutes patient visit-in minutes Presenting Problem Patient presents to ED via EMS due to concern for ETOH use & withdrawals. Patient is seeking detox and inpatient rehab. Patient endorses at 8 am this morning she drank 750 ml of vodka all at once. Precipitating Event(s) Patient endorses she just ended a 10 year marriage, sold her house and her kids are in [place]. Patient endorses she relapsed 3 weeks ago and has been drinking daily. Patient Strengths Patient is seeking help, wants to get sober and is seeking detox and rehab. Current Behavioral Health Provider(s) No current providers Include Facility, Provider, Ph. # Family Hx of Behavioral Abuse None reported Rehab Facilities? ((Date(s), Location(s) Patient endorses hx of rehab/ ) detox 11 times at [facility] in [place] in 2017. Most recently patient was at [facility] 3 weeks ago. History of Withdrawal? Seizures? Tremors in arms, anxiety. patient denies seizures Longest Period of Sobriety 18 months - over 3 weeks ago Psychosocial information & Support Patient is 32 y/o female who Systems has been residing in [place] with spouse but patient recently sold house and is in the middle of divorce with spouse. Patient denies current supports. School/Work Patient works in [employer] at [employer]. Legal Matters - Outstanding Issues None reported Orientation (Person/Place/Time) A/Ox4 Stated Mood I want to clear my head and get back to reality Affect (Congruent with Mood?) euthymic, full range, congruent with mood Thought Content - Specify/Describe None reported Obsessions, Delusions, Hallucinations Thought Processes (Ocyroaz-Nseghyaj-Nvkh coherent Wqfgvbqa-Zgrfmzch-Lsswyipanc- Gybzkncffscfdp-Wtylekt-Btdyyxfsvphi- Thought Blocking) Speech (Vuyiev-Ogyj-Kzzbcgr-Rapid-Soft- normal/rapid Loud-Pressured) Motor (Inbofo-Rfyqzumff-Auut-Other) normal/fairly excessive with tremors Insight (Qxuo-Isuu-Ieja/Limited) fair Judgement (Iejc-Mbws-Advw/Limited) fair Impulse Control (Adequate-Impaired) adequate Memory (Vwfmqcxse-Mqraxy-Culpbg, intact, not formally assessed Impaired-Intact) Concentration (Intact-Impaired) intact Attention (Intact-Impaired) intact Behavior (Appropriate-Inappropriate) appropriate Additional Comment Patient presents as calm, communicative and cooperative. Suicidal Ideation (Plan) No Homicidal Ideation (Plan) No Comment Patient endorses hx of SI but denies current SI. Intervention HEALTH CARE MARKETING SPECIALIST enters room to meet with patient. Patient endorses her daily vodka use in the juancarlos 3 weeks. Patient endorses she has been drinking 750ml of vodka a day , patient endorses her last drink was at 0800am this morning. Patient endorses she is seeking detox and rehab and is worried that her insurance does not cover rehab after detox. Patient endorses her desire to get sober and seek treatment. It is the opinion of this HEALTH CARE MARKETING SPECIALIST that patient is appropriate for and will benefit from voluntary detox and ANÍBAL rehab upon medical clearance for medication management and crisis stabilization. RA Plan HEALTH CARE MARKETING SPECIALIST to seek detox bed for patient upon medical clearance .
--- NOTE | 2022-10-25 11:32 | CM.DANOTE ---
Initial Discharge Assessment Note: Case reviewed, met with patient. Introduced self and role. Payer: [employer] and self pay PCP: Julita Montiel 32 year old admitted with etoh withdrawal symptoms. She has been consuming large amounts of alcohol lately. See Joceline KEATING notes. She has been on and off sober and has been in numerous rehab programs. She wants sobriety and signed up for online intensive outpt therapy through [facility], she has had 2 sessions already. She is normally independent and lives alone in [place], recently . Per previous notes her children are in [place]. She currently resides with her boyfriend who is in the room today. 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 Plan: Patient to return home under care of boyfriend who will provide transportation when medically stable. JOSEY Discharge Planning/Care Management CM Discharge Assessment Start: 10/25/22 11:29 Freq: Status: Active Protocol: Document 10/25/22 11:29 SJ (Rec: 10/25/22 11:31 [id number]) Discharge Planning Assessment Assigned Transmissions Systems Operator Amanda Fish RN/DCP Advance Directives? No History Provided By Patient Prior Living Arrangements House Comment Boyfriend Type of transporation used prior to Drives own vehicle admit Independent with ADL's Yes Is patient alert and oriented? Yes Caregiver for Another No Barriers to Discharge No Discharge Plan Home Referrals Initiated None needed Additional Comment Patient has self referred to [facility], intensive outpatient recovery program online and has had two sessions already this week and she will continue. It is 3 x a week for several hours through [facility]. Review Status In Process Next Review Type Continued Stay Review HEEL COVERER - Locksmith Assessment Start: 10/23/22 16:31 Freq: Status: Discharge Protocol: Document 10/23/22 19:01 LN (Rec: 10/23/22 19:22 LN [id number]) HEEL COVERER/Locksmith Assessment Start date 10/23/22 Visit Start Time 18:45 End date 10/23/22 Visit End Time 19:00 Total time Care Management spent on 15 minutes patient visit-in minutes Presenting Problem Patient presents to ED via EMS due to concern for ETOH use & withdrawals. Patient is seeking detox and inpatient rehab. Patient endorses at 8 am this morning she drank 750 ml of vodka all at once. Precipitating Event(s) Patient endorses she just ended a 10 year marriage, sold her house and her kids are in [place]. Patient endorses she relapsed 3 weeks ago and has been drinking daily. Patient Strengths Patient is seeking help, wants to get sober and is seeking detox and rehab. Current Behavioral Health Provider(s) No current providers Include Facility, Provider, Ph. # Family Hx of Behavioral Abuse None reported Rehab Facilities? ((Date(s), Location(s) Patient endorses hx of rehab/ ) detox 11 times at [facility] in [place] in 2017. Most recently patient was at [facility] 3 weeks ago. History of Withdrawal? Seizures? Tremors in arms, anxiety. patient denies seizures Longest Period of Sobriety 18 months - over 3 weeks ago Psychosocial information & Support Patient is 32 y/o female who Systems has been residing in [place] with spouse but patient recently sold house and is in the middle of divorce with spouse. Patient denies current supports. School/Work Patient works in [employer] at [employer]. Legal Matters - Outstanding Issues None reported Orientation (Person/Place/Time) A/Ox4 Stated Mood I want to clear my head and get back to reality Affect (Congruent with Mood?) euthymic, full range, congruent with mood Thought Content - Specify/Describe None reported Obsessions, Delusions, Hallucinations Thought Processes (Nxwhcbv-Cjkwbtvv-Jhzj coherent Hilhmziz-Cazkuvwl-Agmahuxpxy- Fagrkgglfsfeqc-Ccwdbgr-Pusctwoylduw- Thought Blocking) Speech (Wuvpcr-Bflk-Pxwhtal-Rapid-Soft- normal/rapid Loud-Pressured) Motor (Jjncla-Zyhmkffte-Bidt-Other) normal/fairly excessive with tremors Insight (Tmeo-Rjzc-Dqjm/Limited) fair Judgement (Ajko-Qkde-Lvbm/Limited) fair Impulse Control (Adequate-Impaired) adequate Memory (Bjgkucoad-Dvujtf-Xwltds, intact, not formally assessed Impaired-Intact) Concentration (Intact-Impaired) intact Attention (Intact-Impaired) intact Behavior (Appropriate-Inappropriate) appropriate Additional Comment Patient presents as calm, communicative and cooperative. Suicidal Ideation (Plan) No Homicidal Ideation (Plan) No Comment Patient endorses hx of SI but denies current SI. Intervention HEEL COVERER enters room to meet with patient. Patient endorses her daily vodka use in the juancarlos 3 weeks. Patient endorses she has been drinking 750ml of vodka a day , patient endorses her last drink was at 0800am this morning. Patient endorses she is seeking detox and rehab and is worried that her insurance does not cover rehab after detox. Patient endorses her desire to get sober and seek treatment. It is the opinion of this HEEL COVERER that patient is appropriate for and will benefit from voluntary detox and ANÍBAL rehab upon medical clearance for medication management and crisis stabilization. RA Plan HEEL COVERER to seek detox bed for patient upon medical clearance .
--- NOTE | 2022-10-25 16:47 | P.DS_ITS ---
History of Present Illness History of Present Illness Date Patient Seen: 10/25/22 Chief complaint: Acute alcohol withdrawal Narrative: This patient was treated off?precedex infusion, she felt well and alert and eager to go home. You confirm that she is connected the with a alcohol depend ence support group. She will continue to avail herself of this following discharge. Discharge Providers Provider Date of admission: 10/24/22 06:12 Discharge Date: 10/25/22 Primary care physician: Julita Montiel MD Consults: 10/23/22 16:28 Consult to [facility] - [employer] Science Research Technician Stat Comment: 10/24/22 06:41 Consult to Dietitian, Adult Routine Comment: Reason For Exam: EHOH Consult to Tele-molding press operator Routine Comment: Consulting Provider: Joe Tele-intensivists Reason for consultation: Computer Operations Manager services Has provider been notified: Yes 10/24/22 11:35 Consult to [employer] Research Technician Routine Comment: Discharge provider: Beth Fay MD Summary Hospital Course Discharge Diagnosis: Acute alcohol intoxication and withdrawal UTI, acute but asymptomatic Anemia (~2017) Insomnia Menometrorrhagia (spontaneous vaginal delivery) (~12/17/18) H/O dilation and curettage (~03/27/17) H/O wisdom tooth extraction (~2013) S/P myringotomy with insertion of tube Hospital Course: Patient provided a history for I went on a boss for 12 days. Per the ED notes, Nighat is a 32-year-old female with history of alcohol abuse and appears to have limited history currently due to intoxication.? She stated that she is recently relapsed due to a divorce with her .? She used to be a frequent visitor for alcohol related complaints through 2019, and she presented to the [facility] emergency department on 09/29/2022 and a few days prior to that with a blood alcohol in 300s, she was last here in the emergency department in August of 2022 with similar symptoms.? She came in complaining of needing help, stating that she drinks vodka and admited to drinking heavily on the day of presentation, and stated that she took the bottle upside down and started chucking from it.? She stated that she drank 750 mL at a time.? This 3 weeks ago prior to presentation was the beginning of the relapse and she was drinking daily since then.? She wants rehab.? She has been [facility] and [place] in the past.? She has been sober for a total of 18 months previously.? She remained in the ED awaiting a bed and was receiving oral Ativan, but d eveloped increasing agitation and then DTs. Her CIWA score went from 12 to over 20 and she was deemed to medically unstable for transfer to rehab, ED requested an ICU bed. She was transferred to the ICU for Precedex infusion. She also had a concern for urinary tract infection and had been given one dose of oral cephalexin for this and was transitioned to IV Cipro 400 mg IV BID for completion of treatment.. She was afebrile, blood pressure 93/54 heart rate 119 respiratory rate 18 oxygen saturation of 97% on room air she weighs 49.8 kg with a BMI of 20.1.? WBC is 3.3 hemoglobin and hematocrit are 11.5 and 35.3 respectively glucose is 111 calcium 8.0 AST 67 urinalysis indicated many bacteria alcohol level was 338 and COVID-19 PCR done on October 23 was negative. The day after admission the patient was titrated off Precedex well and eager to go home. Patient was discharged in stable condition. Status at Discharge Cognitive/behavioral status at discharge: at baseline, oriented Functional status at discharge: independent ambulation Overall status at discharge: patient is back to baseline Exam Vital Signs (past 8 hours): - 10/25/22 09:00 10/25/22 09:00 10/25/22 09:12 Pulse Rate 62 63 Blood Pressure 112/63 Pulse Oximetry 98 97 10/25/22 10:00 10/25/22 10:00 10/25/22 10:04 Pulse Rate 66 67 Blood Pressure 106/74 Pulse Oximetry 98 98 Oxygen Delivery Method Room Air Narrative Exam Narrative: Gen: Arousable, female, NAD HEENT: normocephalic, atraumatic, conjunctiva clear, pupils reactive to light, sclera non-icteric, oral mucosa pink and moist Neck: supple, full ROM, no JVD, trachea is midline Resp: Lungs CTA, non-labored breathing CV: heart sounds normal, no murmur or rubs Abd: soft, non-tender, normoactive BTs Skin: no lesions or rashes, dry and intact Neuro: oriented, no localizing signs Extremities: moves all 4 extremities Psyche: appears calm, unable to assess fully Objective Labs 10/25/22 08:20 10/25/22 08:20 Labs: Laboratory Results - last 24 hr 10/24/22 10/25/22 10/25/22 15:28 08:20 08:20 WBC 3.5 L RBC 3.85 L Hgb 10.2 L Hct 30.0 L MCV 77.8 L MCH 26.5 MCHC 34.1 RDW 17.5 H Plt Count 116 L Neut % (Auto) 60.7 Lymph % (Auto) 30.8 [place] % (Auto) 5.3 Eos % (Auto) 2.4 Baso % (Auto) 0.8 Neut # (Auto) 2100 Lymph # (Auto) 1100 [place] # (Auto) 200 Eos # (Auto) 100 Baso # (Auto) 0 Sodium 132 L Potassium 4.2 Chloride 101 Carbon Dioxide 27 BUN 5 L Creatinine 0.63 Estimated GFR > 60 BUN/Creatinine Ratio 7.9 Glucose 95 Calcium 8.5 Magnesium 1.9 Total Bilirubin 0.7 AST 45 H ALT 17 Alkaline Phosphatase 68 Total Protein 6.2 L Albumin 3.5 Globulin 2.7 Albumin/Globulin Ratio 1.3 Nasal Screen MRSA (PCR) Not detected [facility] Medical History (Updated 10/24/22 @ 11:47 by Kentrell Edmond MD) Alcohol withdrawal delirium, acute, hyperactive Anemia (~2017) Insomnia Menometrorrhagia (spontaneous vaginal delivery) (~12/17/18) Surgical History H/O dilation and curettage (~03/27/17) H/O wisdom tooth extraction (~2013) S/P myringotomy with insertion of tube Family History Mother Diabetes mellitus Overweight Father Alcoholism Grandfather Unknown whether patient has any health problems Grandmother Diabetes mellitus Smoker Family/Other Diabetes mellitus Obesity Family/Other Alcoholism Grandfather Smoker Alcoholism Grandmother Hypoglycemia Social History marital status: number of children: 1 household members: children education level: college occupational status: employed current occupational exposures/hazards: Yes (obvious risk with Pandemic ) nidhi/restoration: Nondenominational special nidhi needs: No Smoking Status: Former smoker second hand exposure: No (growing up as a child - not currently) alcohol intake: former substance use type: does not use Discharge Plan Discharge Plan Patient Disposition: Home Discharge orders & Medications Prescriptions: New thiamine mononitrate (vit B1) 100 mg Tablet 100 mg PO DAILY Qty: 30 0RF multivitamin with folic acid [Tab-A-Princess] 400 mcg Tablet 1 tab PO DAILY Qty: 30 0RF pantoprazole 40 mg Tablet,Delayed Release (Dr/Ec) 40 mg PO 0700 Qty: 30 0RF Continued fluoxetine 10 mg capsule 10 mg PO DAILY hydroxyzine HCl 50 mg tablet 50 mg PO DAILY quetiapine 300 mg tablet 300 mg PO DAILY Follow up/Referrals: Julita Montiel MD [Primary Care Provider] - Visit Report/Discharge Packet Stand Alone Forms: Patient Portal/API, Stroke Signs & Symptoms Discharge Data Primary Care Provider: Julita Montiel Quality VTE Deep Vein Thrombosis/Pulmonary Embolism Present on Admission: Yes
== END 2022-10-25 12:33 | disposition home or self-care (01) | DRG 897 ==
LOC: ED 10-24 06:11 → AC 10-24 06:13 → ICU 10-24 09:59
PROVIDERS: Emergency Medicine; Internal Medicine; Nurse Practitioner Critical Care Medicine; Admitting Provider Nurse Practitioner Family; Emergency Provider Emergency Medicine; PCP Specialist; Referring Provider Emergency Medicine; Visit Provider Nurse Practitioner Family
DX: F10.231 Alcohol dependence with withdrawal delirium (principal); N30.00 Acute cystitis without hematuria; Y90.8 Blood alcohol level of 240 mg/100 ml or more; Z87.891 Personal history of nicotine dependence; Z20.822 Contact with and (suspected) exposure to COVID-19
CPT/HCPCS: 36415; 80053; 80305; 80320; 80329; 81003; 81015; 81025; 83735; 84439; 84443; 85025; 87086; 87635; 87797; 93005; 96365; 96375; 96376; 99284; 99291; 99292; C9803; C9113; G0480; J0744; J1650; J2060; J2560; J3475

== ENCOUNTER 2022-11-11 12:26 | Emergency (ER) | payer OTHER, SELFPAY ==
[2022-10-24 11:30] VITALS: BMI 21.9
[2022-11-11] VITALS (34 sets, daily range): BP systolic 110–163; BP diastolic 53–104; PULSE 60–75; RESP 17–38; TEMP 36.5; O2SAT 93–100; BMI 21.7
[2022-11-11 12:58] LABS: Add Manual Diff / Slide Review NO; Basophils Absolute Auto 0 /uL (0-100); Eosinophils Absolute Auto 100 /uL (0-450); Eosinophils Percent Auto 3.3 % (2-4); Hematocrit 32.3 % (36-46); Hemoglobin 10.6 g/dL (12.0-16.0); Lymphocytes Absolute Auto 1200 /uL (1100-4500); Lymphocytes Percent Auto 27.8 % (25-40); Mean Corpuscular HGB Conc 32.8 % (30-36); Mean Corpuscular Hemoglobin 26.4 PG (26-34); Mean Corpuscular Volume 80.4 fL (80-100); Monocytes Absolute Auto 300 /uL (0-900); Monocytes Percent Auto 7.9 % (3-14); Neutrophils Absolute Auto 2600 /uL (1500-7000); Platelet Count 229 X10^3/uL (150-400); Red Blood Cell Count 4.02 X10^6/uL (4.0-5.2); Red Cell Distribution Width 19.5 % (11.6-14.8); White Blood Cell Count 4.4 X10^3/uL (4.5-11.0)
[2022-11-11] MEDS: PHENobarbital 65 MG/ML VIAL 260 MG IV (12:59)
[2022-11-11] MEDS: LORazepam 2 MG/ML INJ 1 MG IV ×2 (12:59→17:20)
[2022-11-11] MEDS: THIAMINE 200 MG in SODIUM CHLORIDE 0.9% 100 ML 408 MG IV (12:59)
[2022-11-11] MEDS: MULTIVITAMIN 1 TABLET 1 TAB PO (13:00)
--- NOTE | 2022-11-11 13:08 | ED_ITS ---
HPI - General Adult General Chief complaint: Toxicology Problem Stated complaint: SOB, tremors Time Seen by Provider: 11/11/22 12:35 Source: patient Mode of arrival: Ambulatory History of Present Illness HPI narrative: Patient is a 32-year-old female. Has a history of alcohol use disorder. Has withdrawn from alcohol in the past. She states she is had a seizure in the past. At the beginning of the month and an extended stay here in the emergency department for alcohol withdrawal. She states that after she was discharged she went back to drinking and went on a ?[place]tero ?this was a couple days. Her last drink was on Thursday. She states that since she is stopped drinking she has had shaking and nausea and shortness of breath and tremors and generally not feeling very well. No seizure-like activity. She denies any other ingestions. Related Data Home Medications Medication Instructions Recorded Confirmed fluoxetine 10 mg capsule 10 mg PO DAILY 10/24/22 10/24/22 hydroxyzine HCl 50 mg tablet 50 mg PO DAILY 10/24/22 10/24/22 quetiapine 300 mg tablet 300 mg PO DAILY 10/24/22 10/24/22 Previous Rx's Medication Instructions Recorded multivitamin with folic acid 400 1 tab PO DAILY #30 tabs 10/25/22 mcg tablet (Tab-A-Princess) pantoprazole 40 mg tablet,delayed 40 mg PO 0700 #30 tabs 10/25/22 release thiamine mononitrate (vit B1) 100 100 mg PO DAILY #30 tabs 10/25/22 mg tablet Allergies Allergy/AdvReac Type Severity Reaction Status Date / Time metoclopramide Allergy Mild RASH/HIVES Verified 10/23/22 16:18 [METOCLOPRAMIDE] hydrocodone [HYDROCODONE] AdvReac Unknown VOMITING Verified 10/23/22 16:18 Review of Systems Review of Systems ROS Unobtainable: All systems reviewed & are unremarkable except as noted in HPI and below Patient History Medical History Alcohol withdrawal delirium, acute, hyperactive Anemia (~2017) Insomnia Menometrorrhagia (spontaneous vaginal delivery) (~12/17/18) Surgical History H/O dilation and curettage (~08/04/17) H/O wisdom tooth extraction (~2013) S/P myringotomy with insertion of tube Family History Mother Diabetes mellitus Overweight Father Alcoholism Grandfather Unknown whether patient has any health problems Grandmother Diabetes mellitus Smoker Family/Other Diabetes mellitus Obesity Family/Other Alcoholism Grandfather Smoker Alcoholism Grandmother Hypoglycemia Social History marital status: number of children: 1 household members: children education level: college occupational status: employed current occupational exposures/hazards: Yes (obvious risk with Pandemic ) nidhi/congregational: Je[employer] Witness special nidhi needs: No Smoking Status: Former smoker second hand exposure: No (growing up as a child - not currently) alcohol intake: former substance use type: does not use Smoking Status: Former smoker alcohol intake frequency: 3 or more drinks per day Substance Use Type: does not use Exam Initial Vital Signs Initial Vital Signs: Vital Signs Temperature 97.7 F 11/11/22 12:30 Pulse Rate 68 11/11/22 12:30 Respiratory Rate 17 11/11/22 12:30 Blood Pressure 137/84 11/11/22 12:30 Pulse Oximetry 100 11/11/22 12:30 Oxygen Delivery Method Room Air 11/11/22 12:30 Const General: cooperative HENMT Head: normal to inspection and normocephalic Resp Effort & Inspection: normal respiratory effort Auscultation: clear to auscultation bilaterally Cardio Rate: regular rate Rhythm: regular rhythm Skin General: no rashes or lesions noted Neuro Other: Patient is alert oriented. Has tremors. No seizure activity. Moves all 4 e xtremities. Is ambulatory. Extrem General: normal to inspection Psych Other: Is anxious appearing Course Orders Ordered: ED Orders 11/11/22 12:40 Complete Blood Count AUTO DIFF Stat Comprehensive Metabolic Panel Stat Ethanol (ETOH) Stat Lipase Stat Test Serum,Qual Stat 11/11/22 13:41 Ictotest Urine Stat Urinalysis and Microscopic Stat Urine Drug Screen, Rapid Stat Thiamine HCl 200 mg/ Sodium (Chloride) 102 mls @ 408 mls/hr IV DAILY DAVONTE Last Infusion: 11/11/22 13:23 Dose: 0 mls/hr Documented By: Admin: 11/11/22 12:59 Dose: 408 mls/hr Documented By: LIMA Multivitamins (Multivitamin 1 Tablet) 1 tab PO DAILY DAVONTE Last Admin: 11/11/22 13:00 Dose: 1 tab Documented By: LIMA Discontinued Medications Lorazepam (Lorazepam 2 Mg/Ml Inj) 1 mg IV NOW ONE Stop: 11/11/22 12:36 Last Admin: 11/11/22 12:59 Dose: 1 mg Documented By: LIMA Lorazepam (Lorazepam 2 Mg/Ml Inj) 1 mg IV NOW ONE Stop: 11/11/22 15:18 Last Admin: 11/11/22 17:20 Dose: 1 mg Documented By: VINI Phenobarbital (Phenobarbital 65 Mg/Ml Vial) 260 mg IV NOW ONE Stop: 11/11/22 12:36 Last Admin: 11/11/22 12:59 Dose: 260 mg Documented By: LIMA Vital Signs Vital signs: Vital Signs - 8 hr 11/11/22 12:30 11/11/22 12:44 11/11/22 12:46 Temperature 97.7 F Pulse Rate 68 66 66 Respiratory Rate 17 30 H 29 H Blood Pressure 137/84 Pulse Oximetry 100 100 99 Oxygen Delivery Method Room Air 11/11/22 12:46 11/11/22 13:00 11/11/22 13:00 Temperature Pulse Rate 64 Respiratory Rate 31 H Blood Pressure 152/88 H 134/72 Pulse Oximetry 100 Oxygen Delivery Method 11/11/22 13:08 11/11/22 13:08 11/11/22 13:13 Temperature Pulse Rate 63 65 Respiratory Rate 29 H 38 H Blood Pressure 138/79 Pulse Oximetry 100 99 Oxygen Delivery Method 11/11/22 13:13 11/11/22 13:16 11/11/22 13:16 Temperature Pulse Rate 66 Respiratory Rate 34 H Blood Pressure 126/90 129/66 Pulse Oximetry 99 Oxygen Delivery Method 11/11/22 13:20 11/11/22 13:20 11/11/22 13:26 Temperature Pulse Rate 64 Respiratory Rate 32 H Blood Pressure 120/78 163/104 H Pulse Oximetry 99 Oxygen Delivery Method 11/11/22 13:26 11/11/22 13:30 11/11/22 14:00 Temperature Pulse Rate 66 66 67 Respiratory Rate 29 H 36 H 34 H Blood Pressure Pulse Oximetry 99 100 100 Oxygen Delivery Method 11/11/22 14:30 11/11/22 15:00 11/11/22 15:01 Temperature Pulse Rate 65 66 66 Respiratory Rate 20 32 H 21 Blood Pressure Pulse Oximetry 100 93 100 Oxygen Delivery Method 11/11/22 15:01 11/11/22 15:06 11/11/22 15:06 Temperature Pulse Rate 69 Respiratory Rate 31 H Blood Pressure 111/63 110/61 Pulse Oximetry 99 Oxygen Delivery Method 11/11/22 15:11 11/11/22 15:11 11/11/22 15:16 Temperature Pulse Rate 69 Respiratory Rate 22 Blood Pressure 116/53 L 124/73 Pulse Oximetry 100 Oxygen Delivery Method 11/11/22 15:16 11/11/22 15:20 11/11/22 15:20 Temperature Pulse Rate 63 60 Respiratory Rate 21 20 Blood Pressure 121/63 Pulse Oximetry 100 99 Oxygen Delivery Method 11/11/22 15:30 11/11/22 15:35 11/11/22 15:35 Temperature Pulse Rate 62 64 Respiratory Rate 23 24 Blood Pressure 113/71 Pulse Oximetry 98 99 Oxygen Delivery Method 11/11/22 15:45 11/11/22 15:45 11/11/22 16:00 Temperature Pulse Rate 72 Respiratory Rate 25 H Blood Pressure 137/65 118/80 Pulse Oximetry 96 Oxygen Delivery Method 11/11/22 16:00 11/11/22 16:05 11/11/22 16:05 Temperature Pulse Rate 65 75 Respiratory Rate 26 H Blood Pressure 117/56 L Pulse Oximetry 100 94 Oxygen Delivery Method 11/11/22 16:10 11/11/22 16:10 11/11/22 16:15 Temperature Pulse Rate 67 65 Respiratory Rate 23 18 Blood Pressure 119/61 Pulse Oximetry 99 99 Oxygen Delivery Method 11/11/22 16:15 11/11/22 16:21 11/11/22 16:21 Temperature Pulse Rate 71 Respiratory Rate 27 H Blood Pressure 118/69 116/81 Pulse Oximetry Oxygen Delivery Method 11/11/22 16:26 11/11/22 16:26 11/11/22 16:30 Temperature Pulse Rate 67 72 Respiratory Rate 25 H Blood Pressure 112/65 Pulse Oximetry 100 Oxygen Delivery Method 11/11/22 16:31 11/11/22 16:31 11/11/22 16:35 Temperature Pulse Rate 64 62 Respiratory Rate 26 H 17 Blood Pressure 113/59 L Pulse Oximetry 99 98 Oxygen Delivery Method 11/11/22 16:35 11/11/22 16:46 11/11/22 16:46 Temperature Pulse Rate 62 Respiratory Rate 23 Blood Pressure 113/73 116/75 Pulse Oximetry 94 Oxygen Delivery Method 11/11/22 16:51 11/11/22 16:51 11/11/22 17:00 Temperature Pulse Rate 64 73 Respiratory Rate 20 18 Blood Pressure 111/70 Pulse Oximetry 96 97 Oxygen Delivery Method 11/11/22 17:11 11/11/22 17:11 Temperature Pulse Rate 72 Respiratory Rate 33 H Blood Pressure 120/75 Pulse Oximetry 99 Oxygen Delivery Method Medical Decision Making Medical Records Medical records reviewed: Yes I reviewed the patient's medical records. Lab Data Lab results reviewed: Yes I reviewed the patient's lab results. 11/11/22 12:40 11/11/22 12:40 Labs: Lab Results 11/11/22 11/11/22 11/11/22 Range/Units 12:40 12:40 12:40 WBC 4.4 L (4.5-11.0) X10^3/uL RBC 4.02 (4.0-5.2) X10^6/uL Hgb 10.6 L (12.0-16.0) g/dL Hct 32.3 L (36-46) % MCV 80.4 (80-100) fL MCH 26.4 (26-34) PG MCHC 32.8 (30-36) % RDW 19.5 H (11.6-14.8) % Plt Count 229 (150-400) X10^3/uL Neut % (Auto) 60.0 (50-75) % Lymph % (Auto) 27.8 (25-40) % [place] % (Auto) 7.9 (3-14) % Eos % (Auto) 3.3 (2-4) % Baso % (Auto) 1.0 (0-2) % Neut # (Auto) 2600 (5669-2562) /uL Lymph # (Auto) 1200 (3289-9010) /uL [place] # (Auto) 300 (0-900) /uL Eos # (Auto) 100 (0-450) /uL Baso # (Auto) 0 (0-100) /uL Sodium 137 (137-145) mmol/L Potassium 3.8 (3.4-5.1) mmol/L Chloride 105 (98-107) mmol/L Carbon Dioxide 24 (22-32) mmol/L BUN 12 (7-17) mg/dL Creatinine 0.69 (0.52-1.04) mg/dL Estimated GFR > 60 (>60) mL/min BUN/Creatinine Ratio 17.4 (6-22) Glucose 102 H (70-100) mg/dL Calcium 8.7 (8.4-10.2) mg/dL Total Bilirubin 0.8 (0.2-1.3) mg/dL AST 77 H (14-36) IU/L ALT 25 (<35) IU/L Alkaline Phosphatase 76 (38-126) U/L Total Protein 7.2 (6.3-8.2) g/dL Albumin 4.4 (3.5-5.0) g/dL Globulin 2.8 (1.7-4.1) g/dL Albumin/Globulin Ratio 1.6 (1.0-2.8) Lipase 366 H (23-300) U/L Serum , Qual (Negative) Urine Color Urine Appearance Urine pH (4.5-8.0) Ur Specific [place] (1.000-1.035) Urine Protein (Negative) Urine Glucose (UA) (Negative) g/dL Urine Ketones (NEGATIVE) Urine Occult Blood (Negative) Urine Nitrate (Negative) Urine Bilirubin (NEGATIVE) Ur Bilirubin Confirm (Negative) Urine Urobilinogen (0.2) E.U./dL Ur Leukocyte Esterase (NEGATIVE) Urine RBC (0-5/HPF) Urine WBC (0-5/HPF) Ur Squamous Epith Cells (0-5/HPF) Urine Bacteria (None) Ur Culture Indicated? U Opiates 300ng/mL cut (Negative) Ur Oxycodone Screen (Negative) Urine Methadone Screen (Negative) Ur Barbiturates Screen (Negative) U Tricyclic Antidepress (Negative) Ur Phencyclidine Scrn (Negative) Ur Amphetamines Screen (Negative) U Methamphetamines Scrn (Negative) Ur MDMA Scrn (Ecstasy) (Negative) U Benzodiazepines Scrn (Negative) Urine Cocaine Screen (Negative) U Marijuana (THC) Screen (Negative) Ethyl Alcohol < 10 ( - 10) mg/dL 11/11/22 11/11/22 11/11/22 Range/Units 12:40 13:41 13:41 WBC (4.5-11.0) X10^3/uL RBC (4.0-5.2) X10^6/uL Hgb (12.0-16.0) g/dL Hct (36-46) % MCV (80-100) fL MCH (26-34) PG MCHC (30-36) % RDW (11.6-14.8) % Plt Count (150-400) X10^3/uL Neut % (Auto) (50-75) % Lymph % (Auto) (25-40) % [place] % (Auto) (3-14) % Eos % (Auto) (2-4) % Baso % (Auto) (0-2) % Neut # (Auto) (8723-5972) /uL Lymph # (Auto) (8102-0665) /uL [place] # (Auto) (0-900) /uL Eos # (Auto) (0-450) /uL Baso # (Auto) (0-100) /uL Sodium (137-145) mmol/L Potassium (3.4-5.1) mmol/L Chloride (98-107) mmol/L Carbon Dioxide (22-32) mmol/L BUN (7-17) mg/dL Creatinine (0.52-1.04) mg/dL Estimated GFR (>60) mL/min BUN/Creatinine Ratio (6-22) Glucose (70-100) mg/dL Calcium (8.4-10.2) mg/dL Total Bilirubin (0.2-1.3) mg/dL AST (14-36) IU/L ALT (<35) IU/L Alkaline Phosphatase (38-126) U/L Total Protein (6.3-8.2) g/dL Albumin (3.5-5.0) g/dL Globulin (1.7-4.1) g/dL Albumin/Globulin Ratio (1.0-2.8) Lipase (23-300) U/L Serum , Qual Negative (Negative) Urine Color Yellow Urine Appearance Sl cloudy Urine pH 6.0 (4.5-8.0) Ur Specific [place] >=1.030 H (1.000-1.035) Urine Protein Trace H (Negative) Urine Glucose (UA) Negative (Negative) g/dL Urine Ketones 1+ H (NEGATIVE) Urine Occult Blood Negative (Negative) Urine Nitrate Negative (Negative) Urine Bilirubin 1+ H D (NEGATIVE) Ur Bilirubin Confirm (Negative) Urine Urobilinogen 0.2 (0.2) E.U./dL Ur Leukocyte Esterase Negative (NEGATIVE) Urine RBC None seen (0-5/HPF) Urine WBC None seen (0-5/HPF) Ur Squamous Epith Cells 5-10 /hpf H (0-5/HPF) Urine Bacteria None seen (None) Ur Culture Indicated? Cult not indicated U Opiates 300ng/mL cut Negative (Negative) Ur Oxycodone Screen Negative (Negative) Urine Methadone Screen Negative (Negative) Ur Barbiturates Screen Positive H (Negative) U Tricyclic Antidepress Positive H (Negative) Ur Phencyclidine Scrn Negative (Negative) Ur Amphetamines Screen Negative (Negative) U Methamphetamines Scrn Negative (Negative) Ur MDMA Scrn (Ecstasy) Negative (Negative) U Benzodiazepines Scrn Positive H (Negative) Urine Cocaine Screen Negative (Negative) U Marijuana (THC) Screen Negative (Negative) Ethyl Alcohol ( - 10) mg/dL 11/11/22 Range/Units 13:41 WBC (4.5-11.0) X10^3/uL RBC (4.0-5.2) X10^6/uL Hgb (12.0-16.0) g/dL Hct (36-46) % MCV (80-100) fL MCH (26-34) PG MCHC (30-36) % RDW (11.6-14.8) % Plt Count (150-400) X10^3/uL Neut % (Auto) (50-75) % Lymph % (Auto) (25-40) % [place] % (Auto) (3-14) % Eos % (Auto) (2-4) % Baso % (Auto) (0-2) % Neut # (Auto) (8265-6378) /uL Lymph # (Auto) (7159-0367) /uL [place] # (Auto) (0-900) /uL Eos # (Auto) (0-450) /uL Baso # (Auto) (0-100) /uL Sodium (137-145) mmol/L Potassium (3.4-5.1) mmol/L Chloride (98-107) mmol/L Carbon Dioxide (22-32) mmol/L BUN (7-17) mg/dL Creatinine (0.52-1.04) mg/dL Estimated GFR (>60) mL/min BUN/Creatinine Ratio (6-22) Glucose (70-100) mg/dL Calcium (8.4-10.2) mg/dL Total Bilirubin (0.2-1.3) mg/dL AST (14-36) IU/L ALT (<35) IU/L Alkaline Phosphatase (38-126) U/L Total Protein (6.3-8.2) g/dL Albumin (3.5-5.0) g/dL Globulin (1.7-4.1) g/dL Albumin/Globulin Ratio (1.0-2.8) Lipase (23-300) U/L Serum , Qual (Negative) Urine Color Urine Appearance Urine pH (4.5-8.0) Ur Specific [place] (1.000-1.035) Urine Protein (Negative) Urine Glucose (UA) (Negative) g/dL Urine Ketones (NEGATIVE) Urine Occult Blood (Negative) Urine Nitrate (Negative) Urine Bilirubin (NEGATIVE) Ur Bilirubin Confirm Negative (Negative) Urine Urobilinogen (0.2) E.U./dL Ur Leukocyte Esterase (NEGATIVE) Urine RBC (0-5/HPF) Urine WBC (0-5/HPF) Ur Squamous Epith Cells (0-5/HPF) Urine Bacteria (None) Ur Culture Indicated? U Opiates 300ng/mL cut (Negative) Ur Oxycodone Screen (Negative) Urine Methadone Screen (Negative) Ur Barbiturates Screen (Negative) U Tricyclic Antidepress (Negative) Ur Phencyclidine Scrn (Negative) Ur Amphetamines Screen (Negative) U Methamphetamines Scrn (Negative) Ur MDMA Scrn (Ecstasy) (Negative) U Benzodiazepines Scrn (Negative) Urine Cocaine Screen (Negative) U Marijuana (THC) Screen (Negative) Ethyl Alcohol ( - 10) mg/dL Point of Care Testing Test Results Negative Urine Dip Bedside Urine Glucose Negative Bedside Urine Bilirubin + 1 Bedside Urine Ketone + 15 Urine Specific [place] 1.030 Bedside Urine Occult Blood - Negative Bedside Urine pH 6.0 Bedside Urine Protein + 30 Bedside Urine Urobilinogen - Negative Bedside Urine Nitrite - Negative Bedside Urine Leukocytes - Negative Esterase Point of care testing: Point of Care Testing Test Results Negative Urine Dip Bedside Urine Glucose Negative Bedside Urine Bilirubin + 1 Bedside Urine Ketone + 15 Urine Specific [place] 1.030 Bedside Urine Occult Blood - Negative Bedside Urine pH 6.0 Bedside Urine Protein + 30 Bedside Urine Urobilinogen - Negative Bedside Urine Nitrite - Negative Bedside Urine Leukocytes - Negative Esterase MDM Narrative Medical decision making narrative: Patient states that her last drink was on Thursday which would have been 4 days ago. Today she is alert oriented x3. Is not clinically intoxicated. Her alcohol level is 0. In my opinion does have the capacity to make decisions. Patient received phenobarbital and also multiple doses of Ativan. She states she feels much better although she is still shaking in her CIWA score is still elevated. Had a long discussion with her regarding options. She states she does not want detox/rehab. We discussed admitting her to the hospital for further treatment of what appears to be alcohol withdrawal. She states she does not want to be admitted to the hospital. She states she is feeling better and would like to be home. Did discuss the risks of going home to include seizures which could potentially be life-threatening. She expressed understanding of th is and still would like to be discharged. Patient was given strict return precautions. She expressed understanding and agreement. Discharge Plan Departure Patient Disposition: Home Clinical Impression: Alcohol use disorder, Alcohol withdrawal Instructions: DI for Alcohol Use Disorder Activity Restrictions/Additional Instructions: After our discussions of the risks and benefits of being admitted to the hospital for further control of your alcohol withdrawal you opted to be discharged home. I do recommend that you abstain from drinking alcohol. Continue to take all of your medications as directed. You can and should return to the emergency department at any point for new or worsening symptoms. Prescriptions: No Action fluoxetine 10 mg capsule 10 mg PO DAILY hydroxyzine HCl 50 mg tablet 50 mg PO DAILY quetiapine 300 mg tablet 300 mg PO DAILY thiamine mononitrate (vit B1) 100 mg Tablet 100 mg PO DAILY Qty: 30 0RF multivitamin with folic acid [Tab-A-Princess] 400 mcg Tablet 1 tab PO DAILY Qty: 30 0RF pantoprazole 40 mg Tablet,Delayed Release (Dr/Ec) 40 mg PO 0700 Qty: 30 0RF Referrals: Julita Montiel MD [Primary Care Provider] - Stand Alone Forms: Patient Portal/API
[2022-11-11 13:13] LABS: Lipase 366 U/L (23-300)
[2022-11-11 13:15] LABS: Alanine Aminotransferase 25 IU/L (<35); Albumin 4.4 g/dL (3.5-5.0); Albumin Globulin Ratio 1.6 (1.0-2.8); Alkaline Phosphatase 76 U/L (38-126); Aspartate Aminotransferase 77 IU/L (14-36); BUN Creatinine Ratio 17.4 (6-22); Bilirubin Total 0.8 mg/dL (0.2-1.3); Blood Urea Nitrogen 12 mg/dL (7-17); Calcium 8.7 mg/dL (8.4-10.2); Carbon Dioxide 24 mmol/L (22-32); Chloride 105 mmol/L (98-107); Estimated Glomerular Filt Rate > 60 mL/min (>60); Ethanol (ETOH) < 10 mg/dL; Globulin 2.8 g/dL (1.7-4.1); Glucose 102 mg/dL (70-100); HEMOLYSIS < 15 (0-50); Potassium 3.8 mmol/L (3.4-5.1); Sodium 137 mmol/L (137-145); Total Protein 7.2 g/dL (6.3-8.2)
[2022-11-11 13:46] LABS: Pregnancy Test Serum,Qual Negative (Negative)
[2022-11-11 13:49] LABS: Appearance Urine UA SL CLOUDY; Bilirubin Urine UA 1+ (NEGATIVE); Color Urine UA YELLOW; Glucose Urine UA NEGATIVE (Negative); Ketones Urine UA 1+ (NEGATIVE); Leukocyte Esterase Urine UA NEGATIVE (NEGATIVE); Nitrite Urine UA NEGATIVE (Negative); Occult Blood Urine UA NEGATIVE (Negative); Protein Urine UA TRACE (Negative); Specific Gravity Urine UA >=1.030 (1.000-1.035); Urobilinogen Urine UA 0.2 E.U./dL (0.2)
[2022-11-11 13:53] LABS: UR Morphine/Opiate cutoff 300 Negative (Negative); Ur Creatinine Normal (Normal); Ur Specific Gravity Normal (Normal); Urine Amphetamines Negative (Negative); Urine Barbiturates Positive (Negative); Urine Benzodiazepines Positive (Negative); Urine Cocaine Negative (Negative); Urine MDMA Negative (Negative); Urine Methadone Negative (Negative); Urine Methamphetamines Negative (Negative); Urine Oxycodone Negative (Negative); Urine Phencyclidine Negative (Negative); Urine Tetrahydrocannabinol Negative (Negative); Urine Tricyclic Antidepressant Positive (Negative); Urine pH Normal (Normal)
[2022-11-11 13:55] LABS: Ictotest Urine Negative (Negative)
[2022-11-11 13:56] LABS: Bacteria Urine None Seen; Culture Indicated Urine Cult Not Indicated; RBC Urine None Seen (0-5/HPF); Squamous Epithelial Cell Urine 5-10 /HPF (0-5/HPF); WBC Urine None Seen (0-5/HPF)
== END 2022-11-11 17:42 | disposition home or self-care (01) ==
PROVIDERS: Emergency Provider Emergency Medicine; PCP Specialist
DX: F10.939 Alcohol use, unspecified with withdrawal, unspecified (principal); Y90.0 Blood alcohol level of less than 20 mg/100 ml
CPT/HCPCS: 36415; 80053; 80305; 80320; 81001; 81003; 81025; 83690; 84703; 85025; 96365; 96375; 96376; 99284; J2060; J2560

== ENCOUNTER 2022-11-12 05:00 | Inpatient (IN) | payer OTHER, SELFPAY ==
[2022-10-24 11:30] VITALS: BMI 21.9
[2022-11-12] VITALS (24 sets, daily range): BP systolic 92–147; BP diastolic 53–92; PULSE 40–87; RESP 13–30; TEMP 36.5–37; O2SAT 97–100; BMI 21.7
--- NOTE | 2022-11-12 | DI.CT.S_ITS ---
PROCEDURE: CT HEAD/BRAIN WO CON INDICATIONS: altered mental status TECHNIQUE: Noncontrast 4.5 mm thick angled axial sections acquired from the foramen magnum to the vertex, with coronal and sagittal reformats. For radiation dose reduction, the following was used: automated exposure control, adjustment of mA and/or kV according to patient size. COMPARISON: None. FINDINGS: Image quality: Excellent. CSF spaces: Basal cisterns are patent. No extra-axial fluid collections. Ventricles are normal in size and shape. Brain: No midline shift. No intracranial masses or hemorrhage. Henri[place]-white matter interface is normal. Skull and face: Calvarium and visualized facial bones are intact, without suspicious lesions. Sinuses: Visualized sinuses and mastoids are clear. IMPRESSION: CT head without acute intracranial abnormalities. No mass or mass effect visualized. No significant discrepancy with the manufacturing shift supervisor radiology preliminary report. Dictated by: Arthur Michelle M.D. on 11/12/2022 at 7:06 Approved by: Arthur Michelle M.D. on 11/12/2022 at 7:06
--- NOTE | 2022-11-12 05:54 | ED.AMS ---
HPI - Altered Mental Status <Roque García DO - Last Filed: 11/13/22 04:58> General Chief Complaint: Psychiatric Symptoms Stated Complaint: Altered LOC Time Seen by Provider: 11/12/22 05:45 History of Present Illness HPI narrative: 32-year-old female former smoker with extensive history of alcohol abuse returns for the 2nd time is many days. She had been seen and evaluated yesterday with a chief complaint of withdrawal symptoms and was treated with Ativan and phenobarb was feeling quite well and discharged home. She states that she had been doing rather well until recently when she went on a bit of a [place] and had her last drink on or Thursday and developed symptoms over the course of the weekend. She presented yesterday with agitation and anxiety along with some hallucinations that improved tremendously. She presents tonight and the presence of EMS has there is a report that she had been found hallucinating and yelling at people that were not there, maintaining that a smoker or bit her and then jumped over a fence and ran to [place]. On arrival patient is largely alert but does still have some visual hallucinations is a bit tremulous with arms extended and agitated. She denies any recent trauma or injury. Related Data Home Medications Medication Instructions Recorded Confirmed fluoxetine 10 mg capsule 10 mg PO DAILY 10/24/22 11/12/22 hydroxyzine HCl 50 mg tablet 50 mg PO DAILY 10/24/22 11/12/22 quetiapine 300 mg tablet 300 mg PO DAILY 10/24/22 11/12/22 Previous Rx's Medication Instructions Recorded multivitamin with folic acid 400 1 tab PO DAILY #30 tabs 10/25/22 mcg tablet (Tab-A-Princess) pantoprazole 40 mg tablet,delayed 40 mg PO 0700 #30 tabs 10/25/22 release thiamine mononitrate (vit B1) 100 100 mg PO DAILY #30 tabs 10/25/22 mg tablet Allergies Allergy/AdvReac Type Severity Reaction Status Date / Time metoclopramide Allergy Mild RASH/HIVES Verified 10/23/22 16:18 [METOCLOPRAMIDE] hydrocodone [HYDROCODONE] AdvReac Unknown VOMITING Verified 10/23/22 16:18 Review of Systems <Roque García DO - Last Filed: 11/13/22 04:58> Review of Systems Narrative: GENERAL: Denies chills, fatigue, malaise, fever, sweats. HEENT: Denies sinus pain, ear pain, sore throat, difficulty swallowing, dizziness. RESPIRATORY: Denies dyspnea, cough, wheezing, hemoptysis, sputum. CARDIOVASCULAR: See HPI GASTROINTESTINAL: Denies nausea, vomiting, abdominal pain, diarrhea, constipation, melena. : Denies dysuria, frequency, incontinence, hematuria, urinary retention. MUSCULOSKELETAL: denies weakness, joint pain, or bony pain SKIN: Denies rash, skin lesions, or other NEUROLOGIC: See HPI PSYCHIATRIC: No concerning psychosocial issues. 12 point review of systems is negative except for those stated above Patient History <Roque García DO - Last Filed: 11/13/22 04:58> Medical History Alcohol withdrawal delirium, acute, hyperactive Anemia (~2017) Insomnia Menometrorrhagia (spontaneous vaginal delivery) (~12/17/18) Surgical History H/O dilation and curettage (~03/27/17) H/O wisdom tooth extraction (~2013) S/P myringotomy with insertion of tube Family History Mother Diabetes mellitus Overweight Father Alcoholism Grandfather Unknown whether patient has any health problems Grandmother Diabetes mellitus Smoker Family/Other Diabetes mellitus Obesity Family/Other Alcoholism Grandfather Smoker Alcoholism Grandmother Hypoglycemia Social History marital status: number of children: 1 household members: significant other education level: college occupational status: employed current occupational exposures/hazards: Yes (obvious risk with Pandemic ) nidhi/rastafari: [employer] special nidhi needs: No Smoking Status: Former smoker second hand exposure: No (growing up as a child - not currently) alcohol intake: current substance use type: does not use Smoking Status: Former smoker alcohol intake frequency: 3 or more drinks per day Substance Use Type: does not use Exam <Roque García DO - Last Filed: 11/13/22 04:58> Narrative Exam Narrative: GENERAL: [32] year old patient appears stated age. Well-developed patient, in mild distress. Agitated a bit in distress, alert to person and place HEAD: Atraumatic. Normocephalic. EYES: Pupils equal round and reactive. Extraocular motions intact. No scleral icterus. No injection or drainage. ENT: Nose without bleeding, purulent drainage. Throat without erythema, tonsillar hypertrophy or exudate. Airway patent. NECK: Trachea midline. Non tender CARDIOVASCULAR: Regular rate and rhythm without murmurs, gallops, or rubs. RESPIRATORY: Clear to auscultation. Breath sounds equal bilaterally. No wheezes, rales, or rhonchi. GASTROINTESTINAL: Abdomen soft, non-tender, nondistended. EXTREMITIES: No edema or joint tenderness. Tremulous with arms extended BACK: Nontender without deformity or crepitance. No flank tenderness. NEURO: AOx3. Cranial nerves 2-12 grossly intact SKIN: No rash or erythema of visible areas Initial Vital Signs Initial Vital Signs: Vital Signs Temperature 97.7 F 11/12/22 05:00 Pulse Rate 76 11/12/22 05:00 Respiratory Rate 18 11/12/22 05:00 Blood Pressure 92/67 11/12/22 05:00 Pulse Oximetry 98 11/12/22 05:00 Oxygen Delivery Method Room Air 11/12/22 05:00 <Ruben Cannon DO - Last Filed: 11/12/22 08:19> Initial Vital Signs Initial Vital Signs: Vital Signs Temperature 97.7 F 11/12/22 05:00 Pulse Rate 76 11/12/22 05:00 Respiratory Rate 18 11/12/22 05:00 Blood Pressure 92/67 11/12/22 05:00 Pulse Oximetry 98 11/12/22 05:00 Oxygen Delivery Method Room Air 11/12/22 05:00 Course <Roque García DO - Last Filed: 11/13/22 04:58> Orders Ordered: ED Orders 11/13/22 03:48 BMP [Basic Metabolic Panel] DAILY CBC Auto Diff [Complete Blood Count AUTO DIFF] DAILY 11/14/22 05:00 BMP [Basic Metabolic Panel] DAILY CBC Auto Diff [Complete Blood Count AUTO DIFF] DAILY 11/15/22 05:00 BMP [Basic Metabolic Panel] DAILY CBC Auto Diff [Complete Blood Count AUTO DIFF] DAILY Acetaminophen (Acetaminophen 325 Mg Tablet) 650 mg PO Q6H PRN PRN Reason: Fever/Mild Pain (1-3) Chlordiazepoxide HCl (Chlordiazepoxide 25 Mg Capsule) 50 mg PO Q6HR [facility] Last Admin: 11/13/22 00:03 Dose: Not Given Documented By: Admin: 11/12/22 17:45 Dose: Not Given Documented By: Admin: 11/12/22 11:06 Dose: Not Given Documented By: Fluoxetine HCl (Fluoxetine 10 Mg Capsule) 10 mg PO DAILY [facility] Last Admin: 11/12/22 09:34 Dose: Not Given Documented By: Folic Acid (Folic Acid 1 Mg Tablet) 1 mg PO DAILY [facility] Last Admin: 11/12/22 09:35 Dose: Not Given Documented By: Hydroxyzine Pamoate (Hydroxyzine Pamoate 25 Mg Capsule) 50 mg PO DAILY [facility] Last Admin: 11/12/22 08:22 Dose: 50 mg Documented By: LIMA Thiamine HCl 100 mg/ Sodium (Chloride) 101 mls @ 404 mls/hr IV DAILY [facility] Last Admin: 11/12/22 08:10 Dose: Not Given Documented By: LIMA dexmedeTOMIDine in 0.9 % NaCL (Precedex) 400 mcg in 100 mls @ 26.989 mls/hr IV TITRATE [facility]; Protocol Last Admin: 11/12/22 23:38 Dose: 1 mcg/kg/hr, 13.494 mls/hr Documented By: Titration: 11/12/22 23:19 Dose: 1 mcg/kg/hr, 13.494 mls/hr Documented By: Admin: 11/12/22 15:54 Dose: 1 mcg/kg/hr, 13.494 mls/hr Documented By: Titration: 11/12/22 15:23 Dose: 1.2 mcg/kg/hr, 16.193 mls/hr Documented By: Titration: 11/12/22 14:37 Dose: 1.2 mcg/kg/hr, 16.193 mls/hr Documented By: Titration: 11/12/22 13:36 Dose: 1.5 mcg/kg/hr, 20.241 mls/hr Documented By: Titration: 11/12/22 13:06 Dose: 1.8 mcg/kg/hr, 24.29 mls/hr Documented By: Admin: 11/12/22 11:04 Dose: 2 mcg/kg/hr, 26.989 mls/hr Documented By: Titration: 11/12/22 11:04 Dose: 2 mcg/kg/hr, 26.989 mls/hr Documented By: Titration: 11/12/22 09:10 Dose: 2 mcg/kg/hr, 26.989 mls/hr Documented By: Titration: 11/12/22 09:08 Dose: 1.5 mcg/kg/hr, 20.241 mls/hr Documented By: Titration: 11/12/22 08:54 Dose: 1.5 mcg/kg/hr, 20.241 mls/hr Documented By: Titration: 11/12/22 08:35 Dose: 0.7 mcg/kg/hr, 9.446 mls/hr Documented By: Admin: 11/12/22 08:30 Dose: 0.2 mcg/kg/hr, 2.699 mls/hr Documented By: LIMA Dextrose/Lactated Ringer's (Dextrose 5%-Lactated Ringers) 1,000 mls @ 84 mls/hr IV CONT [facility] Last Admin: 11/12/22 21:09 Dose: 84 mls/hr Documented By: SHELBIE Lorazepam (Lorazepam 2 Mg/Ml Inj) 0 mg IV CIWAPRN PRN; Protocol PRN Reason: Alcohol Withdrawal Last Admin: 11/12/22 10:20 Dose: 2 mg Documented By: Admin: 11/12/22 09:25 Dose: 2 mg Documented By: Admin: 11/12/22 09:12 Dose: 2 mg Documented By: Admin: 11/12/22 09:00 Dose: 2 mg Documented By: Admin: 11/12/22 08:45 Dose: 2 mg Documented By: Lorazepam (Lorazepam 1 Mg Tablet) 0 mg PO CIWAPRN PRN; Protocol PRN Reason: Alcohol Withdrawal Multivitamins (Multivitamin 1 Tablet) 1 tab PO DAILY [facility] Last Admin: 11/12/22 09:35 Dose: Not Given Documented By: Naloxone HCl (Naloxone 0.4 Mg/Ml Vial) 0.2 mg IV Q2MIN PRN PRN Reason: Opiate Reversal Ondansetron HCl (Ondansetron 4 Mg/2 Ml Inj) 4 mg IV Q6HR PRN PRN Reason: Nausea And Vomiting Pantoprazole Sodium (Pantoprazole 40 Mg Vial) 40 mg IV DAILY [facility] Last Admin: 11/12/22 08:21 Dose: 40 mg Documented By: LIMA Phenobarbital (Phenobarbital 65 Mg/Ml Vial) 60 mg IV BID [facility] Last Admin: 11/12/22 21:26 Dose: 60 mg Documented By: Admin: 11/12/22 08:21 Dose: 60 mg Documented By: LIMA Polyethylene Glycol (Polyethylene Glycol 3350 17 Gm Powd.Pack) 17 gm PO DAILY PRN PRN Reason: Constipation Pyridoxine HCl (Pyridoxine 100 Mg/Ml Vial) 100 mg IV DAILY [facility] Last Admin: 11/12/22 09:35 Dose: Not Given Documented By: MS Sennosides (Sennosides 8.6 Mg Tablet) 8.6 mg PO BID PRN PRN Reason: Constipation Discontinued Medications Sodium Chloride (Normal Saline 0.9%) 2,000 mls @ 1,000 mls/hr IV BOLUS ONE Stop: 11/12/22 08:08 Last Infusion: 11/12/22 08:03 Dose: 0 mls/hr Documented By: Admin: 11/12/22 06:30 Dose: 1,000 mls/hr Documented By: DIXIE Thiamine HCl 200 mg/ Sodium (Chloride) 102 mls @ 408 mls/hr IV NOW ONE Stop: 11/12/22 06:12 Last Infusion: 11/12/22 08:09 Dose: 0 mls/hr Documented By: Admin: 11/12/22 07:45 Dose: 408 mls/hr Documented By: LIMA Lorazepam (Lorazepam 2 Mg/Ml Inj) 1 mg IV NOW ONE Stop: 11/12/22 07:36 Last Admin: 11/12/22 07:45 Dose: 1 mg Documented By: LIMA Lorazepam (Lorazepam 2 Mg/Ml Inj) 2 mg IV NOW ONE Stop: 11/12/22 08:05 Last Admin: 11/12/22 08:09 Dose: 2 mg Documented By: LIMA Phenobarbital (Phenobarbital 65 Mg/Ml Vial) 260 mg IV NOW ONE Stop: 11/12/22 05:56 Last Admin: 11/12/22 06:31 Dose: 260 mg Documented By: DIXIE Vital Signs Vital signs: Vital Signs - 8 hr 11/12/22 05:00 11/12/22 07:44 Temperature 97.7 F Pulse Rate 76 65 Respiratory Rate 18 20 Blood Pressure 92/67 98/53 L Pulse Oximetry 98 98 Oxygen Delivery Method Room Air Room Air <Ruben Davis, DO - Last Filed: 11/12/22 08:19> Orders Ordered: ED Orders 11/13/22 03:48 BMP [Basic Metabolic Panel] DAILY CBC Auto Diff [Complete Blood Count AUTO DIFF] DAILY 11/14/22 05:00 BMP [Basic Metabolic Panel] DAILY CBC Auto Diff [Complete Blood Count AUTO DIFF] DAILY 11/15/22 05:00 BMP [Basic Metabolic Panel] DAILY CBC Auto Diff [Complete Blood Count AUTO DIFF] DAILY Acetaminophen (Acetaminophen 325 Mg Tablet) 650 mg PO Q6H PRN PRN Reason: Fever/Mild Pain (1-3) Chlordiazepoxide HCl (Chlordiazepoxide 25 Mg Capsule) 50 mg PO Q6HR [facility] Last Admin: 11/13/22 00:03 Dose: Not Given Documented By: Admin: 11/12/22 17:45 Dose: Not Given Documented By: Admin: 11/12/22 11:06 Dose: Not Given Documented By: Fluoxetine HCl (Fluoxetine 10 Mg Capsule) 10 mg PO DAILY [facility] Last Admin: 11/12/22 09:34 Dose: Not Given Documented By: Folic Acid (Folic Acid 1 Mg Tablet) 1 mg PO DAILY [facility] Last Admin: 11/12/22 09:35 Dose: Not Given Documented By: Hydroxyzine Pamoate (Hydroxyzine Pamoate 25 Mg Capsule) 50 mg PO DAILY [facility] Last Admin: 11/12/22 08:22 Dose: 50 mg Documented By: LIMA Thiamine HCl 100 mg/ Sodium (Chloride) 101 mls @ 404 mls/hr IV DAILY [facility] Last Admin: 11/12/22 08:10 Dose: Not Given Documented By: LIMA dexmedeTOMIDine in 0.9 % NaCL (Precedex) 400 mcg in 100 mls @ 26.989 mls/hr IV TITRATE [facility]; Protocol Last Admin: 11/12/22 23:38 Dose: 1 mcg/kg/hr, 13.494 mls/hr Documented By: Titration: 11/12/22 23:19 Dose: 1 mcg/kg/hr, 13.494 mls/hr Documented By: Admin: 11/12/22 15:54 Dose: 1 mcg/kg/hr, 13.494 mls/hr Documented By: Titration: 11/12/22 15:23 Dose: 1.2 mcg/kg/hr, 16.193 mls/hr Documented By: Titration: 11/12/22 14:37 Dose: 1.2 mcg/kg/hr, 16.193 mls/hr Documented By: Titration: 11/12/22 13:36 Dose: 1.5 mcg/kg/hr, 20.241 mls/hr Documented By: Titration: 11/12/22 13:06 Dose: 1.8 mcg/kg/hr, 24.29 mls/hr Documented By: Admin: 11/12/22 11:04 Dose: 2 mcg/kg/hr, 26.989 mls/hr Documented By: Titration: 11/12/22 11:04 Dose: 2 mcg/kg/hr, 26.989 mls/hr Documented By: Titration: 11/12/22 09:10 Dose: 2 mcg/kg/hr, 26.989 mls/hr Documented By: Titration: 11/12/22 09:08 Dose: 1.5 mcg/kg/hr, 20.241 mls/hr Documented By: Titration: 11/12/22 08:54 Dose: 1.5 mcg/kg/hr, 20.241 mls/hr Documented By: Titration: 11/12/22 08:35 Dose: 0.7 mcg/kg/hr, 9.446 mls/hr Documented By: Admin: 11/12/22 08:30 Dose: 0.2 mcg/kg/hr, 2.699 mls/hr Documented By: LIMA Dextrose/Lactated Ringer's (Dextrose 5%-Lactated Ringers) 1,000 mls @ 84 mls/hr IV CONT [facility] Last Admin: 11/12/22 21:09 Dose: 84 mls/hr Documented By: SHELBIE Lorazepam (Lorazepam 2 Mg/Ml Inj) 0 mg IV CIWAPRN PRN; Protocol PRN Reason: Alcohol Withdrawal Last Admin: 11/12/22 10:20 Dose: 2 mg Documented By: Admin: 11/12/22 09:25 Dose: 2 mg Documented By: Admin: 11/12/22 09:12 Dose: 2 mg Documented By: Admin: 11/12/22 09:00 Dose: 2 mg Documented By: Admin: 11/12/22 08:45 Dose: 2 mg Documented By: Lorazepam (Lorazepam 1 Mg Tablet) 0 mg PO CIWAPRN PRN; Protocol PRN Reason: Alcohol Withdrawal Multivitamins (Multivitamin 1 Tablet) 1 tab PO DAILY [facility] Last Admin: 11/12/22 09:35 Dose: Not Given Documented By: Naloxone HCl (Naloxone 0.4 Mg/Ml Vial) 0.2 mg IV Q2MIN PRN PRN Reason: Opiate Reversal Ondansetron HCl (Ondansetron 4 Mg/2 Ml Inj) 4 mg IV Q6HR PRN PRN Reason: Nausea And Vomiting Pantoprazole Sodium (Pantoprazole 40 Mg Vial) 40 mg IV DAILY [facility] Last Admin: 11/12/22 08:21 Dose: 40 mg Documented By: LIMA Phenobarbital (Phenobarbital 65 Mg/Ml Vial) 60 mg IV BID [facility] Last Admin: 11/12/22 21:26 Dose: 60 mg Documented By: Admin: 11/12/22 08:21 Dose: 60 mg Documented By: LIMA Polyethylene Glycol (Polyethylene Glycol 3350 17 Gm Powd.Pack) 17 gm PO DAILY PRN PRN Reason: Constipation Pyridoxine HCl (Pyridoxine 100 Mg/Ml Vial) 100 mg IV DAILY [facility] Last Admin: 11/12/22 09:35 Dose: Not Given Documented By: Sennosides (Sennosides 8.6 Mg Tablet) 8.6 mg PO BID PRN PRN Reason: Constipation Discontinued Medications Sodium Chloride (Normal Saline 0.9%) 2,000 mls @ 1,000 mls/hr IV BOLUS ONE Stop: 11/12/22 08:08 Last Infusion: 11/12/22 08:03 Dose: 0 mls/hr Documented By: Admin: 11/12/22 06:30 Dose: 1,000 mls/hr Documented By: DIXIE Thiamine HCl 200 mg/ Sodium (Chloride) 102 mls @ 408 mls/hr IV NOW ONE Stop: 11/12/22 06:12 Last Infusion: 11/12/22 08:09 Dose: 0 mls/hr Documented By: Admin: 11/12/22 07:45 Dose: 408 mls/hr Documented By: LIMA Lorazepam (Lorazepam 2 Mg/Ml Inj) 1 mg IV NOW ONE Stop: 11/12/22 07:36 Last Admin: 11/12/22 07:45 Dose: 1 mg Documented By: LIMA Lorazepam (Lorazepam 2 Mg/Ml Inj) 2 mg IV NOW ONE Stop: 11/12/22 08:05 Last Admin: 11/12/22 08:09 Dose: 2 mg Documented By: LIMA Phenobarbital (Phenobarbital 65 Mg/Ml Vial) 260 mg IV NOW ONE Stop: 11/12/22 05:56 Last Admin: 11/12/22 06:31 Dose: 260 mg Documented By: DIXIE Vital Signs Vital signs: Vital Signs - 8 hr 11/12/22 05:00 11/12/22 07:44 Temperature 97.7 F Pulse Rate 76 65 Respiratory Rate 18 20 Blood Pressure 92/67 98/53 L Pulse Oximetry 98 98 Oxygen Delivery Method Room Air Room Air MDM - Altered Mental Status <Roque García DO - Last Filed: 11/13/22 04:58> Lab Data 11/12/22 05:10 11/12/22 05:10 Labs: Lab Results 11/12/22 11/12/22 11/12/22 Range/Units 05:10 05:10 05:10 WBC 3.3 L (4.5-11.0) X10^3/uL RBC 3.59 L (4.0-5.2) X10^6/uL Hgb 9.5 L (12.0-16.0) g/dL Hct 28.9 L (36-46) % MCV 80.6 (80-100) fL MCH 26.5 (26-34) PG MCHC 32.9 (30-36) % RDW 19.7 H (11.6-14.8) % Plt Count 178 (150-400) X10^3/uL Neut % (Auto) 57.6 (50-75) % Lymph % (Auto) 29.3 (25-40) % [place] % (Auto) 8.0 (3-14) % Eos % (Auto) 3.6 (2-4) % Baso % (Auto) 1.5 (0-2) % Neut # (Auto) 1900 (7168-2653) /uL Lymph # (Auto) 1000 L (6895-0100) /uL [place] # (Auto) 300 (0-900) /uL Eos # (Auto) 100 (0-450) /uL Baso # (Auto) 0 (0-100) /uL PT 12.2 (10.1-12.7) SECONDS INR 1.1 (0.9-1.3) Sodium 136 L (137-145) mmol/L Potassium 3.5 (3.4-5.1) mmol/L Chloride 104 (98-107) mmol/L Carbon Dioxide 24 (22-32) mmol/L BUN 14 (7-17) mg/dL Creatinine 0.72 (0.52-1.04) mg/dL Estimated GFR > 60 (>60) mL/min BUN/Creatinine Ratio 19.4 (6-22) Glucose 99 (70-100) mg/dL Calcium 8.9 (8.4-10.2) mg/dL Magnesium (1.6-2.3) mg/dL Total Bilirubin 0.7 (0.2-1.3) mg/dL AST 67 H (14-36) IU/L ALT 24 (<35) IU/L Alkaline Phosphatase 52 (38-126) U/L Total Protein 6.8 (6.3-8.2) g/dL Albumin 4.1 (3.5-5.0) g/dL Globulin 2.7 (1.7-4.1) g/dL Albumin/Globulin Ratio 1.5 (1.0-2.8) Lipase 337 H (23-300) U/L Vitamin B12 (239-931) pg/mL Folate (2.76-20.0) ng/mL TSH (0.47-4.68) uIU/mL Free T4 (0.78-2.19) ng/dL Ur Bilirubin Confirm (Negative) Urine RBC (0-5/HPF) Urine WBC (0-5/HPF) Ur Squamous Epith Cells (0-5/HPF) Urine Bacteria (None) Urine Mucus (Negative) Ur Culture Indicated? Salicylates < 1.0 (<20) mg/dL U Opiates 300ng/mL cut (Negative) Ur Oxycodone Screen (Negative) Urine Methadone Screen (Negative) Acetaminophen < 10 (10-30) ug/mL Ur Barbiturates Screen (Negative) U Tricyclic Antidepress (Negative) Ur Phencyclidine Scrn (Negative) Ur Amphetamines Screen (Negative) U Methamphetamines Scrn (Negative) Ur MDMA Scrn (Ecstasy) (Negative) U Benzodiazepines Scrn (Negative) Urine Cocaine Screen (Negative) U Marijuana (THC) Screen (Negative) Ethyl Alcohol < 10 ( - 10) mg/dL SARS-CoV-2 (PCR) (Negative) 11/12/22 11/12/22 11/12/22 Range/Units 05:10 05:10 05:10 WBC (4.5-11.0) X10^3/uL RBC (4.0-5.2) X10^6/uL Hgb (12.0-16.0) g/dL Hct (36-46) % MCV (80-100) fL MCH (26-34) PG MCHC (30-36) % RDW (11.6-14.8) % Plt Count (150-400) X10^3/uL Neut % (Auto) (50-75) % Lymph % (Auto) (25-40) % [place] % (Auto) (3-14) % Eos % (Auto) (2-4) % Baso % (Auto) (0-2) % Neut # (Auto) (7739-9157) /uL Lymph # (Auto) (7260-5341) /uL [place] # (Auto) (0-900) /uL Eos # (Auto) (0-450) /uL Baso # (Auto) (0-100) /uL PT (10.1-12.7) SECONDS INR (0.9-1.3) Sodium (137-145) mmol/L Potassium (3.4-5.1) mmol/L Chloride (98-107) mmol/L Carbon Dioxide (22-32) mmol/L BUN (7-17) mg/dL Creatinine (0.52-1.04) mg/dL Estimated GFR (>60) mL/min BUN/Creatinine Ratio (6-22) Glucose (70-100) mg/dL Calcium (8.4-10.2) mg/dL Magnesium 2.0 (1.6-2.3) mg/dL Total Bilirubin (0.2-1.3) mg/dL AST (14-36) IU/L ALT (<35) IU/L Alkaline Phosphatase (38-126) U/L Total Protein (6.3-8.2) g/dL Albumin (3.5-5.0) g/dL Globulin (1.7-4.1) g/dL Albumin/Globulin Ratio (1.0-2.8) Lipase (23-300) U/L Vitamin B12 401 (239-931) pg/mL Folate 11.9 (2.76-20.0) ng/mL TSH 4.71 H (0.47-4.68) uIU/mL Free T4 1.13 (0.78-2.19) ng/dL Ur Bilirubin Confirm (Negative) Urine RBC (0-5/HPF) Urine WBC (0-5/HPF) Ur Squamous Epith Cells (0-5/HPF) Urine Bacteria (None) Urine Mucus (Negative) Ur Culture Indicated? Salicylates (<20) mg/dL U Opiates 300ng/mL cut (Negative) Ur Oxycodone Screen (Negative) Urine Methadone Screen (Negative) Acetaminophen (10-30) ug/mL Ur Barbiturates Screen (Negative) U Tricyclic Antidepress (Negative) Ur Phencyclidine Scrn (Negative) Ur Amphetamines Screen (Negative) U Methamphetamines Scrn (Negative) Ur MDMA Scrn (Ecstasy) (Negative) U Benzodiazepines Scrn (Negative) Urine Cocaine Screen (Negative) U Marijuana (THC) Screen (Negative) Ethyl Alcohol ( - 10) mg/dL SARS-CoV-2 (PCR) (Negative) 11/12/22 11/12/22 11/12/22 Range/Units 05:20 05:20 05:20 WBC (4.5-11.0) X10^3/uL RBC (4.0-5.2) X10^6/uL Hgb (12.0-16.0) g/dL Hct (36-46) % MCV (80-100) fL MCH (26-34) PG MCHC (30-36) % RDW (11.6-14.8) % Plt Count (150-400) X10^3/uL Neut % (Auto) (50-75) % Lymph % (Auto) (25-40) % [place] % (Auto) (3-14) % Eos % (Auto) (2-4) % Baso % (Auto) (0-2) % Neut # (Auto) (1752-9091) /uL Lymph # (Auto) (9158-2077) /uL [place] # (Auto) (0-900) /uL Eos # (Auto) (0-450) /uL Baso # (Auto) (0-100) /uL PT (10.1-12.7) SECONDS INR (0.9-1.3) Sodium (137-145) mmol/L Potassium (3.4-5.1) mmol/L Chloride (98-107) mmol/L Carbon Dioxide (22-32) mmol/L BUN (7-17) mg/dL Creatinine (0.52-1.04) mg/dL Estimated GFR (>60) mL/min BUN/Creatinine Ratio (6-22) Glucose (70-100) mg/dL Calcium (8.4-10.2) mg/dL Magnesium (1.6-2.3) mg/dL Total Bilirubin (0.2-1.3) mg/dL AST (14-36) IU/L ALT (<35) IU/L Alkaline Phosphatase (38-126) U/L Total Protein (6.3-8.2) g/dL Albumin (3.5-5.0) g/dL Globulin (1.7-4.1) g/dL Albumin/Globulin Ratio (1.0-2.8) Lipase (23-300) U/L Vitamin B12 (239-931) pg/mL Folate (2.76-20.0) ng/mL TSH (0.47-4.68) uIU/mL Free T4 (0.78-2.19) ng/dL Ur Bilirubin Confirm Negative (Negative) Urine RBC None seen (0-5/HPF) Urine WBC 1-5/hpf (0-5/HPF) Ur Squamous Epith Cells 5-10 /hpf H (0-5/HPF) Urine Bacteria Few (2-10) H (None) Urine Mucus 3+ H D (Negative) Ur Culture Indicated? Cult not indicated Salicylates (<20) mg/dL U Opiates 300ng/mL cut Negative (Negative) Ur Oxycodone Screen Negative (Negative) Urine Methadone Screen Negative (Negative) Acetaminophen (10-30) ug/mL Ur Barbiturates Screen Positive H (Negative) U Tricyclic Antidepress Positive H (Negative) Ur Phencyclidine Scrn Negative (Negative) Ur Amphetamines Screen Negative (Negative) U Methamphetamines Scrn Negative (Negative) Ur MDMA Scrn (Ecstasy) Negative (Negative) U Benzodiazepines Scrn Positive H (Negative) Urine Cocaine Screen Negative (Negative) U Marijuana (THC) Screen Negative (Negative) Ethyl Alcohol ( - 10) mg/dL SARS-CoV-2 (PCR) (Negative) 11/12/22 Range/Units 08:05 WBC (4.5-11.0) X10^3/uL RBC (4.0-5.2) X10^6/uL Hgb (12.0-16.0) g/dL Hct (36-46) % MCV (80-100) fL MCH (26-34) PG MCHC (30-36) % RDW (11.6-14.8) % Plt Count (150-400) X10^3/uL Neut % (Auto) (50-75) % Lymph % (Auto) (25-40) % [place] % (Auto) (3-14) % Eos % (Auto) (2-4) % Baso % (Auto) (0-2) % Neut # (Auto) (0720-4997) /uL Lymph # (Auto) (2487-7500) /uL [place] # (Auto) (0-900) /uL Eos # (Auto) (0-450) /uL Baso # (Auto) (0-100) /uL PT (10.1-12.7) SECONDS INR (0.9-1.3) Sodium (137-145) mmol/L Potassium (3.4-5.1) mmol/L Chloride (98-107) mmol/L Carbon Dioxide (22-32) mmol/L BUN (7-17) mg/dL Creatinine (0.52-1.04) mg/dL Estimated GFR (>60) mL/min BUN/Creatinine Ratio (6-22) Glucose (70-100) mg/dL Calcium (8.4-10.2) mg/dL Magnesium (1.6-2.3) mg/dL Total Bilirubin (0.2-1.3) mg/dL AST (14-36) IU/L ALT (<35) IU/L Alkaline Phosphatase (38-126) U/L Total Protein (6.3-8.2) g/dL Albumin (3.5-5.0) g/dL Globulin (1.7-4.1) g/dL Albumin/Globulin Ratio (1.0-2.8) Lipase (23-300) U/L Vitamin B12 (239-931) pg/mL Folate (2.76-20.0) ng/mL TSH (0.47-4.68) uIU/mL Free T4 (0.78-2.19) ng/dL Ur Bilirubin Confirm (Negative) Urine RBC (0-5/HPF) Urine WBC (0-5/HPF) Ur Squamous Epith Cells (0-5/HPF) Urine Bacteria (None) Urine Mucus (Negative) Ur Culture Indicated? Salicylates (<20) mg/dL U Opiates 300ng/mL cut (Negative) Ur Oxycodone Screen (Negative) Urine Methadone Screen (Negative) Acetaminophen (10-30) ug/mL Ur Barbiturates Screen (Negative) U Tricyclic Antidepress (Negative) Ur Phencyclidine Scrn (Negative) Ur Amphetamines Screen (Negative) U Methamphetamines Scrn (Negative) Ur MDMA Scrn (Ecstasy) (Negative) U Benzodiazepines Scrn (Negative) Urine Cocaine Screen (Negative) U Marijuana (THC) Screen (Negative) Ethyl Alcohol ( - 10) mg/dL SARS-CoV-2 (PCR) Negative (Negative) Point of Care Testing Test Results Negative Urine Dip Bedside Urine Glucose Negative Bedside Urine Bilirubin + 1 Bedside Urine Ketone +/- 5 Urine Specific [place] 1.030 Bedside Urine Occult Blood - Negative Bedside Urine pH 6.0 Bedside Urine Protein +/- 15 Bedside Urine Urobilinogen - Negative Bedside Urine Nitrite - Negative Bedside Urine Leukocytes - Negative Esterase <Ruben Cannon DO - Last Filed: 11/12/22 08:19> Lab Data Labs: Lab Results 11/12/22 11/12/22 11/12/22 Range/Units 05:10 05:10 05:10 WBC 3.3 L (4.5-11.0) X10^3/uL RBC 3.59 L (4.0-5.2) X10^6/uL Hgb 9.5 L (12.0-16.0) g/dL Hct 28.9 L (36-46) % MCV 80.6 (80-100) fL MCH 26.5 (26-34) PG MCHC 32.9 (30-36) % RDW 19.7 H (11.6-14.8) % Plt Count 178 (150-400) X10^3/uL Neut % (Auto) 57.6 (50-75) % Lymph % (Auto) 29.3 (25-40) % [place] % (Auto) 8.0 (3-14) % Eos % (Auto) 3.6 (2-4) % Baso % (Auto) 1.5 (0-2) % Neut # (Auto) 1900 (8000-2529) /uL Lymph # (Auto) 1000 L (6400-4264) /uL [place] # (Auto) 300 (0-900) /uL Eos # (Auto) 100 (0-450) /uL Baso # (Auto) 0 (0-100) /uL PT 12.2 (10.1-12.7) SECONDS INR 1.1 (0.9-1.3) Sodium 136 L (137-145) mmol/L Potassium 3.5 (3.4-5.1) mmol/L Chloride 104 (98-107) mmol/L Carbon Dioxide 24 (22-32) mmol/L BUN 14 (7-17) mg/dL Creatinine 0.72 (0.52-1.04) mg/dL Estimated GFR > 60 (>60) mL/min BUN/Creatinine Ratio 19.4 (6-22) Glucose 99 (70-100) mg/dL Calcium 8.9 (8.4-10.2) mg/dL Magnesium (1.6-2.3) mg/dL Total Bilirubin 0.7 (0.2-1.3) mg/dL AST 67 H (14-36) IU/L ALT 24 (<35) IU/L Alkaline Phosphatase 52 (38-126) U/L Total Protein 6.8 (6.3-8.2) g/dL Albumin 4.1 (3.5-5.0) g/dL Globulin 2.7 (1.7-4.1) g/dL Albumin/Globulin Ratio 1.5 (1.0-2.8) Lipase 337 H (23-300) U/L Vitamin B12 (239-931) pg/mL Folate (2.76-20.0) ng/mL TSH (0.47-4.68) uIU/mL Free T4 (0.78-2.19) ng/dL Ur Bilirubin Confirm (Negative) Urine RBC (0-5/HPF) Urine WBC (0-5/HPF) Ur Squamous Epith Cells (0-5/HPF) Urine Bacteria (None) Urine Mucus (Negative) Ur Culture Indicated? Salicylates < 1.0 (<20) mg/dL U Opiates 300ng/mL cut (Negative) Ur Oxycodone Screen (Negative) Urine Methadone Screen (Negative) Acetaminophen < 10 (10-30) ug/mL Ur Barbiturates Screen (Negative) U Tricyclic Antidepress (Negative) Ur Phencyclidine Scrn (Negative) Ur Amphetamines Screen (Negative) U Methamphetamines Scrn (Negative) Ur MDMA Scrn (Ecstasy) (Negative) U Benzodiazepines Scrn (Negative) Urine Cocaine Screen (Negative) U Marijuana (THC) Screen (Negative) Ethyl Alcohol < 10 ( - 10) mg/dL SARS-CoV-2 (PCR) (Negative) 11/12/22 11/12/22 11/12/22 Range/Units 05:10 05:10 05:10 WBC (4.5-11.0) X10^3/uL RBC (4.0-5.2) X10^6/uL Hgb (12.0-16.0) g/dL Hct (36-46) % MCV (80-100) fL MCH (26-34) PG MCHC (30-36) % RDW (11.6-14.8) % Plt Count (150-400) X10^3/uL Neut % (Auto) (50-75) % Lymph % (Auto) (25-40) % [place] % (Auto) (3-14) % Eos % (Auto) (2-4) % Baso % (Auto) (0-2) % Neut # (Auto) (4756-3014) /uL Lymph # (Auto) (4039-6746) /uL [place] # (Auto) (0-900) /uL Eos # (Auto) (0-450) /uL Baso # (Auto) (0-100) /uL PT (10.1-12.7) SECONDS INR (0.9-1.3) Sodium (137-145) mmol/L Potassium (3.4-5.1) mmol/L Chloride (98-107) mmol/L Carbon Dioxide (22-32) mmol/L BUN (7-17) mg/dL Creatinine (0.52-1.04) mg/dL Estimated GFR (>60) mL/min BUN/Creatinine Ratio (6-22) Glucose (70-100) mg/dL Calcium (8.4-10.2) mg/dL Magnesium 2.0 (1.6-2.3) mg/dL Total Bilirubin (0.2-1.3) mg/dL AST (14-36) IU/L ALT (<35) IU/L Alkaline Phosphatase (38-126) U/L Total Protein (6.3-8.2) g/dL Albumin (3.5-5.0) g/dL Globulin (1.7-4.1) g/dL Albumin/Globulin Ratio (1.0-2.8) Lipase (23-300) U/L Vitamin B12 401 (239-931) pg/mL Folate 11.9 (2.76-20.0) ng/mL TSH 4.71 H (0.47-4.68) uIU/mL Free T4 1.13 (0.78-2.19) ng/dL Ur Bilirubin Confirm (Negative) Urine RBC (0-5/HPF) Urine WBC (0-5/HPF) Ur Squamous Epith Cells (0-5/HPF) Urine Bacteria (None) Urine Mucus (Negative) Ur Culture Indicated? Salicylates (<20) mg/dL U Opiates 300ng/mL cut (Negative) Ur Oxycodone Screen (Negative) Urine Methadone Screen (Negative) Acetaminophen (10-30) ug/mL Ur Barbiturates Screen (Negative) U Tricyclic Antidepress (Negative) Ur Phencyclidine Scrn (Negative) Ur Amphetamines Screen (Negative) U Methamphetamines Scrn (Negative) Ur MDMA Scrn (Ecstasy) (Negative) U Benzodiazepines Scrn (Negative) Urine Cocaine Screen (Negative) U Marijuana (THC) Screen (Negative) Ethyl Alcohol ( - 10) mg/dL SARS-CoV-2 (PCR) (Negative) 11/12/22 11/12/22 11/12/22 Range/Units 05:20 05:20 05:20 WBC (4.5-11.0) X10^3/uL RBC (4.0-5.2) X10^6/uL Hgb (12.0-16.0) g/dL Hct (36-46) % MCV (80-100) fL MCH (26-34) PG MCHC (30-36) % RDW (11.6-14.8) % Plt Count (150-400) X10^3/uL Neut % (Auto) (50-75) % Lymph % (Auto) (25-40) % [place] % (Auto) (3-14) % Eos % (Auto) (2-4) % Baso % (Auto) (0-2) % Neut # (Auto) (1947-6943) /uL Lymph # (Auto) (8892-4731) /uL [place] # (Auto) (0-900) /uL Eos # (Auto) (0-450) /uL Baso # (Auto) (0-100) /uL PT (10.1-12.7) SECONDS INR (0.9-1.3) Sodium (137-145) mmol/L Potassium (3.4-5.1) mmol/L Chloride (98-107) mmol/L Carbon Dioxide (22-32) mmol/L BUN (7-17) mg/dL Creatinine (0.52-1.04) mg/dL Estimated GFR (>60) mL/min BUN/Creatinine Ratio (6-22) Glucose (70-100) mg/dL Calcium (8.4-10.2) mg/dL Magnesium (1.6-2.3) mg/dL Total Bilirubin (0.2-1.3) mg/dL AST (14-36) IU/L ALT (<35) IU/L Alkaline Phosphatase (38-126) U/L Total Protein (6.3-8.2) g/dL Albumin (3.5-5.0) g/dL Globulin (1.7-4.1) g/dL Albumin/Globulin Ratio (1.0-2.8) Lipase (23-300) U/L Vitamin B12 (239-931) pg/mL Folate (2.76-20.0) ng/mL TSH (0.47-4.68) uIU/mL Free T4 (0.78-2.19) ng/dL Ur Bilirubin Confirm Negative (Negative) Urine RBC None seen (0-5/HPF) Urine WBC 1-5/hpf (0-5/HPF) Ur Squamous Epith Cells 5-10 /hpf H (0-5/HPF) Urine Bacteria Few (2-10) H (None) Urine Mucus 3+ H D (Negative) Ur Culture Indicated? Cult not indicated Salicylates (<20) mg/dL U Opiates 300ng/mL cut Negative (Negative) Ur Oxycodone Screen Negative (Negative) Urine Methadone Screen Negative (Negative) Acetaminophen (10-30) ug/mL Ur Barbiturates Screen Positive H (Negative) U Tricyclic Antidepress Positive H (Negative) Ur Phencyclidine Scrn Negative (Negative) Ur Amphetamines Screen Negative (Negative) U Methamphetamines Scrn Negative (Negative) Ur MDMA Scrn (Ecstasy) Negative (Negative) U Benzodiazepines Scrn Positive H (Negative) Urine Cocaine Screen Negative (Negative) U Marijuana (THC) Screen Negative (Negative) Ethyl Alcohol ( - 10) mg/dL SARS-CoV-2 (PCR) (Negative) 11/12/22 Range/Units 08:05 WBC (4.5-11.0) X10^3/uL RBC (4.0-5.2) X10^6/uL Hgb (12.0-16.0) g/dL Hct (36-46) % MCV (80-100) fL MCH (26-34) PG MCHC (30-36) % RDW (11.6-14.8) % Plt Count (150-400) X10^3/uL Neut % (Auto) (50-75) % Lymph % (Auto) (25-40) % [place] % (Auto) (3-14) % Eos % (Auto) (2-4) % Baso % (Auto) (0-2) % Neut # (Auto) (0158-9597) /uL Lymph # (Auto) (1689-3198) /uL [place] # (Auto) (0-900) /uL Eos # (Auto) (0-450) /uL Baso # (Auto) (0-100) /uL PT (10.1-12.7) SECONDS INR (0.9-1.3) Sodium (137-145) mmol/L Potassium (3.4-5.1) mmol/L Chloride (98-107) mmol/L Carbon Dioxide (22-32) mmol/L BUN (7-17) mg/dL Creatinine (0.52-1.04) mg/dL Estimated GFR (>60) mL/min BUN/Creatinine Ratio (6-22) Glucose (70-100) mg/dL Calcium (8.4-10.2) mg/dL Magnesium (1.6-2.3) mg/dL Total Bilirubin (0.2-1.3) mg/dL AST (14-36) IU/L ALT (<35) IU/L Alkaline Phosphatase (38-126) U/L Total Protein (6.3-8.2) g/dL Albumin (3.5-5.0) g/dL Globulin (1.7-4.1) g/dL Albumin/Globulin Ratio (1.0-2.8) Lipase (23-300) U/L Vitamin B12 (239-931) pg/mL Folate (2.76-20.0) ng/mL TSH (0.47-4.68) uIU/mL Free T4 (0.78-2.19) ng/dL Ur Bilirubin Confirm (Negative) Urine RBC (0-5/HPF) Urine WBC (0-5/HPF) Ur Squamous Epith Cells (0-5/HPF) Urine Bacteria (None) Urine Mucus (Negative) Ur Culture Indicated? Salicylates (<20) mg/dL U Opiates 300ng/mL cut (Negative) Ur Oxycodone Screen (Negative) Urine Methadone Screen (Negative) Acetaminophen (10-30) ug/mL Ur Barbiturates Screen (Negative) U Tricyclic Antidepress (Negative) Ur Phencyclidine Scrn (Negative) Ur Amphetamines Screen (Negative) U Methamphetamines Scrn (Negative) Ur MDMA Scrn (Ecstasy) (Negative) U Benzodiazepines Scrn (Negative) Urine Cocaine Screen (Negative) U Marijuana (THC) Screen (Negative) Ethyl Alcohol ( - 10) mg/dL SARS-CoV-2 (PCR) Negative (Negative) Point of Care Testing Test Results Negative Urine Dip Bedside Urine Glucose Negative Bedside Urine Bilirubin + 1 Bedside Urine Ketone +/- 5 Urine Specific [place] 1.030 Bedside Urine Occult Blood - Negative Bedside Urine pH 6.0 Bedside Urine Protein +/- 15 Bedside Urine Urobilinogen - Negative Bedside Urine Nitrite - Negative Bedside Urine Leukocytes - Negative Esterase MDM Narrative Medical decision making narrative: Dr Cannon: Received turned over. Reviewed patient's history physical exam and workup up to this point. I am aware the patient is I evaluated her yesterday when she was having alcohol withdrawal symptoms. I advised that time that she stay in the hospital however they did feel that she had capacity to make decisions and she decided to go home. She returns this morning. Is an obvious alcohol withdrawal. Is hallucinating. CIWA score is elevated. Has been given phenobarbital and also Ativan. Currently the patient does not have capacity to make decisions in my opinion. I did discuss the case with Dr. Rocha we will admit for further evaluation and treatment of her alcohol withdrawal. Discharge Plan Departure Patient Disposition: Admitted As Inpatient Clinical Impression: Alcohol withdrawal, Alcohol use disorder Admit Date/Time: 11/12/22 08:42 Admit Provider: Daniel Rocha
[2022-11-12 06:26] LABS: INR 1.1 (0.9-1.3); Prothrombin Time 12.2 SECONDS (10.1-12.7)
[2022-11-12 06:27] LABS: Add Manual Diff / Slide Review NO; Basophils Absolute Auto 0 /uL (0-100); Basophils Percent Auto 1.5 % (0-2); Eosinophils Absolute Auto 100 /uL (0-450); Eosinophils Percent Auto 3.6 % (2-4); Hematocrit 28.9 % (36-46); Hemoglobin 9.5 g/dL (12.0-16.0); Lymphocytes Absolute Auto 1000 /uL (1100-4500); Lymphocytes Percent Auto 29.3 % (25-40); Mean Corpuscular HGB Conc 32.9 % (30-36); Mean Corpuscular Hemoglobin 26.5 PG (26-34); Mean Corpuscular Volume 80.6 fL (80-100); Monocytes Absolute Auto 300 /uL (0-900); Neutrophils Absolute Auto 1900 /uL (1500-7000); Neutrophils Percent Auto 57.6 % (50-75); Platelet Count 178 X10^3/uL (150-400); Red Blood Cell Count 3.59 X10^6/uL (4.0-5.2); Red Cell Distribution Width 19.7 % (11.6-14.8); White Blood Cell Count 3.3 X10^3/uL (4.5-11.0)
[2022-11-12 06:29] LABS: Acetaminophen < 10 ug/mL (10-30); Alanine Aminotransferase 24 IU/L (<35); Albumin 4.1 g/dL (3.5-5.0); Albumin Globulin Ratio 1.5 (1.0-2.8); Alkaline Phosphatase 52 U/L (38-126); Aspartate Aminotransferase 67 IU/L (14-36); BUN Creatinine Ratio 19.4 (6-22); Bilirubin Total 0.7 mg/dL (0.2-1.3); Blood Urea Nitrogen 14 mg/dL (7-17); Calcium 8.9 mg/dL (8.4-10.2); Carbon Dioxide 24 mmol/L (22-32); Chloride 104 mmol/L (98-107); Estimated Glomerular Filt Rate > 60 mL/min (>60); Ethanol (ETOH) < 10 mg/dL; Globulin 2.7 g/dL (1.7-4.1); Glucose 99 mg/dL (70-100); HEMOLYSIS 42 (0-50); Lipase 337 U/L (23-300); Potassium 3.5 mmol/L (3.4-5.1); Salicylate < 1.0 mg/dL (<20); Total Protein 6.8 g/dL (6.3-8.2)
[2022-11-12 06:30] LABS: Sodium 136 mmol/L (137-145)
[2022-11-12] MEDS: SODIUM CHLORIDE 0.9% 2,000 ML 1000 ML IV (06:30)
[2022-11-12] MEDS: PHENobarbital 65 MG/ML VIAL 260 MG IV (06:31)
[2022-11-12 06:37] LABS: Bacteria Urine Few (2-10); Culture Indicated Urine Cult Not Indicated; Mucus Urine 3+ (Negative); RBC Urine None Seen (0-5/HPF); Squamous Epithelial Cell Urine 5-10 /HPF (0-5/HPF); WBC Urine 1-5/HPF (0-5/HPF)
[2022-11-12 06:38] LABS: Ictotest Urine Negative (Negative)
[2022-11-12 06:39] LABS: UR Morphine/Opiate cutoff 300 Negative (Negative); Ur Creatinine Normal (Normal); Ur Specific Gravity Normal (Normal); Urine Cocaine Negative (Negative); Urine Tetrahydrocannabinol Negative (Negative); Urine pH Normal (Normal)
[2022-11-12 06:40] LABS: Urine Amphetamines Negative (Negative); Urine Barbiturates Positive (Negative); Urine Benzodiazepines Positive (Negative); Urine MDMA Negative (Negative); Urine Methadone Negative (Negative); Urine Methamphetamines Negative (Negative); Urine Oxycodone Negative (Negative); Urine Phencyclidine Negative (Negative); Urine Tricyclic Antidepressant Positive (Negative)
[2022-11-12] MEDS: LORazepam 2 MG/ML INJ 1 MG IV (07:45)
[2022-11-12] MEDS: THIAMINE 200 MG in SODIUM CHLORIDE 0.9% 100 ML 408 MG IV (07:45)
--- NOTE | 2022-11-12 07:49 | PC.NURSE ---
nurse walked into room, observed pt using pen and phone to eat pt reports im eating my breakfast, pen to phone then mouth. redirected pt and gave pt breakfast tray and utensils. pt recently medicated with ativan.
--- NOTE | 2022-11-12 08:07 | P.HP_ITS ---
History of Present Illness History of Present Illness Date Patient Seen: 11/12/22 Chief complaint: Altered LOC Narrative: Nighat castro is a 32-year-old female with past medical history of depression, alcohol abuse and GERD who presents in acute alcohol withdrawals. Patient is encephalopathic and unable to provide history. She was previously admitted for DT withdrawals for 2 days earlier this month and was in the ICU on precedex drip. Discharged home after she refused inpatient rehab for her alcohol abuse. She was also seen in our ED yesterday for withdrawals and sent home, but then returned today with hallucinations and severe withdrawals. Phenobarb and ativan given in ED without good effect, so precedex started. Patient's labs and vitals are stable. On my exam in CCU patient is sleeping and calm on max precedex drip. Patient History Medical History Alcohol withdrawal delirium, acute, hyperactive Anemia (~2017) Insomnia Menometrorrhagia (spontaneous vaginal delivery) (~12/17/18) Surgical History H/O dilation and curettage (~03/27/17) H/O wisdom tooth extraction (~2013) S/P myringotomy with insertion of tube Family & Social History Family History Mother Diabetes mellitus Overweight Father Alcoholism Grandfather Unknown whether patient has any health problems Grandmother Diabetes mellitus Smoker Family/Other Diabetes mellitus Obesity Family/Other Alcoholism Grandfather Smoker Alcoholism Grandmother Hypoglycemia Social History: household members children Safety & Behavioral: Suicidal Ideation Description None Suicide Plan Description No Plan Tobacco & Substance use: Tobacco type cigarettes Smoking Status Former smoker alcohol intake former alcohol intake frequency 3 or more drinks per day Substance Use Type does not use Meds Home Medications and Allergies Home Medications Medication Instructions Recorded Confirmed Type fluoxetine 10 mg capsule 10 mg PO DAILY 10/24/22 11/12/22 History hydroxyzine HCl 50 mg tablet 50 mg PO DAILY 10/24/22 11/12/22 History quetiapine 300 mg tablet 300 mg PO DAILY 10/24/22 11/12/22 History multivitamin with folic acid 400 1 tab PO DAILY #30 tabs 10/25/22 11/12/22 Rx mcg tablet (Tab-A-Princess) pantoprazole 40 mg tablet,delayed 40 mg PO 0700 #30 tabs 10/25/22 11/12/22 Rx release thiamine mononitrate (vit B1) 100 100 mg PO DAILY #30 tabs 10/25/22 11/12/22 Rx mg tablet Allergies Allergy/AdvReac Type Severity Reaction Status Date / Time metoclopramide Allergy Mild RASH/HIVES Verified 10/23/22 16:18 [METOCLOPRAMIDE] hydrocodone [HYDROCODONE] AdvReac Unknown VOMITING Verified 10/23/22 16:18 Review of Systems Review of Systems Narrative: All other systems reviewed with the patient and are negative unless otherwise stated. Exam Vital Signs (past 8 hours): - 11/12/22 05:00 11/12/22 07:44 Temperature 97.7 F Pulse Rate 76 65 Respiratory Rate 18 20 Blood Pressure 92/67 98/53 L Pulse Oximetry 98 98 Oxygen Delivery Method Room Air Room Air Oxygen Delivery Method Room Air Narrative Exam Narrative: GEN: no acute distress, sleeping HEENT: moist mucous membranes, PERRL NECK: trachea midline, no JVD CV: regular rate and rhythm, no murmurs PULM: clear bilaterally ABD: soft, nontender, nondistended, no organomegaly EXT: warm and well perfused with no edema NEURO: awake, alert, oriented, no focal deficits Objective Labs 11/12/22 05:10 11/12/22 05:10 Labs: Laboratory Results - last 24 hr 11/12/22 11/12/22 11/12/22 05:10 05:10 05:10 WBC 3.3 L RBC 3.59 L Hgb 9.5 L Hct 28.9 L MCV 80.6 MCH 26.5 MCHC 32.9 RDW 19.7 H Plt Count 178 Neut % (Auto) 57.6 Lymph % (Auto) 29.3 [place] % (Auto) 8.0 Eos % (Auto) 3.6 Baso % (Auto) 1.5 Neut # (Auto) 1900 Lymph # (Auto) 1000 L [place] # (Auto) 300 Eos # (Auto) 100 Baso # (Auto) 0 PT 12.2 INR 1.1 Sodium 136 L Potassium 3.5 Chloride 104 Carbon Dioxide 24 BUN 14 Creatinine 0.72 Estimated GFR > 60 BUN/Creatinine Ratio 19.4 Glucose 99 Calcium 8.9 Total Bilirubin 0.7 AST 67 H ALT 24 Alkaline Phosphatase 52 Total Protein 6.8 Albumin 4.1 Globulin 2.7 Albumin/Globulin Ratio 1.5 Lipase 337 H Ur Bilirubin Confirm Urine RBC Urine WBC Ur Squamous Epith Cells Urine Bacteria Urine Mucus Ur Culture Indicated? Salicylates < 1.0 U Opiates 300ng/mL cut Ur Oxycodone Screen Urine Methadone Screen Acetaminophen < 10 Ur Barbiturates Screen U Tricyclic Antidepress Ur Phencyclidine Scrn Ur Amphetamines Screen U Methamphetamines Scrn Ur MDMA Scrn (Ecstasy) U Benzodiazepines Scrn Urine Cocaine Screen U Marijuana (THC) Screen Ethyl Alcohol < 10 11/12/22 11/12/22 11/12/22 05:20 05:20 05:20 WBC RBC Hgb Hct MCV MCH MCHC RDW Plt Count Neut % (Auto) Lymph % (Auto) [place] % (Auto) Eos % (Auto) Baso % (Auto) Neut # (Auto) Lymph # (Auto) [place] # (Auto) Eos # (Auto) Baso # (Auto) PT INR Sodium Potassium Chloride Carbon Dioxide BUN Creatinine Estimated GFR BUN/Creatinine Ratio Glucose Calcium Total Bilirubin AST ALT Alkaline Phosphatase Total Protein Albumin Globulin Albumin/Globulin Ratio Lipase Ur Bilirubin Confirm Negative Urine RBC None seen Urine WBC 1-5/hpf Ur Squamous Epith Cells 5-10 /hpf H Urine Bacteria Few (2-10) H Urine Mucus 3+ H D Ur Culture Indicated? Cult not indicated Salicylates U Opiates 300ng/mL cut Negative Ur Oxycodone Screen Negative Urine Methadone Screen Negative Acetaminophen Ur Barbiturates Screen Positive H U Tricyclic Antidepress Positive H Ur Phencyclidine Scrn Negative Ur Amphetamines Screen Negative U Methamphetamines Scrn Negative Ur MDMA Scrn (Ecstasy) Negative U Benzodiazepines Scrn Positive H Urine Cocaine Screen Negative U Marijuana (THC) Screen Negative Ethyl Alcohol Assessment & Plan Assessment & Plan narrative: # acute alcohol withdrawal with delirium tremens -patient states last drink 5 days ago, but unclear if true given current w ithdrawals symptoms would like be out of window. UDS positive benzos, barbs and TCA's. EtOH negative. -CIWA protocol with Ativan, phenobarbital 60 mg IV b.i.d., Librium 50 q.6 hours when able to take oral meds -continue Precedex drip until and benzos and barbiturates can take effect -appreciate tele-ICU consultation -MV, thiamine and B6 daily # depression and anxiety -continue home Prozac when able to take po # normocytic anemia -no evidence of bleeding -appears to be chronic -check B12/folate # GERD -continue PPI Code status is full code. COVID negative. DVT prophylaxis with SCDs. Proxy is spouse Rubén. I have reviewed home meds and used all available resources to reconcile the home meds. I spent a total of 35 minutes of critical care time on this patient's care today; this time is exclusive of procedural time. This patient will be admitted as inpatient and will require greater than 2 midnights of hospital time to treat acute alcohol withdrawals with DTs.
[2022-11-12] MEDS: LORazepam 2 MG/ML INJ IV ×6 (08:09→10:20)
[2022-11-12] MEDS: PHENobarbital 65 MG/ML VIAL 60 MG IV ×2 (08:21→21:26)
[2022-11-12] MEDS: PANTOPRAZOLE 40 MG VIAL IV (08:21)
[2022-11-12] MEDS: hydrOXYzine pamoate 25 MG CAPSULE 50 MG PO (08:22)
[2022-11-12] MEDS: dexmedeTOMIDine in 0.9 % NaCL 400 MCG/100 ML PLAST..BAG IV (08:30)
[2022-11-12 08:47] LABS: COVID19 -Nasal RAPID Negative (Negative)
[2022-11-12 08:51] LABS: TSH w/ Reflex to FT4 4.71 uIU/mL (0.47-4.68)
[2022-11-12 09:20] LABS: Free T4, Direct Thyroxine 1.13 ng/dL (0.78-2.19)
--- NOTE | 2022-11-12 09:22 | P.TELICUCN_ITS ---
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 Rocha Narrative: Patient is a 32 year old female with history of alcohol abuse who presents with alcohol withdrawal. By report patient was recently admitted here for alcohol withdrawal. Post discharge she was doing quite well until last week she went on a binge with her last drink on Thursday. She presents yesterday with agitation and anxiety which improved in the ER and was discharged home. However patient continues to have visual and auditory hallucination which she presents back to the ER. In ER, she received ativan 3 mg and phenobarb 260 mg. She remains agitated and started on precedex gtt. Admitted to ICU for alcohol withdrawal. On arrival to ICU patient was extremely agitated and received 5 mg of ativan. Precedex increased to 2 mcg and another 2 mg of ativan was given. On camera assessment patient is RASS -1. VSS. PFSH Medical History Alcohol withdrawal delirium, acute, hyperactive Anemia (~2017) Insomnia Menometrorrhagia (spontaneous vaginal delivery) (~12/17/18) Surgical History H/O dilation and curettage (~03/27/17) H/O wisdom tooth extraction (~2013) S/P myringotomy with insertion of tube Family History Mother Diabetes mellitus Overweight Father Alcoholism Grandfather Unknown whether patient has any health problems Grandmother Diabetes mellitus Smoker Family/Other Diabetes mellitus Obesity Family/Other Alcoholism Grandfather Smoker Alcoholism Grandmother Hypoglycemia Social History marital status: number of children: 1 household members: children education level: college occupational status: employed current occupational exposures/hazards: Yes (obvious risk with Pandemic ) nidih/pentecostalism: Taoist special nidhi needs: No Smoking Status: Former smoker second hand exposure: No (growing up as a child - not currently) alcohol intake: former substance use type: does not use Current Medications Current Medications Medications: Home Medications fluoxetine 10 mg capsule 10 mg PO DAILY 10/24/22 [History Confirmed 10/24/22] hydroxyzine HCl 50 mg tablet 50 mg PO DAILY 10/24/22 [History Confirmed 10/24/22] quetiapine 300 mg tablet 300 mg PO DAILY 10/24/22 [History Confirmed 10/24/22] multivitamin with folic acid 400 mcg tablet (Tab-A-Princess) 1 tab PO DAILY #30 tabs 10/25/22 [Rx] pantoprazole 40 mg tablet,delayed release 40 mg PO 0700 #30 tabs 10/25/22 [Rx] thiamine mononitrate (vit B1) 100 mg tablet 100 mg PO DAILY #30 tabs 10/25/22 [Rx] Visit Medications (administered) Generic Name Dose Route Start Last Admin Trade Name Freq PRN Reason Stop Dose Admin Hydroxyzine Pamoate 50 mg 11/12/22 09:00 11/12/22 08:22 Hydroxyzine Pamoate 25 Mg Capsule PO 50 mg DAILY DAVONTE Administration Thiamine HCl 100 mg/ Sodium 101 mls @ 404 mls/hr 11/12/22 09:00 11/12/22 08:10 Chloride IV Not Given DAILY DAVONTE dexmedeTOMIDine in 0.9 % NaCL 400 mcg in 100 mls @ 2.699 mls/hr 11/12/22 08:15 11/12/22 09:08 Precedex IV 1.5 mcg/kg/hr TITRATE DAVONTE 20.241 mls/hr Titration Protocol 0.2 MCG/KG/HR Pantoprazole Sodium 40 mg 11/12/22 09:00 11/12/22 08:21 Pantoprazole 40 Mg Vial IV 40 mg DAILY DAVONTE Administration Phenobarbital 60 mg 11/12/22 09:00 11/12/22 08:21 Phenobarbital 65 Mg/Ml Vial IV 60 mg BID DAVONTE Administration Exam Vital Signs (past 8 hours): - 11/12/22 05:00 11/12/22 07:44 11/12/22 08:41 Temperature 97.7 F Pulse Rate 76 65 87 Respiratory Rate 18 20 20 Blood Pressure 92/67 98/53 L 102/73 Pulse Oximetry 98 98 98 Oxygen Delivery Method Room Air Room Air Room Air Oxygen Delivery Method Room Air Narrative Exam Narrative: Sleeping with RASS -1. Objective Labs 11/12/22 05:10 11/12/22 05:10 Labs: Laboratory Results - last 24 hr 11/12/22 11/12/22 11/12/22 05:10 05:10 05:10 WBC 3.3 L RBC 3.59 L Hgb 9.5 L Hct 28.9 L MCV 80.6 MCH 26.5 MCHC 32.9 RDW 19.7 H Plt Count 178 Neut % (Auto) 57.6 Lymph % (Auto) 29.3 [place] % (Auto) 8.0 Eos % (Auto) 3.6 Baso % (Auto) 1.5 Neut # (Auto) 1900 Lymph # (Auto) 1000 L [place] # (Auto) 300 Eos # (Auto) 100 Baso # (Auto) 0 PT 12.2 INR 1.1 Sodium 136 L Potassium 3.5 Chloride 104 Carbon Dioxide 24 BUN 14 Creatinine 0.72 Estimated GFR > 60 BUN/Creatinine Ratio 19.4 Glucose 99 Calcium 8.9 Magnesium Total Bilirubin 0.7 AST 67 H ALT 24 Alkaline Phosphatase 52 Total Protein 6.8 Albumin 4.1 Globulin 2.7 Albumin/Globulin Ratio 1.5 Lipase 337 H TSH Free T4 Ur Bilirubin Confirm Urine RBC Urine WBC Ur Squamous Epith Cells Urine Bacteria Urine Mucus Ur Culture Indicated? Salicylates < 1.0 U Opiates 300ng/mL cut Ur Oxycodone Screen Urine Methadone Screen Acetaminophen < 10 Ur Barbiturates Screen U Tricyclic Antidepress Ur Phencyclidine Scrn Ur Amphetamines Screen U Methamphetamines Scrn Ur MDMA Scrn (Ecstasy) U Benzodiazepines Scrn Urine Cocaine Screen U Marijuana (THC) Screen Ethyl Alcohol < 10 SARS-CoV-2 (PCR) 11/12/22 11/12/22 11/12/22 05:10 05:10 05:20 WBC RBC Hgb Hct MCV MCH MCHC RDW Plt Count Neut % (Auto) Lymph % (Auto) [place] % (Auto) Eos % (Auto) Baso % (Auto) Neut # (Auto) Lymph # (Auto) [place] # (Auto) Eos # (Auto) Baso # (Auto) PT INR Sodium Potassium Chloride Carbon Dioxide BUN Creatinine Estimated GFR BUN/Creatinine Ratio Glucose Calcium Magnesium 2.0 Total Bilirubin AST ALT Alkaline Phosphatase Total Protein Albumin Globulin Albumin/Globulin Ratio Lipase TSH 4.71 H Free T4 1.13 Ur Bilirubin Confirm Urine RBC Urine WBC Ur Squamous Epith Cells Urine Bacteria Urine Mucus Ur Culture Indicated? Salicylates U Opiates 300ng/mL cut Negative Ur Oxycodone Screen Negative Urine Methadone Screen Negative Acetaminophen Ur Barbiturates Screen Positive H U Tricyclic Antidepress Positive H Ur Phencyclidine Scrn Negative Ur Amphetamines Screen Negative U Methamphetamines Scrn Negative Ur MDMA Scrn (Ecstasy) Negative U Benzodiazepines Scrn Positive H Urine Cocaine Screen Negative U Marijuana (THC) Screen Negative Ethyl Alcohol SARS-CoV-2 (PCR) 11/12/22 11/12/22 11/12/22 05:20 05:20 08:05 WBC RBC Hgb Hct MCV MCH MCHC RDW Plt Count Neut % (Auto) Lymph % (Auto) [place] % (Auto) Eos % (Auto) Baso % (Auto) Neut # (Auto) Lymph # (Auto) [place] # (Auto) Eos # (Auto) Baso # (Auto) PT INR Sodium Potassium Chloride Carbon Dioxide BUN Creatinine Estimated GFR BUN/Creatinine Ratio Glucose Calcium Magnesium Total Bilirubin AST ALT Alkaline Phosphatase Total Protein Albumin Globulin Albumin/Globulin Ratio Lipase TSH Free T4 Ur Bilirubin Confirm Negative Urine RBC None seen Urine WBC 1-5/hpf Ur Squamous Epith Cells 5-10 /hpf H Urine Bacteria Few (2-10) H Urine Mucus 3+ H D Ur Culture Indicated? Cult not indicated Salicylates U Opiates 300ng/mL cut Ur Oxycodone Screen Urine Methadone Screen Acetaminophen Ur Barbiturates Screen U Tricyclic Antidepress Ur Phencyclidine Scrn Ur Amphetamines Screen U Methamphetamines Scrn Ur MDMA Scrn (Ecstasy) U Benzodiazepines Scrn Urine Cocaine Screen U Marijuana (THC) Screen Ethyl Alcohol SARS-CoV-2 (PCR) Negative Assessment & Plan Assessment & Plan narrative: NEURO: # Acute encephalopathy -- Secondary to alcohol withdrawal -- Alcohol withdrawal management as below -- Check ammonia level # Alcohol withdrawal w/ DT -- On precedex, librium, and ativan -- Cont CIWA every 1 hr -- Ativan as needed to maintain RASS goal 0 -- On seizure precaution -- On thiamine, folic acid, and MTV RESP -- On room air -- Enocurage IS when encephalopathy resolve RESP: -- MAP goal > 65 HEME: # Anemia - SEcondary to BM supression -- DAily CBC -- Goal Hb > 7 ENDO: -- Goal BS < 180 D/w Dr. Rocha and bedside RN Renate. Time Spent With Patient Critical Care time: I spent a total of 34 minutes of critical care time on this patient's care today; this time is exclusive of procedural time.
[2022-11-12 09:57] LABS: Folate 11.9 ng/mL (2.76-20.0); Vitamin B12 401 pg/mL (239-931)
[2022-11-12] MEDS: dexmedeTOMIDine in 0.9 % NaCL 400 MCG/100 ML PLAST..BAG 26.989 MCG IV (11:04)
[2022-11-12 11:21] LABS: MRSA (Nasal) PCR Not Detected (Not Detect)
--- NOTE | 2022-11-12 14:50 | CM.DANOTE ---
Initial DCP Assessment Note Pt is a 32 yo female, resident of [place], presents to the ED in active alcohol withdrawal with hallucinations. According to H+P: Patient is encephalopathic and unable to provide history. She was previously admitted for DT withdrawals for 2 days earlier this month and was in the ICU on precedex drip. Discharged home after she refused inpatient rehab for her alcohol abuse. She was also seen in our ED yesterday for withdrawals and sent home PCP: Julita Montiel (OBGYN) Payer: Murphy Oh Reviewed chart, initial DCP assessment completed with information available on chart and brief conversation w/friend/SO Kulwant Winkler P [phone]; Patient had discharged home from 3.12.14 after refusing to attend treatment, SO Kulwant reports he offered to stay with patient and help her in her stated goal of sobriety and patient refused Patient has two children that are currently being cared for by relatives out of state. Patient has recently sold their family home and going through a divorce with spouse Rubén Stearns P [phone] SO Kulwant reports that patient had been sober for approx. 18 months until relapse 3 mo ago; since then has been drinking approx 750ml + daily of hard alcohol (a handle). Patient attempted to quit drinking cold turkey last Thursday Plan: Following closely for assessment of need and assist w/dispo coordination. Patient requiring 1:1 today r/t agitation and sx of w/d. CIWA was 30 when patient was transferred to the floor from ER at approx 0845 this AM RISHABH Madrigal Discharge Planning/Care Management Discharge Assessment Start: 11/12/22 14:44 Freq: Status: Active Protocol: Document 11/12/22 14:44 DEIDRA (Rec: 11/12/22 14:49 DEIDRA [id number]) Discharge Planning Assessment Assigned B2B Outside Sales Representative RISHABH Addison DPOA/Assigned Designee Name Kulwant Jasontoby chisholm Contact Information [phone] Advance Directives? No History Provided By Friend,Significant Other, Medical Record Has Patient been admitted in last 30 Yes days? Prior Living Arrangements House Household Members significant other Type of transporation used prior to Drives own vehicle admit Independent with ADL's Yes Is patient alert and oriented? Yes Patient/Family Preference Drug/Alcohol Rehab Comment SO Kulwant hopeful patient will seek treatment Barriers to Discharge No Comment Home vs Substance Use Disorder treatment/rehab Transportation Arrangement TBD Referrals Initiated None needed
[2022-11-12] MEDS: dexmedeTOMIDine in 0.9 % NaCL 400 MCG/100 ML PLAST..BAG 13.494 MCG IV ×2 (15:54→23:38)
--- NOTE | 2022-11-12 17:53 | PC.NURSE ---
Pt arrived via gurney from ED, she was very combative, multiple attempts to get out of gurney and bed. Hallucinating in the room, agitated, pulling at lines. Tele cook pickled meat notified of pt arrival, recommended multiple doses of Ativan Q15 min, and turning Precedex gtt up to 2mcg/kg/hr. Beginning CIWA score was 35, after 10mg total of Ativan pushes over 1.25 hrs, pt was finally calm and resting comfortably. Vitals recorded Q1H, CIWA Q1H, per Dr Lenz keep pt comfortable and sleeping for the new 24-48 hrs to allow her to get over the worst of the DT. Monitoring pt closely, bed low and locked, Seizure pads in place, bed alarm on for safety, will continue to monitor.
--- NOTE | 2022-11-12 20:11 | PM.ICURNDS ---
- Date Patient Seen: 11/12/22 Time Patient Seen: 20:12 :: This patient was seen via real time interactive two-way audiovisual telecommunication. Note: Patient is currently on precedex 1 mcg. No ativan given since 10 am. Current CIWA is 4. Added D5LR at 84cc/hr and check accucheck q6hr. D/w bedside RN.
[2022-11-12] MEDS: DEXTROSE 5%-LACTATED RINGERS 1,000 ML 84 ML IV (21:09)
[2022-11-13] VITALS (55 sets, daily range): BP systolic 103–133; BP diastolic 66–82; PULSE 49–77; RESP 12–39; TEMP 36.2–37.1; O2SAT 92–100
--- NOTE | 2022-11-13 02:15 | PC.NURSE ---
Addendum entered by Daya De La Rosa R.N. 11/13/22 06:45: 0600- Patient straight cathed after attempting to void on the bedpan without results. Bladder scanned for 617ml. Straight cathed for 475ml patient cooperative and tolerated well. Original Note: 0200- Bladder scan volume 575. Dr. Minaya notified no order rec. Attempted to reach EICU left a message. Patient is comfortable and does not appear in distress at this time. Will bladder scan again at 0400. Will monitor.
[2022-11-13 05:01] LABS: Add Manual Diff / Slide Review NO; BUN Creatinine Ratio 9.3 (6-22); Basophils Absolute Auto 0 /uL (0-100); Basophils Percent Auto 0.8 % (0-2); Blood Urea Nitrogen 5 mg/dL (7-17); Calcium 7.9 mg/dL (8.4-10.2); Carbon Dioxide 24 mmol/L (22-32); Chloride 105 mmol/L (98-107); Eosinophils Absolute Auto 100 /uL (0-450); Eosinophils Percent Auto 2.9 % (2-4); Estimated Glomerular Filt Rate > 60 mL/min (>60); Glucose 122 mg/dL (70-100); HEMOLYSIS < 15 (0-50); Hematocrit 28.6 % (36-46); Hemoglobin 9.4 g/dL (12.0-16.0); Lymphocytes Absolute Auto 1200 /uL (1100-4500); Mean Corpuscular HGB Conc 32.8 % (30-36); Mean Corpuscular Hemoglobin 26.6 PG (26-34); Mean Corpuscular Volume 81.1 fL (80-100); Monocytes Absolute Auto 200 /uL (0-900); Neutrophils Absolute Auto 3400 /uL (1500-7000); Neutrophils Percent Auto 67.3 % (50-75); Platelet Count 157 X10^3/uL (150-400); Potassium 3.3 mmol/L (3.4-5.1); Red Blood Cell Count 3.53 X10^6/uL (4.0-5.2); Red Cell Distribution Width 20.1 % (11.6-14.8); Sodium 135 mmol/L (137-145)
[2022-11-13 05:34] LABS: Anisocytosis 1+
[2022-11-13] MEDS: dexmedeTOMIDine in 0.9 % NaCL 400 MCG/100 ML PLAST..BAG 13.494 MCG IV ×3 (06:01→19:27)
[2022-11-13] MEDS: POTASSIUM CHLORIDE IN WATER 10 MEQ/100 ML PIGGYBACK 100 MEQ IV ×2 (06:05→07:35)
--- NOTE | 2022-11-13 07:18 | P.PN_ITS ---
Subjective Subjective Interval history: Patient remains on precedex drip. Sleeping currently. Exam Vital Signs (past 8 hours): - 11/13/22 00:00 11/13/22 01:00 11/13/22 01:00 Temperature 98.5 F Pulse Rate 49 L 52 L Respiratory Rate 18 13 Blood Pressure 118/74 112/81 Pulse Oximetry 98 98 Oxygen Delivery Method Room Air 11/13/22 02:00 11/13/22 03:00 11/13/22 04:00 Temperature 98.7 F Pulse Rate 55 L 57 L 57 L Respiratory Rate 17 17 18 Blood Pressure 115/77 123/76 119/77 Pulse Oximetry 97 98 98 Oxygen Delivery Method 11/13/22 05:00 11/13/22 06:35 11/13/22 06:00 Temperature Pulse Rate 58 L 59 L Respiratory Rate 18 17 Blood Pressure 124/75 Pulse Oximetry 97 100 Oxygen Delivery Method Room Air Oxygen Delivery Method Room Air Oxygen Flow Rate 0 Narrative Exam Narrative: GEN: no acute distress, sleeping HEENT: moist mucous membranes, PERRL NECK: trachea midline, no JVD CV: regular rate and rhythm, no murmurs PULM: clear bilaterally ABD: soft, nontender, nondistended, no organomegaly EXT: warm and well perfused with no edema NEURO: no focal deficits Objective Labs 11/13/22 03:48 11/13/22 03:48 Labs: Laboratory Results - last 24 hr 11/12/22 11/12/22 11/12/22 05:10 05:10 05:10 WBC RBC Hgb Hct MCV MCH MCHC RDW Plt Count Neut % (Auto) Lymph % (Auto) [place] % (Auto) Eos % (Auto) Baso % (Auto) Neut # (Auto) Lymph # (Auto) [place] # (Auto) Eos # (Auto) Baso # (Auto) RBC Morphology Anisocytosis Sodium Potassium Chloride Carbon Dioxide BUN Creatinine Estimated GFR BUN/Creatinine Ratio Glucose Calcium Magnesium 2.0 Vitamin B12 401 Folate 11.9 TSH 4.71 H Free T4 1.13 Nasal Screen MRSA (PCR) SARS-CoV-2 (PCR) 11/12/22 11/12/22 11/13/22 08:05 09:25 03:48 WBC 5.0 D RBC 3.53 L Hgb 9.4 L Hct 28.6 L MCV 81.1 MCH 26.6 MCHC 32.8 RDW 20.1 H Plt Count 157 Neut % (Auto) 67.3 Lymph % (Auto) 24.0 L [place] % (Auto) 5.0 Eos % (Auto) 2.9 Baso % (Auto) 0.8 Neut # (Auto) 3400 Lymph # (Auto) 1200 [place] # (Auto) 200 Eos # (Auto) 100 Baso # (Auto) 0 RBC Morphology See below Anisocytosis 1+ H Sodium Potassium Chloride Carbon Dioxide BUN Creatinine Estimated GFR BUN/Creatinine Ratio Glucose Calcium Magnesium Vitamin B12 Folate TSH Free T4 Nasal Screen MRSA (PCR) Not detected SARS-CoV-2 (PCR) Negative 11/13/22 03:48 WBC RBC Hgb Hct MCV MCH MCHC RDW Plt Count Neut % (Auto) Lymph % (Auto) [place] % (Auto) Eos % (Auto) Baso % (Auto) Neut # (Auto) Lymph # (Auto) [place] # (Auto) Eos # (Auto) Baso # (Auto) RBC Morphology Anisocytosis Sodium 135 L Potassium 3.3 L Chloride 105 Carbon Dioxide 24 BUN 5 L Creatinine 0.54 Estimated GFR > 60 BUN/Creatinine Ratio 9.3 Glucose 122 H Calcium 7.9 L Magnesium Vitamin B12 Folate TSH Free T4 Nasal Screen MRSA (PCR) SARS-CoV-2 (PCR) [facility] Medical History Alcohol withdrawal delirium, acute, hyperactive Anemia (~2017) Insomnia Menometrorrhagia (spontaneous vaginal delivery) (~12/17/18) Surgical History H/O dilation and curettage (~03/27/17) H/O wisdom tooth extraction (~2013) S/P myringotomy with insertion of tube Family History Mother Diabetes mellitus Overweight Father Alcoholism Grandfather Unknown whether patient has any health problems Grandmother Diabetes mellitus Smoker Family/Other Diabetes mellitus Obesity Family/Other Alcoholism Grandfather Smoker Alcoholism Grandmother Hypoglycemia Social History marital status: number of children: 1 household members: significant other education level: college occupational status: employed current occupational exposures/hazards: Yes (obvious risk with Pandemic ) nidhi/episcopal: Adventism special nidhi needs: No Smoking Status: Former smoker second hand exposure: No (growing up as a child - not currently) alcohol intake: current substance use type: does not use Assessment & Plan Assessment & Plan narrative: # acute alcohol withdrawal with delirium tremens -patient states last drink 5 days ago, but unclear if true given current withdr awals symptoms would like be out of window. UDS positive benzos, barbs and TCA's. EtOH negative. -CIWA protocol with Ativan, phenobarbital 60 mg IV b.i.d., Librium 50 q.6 hours when able to take oral meds -continue Precedex drip until and benzos and barbiturates can take effect -appreciate tele-ICU consultation -MV, thiamine and B6 daily # toxic metabolic encephalopathy secondary to benzos, barbiturates, and alcohol withdrawal -patient very agitated in ED and required precedex drip -should improve as withdrawals improve # depression and anxiety -continue home Prozac when able to take po # normocytic anemia -no evidence of bleeding -appears to be chronic -B12/folate normal # GERD -continue PPI Code status is full code. COVID negative. DVT prophylaxis with SCDs. Proxy is spouse Rubén. I have reviewed home meds and used all available resources to reconcile the home meds. I spent a total of 35 minutes of critical care time on this patient's care today; this time is exclusive of procedural time. Dispo: ICU
--- NOTE | 2022-11-13 09:17 | PM.PN.EICU ---
Subjective Subjective IF CAMERA ACTIVATED, patient seen via real-time interactive audiovisual communication: Camera activated Date Patient Seen: 11/13/22 Consent obtained for tele-program director cable television care: Yes Patient Location: ICU Provider location (State): [place] Other participants/roles: Bedside RN Dr. Rocha, hospitalist Interval history: Patient remains on precedex gtt, CIWA with benzos along with scheduled IV phenobarb, librium, though not given currently as not safe for PO meds She is asleep this am Current Medications Current Medications Medications: Home Medications fluoxetine 10 mg capsule 10 mg PO DAILY 10/24/22 [History Confirmed 11/12/22] hydroxyzine HCl 50 mg tablet 50 mg PO DAILY 10/24/22 [History Confirmed 11/12/22] quetiapine 300 mg tablet 300 mg PO DAILY 10/24/22 [History Confirmed 11/12/22] multivitamin with folic acid 400 mcg tablet (Tab-A-Princess) 1 tab PO DAILY #30 tabs 10/25/22 [Rx Confirmed 11/12/22] pantoprazole 40 mg tablet,delayed release 40 mg PO 0700 #30 tabs 10/25/22 [Rx Confirmed 11/12/22] thiamine mononitrate (vit B1) 100 mg tablet 100 mg PO DAILY #30 tabs 10/25/22 [Rx Confirmed 11/12/22] Visit Medications (administered) Generic Name Dose Route Start Last Admin Trade Name Freq PRN Reason Stop Dose Admin Chlordiazepoxide HCl 50 mg 11/12/22 12:00 11/13/22 06:01 Chlordiazepoxide 25 Mg Capsule PO Not Given Q6HR DAVONTE Fluoxetine HCl 10 mg 11/12/22 09:00 11/13/22 08:11 Fluoxetine 10 Mg Capsule PO Not Given DAILY DAVONTE Folic Acid 1 mg 11/12/22 09:00 11/13/22 08:11 Folic Acid 1 Mg Tablet PO Not Given DAILY DAVONTE Hydroxyzine Pamoate 50 mg 11/12/22 09:00 11/13/22 08:11 Hydroxyzine Pamoate 25 Mg Capsule PO Not Given DAILY DAVONTE Thiamine HCl 100 mg/ Sodium 101 mls @ 404 mls/hr 11/12/22 09:00 11/12/22 08:10 Chloride IV Not Given DAILY DAVONTE dexmedeTOMIDine in 0.9 % NaCL 400 mcg in 100 mls @ 26.989 mls/hr 11/12/22 08:15 11/13/22 06:01 Precedex IV 1 mcg/kg/hr TITRATE DAVONTE 13.494 mls/hr Administration Protocol 2 MCG/KG/HR Dextrose/Lactated Ringer's 1,000 mls @ 84 mls/hr 11/12/22 20:15 11/12/22 21:09 Dextrose 5%-Lactated Ringers IV 84 mls/hr CONT DAVONTE Administration Lorazepam 0 mg 11/12/22 08:00 11/12/22 10:20 Lorazepam 2 Mg/Ml Inj IV 2 mg CIWAPRN PRN Administration Alcohol Withdrawal Protocol Multivitamins 1 tab 11/12/22 09:00 11/13/22 08:11 Multivitamin 1 Tablet PO Not Given DAILY DAVONTE Pantoprazole Sodium 40 mg 11/12/22 09:00 11/12/22 08:21 Pantoprazole 40 Mg Vial IV 40 mg DAILY DAVONTE Administration Phenobarbital 60 mg 11/12/22 09:00 11/12/22 21:26 Phenobarbital 65 Mg/Ml Vial IV 60 mg BID DAVONTE Administration Pyridoxine HCl 100 mg 11/12/22 09:00 11/12/22 09:35 Pyridoxine 100 Mg/Ml Vial IV Not Given DAILY DAVONTE Objective Labs 11/13/22 03:48 11/13/22 03:48 Labs: Laboratory Results - last 24 hr 11/12/22 11/12/22 11/12/22 05:10 05:10 09:25 WBC RBC Hgb Hct MCV MCH MCHC RDW Plt Count Neut % (Auto) Lymph % (Auto) [place] % (Auto) Eos % (Auto) Baso % (Auto) Neut # (Auto) Lymph # (Auto) [place] # (Auto) Eos # (Auto) Baso # (Auto) RBC Morphology Anisocytosis Sodium Potassium Chloride Carbon Dioxide BUN Creatinine Estimated GFR BUN/Creatinine Ratio Glucose Calcium Vitamin B12 401 Folate 11.9 Free T4 1.13 Nasal Screen MRSA (PCR) Not detected 11/13/22 11/13/22 03:48 03:48 WBC 5.0 D RBC 3.53 L Hgb 9.4 L Hct 28.6 L MCV 81.1 MCH 26.6 MCHC 32.8 RDW 20.1 H Plt Count 157 Neut % (Auto) 67.3 Lymph % (Auto) 24.0 L [place] % (Auto) 5.0 Eos % (Auto) 2.9 Baso % (Auto) 0.8 Neut # (Auto) 3400 Lymph # (Auto) 1200 [place] # (Auto) 200 Eos # (Auto) 100 Baso # (Auto) 0 RBC Morphology See below Anisocytosis 1+ H Sodium 135 L Potassium 3.3 L Chloride 105 Carbon Dioxide 24 BUN 5 L Creatinine 0.54 Estimated GFR > 60 BUN/Creatinine Ratio 9.3 Glucose 122 H Calcium 7.9 L Vitamin B12 Folate Free T4 Nasal Screen MRSA (PCR) Exam Vital Signs (past 8 hours): - 11/13/22 02:00 11/13/22 03:00 11/13/22 04:00 Temperature 98.7 F Pulse Rate 55 L 57 L 57 L Respiratory Rate 17 17 18 Blood Pressure 115/77 123/76 119/77 Pulse Oximetry 97 98 98 Oxygen Delivery Method 11/13/22 05:00 11/13/22 06:35 11/13/22 06:00 Temperature Pulse Rate 58 L 59 L Respiratory Rate 18 17 Blood Pressure 124/75 Pulse Oximetry 97 100 Oxygen Delivery Method Room Air Oxygen Delivery Method Room Air Oxygen Flow Rate 0 Narrative Exam Narrative: Sleeping in bed, no distress Resp Other: no apparent distress Assessment & Plan Assessment and plan (1) Alcohol withdrawal delirium, acute, hyperactive: Status: Acute (2) Alcohol withdrawal: Status: Acute Plan Remains in ICU for acute alcohol withdrawal with DT's Given severity of sx: continue current medications today- Precedex gtt, scheduled phenobarb, librium (when safe for taking PO meds) Ativan per [facility] protocol Plan for trial of weaning precedex tomorrow am MVI, folate, thiamine restart fluoxetine when taking PO gentle hydration replace K Will need plan for rehab PPx: SUP- PPI VTE, SCDs ordered, but cause extreme agitation lovenox ordered instead for DVT ppx Assessment & Plan narrative: Continue current level of care. Requires ICU for acute alcohol withdrawal management Time Spent With Patient Time with patient: 30 to 49 minutes with 50% spent counseling/coordinating care (Critical care time 35 minutes.)
[2022-11-13] MEDS: PANTOPRAZOLE 40 MG VIAL IV (09:55)
[2022-11-13] MEDS: PHENobarbital 65 MG/ML VIAL 60 MG IV ×2 (09:55→21:29)
[2022-11-13] MEDS: PYRIDOXINE 100 MG/ML VIAL IV (09:55)
[2022-11-13] MEDS: THIAMINE 100 MG in SODIUM CHLORIDE 0.9% 100 ML 404 MG IV (09:55)
[2022-11-13] MEDS: ENOXAPARIN 40 MG/0.4 ML SYRINGE SUBCUT (10:14)
[2022-11-13] MEDS: DEXTROSE 5%-LACTATED RINGERS 1,000 ML 84 ML IV ×2 (10:16→22:23)
--- NOTE | 2022-11-13 10:47 | DIET.CONS ---
Addendum entered by Delaney Merino 11/13/22 12:03: RD agrees with electrical engineering intern note below. Original Note: Dietary Consultation Note Admission Date: 11/12/2022 08:42 Assessment: 32 y/o F admitted for management of alcohol withdrawal with delirium. Was unable to meet with pt due to somnolence. Pt was previously admitted for alcohol withdrawal for 2 days earlier this month. Per previous RD consultation notes (10/23/22), pt relapsed after 18 months sobriety d/t divorce. Pt reported drinking as much as 750 cc of vodka/day and came into ED with blood alcohol level of 338. Wt hx: 10/15/2021 68.04 kg 09/23/22 56.69 kg 10/24/22 54.5 kg EMR wt hx indicates 20% loss over one year (moderate). 3.8% loss over one month. ETOH withdrawal meets criteria for severe PCM. May be at risk for severe PCM. Given her inability to participate in assessment will have to use wt hx to determine level of PCM (moderate). Ht: 157.48 cm Wt: 54.8 kg BMI: 21.7 UBW: 66-68kg (since 2020) MNA: Jose Score: 15 Diet: 11/12/22 07:56 NPO Diet Diet Modifications: May Advance Diet as Tolerated: Yes Safety Tray needed?: Yes NPO Type: NPO except for Meds Labs: RBC 3.53 X10^6/uL (4.0-5.2) L 11/13/22 03:48 Hgb 9.4 g/dL (12.0-16.0) L 11/13/22 03:48 Hct 28.6 % (36-46) L 11/13/22 03:48 Creatinine 0.54 mg/dL (0.52-1.04) 11/13/22 03:48 Nutrition Diagnosis: Acute on chronic moderate protein calorie malnutrition r/t excessive ETOH aeb past/present alcohol abuse of 750 cc vodka/day, 20% wt loss in 1 yr, and admitted for substance withdrawal with hallucinations. The patient is at much higher risk for medical and surgical complications because of his malnutrition.? This increases the difficulty and complexity of medical and surgical interventions and increases the chances of poor outcomes such as morbidity and mortality. Interventions: none at this time, strongly suggest complete etoh cessation. EER: [id number] (25-30 kcal/kg per BMI), 80-100g PRO (1.5-1.8g/kg per PCM) Monitoring/Evaluations: will reevaluate severity of PCM status and POs as pt NPO at this time due to somnolence. Electronically Signed by: Ashley Greene 11/13/22 10:47 Clinical Dietitian [address] [id number]
[2022-11-13] MEDS: LORazepam 2 MG/ML INJ IV (12:31)
--- NOTE | 2022-11-13 12:47 | CM.DPC ---
DCP Note Continued ENROLLMENT CONSULTANT reviews patient with RN. It is reported that patient it was recommended by ICU telehealth providers that patient maintain a sedated sleep like state for 48 hours due to patient's withdrawal symptoms. Per RN, patient was experiencing DTs and hallucinations. ENROLLMENT CONSULTANT reviews EMR and recalls meeting with patient in ED on 10/23/22. Patient has significant history of rehabilitation and detox in the last few years. Most recently patient discharged from [facility] several weeks ago for detox. At this time patient is not able to have a conversation regarding her discharge plan due to her sedated state. It is the opinion of this ENROLLMENT CONSULTANT that patient would benefit from and be appropriate for detox and rehabilitation. If patient is not voluntarily choosing to pursue ANÍBAL treatment, it is the opinion of this ENROLLMENT CONSULTANT that patient would be an appropriate candidate for Juan Manuel's Law. DCPs to further assess patient for appropriateness of dispatching DCR upon medical clearance. Plan: DCP to f/u with patient for further ANÍBAL assessment regarding plan upon medical clearance. Joceline Blas, HUMANITIES DIVISION CHAIR
--- NOTE | 2022-11-13 20:08 | PM.ICURNDS ---
- Date Patient Seen: 11/13/22 Time Patient Seen: 20:09 :: This patient was seen via real time interactive two-way audiovisual telecommunication. Note: On precedex 1 mcg/kg/hr, scheduled phenobarb, and librium. Patient is cooperative and follow simple commands. Start titrating down precedex in the am. D/w bedside RN.
--- NOTE | 2022-11-13 20:14 | PC.NURSE ---
Addendum entered by Daya De La Rosa R.N. 12/19/22 00:16: 12/19/2022- Late entry phenobarbitol 5mg waste with Danielle Medina RN. Addendum entered by Daya De La Rosa R.N. 11/14/22 03:45: 0345- Patient sitting up in bed, when asked what she was doing she replied, Tao needs help with groceries. Patient reoriented to her room and told she is in the Hospital. Patient does not recall how she got to the Hospital. Patient cooperative with care but clearly confused. Patient brief changed and linens change, urmila care provided. Potassium result WNL no orders rec. Will monitor. Original Note: 1999- Patient impulsive and tried to get oob. Bed Alarm engaged and alerted staffs. Patient assisted to the BSC. One person assist patient is wobbly but able to follow cueing. Patient asked if she had a tampon in and she confirmed that she did. Patient removed tampon while up to the BSC. Patient unable to tell RN how long the tampon had been inserted. Dr. Danielle aware. Patient asking appropriate questions about how she arrived at the hospital. Order for Potassium obtained will f/u when resulted.
[2022-11-13 21:39] LABS: HEMOLYSIS 37 (0-50); Potassium 3.8 mmol/L (3.4-5.1)
[2022-11-14] VITALS (24 sets, daily range): BP systolic 121–138; BP diastolic 69–88; PULSE 45–66; RESP 15–22; TEMP 36.5–37.1; O2SAT 93–100
[2022-11-14] MEDS: dexmedeTOMIDine in 0.9 % NaCL 400 MCG/100 ML PLAST..BAG 13.494 MCG IV ×2 (02:15→09:03)
[2022-11-14 08:17] LABS: Add Manual Diff / Slide Review NO; Basophils Absolute Auto 0 /uL (0-100); Basophils Percent Auto 0.4 % (0-2); Eosinophils Absolute Auto 100 /uL (0-450); Eosinophils Percent Auto 2.5 % (2-4); Hematocrit 29.7 % (36-46); Lymphocytes Absolute Auto 1300 /uL (1100-4500); Lymphocytes Percent Auto 26.4 % (25-40); Mean Corpuscular HGB Conc 33.7 % (30-36); Mean Corpuscular Volume 80.1 fL (80-100); Monocytes Absolute Auto 400 /uL (0-900); Monocytes Percent Auto 7.7 % (3-14); Neutrophils Absolute Auto 3100 /uL (1500-7000); Platelet Count 155 X10^3/uL (150-400); Red Blood Cell Count 3.71 X10^6/uL (4.0-5.2); Red Cell Distribution Width 20.3 % (11.6-14.8); White Blood Cell Count 4.9 X10^3/uL (4.5-11.0)
[2022-11-14 08:28] LABS: Anisocytosis 1+
--- NOTE | 2022-11-14 08:32 | P.PN_ITS ---
Exam Vital Signs (past 8 hours): - 11/14/22 02:14 11/14/22 01:00 11/14/22 01:00 Temperature 97.7 F Pulse Rate 47 L Respiratory Rate 19 Blood Pressure 128/83 Pulse Oximetry 94 Oxygen Delivery Method 11/14/22 01:30 11/14/22 02:00 11/14/22 02:00 Temperature Pulse Rate 49 L 47 L Respiratory Rate 16 15 Blood Pressure 122/76 Pulse Oximetry 99 100 Oxygen Delivery Method 11/14/22 02:00 11/14/22 02:30 11/14/22 03:00 Temperature Pulse Rate 45 L Respiratory Rate 16 Blood Pressure 128/80 Pulse Oximetry 99 Oxygen Delivery Method Room Air 11/14/22 03:00 11/14/22 03:44 11/14/22 03:30 Temperature 98.7 F Pulse Rate 46 L 46 L Respiratory Rate 17 16 Blood Pressure Pulse Oximetry 99 98 Oxygen Delivery Method 11/14/22 04:00 11/14/22 04:00 11/14/22 04:30 Temperature Pulse Rate 47 L 48 L Respiratory Rate 18 22 Blood Pressure 138/77 Pulse Oximetry 95 98 Oxygen Delivery Method 11/14/22 05:00 11/14/22 05:00 11/14/22 05:30 Temperature Pulse Rate 49 L 49 L Respiratory Rate 19 19 Blood Pressure 126/83 Pulse Oximetry 98 98 Oxygen Delivery Method 11/14/22 06:00 11/14/22 06:00 11/14/22 06:30 Temperature Pulse Rate 50 L 50 L Respiratory Rate 20 17 Blood Pressure 126/88 Pulse Oximetry 98 98 Oxygen Delivery Method 11/14/22 07:00 11/14/22 07:00 Temperature Pulse Rate 48 L Respiratory Rate 16 Blood Pressure 130/81 Pulse Oximetry 98 Oxygen Delivery Method Oxygen Delivery Method Room Air Oxygen Flow Rate 0 Narrative Exam Narrative: GEN: no acute distress, sleeping HEENT: moist mucous membranes, PERRL NECK: trachea midline, no JVD CV: regular rate and rhythm, no murmurs PULM: clear bilaterally ABD: soft, nontender, nondistended, no organomegaly EXT: warm and well perfused with no edema NEURO: no focal deficits Objective Labs 11/14/22 07:50 11/14/22 07:50 Labs: Laboratory Results - last 24 hr 11/13/22 11/14/22 21:20 07:50 WBC 4.9 RBC 3.71 L Hgb 10.0 L Hct 29.7 L MCV 80.1 MCH 27.0 MCHC 33.7 RDW 20.3 H Plt Count 155 Neut % (Auto) 63.0 Lymph % (Auto) 26.4 [place] % (Auto) 7.7 Eos % (Auto) 2.5 Baso % (Auto) 0.4 Neut # (Auto) 3100 Lymph # (Auto) 1300 [place] # (Auto) 400 Eos # (Auto) 100 Baso # (Auto) 0 RBC Morphology Not Reportable Anisocytosis 1+ H Potassium 3.8 PFSH Medical History Alcohol withdrawal delirium, acute, hyperactive Anemia (~2017) Insomnia Menometrorrhagia (spontaneous vaginal delivery) (~12/17/18) Surgical History H/O dilation and curettage (~03/27/17) H/O wisdom tooth extraction (~2013) S/P myringotomy with insertion of tube Family History Mother Diabetes mellitus Overweight Father Alcoholism Grandfather Unknown whether patient has any health problems Grandmother Diabetes mellitus Smoker Family/Other Diabetes mellitus Obesity Family/Other Alcoholism Grandfather Smoker Alcoholism Grandmother Hypoglycemia Social History marital status: number of children: 1 household members: significant other education level: college occupational status: employed current occupational exposures/hazards: Yes (obvious risk with Pandemic ) nidhi/sikh: Confucianism special nidhi needs: No Smoking Status: Former smoker second hand exposure: No (growing up as a child - not currently) alcohol intake: current substance use type: does not use
[2022-11-14 08:39] LABS: Calcium 8.1 mg/dL (8.4-10.2); Carbon Dioxide 28 mmol/L (22-32); Chloride 101 mmol/L (98-107); Estimated Glomerular Filt Rate > 60 mL/min (>60); Glucose 131 mg/dL (70-100); HEMOLYSIS < 15 (0-50); Potassium 3.4 mmol/L (3.4-5.1); Sodium 134 mmol/L (137-145)
[2022-11-14 08:40] LABS: BUN Creatinine Ratio 3.6 (6-22); Blood Urea Nitrogen 2 mg/dL (7-17)
--- NOTE | 2022-11-14 08:48 | PM.PN.EICU ---
Subjective Subjective IF CAMERA ACTIVATED, patient seen via real-time interactive audiovisual communication: Camera activated Consent obtained for tele-brand ambassadors promotional sales care: Yes Patient Location: ICU Provider location (State): [place] Other participants/roles: hospitalist, RN Interval history: Patient summary: 32 yo woman with PMH Of ETOH abuse admitted 11/12/22 for ETOH withrawal and DTS. PT. given ativan, phenobarb, and placed on precedex drip. Recent events: Patient's DT's improving. She was on Dex at 1 mcg/kg/hr this morning but then her IV was lost so she is currently off Dex. Current Medications Current Medications Medications: Home Medications fluoxetine 10 mg capsule 10 mg PO DAILY 10/24/22 [History Confirmed 11/12/22] hydroxyzine HCl 50 mg tablet 50 mg PO DAILY 10/24/22 [History Confirmed 11/12/22] quetiapine 300 mg tablet 300 mg PO DAILY 10/24/22 [History Confirmed 11/12/22] multivitamin with folic acid 400 mcg tablet (Tab-A-Princess) 1 tab PO DAILY #30 tabs 10/25/22 [Rx Confirmed 11/12/22] pantoprazole 40 mg tablet,delayed release 40 mg PO 0700 #30 tabs 10/25/22 [Rx Confirmed 11/12/22] thiamine mononitrate (vit B1) 100 mg tablet 100 mg PO DAILY #30 tabs 10/25/22 [Rx Confirmed 11/12/22] Visit Medications (administered) Generic Name Dose Route Start Last Admin Trade Name Freq PRN Reason Stop Dose Admin Chlordiazepoxide HCl 50 mg 11/12/22 12:00 11/14/22 06:38 Chlordiazepoxide 25 Mg Capsule PO Not Given Q6HR DAVONTE Enoxaparin Sodium 40 mg 11/13/22 09:45 11/13/22 10:14 Enoxaparin 40 Mg/0.4 Ml Syringe SUBCUT 40 mg DAILY DAVONTE Administration Fluoxetine HCl 10 mg 11/12/22 09:00 11/13/22 08:11 Fluoxetine 10 Mg Capsule PO Not Given DAILY DAVONTE Folic Acid 1 mg 11/12/22 09:00 11/13/22 08:11 Folic Acid 1 Mg Tablet PO Not Given DAILY DAVONTE Hydroxyzine Pamoate 50 mg 11/12/22 09:00 11/13/22 08:11 Hydroxyzine Pamoate 25 Mg Capsule PO Not Given DAILY DAVONTE Thiamine HCl 100 mg/ Sodium 101 mls @ 404 mls/hr 11/12/22 09:00 11/13/22 19:23 Chloride IV Infused DAILY DAVONTE Infusion dexmedeTOMIDine in 0.9 % NaCL 400 mcg in 100 mls @ 26.989 mls/hr 11/12/22 08:15 11/14/22 02:15 Precedex IV 1 mcg/kg/hr TITRATE DAVONTE 13.494 mls/hr Administration Protocol 2 MCG/KG/HR Dextrose/Lactated Ringer's 1,000 mls @ 84 mls/hr 11/12/22 20:15 11/13/22 22:23 Dextrose 5%-Lactated Ringers IV 84 mls/hr CONT DAVONTE Administration Lorazepam 0 mg 11/12/22 08:00 11/13/22 12:31 Lorazepam 2 Mg/Ml Inj IV 2 mg CIWAPRN PRN Administration Alcohol Withdrawal Protocol Multivitamins 1 tab 11/12/22 09:00 11/13/22 08:11 Multivitamin 1 Tablet PO Not Given DAILY DAVONTE Pantoprazole Sodium 40 mg 11/12/22 09:00 11/13/22 09:55 Pantoprazole 40 Mg Vial IV 40 mg DAILY DAVONTE Administration Phenobarbital 60 mg 11/12/22 09:00 11/13/22 21:29 Phenobarbital 65 Mg/Ml Vial IV 60 mg BID DAVONTE Administration Pyridoxine HCl 100 mg 11/12/22 09:00 11/13/22 09:55 Pyridoxine 100 Mg/Ml Vial IV 100 mg DAILY DAVONTE Administration Objective Labs 11/14/22 07:50 11/14/22 07:50 Labs: Laboratory Results - last 24 hr 11/13/22 11/14/22 11/14/22 21:20 07:50 07:50 WBC 4.9 RBC 3.71 L Hgb 10.0 L Hct 29.7 L MCV 80.1 MCH 27.0 MCHC 33.7 RDW 20.3 H Plt Count 155 Neut % (Auto) 63.0 Lymph % (Auto) 26.4 [place] % (Auto) 7.7 Eos % (Auto) 2.5 Baso % (Auto) 0.4 Neut # (Auto) 3100 Lymph # (Auto) 1300 [place] # (Auto) 400 Eos # (Auto) 100 Baso # (Auto) 0 RBC Morphology Not Reportable Anisocytosis 1+ H Sodium 134 L Potassium 3.8 3.4 Chloride 101 Carbon Dioxide 28 BUN 2 L Creatinine 0.55 Estimated GFR > 60 BUN/Creatinine Ratio 3.6 L Glucose 131 H Calcium 8.1 L Exam Vital Signs (past 8 hours): - 11/14/22 02:14 11/14/22 01:00 11/14/22 01:00 Temperature 97.7 F Pulse Rate 47 L Respiratory Rate 19 Blood Pressure 128/83 Pulse Oximetry 94 Oxygen Delivery Method 11/14/22 01:30 11/14/22 02:00 11/14/22 02:00 Temperature Pulse Rate 49 L 47 L Respiratory Rate 16 15 Blood Pressure 122/76 Pulse Oximetry 99 100 Oxygen Delivery Method 11/14/22 02:00 11/14/22 02:30 11/14/22 03:00 Temperature Pulse Rate 45 L Respiratory Rate 16 Blood Pressure 128/80 Pulse Oximetry 99 Oxygen Delivery Method Room Air 11/14/22 03:00 11/14/22 03:44 11/14/22 03:30 Temperature 98.7 F Pulse Rate 46 L 46 L Respiratory Rate 17 16 Blood Pressure Pulse Oximetry 99 98 Oxygen Delivery Method 11/14/22 04:00 11/14/22 04:00 11/14/22 04:30 Temperature Pulse Rate 47 L 48 L Respiratory Rate 18 22 Blood Pressure 138/77 Pulse Oximetry 95 98 Oxygen Delivery Method 11/14/22 05:00 11/14/22 05:00 11/14/22 05:30 Temperature Pulse Rate 49 L 49 L Respiratory Rate 19 19 Blood Pressure 126/83 Pulse Oximetry 98 98 Oxygen Delivery Method 11/14/22 06:00 11/14/22 06:00 11/14/22 06:30 Temperature Pulse Rate 50 L 50 L Respiratory Rate 20 17 Blood Pressure 126/88 Pulse Oximetry 98 98 Oxygen Delivery Method 11/14/22 07:00 11/14/22 07:00 Temperature Pulse Rate 48 L Respiratory Rate 16 Blood Pressure 130/81 Pulse Oximetry 98 Oxygen Delivery Method Oxygen Delivery Method Room Air Oxygen Flow Rate 0 Narrative Exam Narrative: Aston seen over [address] way audio-visual system. She is alert, calm, and cooperative Assessment & Plan Assessment & Plan narrative: Assessmet ETOH withdrawal/DTs ETOH abuse Plan -Librium 50 mg Q6h -start Gabapentin -restart Precedex drip as needed once IV access obtained - ativan prn high CIWA score -agree with stopping scheduled Phenobarb for now as DTs improved but if severe agitation develops later can consider additional doses of Phenobarn prn -start PO diet given improved mental status. If Po intake is good can stop maintenance fluid D5LR -thiamine, folate, MVI PPx: lovenox, protonix Time Spent With Patient Time with patient: 30 to 49 minutes with 50% spent counseling/coordinating care
[2022-11-14] MEDS: ENOXAPARIN 40 MG/0.4 ML SYRINGE SUBCUT (09:21)
[2022-11-14] MEDS: FLUoxetine 10 MG CAPSULE PO (09:21)
[2022-11-14] MEDS: FOLIC ACID 1 MG TABLET PO (09:23)
[2022-11-14] MEDS: hydrOXYzine pamoate 25 MG CAPSULE 50 MG PO (09:23)
[2022-11-14] MEDS: POTASSIUM CHLORIDE 20 MEQ TAB 40 MEQ PO (09:23)
[2022-11-14] MEDS: PYRIDOXINE 100 MG/ML VIAL IV (09:27)
[2022-11-14] MEDS: MULTIVITAMIN 1 TABLET 1 TAB PO (09:55)
[2022-11-14] MEDS: DEXTROSE 5%-LACTATED RINGERS 1,000 ML 84 ML IV (09:58)
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
[2022-11-14] MEDS: THIAMINE 100 MG TABLET PO (11:13)
[2022-11-14] MEDS: GABAPENTIN 300 MG CAPSULE PO (11:13)
[2022-11-14] MEDS: chlordiazePOXIDE 25 MG CAPSULE 50 MG PO (11:13)
[2022-11-14 11:48] LABS: Magnesium 1.7 mg/dL (1.6-2.3)
--- NOTE | 2022-11-14 12:42 | PC.NURSE ---
0930 IV infiltrated and Dc'd IV meds and fluids. Pt alert and oriented cooperative with care. ambulating to BR with 1 person assist. Taking PO meds without difficulty
[2022-11-14] MEDS: MAGNESIUM CHLORIDE 64 MG TABLET 128 MG PO (13:13)
--- NOTE | 2022-11-14 14:25 | PM.DS.1 ---
History of Present Illness History of Present Illness Date Patient Seen: 11/14/22 Time Patient Seen: 14:28 Chief complaint: Altered LOC Narrative: Nighat castro is a 32-year-old female with past medical history of depression, alcohol abuse and GERD who presents in acute alcohol withdrawals. Patient is encephalopathic and unable to provide history. She was previously admitted for DT withdrawals for 2 days earlier this month and was in the ICU on precedex drip. Discharged home after she refused inpatient rehab for her alcohol abuse. She was also seen in our ED yesterday for withdrawals and sent home, but then returned today with hallucinations and severe withdrawals. Phenobarb and ativan given in ED without good effect, so precedex started. Patient's labs and vitals are stable. On my exam in CCU patient is sleeping and calm on max precedex drip. Discharge Providers Provider Date of admission: 11/12/22 08:42 Discharge Date: 11/14/22 Primary care physician: Julita Montiel MD Consults: 11/12/22 07:42 Consult to [facility] [place] - Bank Accountant Stat Comment: 11/12/22 08:13 Consult to Tele-cleater Routine Comment: Consulting Provider: Joe Tele-intensivists Reason for consultation: Application Processor services 11/12/22 09:53 Consult to Bank Accountant Routine Comment: 11/13/22 10:20 Consult to Dietitian, Adult Routine Comment: Reason For Exam: malnutrition Discharge provider: Daniel Rocha DO Summary Hospital Course Discharge Diagnosis: # acute alcohol withdrawal with delirium tremens -patient states last drink 5 days ago, but unclear if true given current withdrawals symptoms would like be out of window. UDS positive benzos, barbs and TCA's. EtOH negative. -CIWA protocol with Ativan, phenobarbital 60 mg IV b.i.d., Librium 50 q.6 hours when able to take oral meds -continue Precedex drip until and benzos and barbiturates can take effect -able to wean off precedex after 2 days to just librium po -MV, thiamine and B6 daily -sent home on librium taper as well as antabuse per patient's request -DCR evaluated patient and deemed her safe to discharge home with her # toxic metabolic encephalopathy secondary to benzos, barbiturates, and alcohol withdrawal, resolved -patient very agitated in ED and required precedex drip -mentation returned to baseline after 2 days # depression and anxiety -continue home Prozac when able to take po # normocytic anemia -no evidence of bleeding -appears to be chronic -B12/folate normal # GERD -continue PPI # Acute on chronic moderate protein calorie malnutrition r/t excessive ETOH aeb past/present alcohol abuse of 750 cc vodka/day, 20% wt loss in 1 yr, and admitted for substance withdrawal with hallucinations. The patient is at much higher risk for medical and surgical complications because of his malnutrition.? This increases the difficulty and complexity of medical and surgical interventions and increases the chances of poor outcomes such as morbidity and mortality. Hospital Course: Admitted for acute alcohol withdrawals requiring phenobarb, precedex and IV ativan. She improved after 2 days on 60mg IV pheno and precedex and able to wean off the precedex. DCR evaluated and cleared patient for home. She was sent on a librium taper and antabuse per her request. Time Spent with Patient Time spent: Greater than 30 minutes Exam Vital Signs (past 8 hours): - 11/14/22 06:30 11/14/22 07:00 11/14/22 07:00 Pulse Rate 50 L 48 L Respiratory Rate 17 16 Blood Pressure 130/81 Pulse Oximetry 98 98 Oxygen Delivery Method 11/14/22 10:00 11/14/22 07:30 11/14/22 08:00 Pulse Rate 48 L Respiratory Rate 15 Blood Pressure 122/82 Pulse Oximetry 98 Oxygen Delivery Method Room Air 11/14/22 08:00 11/14/22 08:30 11/14/22 09:00 Pulse Rate 45 L 64 Respiratory Rate 15 18 Blood Pressure 121/69 Pulse Oximetry 99 99 Oxygen Delivery Method 11/14/22 09:00 11/14/22 09:30 11/14/22 10:00 Pulse Rate 53 L 66 55 L Respiratory Rate 15 21 18 Blood Pressure Pulse Oximetry 95 98 100 Oxygen Delivery Method 11/14/22 10:30 Pulse Rate 62 Respiratory Rate 18 Blood Pressure Pulse Oximetry 93 Oxygen Delivery Method Oxygen Delivery Method Room Air Oxygen Flow Rate 0 Narrative Exam Narrative: GEN: no acute distress, sarcastic HEENT: moist mucous membranes, PERRL NECK: trachea midline, no JVD CV: regular rate and rhythm, no murmurs PULM: clear bilaterally ABD: soft, nontender, nondistended, no organomegaly EXT: warm and well perfused with no edema NEURO: no focal deficits Objective Labs 11/14/22 07:50 11/14/22 07:50 Labs: Laboratory Results - last 24 hr 11/13/22 11/14/22 11/14/22 21:20 07:50 07:50 WBC 4.9 RBC 3.71 L Hgb 10.0 L Hct 29.7 L MCV 80.1 MCH 27.0 MCHC 33.7 RDW 20.3 H Plt Count 155 Neut % (Auto) 63.0 Lymph % (Auto) 26.4 [place] % (Auto) 7.7 Eos % (Auto) 2.5 Baso % (Auto) 0.4 Neut # (Auto) 3100 Lymph # (Auto) 1300 [place] # (Auto) 400 Eos # (Auto) 100 Baso # (Auto) 0 RBC Morphology Not Reportable Anisocytosis 1+ H Sodium 134 L Potassium 3.8 3.4 Chloride 101 Carbon Dioxide 28 BUN 2 L Creatinine 0.55 Estimated GFR > 60 BUN/Creatinine Ratio 3.6 L Glucose 131 H Calcium 8.1 L Magnesium 11/14/22 07:50 WBC RBC Hgb Hct MCV MCH MCHC RDW Plt Count Neut % (Auto) Lymph % (Auto) [place] % (Auto) Eos % (Auto) Baso % (Auto) Neut # (Auto) Lymph # (Auto) [place] # (Auto) Eos # (Auto) Baso # (Auto) RBC Morphology Anisocytosis Sodium Potassium Chloride Carbon Dioxide BUN Creatinine Estimated GFR BUN/Creatinine Ratio Glucose Calcium Magnesium 1.7 [facility] Medical History Alcohol withdrawal delirium, acute, hyperactive Anemia (~2017) Insomnia Menometrorrhagia (spontaneous vaginal delivery) (~12/17/18) Surgical History H/O dilation and curettage (~03/27/17) H/O wisdom tooth extraction (~2013) S/P myringotomy with insertion of tube Family History Mother Diabetes mellitus Overweight Father Alcoholism Grandfather Unknown whether patient has any health problems Grandmother Diabetes mellitus Smoker Family/Other Diabetes mellitus Obesity Family/Other Alcoholism Grandfather Smoker Alcoholism Grandmother Hypoglycemia Social History marital status: number of children: 1 household members: significant other education level: college occupational status: employed current occupational exposures/hazards: Yes (obvious risk with Pandemic ) nidhi/cheondoism: Yazdanism special nidhi needs: No Smoking Status: Former smoker second hand exposure: No (growing up as a child - not currently) alcohol intake: current substance use type: does not use Discharge Plan Discharge Plan Patient Disposition: Home Provider Discharge Comment: You were admitted for severe alcohol withdrawals. This improved with high doses of medications. I'm sending you on a librium taper to finish at home, but DO NOT drink alcohol while taking it or you could stop breathing. I've also sent a month supply of Antabuse. Discharge orders & Medications Prescriptions: New chlordiazepoxide HCl 25 mg capsule See Rx Instructions .ROUTE .COMPLEX Qty: 30 0RF Rx Instructions: 25 mg orally 3 times daily for 2 days, then 2 times daily for 2 days then once daily for 2 days then stop disulfiram 250 mg tablet 250 mg PO DAILY Qty: 30 0RF Continued fluoxetine 10 mg capsule 10 mg PO DAILY hydroxyzine HCl 50 mg tablet 50 mg PO DAILY quetiapine 300 mg tablet 300 mg PO DAILY thiamine mononitrate (vit B1) 100 mg Tablet 100 mg PO DAILY Qty: 30 0RF multivitamin with folic acid [Tab-A-Princess] 400 mcg Tablet 1 tab PO DAILY Qty: 30 0RF pantoprazole 40 mg Tablet,Delayed Release (Dr/Ec) 40 mg PO 0700 Qty: 30 0RF Follow up/Referrals: Julita Montiel MD [Primary Care Provider] - Visit Report/Discharge Packet Stand Alone Forms: Patient Portal/API, Stroke Signs & Symptoms Discharge Data Primary Care Provider: Julita Montiel
--- NOTE | 2022-11-14 14:32 | CM.DPC ---
DCP Discharge Home DCR came and did bedside assessment to see if pt meets criteria for Involuntary Detainment under Lance's Law for Substance Abuse and long hx of withdrawal and treatment. Per DCR, pt does not meet criteria for involuntary placement and feels pt could safely d/c back to the community with outpt resources and Sig Other. aware and will write discharge orders to home with a taper of Librium for withdrawals. Pt fully aware of the ETOH resources and has participated in multiple IOP and outpt treatments. RISHABH Lanier
--- NOTE | 2022-11-14 14:39 | PC.NURSE ---
Discharge note: IV discontinued, tele removed. Patient education provided. Paperwork signed. Answered patient questions. Patient wheeled via wheelchair to private vehicle with PCT and significant other at 1440.
== END 2022-11-14 14:40 | disposition home or self-care (01) | DRG 896 ==
LOC: ED 07:56 → AC 08:43 → ICU 09:04
PROVIDERS: Emergency Medicine; Internal Medicine; Internal Medicine Pulmonary Disease; Admitting Provider Student in an Organized Health Care Education/Training Program; Emergency Provider Emergency Medicine; PCP Specialist; Referring Provider Emergency Medicine; Visit Provider Student in an Organized Health Care Education/Training Program
DX: F10.231 Alcohol dependence with withdrawal delirium (principal); G92.8 Other toxic encephalopathy; E44.0 Moderate protein-calorie malnutrition; F32.A Depression, unspecified; F41.9 Anxiety disorder, unspecified; K21.9 Gastro-esophageal reflux disease without esophagitis; T42.4X5A Adverse effect of benzodiazepines, initial encounter; T42.3X5A Adverse effect of barbiturates, initial encounter; Y90.0 Blood alcohol level of less than 20 mg/100 ml; Z20.822 Contact with and (suspected) exposure to COVID-19; Z87.891 Personal history of nicotine dependence; Z68.22 Body mass index [BMI] 22.0-22.9, adult
CPT/HCPCS: 36415; 70450; 80048; 80053; 80305; 80320; 80329; 81003; 81015; 81025; 82607; 82746; 82962; 83690; 83735; 84132; 84439; 84443; 85025; 85610; 87635; 87797; 96365; 96375; 99232; 99284; 99291; C9803; C9113; G0480; J1650; J2060; J2560; J7121

== ENCOUNTER 2022-11-19 20:03 | Inpatient (IN) | payer OTHER, SELFPAY ==
[2022-11-12 09:01] VITALS: BMI 21.7
[2022-11-19 20:13] VITALS: PULSE 100; RESP 20; TEMP 36.6; O2SAT 96; BMI 21.7
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
--- NOTE | 2022-11-19 20:48 | ED.GENADULT ---
HPI - General Adult General Chief complaint: Toxicology Problem Stated complaint: needs to detox Time Seen by Provider: 11/19/22 20:27 Source: other (Friend) Mode of arrival: Ambulatory Limitations: other (Intoxicated) History of Present Illness HPI narrative: Patient is a 32-year-old female who has been here multiple times over the past several weeks for alcohol intoxication and alcohol withdrawals. She is been admitted 2 times in the past this hospital most recently within the past couple weeks needing admission to the hospital in a Precedex drip for her symptoms. Patient arrives today with a friend. She contacted her friend stating that she wanted to come to the emergency department because she wanted help for drinking. Her last drink was just prior to arrival here in the ER. Patient is very anxious in his obviously hallucinating. She is very animated in the room. She did say yes that she wanted admitted for detox. Apparently her kids are returning home next week and she wanted to be sober in order to see them. Patient is unwilling/unable to provide much other HPI or review of systems. Related Data Home Medications Medication Instructions Recorded Confirmed fluoxetine 10 mg capsule 10 mg PO DAILY 10/24/22 11/12/22 hydroxyzine HCl 50 mg tablet 50 mg PO DAILY 10/24/22 11/12/22 quetiapine 300 mg tablet 300 mg PO DAILY 10/24/22 11/12/22 Previous Rx's Medication Instructions Recorded multivitamin with folic acid 400 1 tab PO DAILY #30 tabs 10/25/22 mcg tablet (Tab-A-Princess) pantoprazole 40 mg tablet,delayed 40 mg PO 0700 #30 tabs 10/25/22 release thiamine mononitrate (vit B1) 100 100 mg PO DAILY #30 tabs 10/25/22 mg tablet chlordiazepoxide HCl 25 mg capsule See Rx Instructions .Route 11/14/22 .COMPLEX #30 caps disulfiram 250 mg tablet 250 mg PO DAILY #30 tabs 11/14/22 Allergies Allergy/AdvReac Type Severity Reaction Status Date / Time metoclopramide Allergy Mild RASH/HIVES Verified 10/23/22 16:18 [METOCLOPRAMIDE] hydrocodone [HYDROCODONE] AdvReac Unknown VOMITING Verified 10/23/22 16:18 Review of Systems Review of Systems ROS Unobtainable: Unobtainable due to mental condition Patient History Medical History Alcohol withdrawal delirium, acute, hyperactive Anemia (~2017) Insomnia Menometrorrhagia (spontaneous vaginal delivery) (~12/17/18) Surgical History H/O dilation and curettage (~03/27/17) H/O wisdom tooth extraction (~2013) S/P myringotomy with insertion of tube Family History Mother Diabetes mellitus Overweight Father Alcoholism Grandfather Unknown whether patient has any health problems Grandmother Diabetes mellitus Smoker Family/Other Diabetes mellitus Obesity Family/Other Alcoholism Grandfather Smoker Alcoholism Grandmother Hypoglycemia Social History marital status: number of children: 1 household members: significant other education level: college occupational status: employed current occupational exposures/hazards: Yes (obvious risk with Pandemic ) nidhi/latter day: Rastafari special nidhi needs: No Smoking Status: Former smoker second hand exposure: No (growing up as a child - not currently) alcohol intake: current substance use type: does not use Smoking Status: Former smoker alcohol intake frequency: 3 or more drinks per day Substance Use Type: does not use Exam Initial Vital Signs Initial Vital Signs: Vital Signs Temperature 98 F 11/19/22 20:13 Pulse Rate 100 H 11/19/22 20:13 Respiratory Rate 20 11/19/22 20:13 Pulse Oximetry 96 11/19/22 20:13 Oxygen Delivery Method Room Air 11/19/22 20:13 HENMT Head: normal to inspection and normocephalic Resp Effort & Inspection: normal respiratory effort Auscultation: clear to auscultation bilaterally Cardio Rate: regular rate Rhythm: regular rhythm Neuro General: patient awake Extrem General: normal to inspection Psych Other: Patient is minimally cooperative with the exam. Is animated. Appears to be hallucinating in delirious. Obviously intoxicated. Course Orders Ordered: ED Orders 11/19/22 20:31 Test Urine Stat Urinalysis and Microscopic Stat Urine Drug Screen, Rapid Stat 11/19/22 21:00 Complete Blood Count AUTO DIFF Stat Comprehensive Metabolic Panel Stat Ethanol (ETOH) Stat Lipase Stat 11/19/22 22:30 COVID19 -Nasal RAPID Stat Acetaminophen (Acetaminophen 325 Mg Tablet) 650 mg PO Q6H PRN PRN Reason: Fever/Mild Pain (1-3) Chlordiazepoxide HCl (Chlordiazepoxide 25 Mg Capsule) 50 mg PO Q6HR DAVONTE Last Admin: 11/20/22 01:13 Dose: Not Given Documented By: DL Folic Acid (Folic Acid 1 Mg Tablet) 1 mg PO DAILY DAVONTE Heparin Sodium (Porcine) (Heparin 5,000 Unit/Ml Vial) 5,000 unit SUBCUT BID DAVONTE Thiamine HCl 500 mg/ Sodium (Chloride) 105 mls @ 420 mls/hr IV TID DAVONTE dexmedeTOMIDine in 0.9 % NaCL (Precedex) 400 mcg in 100 mls @ 2.699 mls/hr IV TITRATE DAVONTE; Protocol Last Titration: 11/20/22 01:13 Dose: 0.6 mcg/kg/hr, 8.097 mls/hr Documented By: Admin: 11/19/22 23:00 Dose: 0.8 mcg/kg/hr, 10.795 mls/hr Documented By: DONNIE Lorazepam (Lorazepam 2 Mg/Ml Inj) 0 mg IV CIWAPRN PRN; Protocol PRN Reason: Alcohol Withdrawal Last Admin: 11/19/22 23:00 Dose: 2 mg Documented By: DONNIE Lorazepam (Lorazepam 1 Mg Tablet) 0 mg PO CIWAPRN PRN; Protocol PRN Reason: Alcohol Withdrawal Multivitamins (Multivitamin 1 Tablet) 1 tab PO DAILY DAVONTE Naloxone HCl (Naloxone 0.4 Mg/Ml Vial) 0.2 mg IV Q2MIN PRN PRN Reason: Opiate Reversal Ondansetron HCl (Ondansetron 4 Mg/2 Ml Inj) 4 mg IV Q8HR PRN PRN Reason: Nausea And Vomiting Last Admin: 11/19/22 23:09 Dose: 4 mg Documented By: DONNIE Discontinued Medications Thiamine HCl 100 mg/ Sodium (Chloride) 101 mls @ 404 mls/hr IV NOW ONE Stop: 11/19/22 20:30 Last Infusion: 11/19/22 21:28 Dose: 0 mls/hr Documented By: Admin: 11/19/22 21:08 Dose: 404 mls/hr Documented By: SVITLANA Phenobarbital (Phenobarbital 65 Mg/Ml Vial) 260 mg IM NOW ONE Stop: 11/19/22 20:51 Last Admin: 11/19/22 21:09 Dose: 260 mg Documented By: SVITLANA Vital Signs Vital signs: Vital Signs - 8 hr 11/19/22 20:13 Temperature 98 F Pulse Rate 100 H Respiratory Rate 20 Pulse Oximetry 96 Oxygen Delivery Method Room Air Medical Decision Making Medical Records Medical records reviewed: Yes I reviewed the patient's medical records. Lab Data Lab results reviewed: Yes I reviewed the patient's lab results. 11/19/22 21:00 11/19/22 21:00 Labs: Lab Results 11/19/22 11/19/22 11/19/22 Range/Units 21:00 21:00 21:00 WBC 5.1 (4.5-11.0) X10^3/uL RBC 4.61 (4.0-5.2) X10^6/uL Hgb 11.9 L (12.0-16.0) g/dL Hct 37.0 (36-46) % MCV 80.2 (80-100) fL MCH 25.7 L (26-34) PG MCHC 32.1 (30-36) % RDW 19.7 H (11.6-14.8) % Plt Count 396 (150-400) X10^3/uL Neut % (Auto) 36.6 L (50-75) % Lymph % (Auto) 51.5 H (25-40) % [place]er % (Auto) 8.6 (3-14) % Eos % (Auto) 0.8 L (2-4) % Baso % (Auto) 2.5 H (0-2) % Neut # (Auto) 1900 (8531-5553) /uL Lymph # (Auto) 2600 (2431-4255) /uL [place]er # (Auto) 400 (0-900) /uL Eos # (Auto) 0 (0-450) /uL Baso # (Auto) 100 (0-100) /uL Sodium 148 H D (137-145) mmol/L Potassium 3.6 (3.4-5.1) mmol/L Chloride 104 (98-107) mmol/L Carbon Dioxide 33 H (22-32) mmol/L BUN 7 (7-17) mg/dL Creatinine 0.76 (0.52-1.04) mg/dL Estimated GFR > 60 (>60) mL/min BUN/Creatinine Ratio 9.2 (6-22) Glucose 92 (70-100) mg/dL Calcium 8.4 (8.4-10.2) mg/dL Magnesium (1.6-2.3) mg/dL Total Bilirubin 0.4 (0.2-1.3) mg/dL AST 424 H (14-36) IU/L ALT 64 H (<35) IU/L Alkaline Phosphatase 71 (38-126) U/L Total Protein 7.7 (6.3-8.2) g/dL Albumin 4.4 (3.5-5.0) g/dL Globulin 3.3 (1.7-4.1) g/dL Albumin/Globulin Ratio 1.3 (1.0-2.8) Lipase 408 H (23-300) U/L Ethyl Alcohol 393 H ( - 10) mg/dL 11/19/22 Range/Units 21:00 WBC (4.5-11.0) X10^3/uL RBC (4.0-5.2) X10^6/uL Hgb (12.0-16.0) g/dL Hct (36-46) % MCV (80-100) fL MCH (26-34) PG MCHC (30-36) % RDW (11.6-14.8) % Plt Count (150-400) X10^3/uL Neut % (Auto) (50-75) % Lymph % (Auto) (25-40) % [place] % (Auto) (3-14) % Eos % (Auto) (2-4) % Baso % (Auto) (0-2) % Neut # (Auto) (8350-3887) /uL Lymph # (Auto) (3208-4388) /uL [place]er # (Auto) (0-900) /uL Eos # (Auto) (0-450) /uL Baso # (Auto) (0-100) /uL Sodium (137-145) mmol/L Potassium (3.4-5.1) mmol/L Chloride (98-107) mmol/L Carbon Dioxide (22-32) mmol/L BUN (7-17) mg/dL Creatinine (0.52-1.04) mg/dL Estimated GFR (>60) mL/min BUN/Creatinine Ratio (6-22) Glucose (70-100) mg/dL Calcium (8.4-10.2) mg/dL Magnesium 2.2 (1.6-2.3) mg/dL Total Bilirubin (0.2-1.3) mg/dL AST (14-36) IU/L ALT (<35) IU/L Alkaline Phosphatase (38-126) U/L Total Protein (6.3-8.2) g/dL Albumin (3.5-5.0) g/dL Globulin (1.7-4.1) g/dL Albumin/Globulin Ratio (1.0-2.8) Lipase (23-300) U/L Ethyl Alcohol ( - 10) mg/dL MDM Narrative Medical decision making narrative: Patient does have a significant history of alcohol withdrawal to include delirium and seizures. She is required Precedex in the ICU during her last 2 admissions to the hospital. Each time that she is been admitted to the hospital she is been discharged home. She continues to drink. She returns to emergency department today stating that she would like help with her drinking although being very clear with this she was only minimally interactive with the rest of the exam. She is only partially directable. Labs were obtained. Alcohol level was elevated. She was given phenobarbital and afterwards calm down quite a bit. She was able to sleep. She was also given thiamine. Discussed the case with Dr. Minaya the hospitalist who will admit for further evaluation and treatment. Discharge Plan Departure Patient Disposition: Admitted As Inpatient Clinical Impression: Alcohol intoxication, Alcohol withdrawal Admit Date/Time: 11/19/22 22:04 Admit Provider: Teddy Minaya
[2022-11-19] MEDS: THIAMINE 100 MG in SODIUM CHLORIDE 0.9% 100 ML 404 MG IV (21:08)
[2022-11-19] MEDS: PHENobarbital 65 MG/ML VIAL 260 MG IM (21:09)
[2022-11-19 21:14] LABS: Add Manual Diff / Slide Review NO; Basophils Absolute Auto 100 /uL (0-100); Basophils Percent Auto 2.5 % (0-2); Eosinophils Absolute Auto 0 /uL (0-450); Eosinophils Percent Auto 0.8 % (2-4); Hemoglobin 11.9 g/dL (12.0-16.0); Lymphocytes Absolute Auto 2600 /uL (1100-4500); Lymphocytes Percent Auto 51.5 % (25-40); Mean Corpuscular HGB Conc 32.1 % (30-36); Mean Corpuscular Hemoglobin 25.7 PG (26-34); Mean Corpuscular Volume 80.2 fL (80-100); Monocytes Absolute Auto 400 /uL (0-900); Monocytes Percent Auto 8.6 % (3-14); Neutrophils Absolute Auto 1900 /uL (1500-7000); Neutrophils Percent Auto 36.6 % (50-75); Platelet Count 396 X10^3/uL (150-400); Red Blood Cell Count 4.61 X10^6/uL (4.0-5.2); Red Cell Distribution Width 19.7 % (11.6-14.8); White Blood Cell Count 5.1 X10^3/uL (4.5-11.0)
[2022-11-19 21:27] LABS: Alanine Aminotransferase 64 IU/L (<35); Albumin 4.4 g/dL (3.5-5.0); Albumin Globulin Ratio 1.3 (1.0-2.8); Alkaline Phosphatase 71 U/L (38-126); Aspartate Aminotransferase 424 IU/L (14-36); BUN Creatinine Ratio 9.2 (6-22); Bilirubin Total 0.4 mg/dL (0.2-1.3); Blood Urea Nitrogen 7 mg/dL (7-17); Calcium 8.4 mg/dL (8.4-10.2); Carbon Dioxide 33 mmol/L (22-32); Chloride 104 mmol/L (98-107); Estimated Glomerular Filt Rate > 60 mL/min (>60); Globulin 3.3 g/dL (1.7-4.1); Glucose 92 mg/dL (70-100); HEMOLYSIS 29 (0-50); Potassium 3.6 mmol/L (3.4-5.1); Sodium 148 mmol/L (137-145); Total Protein 7.7 g/dL (6.3-8.2)
[2022-11-19 21:44] LABS: Lipase 408 U/L (23-300)
[2022-11-19 21:52] LABS: Ethanol (ETOH) 393 mg/dL
--- NOTE | 2022-11-19 22:03 | PC.NURSE ---
Addendum entered by Chel Kaplan CNA 11/19/22 23:24: Patient moved to ICU rm 227, patient refusing to put gown on and remove shoes SEAMUS Coto okay with that, patient crying and talking about her kids and how hard it is to be a , this COMMERCIAL CORRESPONDENT sat with patient and listen, reassuring patient, patient calming down and going back to sleep after medication was given by RN, patient requested warm blankets, this COMMERCIAL CORRESPONDENT is 1:1 sitter with patient Original Note: This COMMERCIAL CORRESPONDENT took over 1:1 with patient, reported given from RN, patient was laying down in bed, patient appeared to be asleep, patient had her phone playing something, patient moved from room 12 to room 7 for better safely monitoring
[2022-11-19 22:09] VITALS: BMI 21.7
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
[2022-11-19 22:37] LABS: Magnesium 2.2 mg/dL (1.6-2.3)
[2022-11-19 22:46] VITALS: BMI 21.7
[2022-11-19 22:50] VITALS: BMI 21.7
[2022-11-19 22:53] VITALS: PULSE 93; RESP 22; O2SAT 96
[2022-11-19 22:58] LABS: COVID19 -Nasal RAPID Negative (Negative)
[2022-11-19 23:00] VITALS: BP 109/70; PULSE 89; RESP 23; O2SAT 94
[2022-11-19] MEDS: LORazepam 2 MG/ML INJ IV (23:00)
[2022-11-19] MEDS: dexmedeTOMIDine in 0.9 % NaCL 400 MCG/100 ML PLAST..BAG 10.795 MCG IV (23:00)
[2022-11-19] MEDS: ONDANSETRON 4 MG/2 ML INJ IV (23:09)
[2022-11-19 23:24] VITALS: BP 109/70; PULSE 83; RESP 14
--- NOTE | 2022-11-19 23:26 | PC.NURSE ---
Addendum entered by Chica Palacios R.N. 11/20/22 05:26: Spoke to Dr. Barton and new orders noted fluid bolus started. Addendum entered by Chica Palacios R.N. 11/20/22 05:06: patient with soft blood pressures, precedex weaned to 0.2 then turned off. fluid bolus started for transient hypotension. patient remaining cooperative and follow commands,. Original Note: Received patient from ED in moderate distress. Patient refusing to remove shoes so she can run away or put gown on. Patient talked to calmly and physical stimulation minimized. Allowed to stay dressed with shoes on for time being. Patient medicated with ativan, zofran and precedex drip started to help patient stay calm. After approximately 20 minutes patient sleeping well. will attempt to remove shoes later in shift.
[2022-11-20] VITALS (32 sets, daily range): BP systolic 71–119; BP diastolic 39–65; PULSE 69–95; RESP 11–37; TEMP 36.4–37; O2SAT 94–100
[2022-11-20 04:38] LABS: Appearance Urine UA CLEAR; Bilirubin Urine UA NEGATIVE (NEGATIVE); Color Urine UA YELLOW; Glucose Urine UA NEGATIVE (Negative); Ketones Urine UA NEGATIVE (NEGATIVE); Leukocyte Esterase Urine UA 1+ (NEGATIVE); Nitrite Urine UA POSITIVE (Negative); Occult Blood Urine UA NEGATIVE (Negative); Protein Urine UA NEGATIVE (Negative); Specific Gravity Urine UA 1.015 (1.000-1.035); Urobilinogen Urine UA 0.2 E.U./dL (0.2)
[2022-11-20 04:41] LABS: Pregnancy Test Urine Negative (Negative)
[2022-11-20 04:50] LABS: Ur Creatinine 20 (Normal); Ur Specific Gravity 1.015 (Normal); Urine pH 6 (Normal)
[2022-11-20 04:51] LABS: UR Morphine/Opiate cutoff 300 Negative (Negative); Urine Amphetamines Negative (Negative); Urine Barbiturates Positive (Negative); Urine Benzodiazepines Positive (Negative); Urine Cocaine Negative (Negative); Urine MDMA Negative (Negative); Urine Methadone Negative (Negative); Urine Methamphetamines Negative (Negative); Urine Oxycodone Negative (Negative); Urine Phencyclidine Negative (Negative); Urine Tetrahydrocannabinol Negative (Negative); Urine Tricyclic Antidepressant Positive (Negative)
[2022-11-20 05:00] LABS: Add Manual Diff / Slide Review NO; Basophils Absolute Auto 100 /uL (0-100); Basophils Percent Auto 1.9 % (0-2); Eosinophils Absolute Auto 0 /uL (0-450); Eosinophils Percent Auto 0.7 % (2-4); Hematocrit 31.4 % (36-46); Hemoglobin 10.1 g/dL (12.0-16.0); Lymphocytes Absolute Auto 2800 /uL (1100-4500); Lymphocytes Percent Auto 54.2 % (25-40); Mean Corpuscular HGB Conc 32.2 % (30-36); Mean Corpuscular Hemoglobin 25.4 PG (26-34); Monocytes Absolute Auto 300 /uL (0-900); Monocytes Percent Auto 6.5 % (3-14); Neutrophils Absolute Auto 1900 /uL (1500-7000); Neutrophils Percent Auto 36.7 % (50-75); Platelet Count 332 X10^3/uL (150-400); Red Blood Cell Count 3.98 X10^6/uL (4.0-5.2); Red Cell Distribution Width 19.5 % (11.6-14.8); White Blood Cell Count 5.2 X10^3/uL (4.5-11.0)
[2022-11-20 05:02] LABS: Bacteria Urine Many (>30); Culture Indicated Urine Specimen Cultured; RBC Urine None Seen (0-5/HPF); WBC Urine 10-30/HPF (0-5/HPF)
--- NOTE | 2022-11-20 05:02 | PM.CN.EICU ---
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 admitted for EtOH intoxication, withdrawal and seizure. CIWA of 17. Fourth visit to ED this month for intoxication. Just discharged 5 days ago for EtOH. Had been on EtOH binge since discharge. Given phenobarbital in ED but ultimately started on Precedex - this is currently @ 0.2 mcg/kg/hr. [facility] Medical History Alcohol withdrawal delirium, acute, hyperactive Anemia (~2017) Insomnia Menometrorrhagia (spontaneous vaginal delivery) (~12/17/18) Surgical History H/O dilation and curettage (~03/27/17) H/O wisdom tooth extraction (~2013) S/P myringotomy with insertion of tube Family History Mother Diabetes mellitus Overweight Father Alcoholism Grandfather Unknown whether patient has any health problems Grandmother Diabetes mellitus Smoker Family/Other Diabetes mellitus Obesity Family/Other Alcoholism Grandfather Smoker Alcoholism Grandmother Hypoglycemia Social History marital status: number of children: 1 household members: significant other education level: college occupational status: employed current occupational exposures/hazards: Yes (obvious risk with Pandemic ) nidhi/anabaptist: [employer]ism special nidhi needs: No Smoking Status: Former smoker second hand exposure: No (growing up as a child - not currently) alcohol intake: current substance use type: does not use Current Medications Current Medications Medications: Home Medications fluoxetine 10 mg capsule 10 mg PO DAILY 10/24/22 [History Confirmed 11/12/22] hydroxyzine HCl 50 mg tablet 50 mg PO DAILY 10/24/22 [History Confirmed 11/12/22] quetiapine 300 mg tablet 300 mg PO DAILY 10/24/22 [History Confirmed 11/12/22] multivitamin with folic acid 400 mcg tablet (Tab-A-Princess) 1 tab PO DAILY #30 tabs 10/25/22 [Rx Confirmed 11/12/22] pantoprazole 40 mg tablet,delayed release 40 mg PO 0700 #30 tabs 10/25/22 [Rx Confirmed 11/12/22] thiamine mononitrate (vit B1) 100 mg tablet 100 mg PO DAILY #30 tabs 10/25/22 [Rx Confirmed 11/12/22] chlordiazepoxide HCl 25 mg capsule See Rx Instructions .Route .COMPLEX #30 caps 11/14/22 [Rx] disulfiram 250 mg tablet 250 mg PO DAILY #30 tabs 11/14/22 [Rx] Visit Medications (administered) Generic Name Dose Route Start Last Admin Trade Name Freq PRN Reason Stop Dose Admin Chlordiazepoxide HCl 50 mg 11/20/22 00:00 11/20/22 01:13 Chlordiazepoxide 25 Mg Capsule PO Not Given Q6HR DAVONTE dexmedeTOMIDine in 0.9 % NaCL 400 mcg in 100 mls @ 2.699 mls/hr 11/19/22 22:48 11/20/22 04:01 Precedex IV 0.2 mcg/kg/hr TITRATE DAVONTE 2.699 mls/hr Titration Protocol 0.2 MCG/KG/HR Lorazepam 0 mg 11/19/22 22:48 11/19/22 23:00 Lorazepam 2 Mg/Ml Inj IV 2 mg CIWAPRN PRN Administration Alcohol Withdrawal Protocol Ondansetron HCl 4 mg 11/19/22 22:48 11/19/22 23:09 Ondansetron 4 Mg/2 Ml Inj IV 4 mg Q8HR PRN Administration Nausea And Vomiting Review of Systems Review of Systems Narrative: Sleeping comfortably; did not awaken pt Exam Vital Signs (past 8 hours): - 11/19/22 22:53 11/19/22 23:00 11/19/22 23:00 Pulse Rate 93 H 89 Respiratory Rate 22 23 Blood Pressure 109/70 Pulse Oximetry 96 94 11/19/22 23:24 11/20/22 00:00 11/20/22 00:00 Pulse Rate 83 83 Respiratory Rate 14 19 Blood Pressure 109/70 75/40 L Pulse Oximetry 94 11/20/22 01:00 11/20/22 01:00 11/20/22 01:06 Pulse Rate 79 76 Respiratory Rate 21 20 Blood Pressure 74/40 L Pulse Oximetry 95 95 11/20/22 01:06 11/20/22 01:29 11/20/22 01:29 Pulse Rate 75 Respiratory Rate 37 H Blood Pressure 77/42 L 80/45 L Pulse Oximetry 95 11/20/22 02:00 11/20/22 02:00 11/20/22 03:00 Pulse Rate 75 Respiratory Rate 27 H Blood Pressure 80/44 L 79/43 L Pulse Oximetry 95 11/20/22 03:00 11/20/22 03:02 11/20/22 03:02 Pulse Rate 75 75 Respiratory Rate 37 H 16 Blood Pressure 78/43 L Pulse Oximetry 95 95 Oxygen Delivery Method Room Air Const General: comfortable Resp Effort & Inspection: normal respiratory effort Cardio Rate: regular rate Rhythm: regular rhythm Objective Labs 11/19/22 21:00 11/19/22 21:00 Labs: Laboratory Results - last 24 hr 11/19/22 11/19/22 11/19/22 21:00 21:00 21:00 WBC 5.1 RBC 4.61 Hgb 11.9 L Hct 37.0 MCV 80.2 MCH 25.7 L MCHC 32.1 RDW 19.7 H Plt Count 396 Neut % (Auto) 36.6 L Lymph % (Auto) 51.5 H [place] % (Auto) 8.6 Eos % (Auto) 0.8 L Baso % (Auto) 2.5 H Neut # (Auto) 1900 Lymph # (Auto) 2600 [place] # (Auto) 400 Eos # (Auto) 0 Baso # (Auto) 100 Sodium 148 H D Potassium 3.6 Chloride 104 Carbon Dioxide 33 H BUN 7 Creatinine 0.76 Estimated GFR > 60 BUN/Creatinine Ratio 9.2 Glucose 92 Calcium 8.4 Magnesium Total Bilirubin 0.4 AST 424 H ALT 64 H Alkaline Phosphatase 71 Total Protein 7.7 Albumin 4.4 Globulin 3.3 Albumin/Globulin Ratio 1.3 Lipase 408 H Urine Color Urine Appearance Urine pH Ur Specific [place] Urine Protein Urine Glucose (UA) Urine Ketones Urine Occult Blood Urine Nitrate Urine Bilirubin Urine Urobilinogen Ur Leukocyte Esterase Urine RBC Urine WBC Urine Bacteria Ur Culture Indicated? Urine Test U Opiates 300ng/mL cut Ur Oxycodone Screen Urine Methadone Screen Ur Barbiturates Screen U Tricyclic Antidepress Ur Phencyclidine Scrn Ur Amphetamines Screen U Methamphetamines Scrn Ur MDMA Scrn (Ecstasy) U Benzodiazepines Scrn Urine Cocaine Screen U Marijuana (THC) Screen Ethyl Alcohol 393 H SARS-CoV-2 (PCR) 11/19/22 11/19/22 11/20/22 21:00 22:30 04:30 WBC RBC Hgb Hct MCV MCH MCHC RDW Plt Count Neut % (Auto) Lymph % (Auto) [place] % (Auto) Eos % (Auto) Baso % (Auto) Neut # (Auto) Lymph # (Auto) [place] # (Auto) Eos # (Auto) Baso # (Auto) Sodium Potassium Chloride Carbon Dioxide BUN Creatinine Estimated GFR BUN/Creatinine Ratio Glucose Calcium Magnesium 2.2 Total Bilirubin AST ALT Alkaline Phosphatase Total Protein Albumin Globulin Albumin/Globulin Ratio Lipase Urine Color Urine Appearance Urine pH Ur Specific [place] Urine Protein Urine Glucose (UA) Urine Ketones Urine Occult Blood Urine Nitrate Urine Bilirubin Urine Urobilinogen Ur Leukocyte Esterase Urine RBC Urine WBC Urine Bacteria Ur Culture Indicated? Urine Test Negative U Opiates 300ng/mL cut Ur Oxycodone Screen Urine Methadone Screen Ur Barbiturates Screen U Tricyclic Antidepress Ur Phencyclidine Scrn Ur Amphetamines Screen U Methamphetamines Scrn Ur MDMA Scrn (Ecstasy) U Benzodiazepines Scrn Urine Cocaine Screen U Marijuana (THC) Screen Ethyl Alcohol SARS-CoV-2 (PCR) Negative 11/20/22 11/20/22 04:30 04:30 WBC RBC Hgb Hct MCV MCH MCHC RDW Plt Count Neut % (Auto) Lymph % (Auto) [place] % (Auto) Eos % (Auto) Baso % (Auto) Neut # (Auto) Lymph # (Auto) [place] # (Auto) Eos # (Auto) Baso # (Auto) Sodium Potassium Chloride Carbon Dioxide BUN Creatinine Estimated GFR BUN/Creatinine Ratio Glucose Calcium Magnesium Total Bilirubin AST ALT Alkaline Phosphatase Total Protein Albumin Globulin Albumin/Globulin Ratio Lipase Urine Color Yellow Urine Appearance Clear Urine pH 6.0 Ur Specific [place] 1.015 Urine Protein Negative Urine Glucose (UA) Negative Urine Ketones Negative Urine Occult Blood Negative Urine Nitrate Positive H Urine Bilirubin Negative Urine Urobilinogen 0.2 Ur Leukocyte Esterase 1+ H Urine RBC None seen Urine WBC 10-30/hpf H Urine Bacteria Many (>30) H Ur Culture Indicated? Specimen cultured Urine Test U Opiates 300ng/mL cut Negative Ur Oxycodone Screen Negative Urine Methadone Screen Negative Ur Barbiturates Screen Positive H U Tricyclic Antidepress Positive H Ur Phencyclidine Scrn Negative Ur Amphetamines Screen Negative U Methamphetamines Scrn Negative Ur MDMA Scrn (Ecstasy) Negative U Benzodiazepines Scrn Positive H Urine Cocaine Screen Negative U Marijuana (THC) Screen Negative Ethyl Alcohol SARS-CoV-2 (PCR) Assessment & Plan Assessment and plan (1) Alcohol withdrawal delirium, acute, hyperactive: Status: Acute Plan: -Continue CIWA-directed lorazepam, Libirium, Precedex, thiamine, folate as per bedside team (2) Abnormal urinalysis: Status: Acute Plan: -Follow up on reflexed culture Time Spent With Patient Time with patient: less than 30 minutes
[2022-11-20 05:07] LABS: BUN Creatinine Ratio 8.9 (6-22); Blood Urea Nitrogen 8 mg/dL (7-17); Calcium 7.7 mg/dL (8.4-10.2); Carbon Dioxide 30 mmol/L (22-32); Chloride 107 mmol/L (98-107); Estimated Glomerular Filt Rate > 60 mL/min (>60); Glucose 84 mg/dL (70-100); HEMOLYSIS < 15 (0-50); Potassium 3.5 mmol/L (3.4-5.1); Sodium 145 mmol/L (137-145)
--- NOTE | 2022-11-20 05:31 | PM.EICU.INT ---
Teleintensivist Intervention Date/Time Was camera activated?: Yes Issue(s) Addressed Issue(s): Shock/hypotension Intervention(s) :: Patients MAP in the high 50s, on low-dose Precedex, HR in the 50s. Has not received any IVF since admission. Will give 1L LR bolus now, if BP remains low will repeat bolus. If BP persistently soft following IVF bolus, will start Levophed. Consider also antibiotic coverage given UA in the setting of hypotension.
[2022-11-20] MEDS: LACTATED RINGERS 1,000 ML 1000 ML IV ×2 (05:49→07:55)
[2022-11-20] MEDS: chlordiazePOXIDE 25 MG CAPSULE 50 MG PO ×3 (06:12→17:47)
[2022-11-20 06:56] LABS: Alanine Aminotransferase 51 IU/L (<35); Albumin 3.6 g/dL (3.5-5.0); Albumin Globulin Ratio 1.5 (1.0-2.8); Alkaline Phosphatase 59 U/L (38-126); Aspartate Aminotransferase 288 IU/L (14-36); Bilirubin Total 0.3 mg/dL (0.2-1.3); Globulin 2.4 g/dL (1.7-4.1); HEMOLYSIS < 15 (0-50)
[2022-11-20] MEDS: cefTRIAXone 1,000 MG in SODIUM CHLORIDE 0.9% 100 ML 200 MG IV (07:35)
--- NOTE | 2022-11-20 08:07 | PM.PN.EICU ---
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 She is s/p phenobarb dose in ED. Precedex gtt turned off at 5 am- She was able to take her PO librium She remains mildly hypotensive and urine is nicanor in color, she is being treated for UTI- Initially recieved 1 L LR bolus and BP improved. Ordered another 1 L LR this am after BP 80's/40's Current Medications Current Medications Medications: Home Medications fluoxetine 10 mg capsule 10 mg PO DAILY 10/24/22 [History Confirmed 11/12/22] hydroxyzine HCl 50 mg tablet 50 mg PO DAILY 10/24/22 [History Confirmed 11/12/22] quetiapine 300 mg tablet 300 mg PO DAILY 10/24/22 [History Confirmed 11/12/22] multivitamin with folic acid 400 mcg tablet (Tab-A-Princess) 1 tab PO DAILY #30 tabs 10/25/22 [Rx Confirmed 11/12/22] pantoprazole 40 mg tablet,delayed release 40 mg PO 0700 #30 tabs 10/25/22 [Rx Confirmed 11/12/22] thiamine mononitrate (vit B1) 100 mg tablet 100 mg PO DAILY #30 tabs 10/25/22 [Rx Confirmed 11/12/22] chlordiazepoxide HCl 25 mg capsule See Rx Instructions .Route .COMPLEX #30 caps 11/14/22 [Rx] disulfiram 250 mg tablet 250 mg PO DAILY #30 tabs 11/14/22 [Rx] Visit Medications (administered) Generic Name Dose Route Start Last Admin Trade Name Freq PRN Reason Stop Dose Admin Chlordiazepoxide HCl 50 mg 11/20/22 00:00 11/20/22 06:12 Chlordiazepoxide 25 Mg Capsule PO 50 mg Q6HR DAVONTE Administration dexmedeTOMIDine in 0.9 % NaCL 400 mcg in 100 mls @ 2.699 mls/hr 11/19/22 22:48 11/20/22 05:06 Precedex IV 0 mcg/kg/hr TITRATE DAVONTE 0 mls/hr Titration Protocol 0.2 MCG/KG/HR Ceftriaxone Sodium 1,000 mg/ 100 mls @ 200 mls/hr 11/20/22 07:00 11/20/22 07:35 Sodium Chloride IV 11/23/22 06:59 200 mls/hr Q24H DAVONTE Administration Lorazepam 0 mg 11/19/22 22:48 11/19/22 23:00 Lorazepam 2 Mg/Ml Inj IV 2 mg CIWAPRN PRN Administration Alcohol Withdrawal Protocol Ondansetron HCl 4 mg 11/19/22 22:48 11/19/22 23:09 Ondansetron 4 Mg/2 Ml Inj IV 4 mg Q8HR PRN Administration Nausea And Vomiting Objective Labs 11/20/22 04:16 11/20/22 04:16 Labs: Laboratory Results - last 24 hr 11/19/22 11/19/22 11/19/22 21:00 21:00 21:00 WBC 5.1 RBC 4.61 Hgb 11.9 L Hct 37.0 MCV 80.2 MCH 25.7 L MCHC 32.1 RDW 19.7 H Plt Count 396 Neut % (Auto) 36.6 L Lymph % (Auto) 51.5 H [place] % (Auto) 8.6 Eos % (Auto) 0.8 L Baso % (Auto) 2.5 H Neut # (Auto) 1900 Lymph # (Auto) 2600 [place] # (Auto) 400 Eos # (Auto) 0 Baso # (Auto) 100 Sodium 148 H D Potassium 3.6 Chloride 104 Carbon Dioxide 33 H BUN 7 Creatinine 0.76 Estimated GFR > 60 BUN/Creatinine Ratio 9.2 Glucose 92 Calcium 8.4 Magnesium Total Bilirubin 0.4 Conjugated Bilirubin Unconjugated Bilirubin AST 424 H ALT 64 H Alkaline Phosphatase 71 Total Protein 7.7 Albumin 4.4 Globulin 3.3 Albumin/Globulin Ratio 1.3 Lipase 408 H Urine Color Urine Appearance Urine pH Ur Specific [place] Urine Protein Urine Glucose (UA) Urine Ketones Urine Occult Blood Urine Nitrate Urine Bilirubin Urine Urobilinogen Ur Leukocyte Esterase Urine RBC Urine WBC Urine Bacteria Ur Culture Indicated? Urine Test U Opiates 300ng/mL cut Ur Oxycodone Screen Urine Methadone Screen Ur Barbiturates Screen U Tricyclic Antidepress Ur Phencyclidine Scrn Ur Amphetamines Screen U Methamphetamines Scrn Ur MDMA Scrn (Ecstasy) U Benzodiazepines Scrn Urine Cocaine Screen U Marijuana (THC) Screen Ethyl Alcohol 393 H SARS-CoV-2 (PCR) 11/19/22 11/19/22 11/20/22 21:00 22:30 04:16 WBC 5.2 RBC 3.98 L Hgb 10.1 L Hct 31.4 L MCV 79.0 L MCH 25.4 L MCHC 32.2 RDW 19.5 H Plt Count 332 Neut % (Auto) 36.7 L Lymph % (Auto) 54.2 H [place] % (Auto) 6.5 Eos % (Auto) 0.7 L Baso % (Auto) 1.9 Neut # (Auto) 1900 Lymph # (Auto) 2800 [place] # (Auto) 300 Eos # (Auto) 0 Baso # (Auto) 100 Sodium Potassium Chloride Carbon Dioxide BUN Creatinine Estimated GFR BUN/Creatinine Ratio Glucose Calcium Magnesium 2.2 Total Bilirubin Conjugated Bilirubin Unconjugated Bilirubin AST ALT Alkaline Phosphatase Total Protein Albumin Globulin Albumin/Globulin Ratio Lipase Urine Color Urine Appearance Urine pH Ur Specific [place] Urine Protein Urine Glucose (UA) Urine Ketones Urine Occult Blood Urine Nitrate Urine Bilirubin Urine Urobilinogen Ur Leukocyte Esterase Urine RBC Urine WBC Urine Bacteria Ur Culture Indicated? Urine Test U Opiates 300ng/mL cut Ur Oxycodone Screen Urine Methadone Screen Ur Barbiturates Screen U Tricyclic Antidepress Ur Phencyclidine Scrn Ur Amphetamines Screen U Methamphetamines Scrn Ur MDMA Scrn (Ecstasy) U Benzodiazepines Scrn Urine Cocaine Screen U Marijuana (THC) Screen Ethyl Alcohol SARS-CoV-2 (PCR) Negative 11/20/22 11/20/22 11/20/22 04:16 04:16 04:30 WBC RBC Hgb Hct MCV MCH MCHC RDW Plt Count Neut % (Auto) Lymph % (Auto) [place] % (Auto) Eos % (Auto) Baso % (Auto) Neut # (Auto) Lymph # (Auto) [place] # (Auto) Eos # (Auto) Baso # (Auto) Sodium 145 Potassium 3.5 Chloride 107 Carbon Dioxide 30 BUN 8 Creatinine 0.90 Estimated GFR > 60 BUN/Creatinine Ratio 8.9 Glucose 84 Calcium 7.7 L Magnesium Total Bilirubin 0.3 Conjugated Bilirubin 0.0 Unconjugated Bilirubin 0.0 AST 288 H ALT 51 H Alkaline Phosphatase 59 Total Protein 6.0 L Albumin 3.6 Globulin 2.4 Albumin/Globulin Ratio 1.5 Lipase Urine Color Urine Appearance Urine pH Ur Specific [place] Urine Protein Urine Glucose (UA) Urine Ketones Urine Occult Blood Urine Nitrate Urine Bilirubin Urine Urobilinogen Ur Leukocyte Esterase Urine RBC Urine WBC Urine Bacteria Ur Culture Indicated? Urine Test Negative U Opiates 300ng/mL cut Ur Oxycodone Screen Urine Methadone Screen Ur Barbiturates Screen U Tricyclic Antidepress Ur Phencyclidine Scrn Ur Amphetamines Screen U Methamphetamines Scrn Ur MDMA Scrn (Ecstasy) U Benzodiazepines Scrn Urine Cocaine Screen U Marijuana (THC) Screen Ethyl Alcohol SARS-CoV-2 (PCR) 11/20/22 11/20/22 04:30 04:30 WBC RBC Hgb Hct MCV MCH MCHC RDW Plt Count Neut % (Auto) Lymph % (Auto) [place] % (Auto) Eos % (Auto) Baso % (Auto) Neut # (Auto) Lymph # (Auto) [place] # (Auto) Eos # (Auto) Baso # (Auto) Sodium Potassium Chloride Carbon Dioxide BUN Creatinine Estimated GFR BUN/Creatinine Ratio Glucose Calcium Magnesium Total Bilirubin Conjugated Bilirubin Unconjugated Bilirubin AST ALT Alkaline Phosphatase Total Protein Albumin Globulin Albumin/Globulin Ratio Lipase Urine Color Yellow Urine Appearance Clear Urine pH 6.0 Ur Specific [place] 1.015 Urine Protein Negative Urine Glucose (UA) Negative Urine Ketones Negative Urine Occult Blood Negative Urine Nitrate Positive H Urine Bilirubin Negative Urine Urobilinogen 0.2 Ur Leukocyte Esterase 1+ H Urine RBC None seen Urine WBC 10-30/hpf H Urine Bacteria Many (>30) H Ur Culture Indicated? Specimen cultured Urine Test U Opiates 300ng/mL cut Negative Ur Oxycodone Screen Negative Urine Methadone Screen Negative Ur Barbiturates Screen Positive H U Tricyclic Antidepress Positive H Ur Phencyclidine Scrn Negative Ur Amphetamines Screen Negative U Methamphetamines Scrn Negative Ur MDMA Scrn (Ecstasy) Negative U Benzodiazepines Scrn Positive H Urine Cocaine Screen Negative U Marijuana (THC) Screen Negative Ethyl Alcohol SARS-CoV-2 (PCR) Exam Vital Signs (past 8 hours): - 11/20/22 01:00 11/20/22 01:00 11/20/22 01:06 Temperature Pulse Rate 79 76 Respiratory Rate 21 20 Blood Pressure 74/40 L Pulse Oximetry 95 95 11/20/22 01:06 11/20/22 01:29 11/20/22 01:29 Temperature Pulse Rate 75 Respiratory Rate 37 H Blood Pressure 77/42 L 80/45 L Pulse Oximetry 95 11/20/22 02:00 11/20/22 02:00 11/20/22 03:00 Temperature Pulse Rate 75 Respiratory Rate 27 H Blood Pressure 80/44 L 79/43 L Pulse Oximetry 95 11/20/22 03:00 11/20/22 03:02 11/20/22 03:02 Temperature Pulse Rate 75 75 Respiratory Rate 37 H 16 Blood Pressure 78/43 L Pulse Oximetry 95 95 11/20/22 04:00 11/20/22 04:00 11/20/22 04:20 Temperature 98.6 F Pulse Rate 75 78 Respiratory Rate 34 H 23 Blood Pressure 78/43 L Pulse Oximetry 95 96 11/20/22 04:20 11/20/22 05:00 11/20/22 05:00 Temperature Pulse Rate 72 Respiratory Rate 19 Blood Pressure 82/44 L 71/42 L Pulse Oximetry 96 11/20/22 05:02 11/20/22 05:02 11/20/22 05:20 Temperature Pulse Rate 76 71 Respiratory Rate 18 19 Blood Pressure 77/47 L Pulse Oximetry 97 96 11/20/22 05:20 11/20/22 05:34 11/20/22 05:34 Temperature Pulse Rate 71 Respiratory Rate 18 Blood Pressure 73/40 L 75/39 L Pulse Oximetry 97 11/20/22 06:00 11/20/22 06:00 11/20/22 06:24 Temperature Pulse Rate 75 69 Respiratory Rate 16 16 Blood Pressure 78/48 L Pulse Oximetry 99 99 11/20/22 06:24 11/20/22 07:00 11/20/22 07:00 Temperature Pulse Rate 69 72 Respiratory Rate 14 16 Blood Pressure 86/53 L 83/50 L Pulse Oximetry 99 99 Oxygen Delivery Method Room Air Narrative Exam Narrative: No distress, sleeping in bed- on room air Cardio Other: MAP 65, receiving bolus Tele NSR rate 72 Neuro Other: sleeping Quality TeleICU VTE Deep Vein Thrombosis/Pulmonary Embolism Present on Admission: No Assessment & Plan Assessment and plan (1) Abnormal urinalysis: Status: Acute Plan: UA +, urine nicanor colored c/f UTI Started on ceftriaxone Culture pending will order procalcitonin Patient has been mildly hypotensive, but fluid responsive, Likely dehydration in setting of acute alcohol intoxication on admission (Etoh level >300) However possibly component of sepsis as well Will continue to monitor volume responsiveness and potential need for pressors Check LA (2) Alcohol intoxication: Status: Acute Plan: ETOH level high on admission Continue IV fluids, MVI, Thiamine, folate (3) Alcohol withdrawal: Status: Acute Plan: CIWA protocol with ativan librium PO Precedex gtt currently off, will continue to monitor need for precedex gtt Assessment & Plan narrative: SCD's, SQ Heparin for DVT ppx Will restart home PPI When more awake, reconcile home meds and restart Would keep in ICU today for potential worsening of withdrawal sx and BP monitoring, has had multiple admissions for withdrawal in recent weeks. Time Spent With Patient Time with patient: less than 30 minutes
--- NOTE | 2022-11-20 08:12 | P.PN_ITS ---
Subjective Subjective Interval history: BP low this mroning at 70's/40's. Received 2L boluses and improved to 90/50's. Procal negative. WBC negative. Patient now off precedex and awake and alert. She has no complaints and is willing to go to detox. Exam Vital Signs (past 8 hours): - 11/20/22 01:00 11/20/22 01:00 11/20/22 01:06 Temperature Pulse Rate 79 76 Respiratory Rate 21 20 Blood Pressure 74/40 L Pulse Oximetry 95 95 11/20/22 01:06 11/20/22 01:29 11/20/22 01:29 Temperature Pulse Rate 75 Respiratory Rate 37 H Blood Pressure 77/42 L 80/45 L Pulse Oximetry 95 11/20/22 02:00 11/20/22 02:00 11/20/22 03:00 Temperature Pulse Rate 75 Respiratory Rate 27 H Blood Pressure 80/44 L 79/43 L Pulse Oximetry 95 11/20/22 03:00 11/20/22 03:02 11/20/22 03:02 Temperature Pulse Rate 75 75 Respiratory Rate 37 H 16 Blood Pressure 78/43 L Pulse Oximetry 95 95 11/20/22 04:00 11/20/22 04:00 11/20/22 04:20 Temperature 98.6 F Pulse Rate 75 78 Respiratory Rate 34 H 23 Blood Pressure 78/43 L Pulse Oximetry 95 96 11/20/22 04:20 11/20/22 05:00 11/20/22 05:00 Temperature Pulse Rate 72 Respiratory Rate 19 Blood Pressure 82/44 L 71/42 L Pulse Oximetry 96 11/20/22 05:02 11/20/22 05:02 11/20/22 05:20 Temperature Pulse Rate 76 71 Respiratory Rate 18 19 Blood Pressure 77/47 L Pulse Oximetry 97 96 11/20/22 05:20 11/20/22 05:34 11/20/22 05:34 Temperature Pulse Rate 71 Respiratory Rate 18 Blood Pressure 73/40 L 75/39 L Pulse Oximetry 97 11/20/22 06:00 11/20/22 06:00 11/20/22 06:24 Temperature Pulse Rate 75 69 Respiratory Rate 16 16 Blood Pressure 78/48 L Pulse Oximetry 99 99 11/20/22 06:24 11/20/22 07:00 11/20/22 07:00 Temperature Pulse Rate 69 72 Respiratory Rate 14 16 Blood Pressure 86/53 L 83/50 L Pulse Oximetry 99 99 Oxygen Delivery Method Room Air Narrative Exam Narrative: GEN: no distress HEENT: moist mucous membranes, PERRL NECK: trachea midline, no JVD PULM: clear bilaterally, no wheezes, rhonchi, rales CV: regular rate and rhythm, no murmurs ABD: soft, nontender, nondistended, no organomegaly EXT: warm and well perfused with no edema NEURO: awake and alert, no focal deficits Objective Labs 11/20/22 04:16 11/20/22 04:16 Labs: Laboratory Results - last 24 hr 11/19/22 11/19/22 11/19/22 21:00 21:00 21:00 WBC 5.1 RBC 4.61 Hgb 11.9 L Hct 37.0 MCV 80.2 MCH 25.7 L MCHC 32.1 RDW 19.7 H Plt Count 396 Neut % (Auto) 36.6 L Lymph % (Auto) 51.5 H [place] % (Auto) 8.6 Eos % (Auto) 0.8 L Baso % (Auto) 2.5 H Neut # (Auto) 1900 Lymph # (Auto) 2600 [place] # (Auto) 400 Eos # (Auto) 0 Baso # (Auto) 100 Sodium 148 H D Potassium 3.6 Chloride 104 Carbon Dioxide 33 H BUN 7 Creatinine 0.76 Estimated GFR > 60 BUN/Creatinine Ratio 9.2 Glucose 92 Calcium 8.4 Magnesium Total Bilirubin 0.4 Conjugated Bilirubin Unconjugated Bilirubin AST 424 H ALT 64 H Alkaline Phosphatase 71 Total Protein 7.7 Albumin 4.4 Globulin 3.3 Albumin/Globulin Ratio 1.3 Lipase 408 H Urine Color Urine Appearance Urine pH Ur Specific [place] Urine Protein Urine Glucose (UA) Urine Ketones Urine Occult Blood Urine Nitrate Urine Bilirubin Urine Urobilinogen Ur Leukocyte Esterase Urine RBC Urine WBC Urine Bacteria Ur Culture Indicated? Urine Test U Opiates 300ng/mL cut Ur Oxycodone Screen Urine Methadone Screen Ur Barbiturates Screen U Tricyclic Antidepress Ur Phencyclidine Scrn Ur Amphetamines Screen U Methamphetamines Scrn Ur MDMA Scrn (Ecstasy) U Benzodiazepines Scrn Urine Cocaine Screen U Marijuana (THC) Screen Ethyl Alcohol 393 H SARS-CoV-2 (PCR) 11/19/22 11/19/22 11/20/22 21:00 22:30 04:16 WBC 5.2 RBC 3.98 L Hgb 10.1 L Hct 31.4 L MCV 79.0 L MCH 25.4 L MCHC 32.2 RDW 19.5 H Plt Count 332 Neut % (Auto) 36.7 L Lymph % (Auto) 54.2 H [place] % (Auto) 6.5 Eos % (Auto) 0.7 L Baso % (Auto) 1.9 Neut # (Auto) 1900 Lymph # (Auto) 2800 [place] # (Auto) 300 Eos # (Auto) 0 Baso # (Auto) 100 Sodium Potassium Chloride Carbon Dioxide BUN Creatinine Estimated GFR BUN/Creatinine Ratio Glucose Calcium Magnesium 2.2 Total Bilirubin Conjugated Bilirubin Unconjugated Bilirubin AST ALT Alkaline Phosphatase Total Protein Albumin Globulin Albumin/Globulin Ratio Lipase Urine Color Urine Appearance Urine pH Ur Specific [place] Urine Protein Urine Glucose (UA) Urine Ketones Urine Occult Blood Urine Nitrate Urine Bilirubin Urine Urobilinogen Ur Leukocyte Esterase Urine RBC Urine WBC Urine Bacteria Ur Culture Indicated? Urine Test U Opiates 300ng/mL cut Ur Oxycodone Screen Urine Methadone Screen Ur Barbiturates Screen U Tricyclic Antidepress Ur Phencyclidine Scrn Ur Amphetamines Screen U Methamphetamines Scrn Ur MDMA Scrn (Ecstasy) U Benzodiazepines Scrn Urine Cocaine Screen U Marijuana (THC) Screen Ethyl Alcohol SARS-CoV-2 (PCR) Negative 11/20/22 11/20/22 11/20/22 04:16 04:16 04:30 WBC RBC Hgb Hct MCV MCH MCHC RDW Plt Count Neut % (Auto) Lymph % (Auto) [place] % (Auto) Eos % (Auto) Baso % (Auto) Neut # (Auto) Lymph # (Auto) [place] # (Auto) Eos # (Auto) Baso # (Auto) Sodium 145 Potassium 3.5 Chloride 107 Carbon Dioxide 30 BUN 8 Creatinine 0.90 Estimated GFR > 60 BUN/Creatinine Ratio 8.9 Glucose 84 Calcium 7.7 L Magnesium Total Bilirubin 0.3 Conjugated Bilirubin 0.0 Unconjugated Bilirubin 0.0 AST 288 H ALT 51 H Alkaline Phosphatase 59 Total Protein 6.0 L Albumin 3.6 Globulin 2.4 Albumin/Globulin Ratio 1.5 Lipase Urine Color Urine Appearance Urine pH Ur Specific [place] Urine Protein Urine Glucose (UA) Urine Ketones Urine Occult Blood Urine Nitrate Urine Bilirubin Urine Urobilinogen Ur Leukocyte Esterase Urine RBC Urine WBC Urine Bacteria Ur Culture Indicated? Urine Test Negative U Opiates 300ng/mL cut Ur Oxycodone Screen Urine Methadone Screen Ur Barbiturates Screen U Tricyclic Antidepress Ur Phencyclidine Scrn Ur Amphetamines Screen U Methamphetamines Scrn Ur MDMA Scrn (Ecstasy) U Benzodiazepines Scrn Urine Cocaine Screen U Marijuana (THC) Screen Ethyl Alcohol SARS-CoV-2 (PCR) 11/20/22 11/20/22 04:30 04:30 WBC RBC Hgb Hct MCV MCH MCHC RDW Plt Count Neut % (Auto) Lymph % (Auto) [place] % (Auto) Eos % (Auto) Baso % (Auto) Neut # (Auto) Lymph # (Auto) [place] # (Auto) Eos # (Auto) Baso # (Auto) Sodium Potassium Chloride Carbon Dioxide BUN Creatinine Estimated GFR BUN/Creatinine Ratio Glucose Calcium Magnesium Total Bilirubin Conjugated Bilirubin Unconjugated Bilirubin AST ALT Alkaline Phosphatase Total Protein Albumin Globulin Albumin/Globulin Ratio Lipase Urine Color Yellow Urine Appearance Clear Urine pH 6.0 Ur Specific [place] 1.015 Urine Protein Negative Urine Glucose (UA) Negative Urine Ketones Negative Urine Occult Blood Negative Urine Nitrate Positive H Urine Bilirubin Negative Urine Urobilinogen 0.2 Ur Leukocyte Esterase 1+ H Urine RBC None seen Urine WBC 10-30/hpf H Urine Bacteria Many (>30) H Ur Culture Indicated? Specimen cultured Urine Test U Opiates 300ng/mL cut Negative Ur Oxycodone Screen Negative Urine Methadone Screen Negative Ur Barbiturates Screen Positive H U Tricyclic Antidepress Positive H Ur Phencyclidine Scrn Negative Ur Amphetamines Screen Negative U Methamphetamines Scrn Negative Ur MDMA Scrn (Ecstasy) Negative U Benzodiazepines Scrn Positive H Urine Cocaine Screen Negative U Marijuana (THC) Screen Negative Ethyl Alcohol SARS-CoV-2 (PCR) [facility] Medical History Alcohol withdrawal delirium, acute, hyperactive Anemia (~2017) Insomnia Menometrorrhagia (spontaneous vaginal delivery) (~12/17/18) Surgical History H/O dilation and curettage (~03/27/17) H/O wisdom tooth extraction (~2013) S/P myringotomy with insertion of tube Family History Mother Diabetes mellitus Overweight Father Alcoholism Grandfather Unknown whether patient has any health problems Grandmother Diabetes mellitus Smoker Family/Other Diabetes mellitus Obesity Family/Other Alcoholism Grandfather Smoker Alcoholism Grandmother Hypoglycemia Social History marital status: number of children: 1 household members: significant other education level: college occupational status: employed current occupational exposures/hazards: Yes (obvious risk with Pandemic ) nidhi/protestant: Buddhism special nidhi needs: No Smoking Status: Former smoker second hand exposure: No (growing up as a child - not currently) alcohol intake: current substance use type: does not use Assessment & Plan Assessment & Plan narrative: 1. Acute alcohol withdrawal with DTs, improving -multiple admissions and hospital visits for alcohol withdrawal within the last month -each time she has refused rehab -she was just discharged 5 days ago, refusing rehab -per ED she is requesting detox after drinking heavily after discharge -per ED she was hallucinating and agitated on arrival, received phenobarbital -continue ciwa protocol, with ativan, librium 50mg q6 -now off precedex -DEBATE DIRECTOR consult 2. Acute encephalopathy, resolved -suspect secondary to alcohol withdrawal and phenobarbital and treat as above -ordered for high dose thiamine for prevention/treatment of wernicke's 3. Hypernatremia, resolved -likely secondary to inadequate PO intake due to alcoholism -trend daily 4. Depression and anxiety -continue prozac 5. Anemia, chronic -continue to trend 6. GERD -continue PPI 7. UTI -UA with pyuria -rocephin x3 days -f/u urine culture CODE: Full Proxy: Rubén Stearns, spouse Dispo: Likely intpatient detox pending DEBATE DIRECTOR. Quality VTE Deep Vein Thrombosis/Pulmonary Embolism Present on Admission: No
[2022-11-20] MEDS: MULTIVITAMIN 1 TABLET 1 TAB PO (08:46)
[2022-11-20] MEDS: HEPARIN 5,000 UNIT/ML VIAL 5000 UNIT SUBCUT (08:46)
[2022-11-20] MEDS: FOLIC ACID 1 MG TABLET PO (08:46)
[2022-11-20] MEDS: PANTOPRAZOLE 40 MG VIAL IV (08:46)
[2022-11-20] MEDS: LACTATED RINGERS 1,000 ML 100 ML IV (09:00)
[2022-11-20] MEDS: THIAMINE 500 MG in SODIUM CHLORIDE 0.9% 100 ML 420 MG IV ×2 (09:01→15:55)
[2022-11-20 09:34] LABS: Lactate (Lactic Acid) 2.9 mmol/L (0.7-2.1)
[2022-11-20 09:51] LABS: Procalcitonin < 0.03 ng/mL (<0.5)
[2022-11-20] MEDS: POTASSIUM CHLORIDE 20 MEQ TAB 40 MEQ PO (09:56)
[2022-11-20 11:17] LABS: Reflexed Lactate in 2 Hours Y
[2022-11-20] MEDS: LORazepam 1 MG TABLET PO ×2 (11:17→12:42)
[2022-11-20 12:07] LABS: Lactate 2HR (Lactic Acid Rflx) 2.1 mmol/L (0.7-2.1)
--- NOTE | 2022-11-20 13:53 | CM.SWNOTE ---
HAIRSPRING ADJUSTER Assessment HAIRSPRING ADJUSTER - Machine Sander Assessment HAIRSPRING ADJUSTER/Machine Sander Assessment Time Spent with Patient Start date 11/20/22 Visit Start Time 12:30 End date 11/20/22 Visit End Time 12:40 Total time Care Management spent on 15 minutes patient visit-in minutes Substance Abuse Screening Include Onset, Duration, Intensity Presenting Problem Patient presents to intoxicated seeking detox after drinking unknown amounts of liquor, patient endorses she cannot recall her last drink or how much she drank. Patient endorses her friends brought her to the ED. Patient 's BAL upon presentation to ED last night was 393. Precipitating Event(s) This is patient's 4th hospital encounter this month regarding ETOH intoxication and withdrawals, 3 of the visits requiring ICU hospitalization. Patient endorses she is getting a divorce with spouse, had to move out of her house and is currently in a custody doherty regarding her two children. Patient endorses her two children are with their father in [place] and she has not seen them in a while. It is reported by RN that patient previously reported that she was drinking a lot with friends last night and it was her friends that brought patient in the hospital. Patient was evaluated by DCR at last ICU presentation on and was deemed not appropriate for detainment due to patient's presentation. Patient continues to decline offers for voluntary treatment at this time and at the last few hospital encounters. Patient Strengths Patient endorses she has a sponsor, is newly engaged with [facility] for MH and [facility] in [place] and states that she is starting a new job. Patient endorses I have priorities and have to suck it up. Patient endorses her children are supposed to visit next week. Current Behavioral Health Provider(s) Patient endorses she recently Include Facility, Provider, Ph. # established [facility] an MH outpatient with [facility] in [place] and has an upcoming appt (ph. # [phone]). Family Hx of Behavioral Abuse None reported Rehab Facilities? ((Date(s), Location(s) Patient previously endorsed hx ) of rehab and detox at least 11 times at [facility] and [facility] in [place]. Patient most recently has detoxed at ICU 3 times in the last three weeks. Patient also was at [facility] for detox 1.5 months ago. History of Withdrawal? Seizures? Patient has hx of DTs, tremors , anxiety. Patient denies seizures. Patient denies current withdrawals and states I'm going through it. Per RN, patient's CIWA is currently 11 due to mild nausea, minimal perspiration, and mild itching. Longest Period of Sobriety Patient reported hx of 18 months sobriety about 2 months ago prior to recent relapse. Psychosocial information & Support Patient is 32 y/o female Systems residing in [place]. Patient endorses she is a mother of two kids who are currently residing with their father in [place] after recent divorce and current custody doherty. Patient endorses she has friends as supports. 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 Legal Concerns Legal Matters - Outstanding Issues None reported Mental Status Orientation (Person/Place/Time) A/Ox4 Stated Mood I'm just going through it Affect (Congruent with Mood?) tired, euthymic, full range, congruent with mood. Thought Content - Specify/Describe Patient denies hallucinations Obsessions, Delusions, Hallucinations or paranoia. Thought Processes (Ybbijtu-Tefgqnfg-Hbqz coherent, goal oriented Jwtjhsly-Qdauutta-Cwlklguuow- Qiajabmdtawtvj-Qsojapg-Mvbxlyveadkt- Thought Blocking) Speech (Frlsgy-Idba-Cjcgtut-Rapid-Soft- normal Loud-Pressured) Motor (Qffidc-Jayzzxjxj-Fbkl-Other) normal, slow due to fatigue. Patient presents laying down in bed. Insight (Uhxa-Nffw-Wsvm/Limited) fair, limited. Patient presents with identifying her plan to maintain sobriety but has reported this to staff many times before during last presentations to hospital. Patient identifies that her substance use is an issue but continues to drink high levels of alcohol requiring ICU hospitalization. Judgment (Jrjh-Pwlz-Kjxf/Limited) poor, patient presents as impaired by her substance use disorder. Patient presents stating her goals to stop drinking during each presentation but continues to drink. Impulse Control (Adequate-Impaired) adequate during assessment Memory (Gtzunsblt-Kmxugo-Fwhina, impaired, patient states she Impaired-Intact) does not recall how much she drank last night and does not recall when her last drink was. Concentration (Intact-Impaired) intact during assessment Attention (Intact-Impaired) intact Behavior (Appropriate-Inappropriate) appropriate Additional Comment patient presents as polite, calm, communicative and cooperative. Risk Assessment Suicidal Ideation (Plan) No Homicidal Ideation (Plan) No Comment Patient has hx of SI but denies current SI Intervention Intervention HAIRSPRING ADJUSTER enters room to meet with patient. Patient endorses preference to go through this withdrawal. Patient denies interest in inpatient treatment. Patient endorses plan to follow up with new outpatient providers at [facility] and states she will stay with her sponsor. Patient endorses that she will be starting a job Thursday and her kids are coming back next Thursday. HAIRSPRING ADJUSTER inquires further about when patient's next [facility] appt is and patient states I don't know, it's on the calendar. It is the concern of this HAIRSPRING ADJUSTER that patient will continue cyclical pattern of ongoing ETOH use requiring ICU detox hospitalization. Patient presents with calm and polite demenor endorsing her plan to mitigate her substance use and denies inpatient treatment. It is the concern of this HAIRSPRING ADJUSTER that patient knows what to say to allow patient to discharge home. It is the opinion of this HAIRSPRING ADJUSTER that patient will be appropriate for and will benefit from inpatient [facility] rehabilitation to address ongoing ETOH use. At this time patient is not voluntary for treatment. HAIRSPRING ADJUSTER will dispatch DCR for further consultation as patient was just evaluated by DCR 6 days ago for similar presentation. HAIRSPRING ADJUSTER reviews the above with Hospitalist Dr. Rocha who indicates agreement and understanding. Dr. Rocha endorses that patient is medically clear at this time. Plan RA Plan HAIRSPRING ADJUSTER to consult further with DCR regarding plan of care. REYES Morelos
--- NOTE | 2022-11-20 14:01 | CM.IDA ---
Initial DCP Assessment Patient is 32 y/o female who presents to due to concern for ETOH withdrawal. This is patient's 3rd presentation to regarding ICU hospitalization in a month regarding similar presentation, patient was just discharged on 11/14/22 after being evaluated by DCR for Juan Manuel's Law. Patient endorses her PCP is on [facility] [employer] in [place], Dr. Hanna Roper. Patient has [email or web address] insurance. FIRE APPARATUS ENGINEER enters room to meet with patient and conducts FIRE APPARATUS ENGINEER assessment- see other note. Patient presents as A/Ox4, indicates independence with ADLs and ability to drive. Patient has previously presented to with friend/SO Kulwant Winkler P [phone];at this time friend was not present. Patient endorses preference to d/c to home due to new job and her children coming to visit. Patient endorses she just moved into apartment in [place]. Patient endorses plan to stay with sponsor in [place] and f/u with her outpatient MH and [facility] providers through [facility], patient is unable to confirm next appt. FIRE APPARATUS ENGINEER discusses inpatient treatment and patient declines this plan and denies need for any resources at this time. Due to patient's last 3 ICU hospitalization regarding similar presentation and recent DCR evaluation 6 days ago, this FIRE APPARATUS ENGINEER calls [facility] to request consultation. 1415: FIRE APPARATUS ENGINEER speaks with Noreen STARKS and reviews case for consultation. Noreen recommends speaking with patient about the evidence that is being gathered regarding patient's presentation to hospital for ETOH withdrawals and that if pattern continues then it is likely patient will be detained for treatment via Juan Manuel's Law and grave disability. Noreen recommends discussing with patient that the goal is her safety. Noreen encourages DCPs and receptionist secretary to consult/dispatch DCR upon every patient presentation to hospital regarding ETOH withdrawals and use. Noreen endorses that this consultation will be put in patient's record for DCRs to review. FIRE APPARATUS ENGINEER to review this with DCPs and Hospitalist. Plan: Patient likely to d/c to home upon medical clearance, patient plans to stay with sponsor in [place] and f/u with [facility] for MH and AN[facility] outpatient, patient likely to receive transport home from friends. Joceline Blas [facility] Discharge Planning/Care Management CM Discharge Assessment Start: 11/20/22 13:12 Freq: Status: Active Protocol: Document 11/20/22 13:57 LN (Rec: 11/20/22 14:01 LN [id number]) Discharge Planning Assessment Assigned Real Estate Lawyer REYES Car Advance Directives? No History Provided By Patient,Medical Record Has Patient been admitted in last 30 Yes days? Comment Patient had ICU stay from 11/12-11/14/22 regarding similar presentation. As well as ICU stay on 10/24/22-10/25/22. Prior Living Arrangements Apartment/Condo Type of transporation used prior to Drives own vehicle admit Independent with ADL's Yes Is patient alert and oriented? Yes Patient/Family Preference Drug/Alcohol Rehab Comment Home vs Substance Use Disorder treatment/rehab Transportation Arrangement TBD Referrals Initiated None needed Additional Comment Patient endorses she is established with [facility] for [facility] and MH outpatient. Please Provide Date Initial DC 11/20/22
--- NOTE | 2022-11-20 14:32 | PC.NURSE ---
Day shift: patient's blood pressures have remained stable after fluid boluses this AM and maintenance fluids. Patient states she wants to detox but also states, I have priorities. I can't be here all weekend. 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 When asked about her living situation, patient stated to this RN she is in her first place on her own with her two young children. When asked who her children were with currently, patient told this RN the children are with their father, not in the new home with her. Care ongoing.
--- NOTE | 2022-11-20 14:52 | CM.SWNOTE ---
DCP/FUNNEL COATER Note continued FUNNEL COATER enters to meet with patient after DCR consultation. Present in room is patient's friend (who works as security at [employer]). Patient provides verbal consent for friend to be present. It is reported that this friend disposed of all of patient's alcohol in her apartment. Patient endorses she resides alone and often drinks because she is bored and alone. FUNNEL COATER discusses that DCR was contacted and there evidence is being gathered regarding patient's hospital presentations regarding ETOH. Patient presents with understanding of Juan Manuel's Law. FUNNEL COATER endorses that this a transparent conversation to encourage patient to follow through with outpatient plan to avoid any need for CLIFF Juan Manuel's Law detainment, patient endorses understanding. Patient endorses plan to follow through with sobriety and outpatient supports. It is the opinion of this FUNNEL COATER that it is beneficial that a friend was present for this conversation to hold some accountability for patient. Patient also endorses that she has a good support system and asks if that will change the Juan Manuel's Law outcome. FUNNEL COATER endorses that if patient continues to present to hospitals with ETOH withdrawal concerns then DCRs will be contacted and evidence will be gathered due to the goal of patient safety. FUNNEL COATER reviews this with RN and RISHABH Redmond. FUNNEL COATER attempts to inform Hospitalist but is unable to reach him. RN or RISHABH Redmond to review this Hospitalist. Plan: Patient to d/c to home with friend upon medical clearance and to f/u with AN[facility]BAL/MH outpatient supports and services. REYES Morelos
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
== END 2022-11-20 18:04 | disposition home or self-care (01) | DRG 896 ==
LOC: ED 21:45 → AC 22:05 → ICU 22:44
PROVIDERS: Anesthesiology Critical Care Medicine; Admitting Provider Internal Medicine; Emergency Provider Emergency Medicine; PCP Specialist; Referring Provider Emergency Medicine; Visit Provider Internal Medicine
DX: F10.231 Alcohol dependence with withdrawal delirium (principal); G92.8 Other toxic encephalopathy; E87.0 Hyperosmolality and hypernatremia; F32.A Depression, unspecified; F41.9 Anxiety disorder, unspecified; K21.9 Gastro-esophageal reflux disease without esophagitis; R82.71 Bacteriuria; Y90.8 Blood alcohol level of 240 mg/100 ml or more; Z20.822 Contact with and (suspected) exposure to COVID-19; Z87.891 Personal history of nicotine dependence
CPT/HCPCS: 36415; 80048; 80053; 80076; 80305; 80320; 81001; 81025; 83605; 83690; 83735; 84145; 85025; 87077; 87086; 87186; 87635; 96365; 96372; 99284; C9803; C9113; J0696; J1644; J2060; J2405; J2560

== ENCOUNTER 2023-01-19 08:25 | Emergency (ER) | payer OTHER, SELFPAY ==
[2023-01-19 08:29] VITALS: BP 101/60; PULSE 100; RESP 18; TEMP 36.6; O2SAT 99; BMI 21.7
--- NOTE | 2023-01-19 08:36 | ED_ITS ---
HPI - Skin/Abscess/Foreign Bdy General Chief complaint: Skin/Abscess/Foreign Body Stated complaint: hives/N 6 hours Time Seen by Provider: 01/19/23 08:34 Source: patient Mode of arrival: Ambulatory Limitations: no limitations History of Present Illness HPI narrative: This is a 33-year-old female with history of mood disorder and prior alcohol abuse with complaint of hives and itching all over her body. She states she went to bed about 8:00 a.m. last night she states she felt fine she woke up this morning with rash and pruritus all over. Patient states no fevers or chills no headache, no vision changes. No chest pain or shortness of breath. She does not appreciate any swelling her lips, tongue or airway. Patient states she is had nausea and 1 or 2 episodes of vomiting. She states no diarrhea. She denies any dysuria, urgency or frequency. She denies any blistering or changes to the skin other than the red spotty rash and itching. Patient states she feels shaky. No passing out or dizziness. Patient states she has had 1 similar episode in the past when she received Reglan. She states no new medications, she takes Seroquel daily she states she is been on this for some time. She has not had any dosage changes. She denies any other new ingestions. She has not had any new or exposures that she is aware of. No camping or outdoor exposures that she is aware of. Patient has had prior D&C denies any other surgeries. Patient denies tobacco, alcohol or illicit. Related Data Home Medications Medication Instructions Recorded Confirmed hydroxyzine HCl 50 mg tablet 50 mg PO PRN PRN Anxiety 10/24/22 11/20/22 quetiapine 300 mg tablet 300 mg PO DAILY 10/24/22 11/20/22 Previous Rx's Medication Instructions Recorded famotidine 40 mg tablet (Pepcid) 40 mg PO DAILY #7 tabs 01/19/23 prednisone 50 mg tablet 50 mg PO DAILY #5 tabs 01/19/23 Allergies Allergy/AdvReac Type Severity Reaction Status Date / Time metoclopramide Allergy Mild RASH/HIVES Verified 10/23/22 16:18 [METOCLOPRAMIDE] hydrocodone [HYDROCODONE] AdvReac Unknown VOMITING Verified 10/23/22 16:18 Review of Systems Review of Systems ROS Unobtainable: All systems reviewed & are unremarkable except as noted in HPI and below Patient History Medical History Alcohol withdrawal delirium, acute, hyperactive Anemia (~2017) Insomnia Menometrorrhagia (spontaneous vaginal delivery) (~12/17/18) Surgical History H/O dilation and curettage (~03/27/17) H/O wisdom tooth extraction (~2013) S/P myringotomy with insertion of tube Family History Mother Diabetes mellitus Overweight Father Alcoholism Grandfather Unknown whether patient has any health problems Grandmother Diabetes mellitus Smoker Family/Other Diabetes mellitus Obesity Family/Other Alcoholism Grandfather Smoker Alcoholism Grandmother Hypoglycemia Social History marital status: number of children: 1 household members: significant other education level: college occupational status: employed current occupational exposures/hazards: Yes (obvious risk with Pandemic ) nidhi/protestant: Sikh special nidhi needs: No Smoking Status: Former smoker second hand exposure: No (growing up as a child - not currently) alcohol intake: current substance use type: does not use Smoking Status: Former smoker alcohol intake frequency: other Substance Use Type: does not use Exam Narrative Exam Narrative: GEN: well nourished, well appearing female, alert and oriented x 3, patient appears to be in mild distress. HEENT: Atraumatic, pupils are equal round reactive to light, extraocular movements are intact, nares are clear, TMs are clear with no fluid, there is no conjunctival pallor. Throat is clear without any exudates, erythema, tonsillar enlargement or uvular deviation, no swelling of the lips, oropharynx or face. No muffled voice or hoarseness. No stridor. HEART: Regular rate and rhythm without murmur, clicks, rubs. Pulses are equal in upper and lower extremities LUNGS:Lungs clear to auscultation, no wheezes, rales, crackles, chest moves symmetrically ABD:bowel sounds normal, soft, non-tender, no guarding, rebound, rigidity, no masses noted, no hepatosplenomegaly :No CVA tenderness MSCL: Non-tender, no muscle atrophy, muscles strength 5/5 upper and lower extremities, full range of motion, normal gait NEURO:CN 2-12 intact, sensation normal SKIN: Patient has patchy erythematous rash with hive-like wheals and smaller areas of erythema throughout her torso and extremities and neck, not appreciated on her face. Patient does not have any blistering, vesicles, no papules. Patient is no excoriation but is scratching all over. Initial Vital Signs Initial Vital Signs: Vital Signs Temperature 97.8 F 01/19/23 08:29 Pulse Rate 100 H 01/19/23 08:29 Respiratory Rate 18 01/19/23 08:29 Blood Pressure 101/60 01/19/23 08:29 Pulse Oximetry 99 01/19/23 08:29 Oxygen Delivery Method Room Air 01/19/23 08:29 Course Orders Ordered: Discontinued Medications Diphenhydramine HCl (Diphenhydramine 50 Mg/Ml Vial) 25 mg IV NOW ONE Stop: 01/19/23 08:41 Last Admin: 01/19/23 09:01 Dose: 25 mg Documented By: RB Famotidine (Famotidine 20 Mg/2 Ml Vial) 20 mg IV NOW DAVONTE Last Admin: 01/19/23 09:01 Dose: 20 mg Documented By: RB Methylprednisolone (Methylprednisolone 125 Mg/2 Ml Vial) 125 mg IV NOW ONE Stop: 01/19/23 08:41 Last Admin: 01/19/23 09:00 Dose: 125 mg Documented By: RB Vital Signs Vital signs: Vital Signs - 8 hr 01/19/23 08:29 01/19/23 08:38 01/19/23 08:38 Temperature 97.8 F Pulse Rate 100 H 105 H Respiratory Rate 18 Blood Pressure 101/60 118/66 Pulse Oximetry 99 99 Oxygen Delivery Method Room Air 01/19/23 09:13 01/19/23 09:13 Temperature Pulse Rate 99 H Respiratory Rate Blood Pressure 105/64 Pulse Oximetry 96 Oxygen Delivery Method MDM - Skin/Abscess/Foreign Bdy MDM Narrative Medical decision making narrative: This is a 33-year-old female with rash that appears allergic. No known exposures patient's only medication is Seroquel she states she is been on this longstanding without any recent medication changes. She has had reactions to metoclopramide or Reglan and hydrocodone and states this feels similar. She states no recent ingestion of these medications she states no other new medications and she is unaware of any other new exposures or potential causes. She does not have any known environmental, food or other allergies that she is aware of. Patient's afebrile. She is had approximately 6 hours of symptoms woke up with these did not have them present last night when she went to bed at 8:00 p.m.. Patient did take some oral Benadryl at home at about 6:00 a.m. so she received Solu-Medrol, Benadryl 25 mg and Pepcid. She has not had any airway involvement in his had 6 hours with symptoms present but not seeming to be continuing to progress so was not given epinephrine initially. On recheck about 1/2 hour after medications were given patient's rash is starting to clear, she still is itchy but is having improvement. Patient notes she is on the Seroquel for insomnia discussed this is unlikely but possible source of symptoms she has not had any increase in dosage change. Discussed with patient would take medications if not clearing would stop her Seroquel for about a week to see if that makes any difference. Discussed return precautions. All questions answered. Discharge Plan Departure Patient Disposition: Home Clinical Impression: Allergic reaction Instructions: Anaphylaxis Activity Restrictions/Additional Instructions: Please follow-up for recheck, I hope you continue to feel better. I would try holding your Seroquel for the next several days if you are able to tolerate. Once your symptoms have resolved to can restart this to see if this might be a potential source for your symptoms today. Take steroids once daily until gone. Continue with Pepcid 40 mg daily. You can continue with Benadryl 1-2 tablets (25-50mg) every 6 hours as needed for symptoms. Prescription sent to [facility] Please return for new or worsening symptoms, swelling of your lips, tongue or airway, difficulty with swallowing, changes to voice, fevers, worsening rash or blistering or sloughing off of gin, persistent vomiting, lightheadedness or passing out, chest pain or shortness of breath, black or bloody stools or other new or concerning changes, Prescriptions: New prednisone 50 mg tablet 50 mg PO DAILY Qty: 5 0RF famotidine [Pepcid] 40 mg tablet 40 mg PO DAILY Qty: 7 0RF No Action hydroxyzine HCl 50 mg tablet 50 mg PO PRN PRN (Reason: Anxiety) quetiapine 300 mg tablet 300 mg PO DAILY Referrals: Julita Montiel MD [Physician] - Stand Alone Forms: Patient Portal/API
[2023-01-19 08:38] VITALS: BP 118/66; PULSE 105; O2SAT 99
[2023-01-19] MEDS: methylPREDNISolone 125 MG/2 ML VIAL IV (09:00)
[2023-01-19] MEDS: diphenhydrAMINE 50 MG/ML VIAL 25 MG IV (09:01)
[2023-01-19] MEDS: FAMOTIDINE 20 MG/2 ML VIAL IV (09:01)
[2023-01-19 09:13] VITALS: BP 105/64; PULSE 99; O2SAT 96
[2023-01-19 09:30] VITALS: BP 104/65; PULSE 105; O2SAT 100
== END 2023-01-19 09:40 | disposition home or self-care (01) ==
PROVIDERS: Emergency Provider Emergency Medicine; PCP Student in an Organized Health Care Education/Training Program
DX: L50.9 Urticaria, unspecified (principal); T78.40XA Allergy, unspecified, initial encounter
CPT/HCPCS: 36415; 96374; 96375; 99284; J1200; J2930

== ENCOUNTER 2023-02-26 03:20 | Emergency (ER) | payer OTHER, SELFPAY ==
[2023-02-26] VITALS (12 sets, daily range): BP systolic 84–110; BP diastolic 50–62; PULSE 66–77; RESP 20; TEMP 36.3; O2SAT 100; BMI 21.9
--- NOTE | 2023-02-26 04:46 | PC.NURSE ---
This nurse attempted IV start twice, unsuccessful. Cesar WAY attempted once, unsuccessful. Dr. Dewitt made aware. Dr. Dewitt attempted with ultrasound guide, unsuccessful.
[2023-02-26 04:59] LABS: Add Manual Diff / Slide Review NO; Basophils Absolute Auto 100 /uL (0-100); Basophils Percent Auto 1.2 % (0-2); Eosinophils Absolute Auto 300 /uL (0-450); Eosinophils Percent Auto 3.8 % (2-4); Hematocrit 30.2 % (36-46); Hemoglobin 10.2 g/dL (12.0-16.0); Lymphocytes Absolute Auto 1800 /uL (1100-4500); Lymphocytes Percent Auto 25.7 % (25-40); Mean Corpuscular HGB Conc 33.9 % (30-36); Mean Corpuscular Hemoglobin 26.9 PG (26-34); Mean Corpuscular Volume 79.6 fL (80-100); Monocytes Absolute Auto 400 /uL (0-900); Monocytes Percent Auto 6.4 % (3-14); Neutrophils Absolute Auto 4400 /uL (1500-7000); Neutrophils Percent Auto 62.9 % (50-75); Platelet Count 260 X10^3/uL (150-400); Red Blood Cell Count 3.79 X10^6/uL (4.0-5.2); Red Cell Distribution Width 18.4 % (11.6-14.8)
[2023-02-26 05:03] LABS: Alanine Aminotransferase 11 IU/L (<35); Albumin 4.1 g/dL (3.5-5.0); Albumin Globulin Ratio 1.5 (1.0-2.8); Alkaline Phosphatase 51 U/L (38-126); Aspartate Aminotransferase 24 IU/L (14-36); BUN Creatinine Ratio 13.2 (6-22); Bilirubin Total 0.5 mg/dL (0.2-1.3); Blood Urea Nitrogen 10 mg/dL (7-17); Calcium 9.1 mg/dL (8.4-10.2); Carbon Dioxide 23 mmol/L (22-32); Chloride 104 mmol/L (98-107); Estimated Glomerular Filt Rate > 60 mL/min (>60); Ethanol (ETOH) < 10 mg/dL; Globulin 2.8 g/dL (1.7-4.1); Glucose 96 mg/dL (70-100); HEMOLYSIS < 15 (0-50); Lipase 127 U/L (23-300); Potassium 3.8 mmol/L (3.4-5.1); Sodium 136 mmol/L (137-145); Total Protein 6.9 g/dL (6.3-8.2)
[2023-02-26] MEDS: KETOROLAC 30 MG/ML VIAL IM (05:24)
[2023-02-26] MEDS: ONDANSETRON 4 MG ODT SL (05:24)
--- NOTE | 2023-02-26 06:04 | ED_ITS ---
HPI - Abdominal Pain General Chief Complaint: Abdominal Pain Stated Complaint: abd pain, nausea Time Seen by Provider: 02/26/23 04:12 Source: patient Mode of arrival: Family Vehicle History of Present Illness HPI narrative: Patient is a 33-year-old female history of alcohol abuse presenting today 34 days sober. She reports that she has not had her menstrual cycle and awhile she reports that today she is having increasing pain. No fever or chills. She denies any heavily bleeding but is definitely having some. She reports it she threw up a couple of times. No fever or chills. He was feeling well yesterday. Related Data Home Medications Medication Instructions Recorded Confirmed hydroxyzine HCl 50 mg tablet 50 mg PO PRN PRN Anxiety 10/24/22 11/20/22 quetiapine 300 mg tablet 300 mg PO DAILY 10/24/22 11/20/22 Previous Rx's Medication Instructions Recorded famotidine 40 mg tablet (Pepcid) 40 mg PO DAILY #7 tabs 01/19/23 prednisone 50 mg tablet 50 mg PO DAILY #5 tabs 01/19/23 cephalexin 500 mg capsule 500 mg PO BID 5 days #10 caps 02/26/23 quetiapine 300 mg tablet 300 mg PO DAILY #30 tabs 02/26/23 Allergies Allergy/AdvReac Type Severity Reaction Status Date / Time metoclopramide Allergy Mild RASH/HIVES Verified 10/23/22 16:18 [METOCLOPRAMIDE] hydrocodone [HYDROCODONE] AdvReac Unknown VOMITING Verified 10/23/22 16:18 Review of Systems Review of Systems ROS Unobtainable: All systems reviewed & are unremarkable except as noted in HPI and below Patient History Medical History Alcohol withdrawal delirium, acute, hyperactive Anemia (~2017) Insomnia Menometrorrhagia (spontaneous vaginal delivery) (~12/17/18) Surgical History H/O dilation and curettage (~03/27/17) H/O wisdom tooth extraction (~2013) S/P myringotomy with insertion of tube Family History Mother Diabetes mellitus Overweight Father Alcoholism Grandfather Unknown whether patient has any health problems Grandmother Diabetes mellitus Smoker Family/Other Diabetes mellitus Obesity Family/Other Alcoholism Grandfather Smoker Alcoholism Grandmother Hypoglycemia Social History marital status: number of children: 1 household members: significant other education level: college occupational status: employed current occupational exposures/hazards: Yes (obvious risk with Pandemic ) 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 special nidhi needs: No Smoking Status: Former smoker second hand exposure: No (growing up as a child - not currently) alcohol intake: current substance use type: does not use Smoking Status: Former smoker alcohol intake frequency: other Substance Use Type: does not use Exam Initial Vital Signs Initial Vital Signs: Vital Signs Temperature 97.4 F L 02/26/23 03:33 Pulse Rate 73 02/26/23 03:33 Respiratory Rate 20 02/26/23 03:33 Blood Pressure 110/57 L 02/26/23 03:33 Pulse Oximetry 100 02/26/23 03:33 Oxygen Delivery Method Room Air 02/26/23 03:33 GENERAL: Alert well-appearing 3 year female and in no acute distress. HEENT: Head atraumatic,EOMI, pupils reactive, face symmetric, moist mucous membranes CARDIOVASCULAR: Regular rate and rhythm without murmurs, rubs or gallops. RESPIRATORY: Breath sounds equal bilaterally, no wheezes rales or rhonchi. ABDOMEN: Soft, nontender. Normoactive bowel sounds all 4 quadrants. No guarding or rebound. EXTREMITIES: Normal range of motion, no clubbing or edema. Neurovascularly intact NEUROLOGICAL: Alert and oriented x4 SKIN: Warm, dry, no laceration, no petechiae, no rashes or lesions. Course Orders Ordered: ED Orders 02/26/23 04:40 Complete Blood Count AUTO DIFF Stat Comprehensive Metabolic Panel Stat ETOH [Ethanol (ETOH)] Stat Lipase Stat 02/26/23 05:58 Urine Drug Screen, Rapid Stat Urine Microscopic Stat Discontinued Medications Sodium Chloride (Normal Saline 0.9%) 1,000 mls @ 1,000 mls/hr IV BOLUS ONE Stop: 02/26/23 05:11 Last Admin: 02/26/23 05:25 Dose: Not Given Documented By: SHAHLA Ketorolac Tromethamine (Ketorolac 30 Mg/Ml Vial) 30 mg IM NOW ONE Stop: 02/26/23 05:18 Last Admin: 02/26/23 05:24 Dose: 30 mg Documented By: SHAHLA Ondansetron HCl (Ondansetron 4 Mg/2 Ml Inj) 4 mg IV NOW ONE Stop: 02/26/23 04:13 Last Admin: 02/26/23 05:25 Dose: Not Given Documented By: SHAHLA Ondansetron HCl (Ondansetron 4 Mg Odt) 4 mg SL NOW ONE Stop: 02/26/23 05:18 Last Admin: 02/26/23 05:24 Dose: 4 mg Documented By: SHAHLA Vital Signs Vital signs: Vital Signs - 8 hr 02/26/23 03:33 02/26/23 03:50 02/26/23 03:54 Temperature 97.4 F L Pulse Rate 73 Respiratory Rate 20 Blood Pressure 110/57 L 84/60 L 99/62 Pulse Oximetry 100 Oxygen Delivery Method Room Air 02/26/23 04:16 02/26/23 04:17 02/26/23 04:17 Temperature Pulse Rate 66 Respiratory Rate Blood Pressure 98/56 L Pulse Oximetry 100 100 Oxygen Delivery Method Room Air Room Air 02/26/23 04:30 02/26/23 04:31 02/26/23 04:31 Temperature Pulse Rate 72 72 Respiratory Rate Blood Pressure 106/59 L Pulse Oximetry 100 100 Oxygen Delivery Method 02/26/23 05:00 02/26/23 05:00 02/26/23 05:30 Temperature Pulse Rate 67 Respiratory Rate Blood Pressure 98/53 L 91/50 L Pulse Oximetry 100 Oxygen Delivery Method Room Air 02/26/23 05:30 02/26/23 05:41 02/26/23 05:41 Temperature Pulse Rate 77 68 Respiratory Rate Blood Pressure 94/50 L Pulse Oximetry 100 100 Oxygen Delivery Method Room Air Room Air 02/26/23 06:00 02/26/23 06:03 02/26/23 06:03 Temperature Pulse Rate 66 74 Respiratory Rate Blood Pressure 102/57 L Pulse Oximetry 100 100 Oxygen Delivery Method Room Air Room Air MDM - Abdominal Pain Lab Data 02/26/23 04:40 02/26/23 04:40 Labs: Lab Results 02/26/23 02/26/23 02/26/23 Range/Units 04:40 04:40 05:44 WBC 7.0 (4.5-11.0) X10^3/uL RBC 3.79 L (4.0-5.2) X10^6/uL Hgb 10.2 L (12.0-16.0) g/dL Hct 30.2 L (36-46) % MCV 79.6 L (80-100) fL MCH 26.9 (26-34) PG MCHC 33.9 (30-36) % RDW 18.4 H (11.6-14.8) % Plt Count 260 (150-400) X10^3/uL Neut % (Auto) 62.9 (50-75) % Lymph % (Auto) 25.7 (25-40) % [place] % (Auto) 6.4 (3-14) % Eos % (Auto) 3.8 (2-4) % Baso % (Auto) 1.2 (0-2) % Neut # (Auto) 4400 (7448-1081) /uL Lymph # (Auto) 1800 (7679-1292) /uL [place] # (Auto) 400 (0-900) /uL Eos # (Auto) 300 (0-450) /uL Baso # (Auto) 100 (0-100) /uL Sodium 136 L (137-145) mmol/L Potassium 3.8 (3.4-5.1) mmol/L Chloride 104 (98-107) mmol/L Carbon Dioxide 23 (22-32) mmol/L BUN 10 (7-17) mg/dL Creatinine 0.76 (0.52-1.04) mg/dL Estimated GFR > 60 (>60) mL/min BUN/Creatinine Ratio 13.2 (6-22) Glucose 96 (70-100) mg/dL Calcium 9.1 (8.4-10.2) mg/dL Total Bilirubin 0.5 (0.2-1.3) mg/dL AST 24 (14-36) IU/L ALT 11 (<35) IU/L Alkaline Phosphatase 51 (38-126) U/L Total Protein 6.9 (6.3-8.2) g/dL Albumin 4.1 (3.5-5.0) g/dL Globulin 2.8 (1.7-4.1) g/dL Albumin/Globulin Ratio 1.5 (1.0-2.8) Lipase 127 (23-300) U/L U Opiates 300ng/mL cut Negative (Negative) Ur Oxycodone Screen Negative (Negative) Urine Methadone Screen Negative (Negative) Ur Barbiturates Screen Negative (Negative) U Tricyclic Antidepress Negative (Negative) Ur Phencyclidine Scrn Negative (Negative) Ur Amphetamines Screen Negative (Negative) U Methamphetamines Scrn Negative (Negative) Ur MDMA Scrn (Ecstasy) Negative (Negative) U Benzodiazepines Scrn Negative (Negative) Urine Cocaine Screen Negative (Negative) U Marijuana (THC) Screen Negative (Negative) Ethyl Alcohol < 10 ( - 10) mg/dL Point of care testing: Point of Care Testing Test Results Negative Urine Dip Bedside Urine Glucose Negative Bedside Urine Bilirubin - Negative Bedside Urine Ketone ++ 40 Urine Specific [place] 1.010 Bedside Urine Occult Blood +++ Bedside Urine pH 8.0 Bedside Urine Protein + 30 Bedside Urine Urobilinogen - Negative Bedside Urine Nitrite + Positive Bedside Urine Leukocytes ++ 125 Esterase MDM Narrative Medical decision making narrative: Patient is an overall very hard IV start. She tenses up every time there is an attempt. I attempted with ultrasound myself it was able to get blood from an EJ but not able to get an IV. She is no vomiting. She is given Toradol in the ED blood work is overall reassuring. She has no significant leukocytosis anemia electrolyte abnormality or MIKAYLA. She is found have a UTI with nitrates. Will start her on. No evidence of severe sepsis. She is requesting refill of her Seroquel she gets into her PCP next. Blood pressure did drop briefly however it has been pretty stable in the low 100s she is asymptomatic. Tolerating fluids. No need for further workup or continue to try to get an IV. Discharge Plan Departure Patient Disposition: Home Clinical Impression: UTI (urinary tract infection) Instructions: DI for Urinary Tract Infection (UTI) Activity Restrictions/Additional Instructions: *You have been diagnosed with UTI *What to do: At this time your found to have a bladder infection likely your pain. *Continue to take medications as directed --> [facility] Keflex 500 mg twice a day for 5 days Seroquel 300 mg daily *Follow up with your primary care provider in 2-3 days or call [phone] *Return to ER if you should have increasing pain, severe heavy bleeding greater than 2 pads or tampons in 1 hour or any new, worsening or concerning symptoms Prescriptions: New cephalexin 500 mg capsule 500 mg PO BID 5 Days Qty: 10 0RF quetiapine 300 mg tablet 300 mg PO DAILY Qty: 30 0RF No Action hydroxyzine HCl 50 mg tablet 50 mg PO PRN PRN (Reason: Anxiety) quetiapine 300 mg tablet 300 mg PO DAILY prednisone 50 mg tablet 50 mg PO DAILY Qty: 5 0RF famotidine [Pepcid] 40 mg tablet 40 mg PO DAILY Qty: 7 0RF Referrals: Hanna Roper MD [Primary Care Provider] - Stand Alone Forms: Patient Portal/API
[2023-02-26 06:16] LABS: Ur Creatinine Normal (Normal); Ur Specific Gravity Normal (Normal); Urine Tetrahydrocannabinol Negative (Negative); Urine pH Normal (Normal)
[2023-02-26 06:17] LABS: UR Morphine/Opiate cutoff 300 Negative (Negative); Urine Amphetamines Negative (Negative); Urine Barbiturates Negative (Negative); Urine Benzodiazepines Negative (Negative); Urine Cocaine Negative (Negative); Urine MDMA Negative (Negative); Urine Methadone Negative (Negative); Urine Methamphetamines Negative (Negative); Urine Oxycodone Negative (Negative); Urine Phencyclidine Negative (Negative); Urine Tricyclic Antidepressant Negative (Negative)
[2023-02-26 07:10] LABS: Bacteria Urine Many (>30); RBC Urine 30-100/HPF (0-5/HPF); Squamous Epithelial Cell Urine 0-1 /HPF (0-5/HPF)
[2023-02-26 07:11] LABS: Culture Indicated Urine Specimen Cultured; WBC Urine 1-5/HPF (0-5/HPF)
== END 2023-02-26 06:26 | disposition home or self-care (01) ==
PROVIDERS: Emergency Provider Emergency Medicine; PCP Student in an Organized Health Care Education/Training Program
DX: N39.0 Urinary tract infection, site not specified (principal); R11.10 Vomiting, unspecified
CPT/HCPCS: 80053; 80305; 80320; 81003; 81015; 81025; 83690; 85025; 87077; 87086; 87186; 96372; 99284; J1885

== ENCOUNTER 2023-04-27 18:08 | Emergency (ER) | payer OTHER, SELFPAY ==
[2023-04-27] VITALS (7 sets, daily range): BP systolic 113–131; BP diastolic 66–78; PULSE 56–92; RESP 16; TEMP 37.1; O2SAT 98–100
--- NOTE | 2023-04-27 18:28 | ED.ALCOHOL ---
HPI - Alcohol General Chief Complaint: Toxicology Problem Stated Complaint: Etoh, poorly responsive Time Seen by Provider: 04/27/23 18:27 History of Present Illness HPI narrative: Patient 33-year-old female history of alcohol abuse presenting today with alcohol intoxication and wanting detox. She is been to detox numerous times, reports that she went to detox again today. She is feeling anxious and nauseous. She has no other complaints. She reports that she tried calling detox a couple of times but that you must be inpatient in the ED in order for them to accept you. She is no thoughts of suicide or homicide. Related Data Home Medications Medication Instructions Recorded Confirmed hydroxyzine HCl 50 mg tablet 50 mg PO PRN PRN Anxiety 10/24/22 11/20/22 quetiapine 300 mg tablet 300 mg PO DAILY 10/24/22 11/20/22 Previous Rx's Medication Instructions Recorded famotidine 40 mg tablet (Pepcid) 40 mg PO DAILY #7 tabs 01/19/23 prednisone 50 mg tablet 50 mg PO DAILY #5 tabs 01/19/23 quetiapine 300 mg tablet 300 mg PO DAILY #30 tabs 02/26/23 Allergies Allergy/AdvReac Type Severity Reaction Status Date / Time metoclopramide Allergy Mild RASH/HIVES Verified 04/27/23 18:36 [METOCLOPRAMIDE] hydrocodone [HYDROCODONE] AdvReac Unknown VOMITING Verified 04/27/23 18:36 Review of Systems Review of Systems ROS Unobtainable: All systems reviewed & are unremarkable except as noted in HPI and below Patient History Medical History Alcohol withdrawal delirium, acute, hyperactive Anemia (~2017) Insomnia Menometrorrhagia (spontaneous vaginal delivery) (~12/17/18) Surgical History H/O dilation and curettage (~03/27/17) H/O wisdom tooth extraction (~2013) S/P myringotomy with insertion of tube Family History Mother Diabetes mellitus Overweight Father Alcoholism Grandfather Unknown whether patient has any health problems Grandmother Diabetes mellitus Smoker Family/Other Diabetes mellitus Obesity Family/Other Alcoholism Grandfather Smoker Alcoholism Grandmother Hypoglycemia Social History marital status: number of children: 1 household members: significant other education level: college occupational status: employed current occupational exposures/hazards: Yes (obvious risk with Pandemic ) 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[employer] special nidhi needs: No Smoking Status: Former smoker second hand exposure: No (growing up as a child - not currently) alcohol intake: current substance use type: does not use Smoking Status: Former smoker alcohol intake frequency: other Substance Use Type: does not use Exam Initial Vital Signs Initial Vital Signs: Vital Signs Pulse Rate 92 H 04/27/23 18:21 Blood Pressure 113/78 04/27/23 18:21 Pulse Oximetry 98 04/27/23 18:21 GENERAL: Alert intoxicated 33-year-old female no acute distress awake alert oriented HEENT: Head atraumatic,EOMI, pupils reactive, face symmetric, moist mucous membranes CARDIOVASCULAR: Regular rate and rhythm without murmurs, rubs or gallops. RESPIRATORY: Breath sounds equal bilaterally, no wheezes rales or rhonchi. ABDOMEN: Soft, nontender. Normoactive bowel sounds all 4 quadrants. No guarding or rebound. EXTREMITIES: Normal range of motion, no clubbing or edema. Neurovascularly intact NEUROLOGICAL: Alert and oriented x4. SKIN: Warm, dry, no laceration, no petechiae, no rashes or lesions. 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 - [employer] Stat 04/27/23 19:30 COVID19 -Nasal RAPID Stat 04/27/23 19:57 Urine Drug Screen, Rapid Stat Discontinued Medications Lorazepam (Lorazepam 2 Mg/Ml Inj) 1 mg IV NOW ONE Stop: 04/27/23 18:50 Last Admin: 04/27/23 19:46 Dose: Not Given Documented By: BS Lorazepam (Lorazepam 0.5 Mg Tablet) 1 mg PO NOW ONE Stop: 04/27/23 19:45 Last Admin: 04/27/23 19:48 Dose: 1 mg Documented By: LENO Ondansetron HCl (Ondansetron 4 Mg/2 Ml Inj) 4 mg IV NOW ONE Stop: 04/27/23 18:50 Last Admin: 04/27/23 19:46 Dose: Not Given Documented By: BS Ondansetron HCl (Ondansetron 4 Mg Odt) 4 mg SL NOW ONE Stop: 04/27/23 19:45 Last Admin: 04/27/23 19:48 Dose: 4 mg Documented By: LENO Vital Signs Vital signs: Vital Signs - 8 hr 04/27/23 20:00 Pulse Rate 90 Pulse Oximetry 100 MDM - Alcohol Lab Data 04/27/23 18:34 04/27/23 18:34 Labs: Lab Results 04/27/23 04/27/23 04/27/23 Range/Units 18:34 18:34 18:34 WBC 2.9 L (4.5-11.0) X10^3/uL RBC 3.98 L (4.0-5.2) X10^6/uL Hgb 10.0 L (12.0-16.0) g/dL Hct 30.4 L (36-46) % MCV 76.4 L (80-100) fL MCH 25.1 L (26-34) PG MCHC 32.8 (30-36) % RDW 16.2 H (11.6-14.8) % Plt Count 277 (150-400) X10^3/uL Neut % (Auto) 44.5 L (50-75) % Lymph % (Auto) 45.4 H (25-40) % [place] % (Auto) 7.0 (3-14) % Eos % (Auto) 0.7 L (2-4) % Baso % (Auto) 2.4 H (0-2) % Neut # (Auto) 1300 L (8073-9995) /uL Lymph # (Auto) 1300 (7329-3269) /uL [place] # (Auto) 200 (0-900) /uL Eos # (Auto) 0 (0-450) /uL Baso # (Auto) 100 (0-100) /uL Sodium 147 H (137-145) mmol/L Potassium 3.6 (3.4-5.1) mmol/L Chloride 111 H (98-107) mmol/L Carbon Dioxide 26 (22-32) mmol/L BUN 5 L (7-17) mg/dL Creatinine 0.80 (0.52-1.04) mg/dL Estimated GFR > 60 (>60) mL/min BUN/Creatinine Ratio 6.3 (6-22) Glucose 105 H (70-100) mg/dL Calcium 8.2 L (8.4-10.2) mg/dL Total Bilirubin 0.2 (0.2-1.3) mg/dL AST 30 (14-36) IU/L ALT 10 (<35) IU/L Alkaline Phosphatase 58 (38-126) U/L Total Protein 6.9 (6.3-8.2) g/dL Albumin 4.1 (3.5-5.0) g/dL Globulin 2.8 (1.7-4.1) g/dL Albumin/Globulin Ratio 1.5 (1.0-2.8) TSH 1.17 (0.47-4.68) uIU/mL Free T4 0.76 L (0.78-2.19) ng/dL Salicylates < 1.0 (<20) mg/dL U Opiates 300ng/mL cut (Negative) Ur Oxycodone Screen (Negative) Urine Methadone Screen (Negative) Acetaminophen < 10 (10-30) ug/mL Ur Barbiturates Screen (Negative) U Tricyclic Antidepress (Negative) Ur Phencyclidine Scrn (Negative) Ur Amphetamines Screen (Negative) U Methamphetamines Scrn (Negative) Ur MDMA Scrn (Ecstasy) (Negative) U Benzodiazepines Scrn (Negative) Urine Cocaine Screen (Negative) U Marijuana (THC) Screen (Negative) Ethyl Alcohol 382 H ( - 10) mg/dL SARS-CoV-2 (PCR) (Negative) 04/27/23 04/27/23 Range/Units 19:30 19:57 WBC (4.5-11.0) X10^3/uL RBC (4.0-5.2) X10^6/uL Hgb (12.0-16.0) g/dL Hct (36-46) % MCV (80-100) fL MCH (26-34) PG MCHC (30-36) % RDW (11.6-14.8) % Plt Count (150-400) X10^3/uL Neut % (Auto) (50-75) % Lymph % (Auto) (25-40) % [place] % (Auto) (3-14) % Eos % (Auto) (2-4) % Baso % (Auto) (0-2) % Neut # (Auto) (8791-1314) /uL Lymph # (Auto) (6182-3821) /uL [place] # (Auto) (0-900) /uL Eos # (Auto) (0-450) /uL Baso # (Auto) (0-100) /uL Sodium (137-145) mmol/L Potassium (3.4-5.1) mmol/L Chloride (98-107) mmol/L Carbon Dioxide (22-32) mmol/L BUN (7-17) mg/dL Creatinine (0.52-1.04) mg/dL Estimated GFR (>60) mL/min BUN/Creatinine Ratio (6-22) Glucose (70-100) mg/dL Calcium (8.4-10.2) mg/dL Total Bilirubin (0.2-1.3) mg/dL AST (14-36) IU/L ALT (<35) IU/L Alkaline Phosphatase (38-126) U/L Total Protein (6.3-8.2) g/dL Albumin (3.5-5.0) g/dL Globulin (1.7-4.1) g/dL Albumin/Globulin Ratio (1.0-2.8) TSH (0.47-4.68) uIU/mL Free T4 (0.78-2.19) ng/dL Salicylates (<20) mg/dL U Opiates 300ng/mL cut Negative (Negative) Ur Oxycodone Screen Negative (Negative) Urine Methadone Screen Negative (Negative) Acetaminophen (10-30) ug/mL Ur Barbiturates Screen Negative (Negative) U Tricyclic Antidepress Positive H (Negative) Ur Phencyclidine Scrn Negative (Negative) Ur Amphetamines Screen Negative (Negative) U Methamphetamines Scrn Negative (Negative) Ur MDMA Scrn (Ecstasy) Negative (Negative) U Benzodiazepines Scrn Negative (Negative) Urine Cocaine Screen Negative (Negative) U Marijuana (THC) Screen Negative (Negative) Ethyl Alcohol ( - 10) mg/dL SARS-CoV-2 (PCR) Negative (Negative) Point of Care Testing Test Results Negative Urine Dip Bedside Urine Glucose Negative Bedside Urine Bilirubin - Negative Bedside Urine Ketone - Negative Urine Specific [place] 1.010 Bedside Urine Occult Blood - Negative Bedside Urine pH 6.0 Bedside Urine Protein - Negative Bedside Urine Urobilinogen - Negative Bedside Urine Nitrite - Negative Bedside Urine Leukocytes - Negative Esterase [facility] Narrative Medical decision making narrative: Patient 33-year-old female with known alcohol abuse presenting today with intoxication. She denies any thoughts of self-harm. 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 She knows all about resources she is actually been to detox many times. This time though her alcohol level is 382, she has a steady gait. Social work initially went in there really did not find a need she has multiple resources not wanting to go to detox today. Discussed going from an outpatient Labs have been reviewed sodium mildly elevated at 147 without evidence of MIKAYLA. No need for imaging Patient has a ride at bedside no need for any further workup or evaluation. Discharge Plan Departure Patient Disposition: Home Clinical Impression: Alcohol intoxication Instructions: DI for Alcohol Use Disorder Activity Restrictions/Additional Instructions: *You have been diagnosed with alcohol intoxication *What to do: I strongly suggest long-term rehab placement for you. *Continue to take medications as directed *Follow up with your primary care provider in 2-3 days or call [phone] *Return to ER if you should have or any new, worsening or concerning symptoms Prescriptions: No Action hydroxyzine HCl 50 mg tablet 50 mg PO PRN PRN (Reason: Anxiety) quetiapine 300 mg tablet 300 mg PO DAILY prednisone 50 mg tablet 50 mg PO DAILY Qty: 5 0RF famotidine [Pepcid] 40 mg tablet 40 mg PO DAILY Qty: 7 0RF quetiapine 300 mg tablet 300 mg PO DAILY Qty: 30 0RF Referrals: Hanna Roper MD [Primary Care Provider] - Stand Alone Forms: Patient Portal/API
[2023-04-27 18:44] LABS: Add Manual Diff / Slide Review NO; Basophils Absolute Auto 100 /uL (0-100); Basophils Percent Auto 2.4 % (0-2); Eosinophils Absolute Auto 0 /uL (0-450); Eosinophils Percent Auto 0.7 % (2-4); Hematocrit 30.4 % (36-46); Lymphocytes Absolute Auto 1300 /uL (1100-4500); Lymphocytes Percent Auto 45.4 % (25-40); Mean Corpuscular HGB Conc 32.8 % (30-36); Mean Corpuscular Hemoglobin 25.1 PG (26-34); Mean Corpuscular Volume 76.4 fL (80-100); Monocytes Absolute Auto 200 /uL (0-900); Neutrophils Absolute Auto 1300 /uL (1500-7000); Neutrophils Percent Auto 44.5 % (50-75); Platelet Count 277 X10^3/uL (150-400); Red Blood Cell Count 3.98 X10^6/uL (4.0-5.2); Red Cell Distribution Width 16.2 % (11.6-14.8); White Blood Cell Count 2.9 X10^3/uL (4.5-11.0)
[2023-04-27 19:00] LABS: Acetaminophen < 10 ug/mL (10-30); Alanine Aminotransferase 10 IU/L (<35); Albumin 4.1 g/dL (3.5-5.0); Albumin Globulin Ratio 1.5 (1.0-2.8); Alkaline Phosphatase 58 U/L (38-126); Aspartate Aminotransferase 30 IU/L (14-36); BUN Creatinine Ratio 6.3 (6-22); Bilirubin Total 0.2 mg/dL (0.2-1.3); Blood Urea Nitrogen 5 mg/dL (7-17); Calcium 8.2 mg/dL (8.4-10.2); Carbon Dioxide 26 mmol/L (22-32); Chloride 111 mmol/L (98-107); Estimated Glomerular Filt Rate > 60 mL/min (>60); Globulin 2.8 g/dL (1.7-4.1); Glucose 105 mg/dL (70-100); HEMOLYSIS < 15 (0-50); Potassium 3.6 mmol/L (3.4-5.1); Salicylate < 1.0 mg/dL (<20); Sodium 147 mmol/L (137-145); Total Protein 6.9 g/dL (6.3-8.2)
[2023-04-27 19:08] LABS: Ethanol (ETOH) 382 mg/dL
[2023-04-27 19:23] LABS: Free T4, Direct Thyroxine 0.76 ng/dL (0.78-2.19)
[2023-04-27 19:37] LABS: Thyroid Stimulating Hormone 1.17 uIU/mL (0.47-4.68)
[2023-04-27] MEDS: ONDANSETRON 4 MG ODT SL (19:48)
[2023-04-27] MEDS: LORazepam 0.5 MG TABLET 1 MG PO (19:48)
[2023-04-27 19:56] LABS: COVID19 -Nasal RAPID Negative (Negative)
[2023-04-27 20:33] LABS: UR Morphine/Opiate cutoff 300 Negative (Negative); Ur Creatinine Normal (Normal); Ur Specific Gravity Normal (Normal); Urine Amphetamines Negative (Negative); Urine Barbiturates Negative (Negative); Urine Benzodiazepines Negative (Negative); Urine Cocaine Negative (Negative); Urine MDMA Negative (Negative); Urine Methadone Negative (Negative); Urine Methamphetamines Negative (Negative); Urine Oxycodone Negative (Negative); Urine Phencyclidine Negative (Negative); Urine Tetrahydrocannabinol Negative (Negative); Urine Tricyclic Antidepressant Positive (Negative); Urine pH Normal (Normal)
== END 2023-04-27 20:29 | disposition home or self-care (01) ==
PROVIDERS: Emergency Provider Emergency Medicine; PCP Student in an Organized Health Care Education/Training Program
DX: F10.129 Alcohol abuse with intoxication, unspecified (principal); Y90.8 Blood alcohol level of 240 mg/100 ml or more; Z20.822 Contact with and (suspected) exposure to COVID-19
CPT/HCPCS: 36415; 80053; 80305; 80320; 80329; 81003; 81025; 84439; 84443; 85025; 87635; 99283; C9803; G0480; J2060; J2405